=== PATIENT | male | born 1955 | race Caucasian/White ===

== ENCOUNTER 2016-11-10 10:57 | Day surgery (SDC) | payer MEDICARE, SELFPAY ==
[2016-11-07 14:30] VITALS: BMI 42.5
[~2016-11-10 10:57] MED LIST: LACTATED RINGERS 1,000 ML IV SCH; LIDOCAINE 1% 20 ML VIAL (10MG/ML) FOR IV START INTRADERMA PRN
[2016-11-10] MEDS ORDERED: LIDOCAINE 1% 20 ML VIAL (10MG/ML) FOR IV START INTRADERMA ONE (11:41)
[2016-11-10 11:57] VITALS: RESP 16; TEMP 97.8
[2016-11-10 12:01] LABS: Glucose,Whole Blood 137 mg/dL (75-99)
[2016-11-10] MEDS ORDERED: MIDAZOLAM 2 MG/2 ML VIAL ONE (12:26)
[2016-11-10] MEDS ORDERED: fentaNYL (PF) 50 MCG/ML 2 ML AMP ONE (12:26)
[2016-11-10] MEDS ORDERED: PROPOFOL 10 MG/ML 20 ML VIAL IV ONE (12:26)
[2016-11-10] MEDS ORDERED: LIDOCAINE 1% INJ 10MG/ML (20 ML MDV) ONE (12:26)
--- NOTE | 2016-11-10 12:30 | P.GSHP ---
History of Present Illness H&P Date: 11/10/16 Chief Complaint: GI bleed This is a 61-year-old male for from Dr. Huong Higgins. Patient presents today for colonoscopy. He's had issues rectal bleeding. - Constitutional Constitutional: Reports as per HPI Past Medical History Past Medical History: Coronary Artery Disease (CAD), Diabetes Mellitus, Hyperlipidemia, Hypertension, Myocardial Infarction (HI), Pulmonary Embolus (PE) , Seizure Disorder Additional Past Medical History / Comment(s): newly diagnosed PE 09/29/16 Last Myocardial Infarction Date:: 2012 History of Any Multi-Drug Resistant Organisms: None Reported Past Surgical History: Ear Surgery, Heart Catheterization With Stent, Hernia Repair Additional Past Surgical History / Comment(s): stent x3 Past Anesthesia/Blood Transfusion Reactions: Previous Problems w/ Anesthesia Additional Past Anesthesia/Blood Transfusion Reaction / Comment(s): "fights anesthesia" Date of Last Stent Placement:: January 2013 Past Psychological History: No Psychological Hx Reported Smoking Status: Former smoker Past Alcohol Use History: None Reported Additional Past Alcohol Use History / Comment(s): quit smoking 1984, smoked 3ppd , started age 17 Past Drug Use History: None Reported - Past Family History Mother Family Medical History: Cancer Additional Family Medical History / Comment(s): Lung cancer Father Family Medical History: Cancer Additional Family Medical History / Comment(s): Spinal Cancer Medications and Allergies Home Medications Medication Instructions Recorded Confirmed Type Ibuprofen [Motrin] 800 mg PO Q6HR PRN 04/23/15 11/07/16 History Simvastatin [Zocor] 80 mg PO HS 04/23/15 11/10/16 History metFORMIN HCL 1,000 mg PO BID 04/23/15 11/10/16 History Fluticasone Nasal [place] [Flonase 1 spray EA NOSTRIL DAILY PRN 03/03/16 11/10/16 History Nasal [place]] Vitamin B Complex 1 cap PO DAILY 03/03/16 11/07/16 History Vitamin E (Dl,Tocopheryl Acet) 400 unit PO DAILY 03/03/16 11/07/16 History [Vitamin E] Coconut Oil Capsule 1 cap PO DAILY 09/29/16 11/07/16 History Ferrous Sulfate [Feosol] 325 mg PO DAILY 09/29/16 11/07/16 History Allergies Allergy/AdvReac Type Severity Reaction Status Date / Time Sulfa (Sulfonamide Allergy Rash/Hives Verified 11/10/16 11:43 Antibiotics) Surgical - Exam Vital Signs Temp Pulse Resp BP Pulse Ox 97.8 F 85 16 131/67 95 11/10/16 11:55 11/10/16 11:55 11/10/16 11:55 11/10/16 11:55 11/10/16 11:55 - General well developed, no distress - Eyes PERRL - ENT normal pinna - Neck no masses - Respiratory normal expansion - Cardiovascular Rhythm: regular - Abdomen Abdomen: soft, non tender Results - Labs Abnormal Lab Results - Last 24 Hours (Table) 11/10/16 Range/Units 11:52 POC Glucose (mg/dL) 137 H (75-99) mg/dL Assessment and Plan Plan: GI bleed. We'll perform colonoscopy.
--- NOTE | 2016-11-10 12:48 | P.OP ---
Date of Procedure: 11/10/16 Preoperative Diagnosis: GI bleed Postoperative Diagnosis: External hemorrhoids Sigmoid colon polyp Procedure(s) Performed: Colonoscopy Anesthesia: MAC Surgeon: Carmelo Palmer Pathology: other (Left Colon polyp) Condition: stable Disposition: PACU Description of Procedure: The patient's placed on the endoscopy table in the lateral position. He received IV sedation. Digital rectal exam was performed which revealed external hemorrhoids. The prostate was symmetric without nodules. The flexible colonoscope was then placed patient anus passed throughout the entire colon. The ileocecal valve visualized. The cecum, ascending and transverse colon appeared normal. In the descending colon there was a small polyp seen was removed the forcep. The sigmoid colon appeared normal. Scope was then brought back the rectum and this appeared normal. Scope was withdrawn.
[2016-11-10 13:19] VITALS: BP 109/68; PULSE 75
== END 2016-11-10 14:01 | disposition home or self-care (01) ==
LOC: ORWHC2ENDO 10:57
PROVIDERS: ATTEND Surgery
DX: K63.5 Polyp of colon (principal); K63.89 Other specified diseases of intestine; K64.4 Residual hemorrhoidal skin tags; E11.9 Type 2 diabetes mellitus without complications; Z79.84 Long term (current) use of oral hypoglycemic drugs; I10 Essential (primary) hypertension; E78.5 Hyperlipidemia, unspecified; I25.10 Atherosclerotic heart disease of native coronary artery without angina pectoris; Z87.891 Personal history of nicotine dependence; Z86.711 Personal history of pulmonary embolism; Z79.01 Long term (current) use of anticoagulants; I25.2 Old myocardial infarction; Z79.899 Other long term (current) drug therapy; Z88.2 Allergy status to sulfonamides
CPT/HCPCS: 88305; 88313; 45380; J2250; J2001; J3010; J2704; 99153

== ENCOUNTER → 2017-12-21 | Outpatient (CLI) | payer MEDICARE ==
--- NOTE | 2017-12-21 15:12 | CT ---
EXAMINATION TYPE: CT sinus wo con DATE OF EXAM: 12/21/2017 COMPARISON: NONE HISTORY: sinusitis CT DLP: 618.1 mGycm CONTRAST: None The paranasal sinuses are examined in the axial plane at 2 mm thick sections. Reconstructed images i n the coronal plane were obtained. There is a retention cyst within right maxillary sinus. A retention cyst or polyp extends from the me dial wall of the left maxillary sinus. Bilateral joel bullosa are present. The ethmoid air cells a re clear. The sphenoid sinuses are clear. The frontal sinuses are clear. There appears to be a lar ge James air cell on the right. No obstruction of the hiatus semilunaris is evident. The septum is evaluated. There is septal deviation to the left. The ostiomeatal units are patent. Hyperostosis frontalis internus, normal variant, is present. IMPRESSIONS: 1. Small bilateral retention cysts within the maxillary sinuses.
== END | disposition home or self-care (01) ==
LOC: RADCTMAIN 14:38
PROVIDERS: ATTEND Otolaryngology
DX: J34.1 Cyst and mucocele of nose and nasal sinus (principal)
CPT/HCPCS: 70486

== ENCOUNTER 2019-07-17 06:12 | Observation (INO) | payer MEDICARE, OTHER ==
[2019-07-17] MEDS ORDERED: SODIUM CHLORIDE 0.9% 1,000 ML IV ONE (06:32)
--- NOTE | 2019-07-17 06:36 | ED ---
Altered Mental Status HPI - General Chief Complaint: Altered Mental Status Stated Complaint: Altered Mental Status Time Seen by Provider: 07/17/19 06:21 Source: patient, family, RN notes reviewed Mode of arrival: wheelchair Limitations: altered mental status - History of Present Illness Initial Comments: This a 63-year-old male presents emergency Department with chief complaint of confusion, fatigue. states that he got home from work on Thursday and he's been extremely fatigued states that his been sleeping more than usual along with he's had increased cough congestion. Patient himself to states he is tired he does have slight cough and a mild headache. Patient reportedly was very disoriented this morning he attempted to get up out of bed cannot find himself out of the his own bedroom and urinated on the floor. Patient has no complaints of abdominal pain does complain of some chest discomfort he has had some cardiac issues in the past doesn't have a history of hypertension hyperlipidemia and diabetes. Patient denies any back pain, leg discomfort, focal weakness. - Related Data Home Medications Medication Instructions Recorded Confirmed Ibuprofen [Motrin] 800 mg PO Q6HR PRN 04/23/15 07/17/19 metFORMIN HCL 1,000 mg PO BID 04/23/15 07/17/19 Fluticasone Nasal [place] [Flonase 1 spray EA NOSTRIL DAILY PRN 03/03/16 07/17/19 Nasal [place]] Vitamin B Complex 1 cap PO DAILY 03/03/16 07/17/19 Vitamin E (Dl,Tocopheryl Acet) 400 unit PO DAILY 03/03/16 07/17/19 [Vitamin E] Ferrous Sulfate [Feosol] 325 mg PO MOWEFR 09/29/16 07/17/19 Ascorbic Acid [Vitamin C] 1,000 mg PO BID 07/17/19 07/17/19 Atorvastatin [Lipitor] 40 mg PO HS 07/17/19 07/17/19 Cholecalciferol [Vitamin D3 (25 1,000 unit PO BID 07/17/19 07/17/19 Mcg = 1000 Iu)] Lisinopril [Zestril] 5 mg PO DAILY 07/17/19 07/17/19 Metoprolol Tartrate [Lopressor] 25 mg PO DAILY 07/17/19 07/17/19 Prasugrel HCl 10 mg PO DAILY 07/17/19 07/17/19 Previous Rx's Medication Instructions Recorded Aspirin 81 mg PO DAILY #30 chewable 09/30/16 Allergies Allergy/AdvReac Type Severity Reaction Status Date / Time Sulfa (Sulfonamide Allergy Rash/Hives Verified 07/17/19 08:00 Antibiotics) Review of Systems ROS Statement: Those systems with pertinent positive or pertinent negative responses have been documented in the HPI. ROS Other: All systems not noted in ROS Statement are negative. Past Medical History Past Medical History: Coronary Artery Disease (CAD), Diabetes Mellitus, Hyperlipidemia, Hypertension, Myocardial Infarction ([place]), Pulmonary Embolus (PE), Seizure Disorder Additional Past Medical History / Comment(s): newly diagnosed PE 09/29/16 Last Myocardial Infarction Date:: 2012 History of Any Multi-Drug Resistant Organisms: None Reported Past Surgical History: Ear Surgery, Heart Catheterization With Stent, Hernia Repair Additional Past Surgical History / Comment(s): stent x3 Past Anesthesia/Blood Transfusion Reactions: Previous Problems w/ Anesthesia Additional Past Anesthesia/Blood Transfusion Reaction / Comment(s): "fights anesthesia" Date of Last Stent Placement:: January 2013 Past Psychological History: No Psychological Hx Reported Smoking Status: Former smoker Past Alcohol Use History: None Reported Past Drug Use History: None Reported - Past Family History Mother Family Medical History: Cancer Additional Family Medical History / Comment(s): Lung cancer Father Family Medical History: Cancer Additional Family Medical History / Comment(s): Spinal Cancer General Exam Limitations: altered mental status General appearance: alert, in no apparent distress Head exam: Present: atraumatic, normocephalic, normal inspection Eye exam: Present: normal appearance, PERRL, EOMI. Absent: scleral icterus, conjunctival injection, periorbital swelling ENT exam: Present: normal exam, normal oropharynx, mucous membranes moist Neck exam: Present: normal inspection, full ROM. Absent: tenderness, meningismus, lymphadenopathy Respiratory exam: Present: normal lung sounds bilaterally. Absent: respiratory distress, wheezes, rales, rhonchi, stridor Cardiovascular Exam: Present: regular rate, normal rhythm, normal heart sounds. Absent: systolic murmur, diastolic murmur, rubs, gallop, clicks GI/Abdominal exam: Present: soft, normal bowel sounds. Absent: distended, tenderness, guarding, rebound, rigid Neurological exam: Present: alert, oriented X3, CN II-XII intact, reflexes normal, other (Finger to nose intact bilaterally without overshooting). Absent: motor sensory deficit Skin exam: Present: warm, dry, intact, normal color. Absent: rash Course Vital Signs 07/17/19 06:13 Temperature 98.0 F Pulse Rate 82 Respiratory 20 Rate Blood Pressure 131/80 O2 Sat by Pulse 96 Oximetry - Reevaluation(s) Reevaluation #1: 07/17/19 09:08 Did reevaluate the patient and their results. Patient still is very fatigued, not his usual self he still complains of cough congestion. Chest x-ray was reviewed showed possibility of infection. I did question patient further regarding his history of seizures in which his did state that he had a seizure this morning. Patient was instructed that he cannot drive for 6 months and and to cleared by neurology. Medical Decision Making - Medical Decision Making 63-year-old male presented for altered mental status, cough congestion fatigue. Patient workup including chest x-ray, CT and labs essentially unremarkable though patient has very started, altered at times. Patient will be admitted concerning her back for possible Pneumonia. Patient will have further evaluation and return parameters discussed. - Lab Data Result diagrams: 07/17/19 07:20 07/17/19 07:20 Lab Results 07/17/19 07/17/19 07/17/19 Range/Units 06:56 07:20 07:20 WBC 10.2 (3.8-10.6) k/uL RBC 4.35 (4.30-5.90) m/uL Hgb 13.6 (13.0-17.5) gm/dL Hct 40.6 (39.0-53.0) % MCV 93.5 (80.0-100.0) fL MCH 31.2 (25.0-35.0) pg MCHC 33.4 (31.0-37.0) g/dL RDW 13.3 (11.5-15.5) % Plt Count 148 L (150-450) k/uL Neutrophils % 83 % Lymphocytes % 9 % Monocytes % 4 % Eosinophils % 3 % Basophils % 0 % Neutrophils # 8.4 H (1.3-7.7) k/uL Lymphocytes # 0.9 L (1.0-4.8) k/uL Monocytes # 0.4 (0-1.0) k/uL Eosinophils # 0.3 (0-0.7) k/uL Basophils # 0.0 (0-0.2) k/uL PT (9.0-12.0) sec INR (<1.2) APTT (22.0-30.0) sec Sodium (137-145) mmol/L Potassium (3.5-5.1) mmol/L Chloride (98-107) mmol/L Carbon Dioxide (22-30) mmol/L Anion Gap mmol/L BUN (9-20) mg/dL Creatinine (0.66-1.25) mg/dL Est GFR (CKD-EPI)AfAm (>60 ml/min/1.73 sqM) Est GFR (CKD-EPI)NonAf (>60 ml/min/1.73 sqM) Glucose (74-99) mg/dL POC Glucose (mg/dL) 131 H (75-99) mg/dL POC Glu Scroll Assembler ID Mirela Trevino Plasma Lactic Acid Levi 1.4 (0.7-2.0) mmol/L Calcium (8.4-10.2) mg/dL Total Bilirubin (0.2-1.3) mg/dL AST (17-59) U/L ALT (21-72) U/L Alkaline Phosphatase (38-126) U/L Ammonia <9 (<30) umol/L Troponin I (0.000-0.034) ng/mL Total Protein (6.3-8.2) g/dL Albumin (3.5-5.0) g/dL Urine Color Urine Appearance (Clear) Urine pH (5.0-8.0) Ur Specific [place] (1.001-1.035) Urine Protein (Negative) Urine Glucose (UA) (Negative) Urine Ketones (Negative) Urine Blood (Negative) Urine Nitrite (Negative) Urine Bilirubin (Negative) Urine Urobilinogen (<2.0) mg/dL Ur Leukocyte Esterase (Negative) Urine RBC (0-5) /hpf Urine WBC (0-5) /hpf Ur Squamous Epith Cells (0-4) /hpf Amorphous Sediment (None) /hpf Urine Mucus (None) /hpf 07/17/19 07/17/19 07/17/19 Range/Units 07:20 07:20 07:20 WBC (3.8-10.6) k/uL RBC (4.30-5.90) m/uL Hgb (13.0-17.5) gm/dL Hct (39.0-53.0) % MCV (80.0-100.0) fL MCH (25.0-35.0) pg MCHC (31.0-37.0) g/dL RDW (11.5-15.5) % Plt Count (150-450) k/uL Neutrophils % % Lymphocytes % % Monocytes % % Eosinophils % % Basophils % % Neutrophils # (1.3-7.7) k/uL Lymphocytes # (1.0-4.8) k/uL Monocytes # (0-1.0) k/uL Eosinophils # (0-0.7) k/uL Basophils # (0-0.2) k/uL PT 10.3 (9.0-12.0) sec INR 1.0 (<1.2) APTT 22.7 (22.0-30.0) sec Sodium 144 (137-145) mmol/L Potassium 4.1 (3.5-5.1) mmol/L Chloride 111 H (98-107) mmol/L Carbon Dioxide 26 (22-30) mmol/L Anion Gap 7 mmol/L BUN 18 (9-20) mg/dL Creatinine 0.71 (0.66-1.25) mg/dL Est GFR (CKD-EPI)AfAm >90 (>60 ml/min/1.73 sqM) Est GFR (CKD-EPI)NonAf >90 (>60 ml/min/1.73 sqM) Glucose 120 H (74-99) mg/dL POC Glucose (mg/dL) (75-99) mg/dL POC Glu Scroll Assembler ID Plasma Lactic Acid Levi (0.7-2.0) mmol/L Calcium 9.5 (8.4-10.2) mg/dL Total Bilirubin 0.7 (0.2-1.3) mg/dL AST 35 (17-59) U/L ALT 39 (21-72) U/L Alkaline Phosphatase 82 (38-126) U/L Ammonia (<30) umol/L Troponin I <0.012 (0.000-0.034) ng/mL Total Protein 6.6 (6.3-8.2) g/dL Albumin 4.1 (3.5-5.0) g/dL Urine Color Urine Appearance (Clear) Urine pH (5.0-8.0) Ur Specific [place] (1.001-1.035) Urine Protein (Negative) Urine Glucose (UA) (Negative) Urine Ketones (Negative) Urine Blood (Negative) Urine Nitrite (Negative) Urine Bilirubin (Negative) Urine Urobilinogen (<2.0) mg/dL Ur Leukocyte Esterase (Negative) Urine RBC (0-5) /hpf Urine WBC (0-5) /hpf Ur Squamous Epith Cells (0-4) /hpf Amorphous Sediment (None) /hpf Urine Mucus (None) /hpf 07/17/19 Range/Units 08:30 WBC (3.8-10.6) k/uL RBC (4.30-5.90) m/uL Hgb (13.0-17.5) gm/dL Hct (39.0-53.0) % MCV (80.0-100.0) fL MCH (25.0-35.0) pg MCHC (31.0-37.0) g/dL RDW (11.5-15.5) % Plt Count (150-450) k/uL Neutrophils % % Lymphocytes % % Monocytes % % Eosinophils % % Basophils % % Neutrophils # (1.3-7.7) k/uL Lymphocytes # (1.0-4.8) k/uL Monocytes # (0-1.0) k/uL Eosinophils # (0-0.7) k/uL Basophils # (0-0.2) k/uL PT (9.0-12.0) sec INR (<1.2) APTT (22.0-30.0) sec Sodium (137-145) mmol/L Potassium (3.5-5.1) mmol/L Chloride (98-107) mmol/L Carbon Dioxide (22-30) mmol/L Anion Gap mmol/L BUN (9-20) mg/dL Creatinine (0.66-1.25) mg/dL Est GFR (CKD-EPI)AfAm (>60 ml/min/1.73 sqM) Est GFR (CKD-EPI)NonAf (>60 ml/min/1.73 sqM) Glucose (74-99) mg/dL POC Glucose (mg/dL) (75-99) mg/dL POC Glu Scroll Assembler ID Plasma Lactic Acid [place] (0.7-2.0) mmol/L Calcium (8.4-10.2) mg/dL Total Bilirubin (0.2-1.3) mg/dL AST (17-59) U/L ALT (21-72) U/L Alkaline Phosphatase (38-126) U/L Ammonia (<30) umol/L Troponin I (0.000-0.034) ng/mL Total Protein (6.3-8.2) g/dL Albumin (3.5-5.0) g/dL Urine Color Yellow Urine Appearance Clear (Clear) Urine pH 5.5 (5.0-8.0) Ur Specific [place] 1.026 (1.001-1.035) Urine Protein 1+ H (Negative) Urine Glucose (UA) Negative (Negative) Urine Ketones 1+ H (Negative) Urine Blood Negative (Negative) Urine Nitrite Negative (Negative) Urine Bilirubin Negative (Negative) Urine Urobilinogen <2.0 (<2.0) mg/dL Ur Leukocyte Esterase Negative (Negative) Urine RBC <1 (0-5) /hpf Urine WBC 1 (0-5) /hpf Ur Squamous Epith Cells <1 (0-4) /hpf Amorphous Sediment Rare H (None) /hpf Urine Mucus Rare H (None) /hpf 07/17/19 09:12 EKG performed at 6:25 normal sinus rhythm rate of 83. 130/78 QTC is QTC 34/451 Disposition Clinical Impression: Lethargic, Altered mental status, Tracheobronchitis, History of seizure Disposition: ADMITTED IP TO THIS HOSP Condition: Fair Additional Instructions: Please return to the Emergency Department if symptoms worsen or any other concerns. Is patient prescribed a controlled substance at d/c from ED?: No Referrals: Huong Higgins DO [Primary Care Provider] - 1-2 days Time of Disposition: 09:13
[2019-07-17 06:59] LABS: Glucose,Whole Blood 131 mg/dL (75-99)
[2019-07-17 07:39] LABS: Basophils % (A) 0 %; Eosinophils # (A) 0.3 k/uL (0-0.7); Eosinophils % (A) 3 %; HCT 40.6 % (39.0-53.0); HGB 13.6 gm/dL (13.0-17.5); Lymphocytes # (A) 0.9 k/uL (1.0-4.8); Lymphocytes % (A) 9 %; MCH 31.2 pg (25.0-35.0); MCHC 33.4 g/dL (31.0-37.0); MCV 93.5 fL (80.0-100.0); Mean Platelet Volume 9.1; Monocytes # (A) 0.4 k/uL (0-1.0); Monocytes % (A) 4 %; Neutrophils # (A) 8.4 k/uL (1.3-7.7); Neutrophils % (A) 83 %; Platelet Count 148 k/uL (150-450); RBC 4.35 m/uL (4.30-5.90); RDW 13.3 % (11.5-15.5); WBC 10.2 k/uL (3.8-10.6)
[2019-07-17 07:51] LABS: Ammonia <9 umol/L (<30); Lactic Acid, Venous 1.4 mmol/L (0.7-2.0)
[2019-07-17 07:54] LABS: ALT 39 U/L (21-72); AST 35 U/L (17-59); African American GFR (CKD) >90 (>60 ml/min/1.73 sqM); Albumin 4.1 g/dL (3.5-5.0); Alkaline Phosphatase 82 U/L (38-126); Anion Gap 7 mmol/L; Blood Urea Nitrogen 18 mg/dL (9-20); Calcium 9.5 mg/dL (8.4-10.2); Carbon Dioxide 26 mmol/L (22-30); Chloride 111 mmol/L (98-107); Glucose 120 mg/dL (74-99); Potassium 4.1 mmol/L (3.5-5.1); Sodium 144 mmol/L (137-145); Total Bilirubin 0.7 mg/dL (0.2-1.3); Total Protein 6.6 g/dL (6.3-8.2)
[2019-07-17 07:59] LABS: Partial Thromboplastin Time 22.7 sec (22.0-30.0); Prothrombin Time 10.3 sec (9.0-12.0)
--- NOTE | 2019-07-17 08:21 | CT ---
EXAMINATION TYPE: CT brain wo con DATE OF EXAM: 07/17/2019 COMPARISON: Previous study dated 04/23/2015 HISTORY: altered mental status CT DLP: 1092.4 mGycm Automated exposure control for dose reduction was used. FINDINGS: There are mild, generalized changes of sulcal prominence and ventriculomegaly, compatible with mild a trophic change. There is diffuse periventricular white matter lucency, compatible with chronic white matter ischemic change. There is poor differentiation of the interface between the white and khan mat ter throughout the brain. This appears to change slightly from previous. This may, in part, be due to technique. There is no acute focal lesion, mass effect or midline shift identified. I do not see solomon dence of intracranial blood. There is mucoperiosteal thickening involving the posterior ethmoid sinuses on the right. The remainde r the paranasal sinuses and mastoids are clear. The bony calvarium is intact. IMPRESSION: 1. NO DEFINITE ACUTE INTRACRANIAL ABNORMALITY. 2. MILD DEGENERATIVE CHANGE. 3. LOSS OF KHAN-WHITE DIFFERENTIATION MAY BE IN PART TECHNICAL IN NATURE. THERE HAS BEEN NO CHANGE IN VENTRICULAR SIZE TO SUGGEST EDEMA.
--- NOTE | 2019-07-17 08:26 | XR ---
EXAMINATION TYPE: XR chest 2V DATE OF EXAM: 07/17/2019 HISTORY: altered mental status. REFERENCE: Previous study dated 09/29/2016. FINDINGS: The heart is mildly prominent. Is atelectatic change present at the lung bases. Pleural spa isael appear clear. IMPRESSION: 1. MILD CARDIOMEGALY. 2. BIBASILAR ATELECTASIS.
[2019-07-17 08:44] LABS: Amorphous Sediment,Urine Rare /hpf; Appearance,Urine Clear (Clear); Bilirubin,Urine Negative (Negative); Blood,Urine Negative (Negative); Color,Urine Yellow; Glucose,Urine (UA) Negative (Negative); Ketones,Urine 1+ (Negative); Leukocyte Esterase,Urine Negative (Negative); Mucus,Urine Rare /hpf; Nitrite,Urine Negative (Negative); PH, Urine 5.5 (5.0-8.0); Protein,Urine 1+ (Negative); RBC,Urine <1 /hpf (0-5); Specific Gravity,Urine 1.026 (1.001-1.035); Squamous Epithelial Cell,Urine <1 /hpf (0-4); Urobilinogen,Urine <2.0 mg/dL (<2.0); WBC,Urine 1 /hpf (0-5)
[2019-07-17] MEDS ORDERED: AZITHROMYCIN 500 MG in SODIUM CHLORIDE 0.9% 250 ML IVPB STA (09:12)
[2019-07-17] MEDS: SODIUM CHLORIDE 0.9% 1,000 ML IV SCH ×2 (11:40→23:07)
--- NOTE | 2019-07-17 13:52 | P.HPIM ---
History of Present Illness H&P Date: 07/17/19 63-year-old male presents emergency Department with chief complaint of confusion, fatigue. states that he got home from work on Thursday and he's been extremely fatigued states that his been sleeping more than usual along with he's had increased cough congestion. Patient himself to states he is tired he does have slight cough and a mild headache. Patient reportedly was very disoriented this morning he attempted to get up out of bed cannot find himself out of the his own bedroom and urinated on the floor. Patient has no complaints of abdominal pain does complain of some chest discomfort he has had some cardiac issues in the past doesn't have a history of hypertension hyperlipidemia and diabetes. Patient denies any back pain, leg discomfort, focal weakness. Workup in ED including, CT of the head and blood work was unremarkable; chest x- ray came back concerning for possible pneumonia versus severe tracheobronchitis; patient is admitted for further treatment and evaluation by neurology Review of Systems Constitutional: Denies chills, Denies fever Eyes: denies blurred vision Ears, nose, mouth and throat: Denies epistaxis Cardiovascular: Reports dyspnea on exertion, Denies chest pain Respiratory: Reports cough with sputum Gastrointestinal: Denies abdominal pain, Denies nausea, Denies vomiting Genitourinary: Denies dysuria, Denies hematuria Musculoskeletal: Denies frequent falls Integumentary: Denies change in hair/nails, Denies color changes Neurological: Reports confusion Psychiatric: Denies anxiety Endocrine: Denies cold intolerance, Denies heat intolerance Past Medical History Past Medical History: Coronary Artery Disease (CAD), Diabetes Mellitus, Hyperlipidemia, Hypertension, Myocardial Infarction (ND), Pulmonary Embolus (PE), Seizure Disorder Additional Past Medical History / Comment(s): newly diagnosed PE 09/29/16 Last Myocardial Infarction Date:: 2012 History of Any Multi-Drug Resistant Organisms: None Reported Past Surgical History: Ear Surgery, Heart Catheterization With Stent, Hernia Repair Additional Past Surgical History / Comment(s): stent x3 Past Anesthesia/Blood Transfusion Reactions: Previous Problems w/ Anesthesia Additional Past Anesthesia/Blood Transfusion Reaction / Comment(s): "fights anesthesia" Date of Last Stent Placement:: January 2013 Past Psychological History: No Psychological Hx Reported Smoking Status: Former smoker Past Alcohol Use History: None Reported Past Drug Use History: None Reported - Past Family History Mother Family Medical History: Cancer Additional Family Medical History / Comment(s): Lung cancer Father Family Medical History: Cancer Additional Family Medical History / Comment(s): Spinal Cancer Medications and Allergies Home Medications Medication Instructions Recorded Confirmed Type Ibuprofen [Motrin] 800 mg PO Q6HR PRN 04/23/15 07/17/19 History metFORMIN HCL 1,000 mg PO BID 04/23/15 07/17/19 History Fluticasone Nasal [place] [Flonase 1 spray EA NOSTRIL DAILY PRN 03/03/16 07/17/19 History Nasal [place]] Vitamin B Complex 1 cap PO DAILY 03/03/16 07/17/19 History Vitamin E (Dl,Tocopheryl Acet) 400 unit PO DAILY 03/03/16 07/17/19 History [Vitamin E] Ferrous Sulfate [Feosol] 325 mg PO MOWEFR 09/29/16 07/17/19 History Aspirin 81 mg PO DAILY #30 chewable 09/30/16 07/17/19 Rx Ascorbic Acid [Vitamin C] 1,000 mg PO BID 07/17/19 07/17/19 History Atorvastatin [Lipitor] 40 mg PO HS 07/17/19 07/17/19 History Cholecalciferol [Vitamin D3 (25 1,000 unit PO BID 07/17/19 07/17/19 History Mcg = 1000 Iu)] Lisinopril [Zestril] 5 mg PO DAILY 07/17/19 07/17/19 History Metoprolol Tartrate [Lopressor] 25 mg PO DAILY 07/17/19 07/17/19 History Prasugrel HCl 10 mg PO DAILY 07/17/19 07/17/19 History Allergies Allergy/AdvReac Type Severity Reaction Status Date / Time Sulfa (Sulfonamide Allergy Rash/Hives Verified 07/17/19 08:00 Antibiotics) Physical Exam Vitals: Vital Signs Temp Pulse Resp BP Pulse Ox 07/17/19 13:16 84 18 157/84 96 07/17/19 11:45 70 18 141/82 98 07/17/19 06:13 98.0 F 82 20 131/80 96 Intake and Output 07/16/19 07/17/19 07/17/19 22:59 06:59 14:59 Other: Weight 143.789 kg Limitations: altered mental status General appearance: alert, in no apparent distress Head exam: Present: atraumatic, normocephalic, normal inspection Eye exam: Present: normal appearance, PERRL, EOMI. Absent: scleral icterus, conjunctival injection, periorbital swelling ENT exam: Present: normal exam, normal oropharynx, mucous membranes moist Neck exam: Present: normal inspection, full ROM. Absent: tenderness, meningismus, lymphadenopathy Respiratory exam: Present: normal lung sounds bilaterally. Absent: respiratory distress, wheezes, rales, rhonchi, stridor Cardiovascular Exam: Present: regular rate, normal rhythm, normal heart sounds. Absent: systolic murmur, diastolic murmur, rubs, gallop, clicks GI/Abdominal exam: Present: soft, normal bowel sounds. Absent: distended, tenderness, guarding, rebound, rigid Neurological exam: Present: alert, oriented X3, CN II-XII intact, reflexes normal, other (Finger to nose intact bilaterally without overshooting). Absent: motor sensory deficit Skin exam: Present: warm, dry, intact, normal color. Absent: rash Results CBC & Chem 7: 07/17/19 07:20 07/17/19 07:20 Labs: Abnormal Lab Results - Last 24 Hours (Table) 07/17/19 07/17/19 07/17/19 Range/Units 06:56 07:20 07:20 Plt Count 148 L (150-450) k/uL Neutrophils # 8.4 H (1.3-7.7) k/uL Lymphocytes # 0.9 L (1.0-4.8) k/uL Chloride 111 H (98-107) mmol/L Glucose 120 H (74-99) mg/dL POC Glucose (mg/dL) 131 H (75-99) mg/dL Urine Protein (Negative) Urine Ketones (Negative) Amorphous Sediment (None) /hpf Urine Mucus (None) /hpf 07/17/19 Range/Units 08:30 Plt Count (150-450) k/uL Neutrophils # (1.3-7.7) k/uL Lymphocytes # (1.0-4.8) k/uL Chloride (98-107) mmol/L Glucose (74-99) mg/dL POC Glucose (mg/dL) (75-99) mg/dL Urine Protein 1+ H (Negative) Urine Ketones 1+ H (Negative) Amorphous Sediment Rare H (None) /hpf Urine Mucus Rare H (None) /hpf Assessment and Plan Assessment: 1. Severe tracheobronchitis versus community-acquired pneumonia - Patient is started on IV Rocephin and Zithromax in ED; we will continue to monitor CBC, pro-calcitonin and lactic acid levels - Order Mycoplasma antibodies and strep pneumonia antigens - Symptomatic treatment of pneumonia with nebulizer treatments and antitussive therapy 2. Altered mental status possibly secondary to 1 versus seizures versus other - CT of the head done in ED was unremarkable; patient does have history of seizures but has not been on any seizure medication - We will admit and monitor neuro checks; order seizure precautions; consult neurology for further recommendations 3. Hypertension; stable on home dose of lisinopril 5 mg daily along with Lopressor 25 mg daily 4. Hyperlipidemia; continue with home dose of Lipitor at 40 mg by mouth daily at bedtime 5. Diabetes mellitus type 2; metformin 1000 mg by mouth twice a day; monitor Accu-Cheks every 6 hours and at bedtime with insulin sliding scale 6. Obesity; counseling done on risks and necessity for weight reduction 7. DVT prophylaxis; subcutaneous Lovenox CODE STATUS; full code Time with Patient: Greater than 30
[2019-07-17] MEDS ORDERED: guaiFENesin-DM 600/30MG 1 EACH TAB.ER.12H PO PRN (13:57)
[2019-07-17] MEDS: DOXYCYCLINE 100 MG CAP PO SCH ×2 (14:20→20:38)
[2019-07-17] MEDS: metFORMIN 500 MG TAB PO SCH (17:09)
[2019-07-17] MEDS: ATORVASTATIN 40 MG TAB PO SCH (20:38)
[2019-07-17] MEDS: ASCORBIC ACID 500 MG TAB PO SCH (20:38)
[2019-07-17] MEDS: CHOLECALCIFEROL 1,000 UNIT TAB PO SCH (20:38)
[2019-07-18 07:12] LABS: Glucose,Whole Blood 97 mg/dL (75-99)
[2019-07-18 08:25] LABS: African American GFR (CKD) >90 (>60 ml/min/1.73 sqM); Anion Gap 8 mmol/L; Blood Urea Nitrogen 17 mg/dL (9-20); Calcium 8.8 mg/dL (8.4-10.2); Carbon Dioxide 22 mmol/L (22-30); Chloride 114 mmol/L (98-107); Glucose 88 mg/dL (74-99); Potassium 3.6 mmol/L (3.5-5.1); Sodium 144 mmol/L (137-145)
[2019-07-18] MEDS: METOPROLOL TARTRATE 25 MG TAB PO SCH (08:39)
[2019-07-18] MEDS: CHOLECALCIFEROL 1,000 UNIT TAB PO SCH ×2 (08:39→20:04)
[2019-07-18] MEDS: ASCORBIC ACID 500 MG TAB PO SCH ×2 (08:39→20:04)
[2019-07-18] MEDS: LISINOPRIL 5 MG TAB PO SCH (08:39)
[2019-07-18] MEDS: metFORMIN 500 MG TAB PO SCH ×2 (08:39→17:02)
[2019-07-18] MEDS: PRASUGREL 10 MG TAB PO SCH (08:39)
[2019-07-18] MEDS: DOXYCYCLINE 100 MG CAP PO SCH ×2 (08:39→20:04)
[2019-07-18] MEDS: ASPIRIN 81 MG PO SCH (08:40)
[2019-07-18] MEDS ORDERED: FERROUS SULFATE 325 MG TAB PO SCH (09:00)
[2019-07-18 10:35] LABS: Basophils # (A) 0.1 k/uL (0-0.2); Basophils % (A) 1 %; Eosinophils # (A) 0.2 k/uL (0-0.7); Eosinophils % (A) 3 %; HCT 37.8 % (39.0-53.0); HGB 12.6 gm/dL (13.0-17.5); Lymphocytes # (A) 1.1 k/uL (1.0-4.8); Lymphocytes % (A) 14 %; MCH 31.3 pg (25.0-35.0); MCHC 33.2 g/dL (31.0-37.0); MCV 94.1 fL (80.0-100.0); Mean Platelet Volume 10.5; Monocytes # (A) 0.5 k/uL (0-1.0); Monocytes % (A) 6 %; Neutrophils % (A) 76 %; Platelet Count 119 k/uL (150-450); RBC 4.02 m/uL (4.30-5.90); RDW 13.5 % (11.5-15.5); WBC 7.9 k/uL (3.8-10.6)
--- NOTE | 2019-07-18 12:05 | P.PN ---
Subjective Progress Note Date: 07/18/19 63-year-old male presents emergency Department with chief complaint of confusion, fatigue. states that he got home from work on Thursday and he's been extremely fatigued states that his been sleeping more than usual along with he's had increased cough congestion. Patient himself to states he is tired he does have slight cough and a mild headache. Patient reportedly was very disoriented this morning he attempted to get up out of bed cannot find himself out of the his own bedroom and urinated on the floor. Patient has no complaints of abdominal pain does complain of some chest discomfort he has had some cardiac issues in the past doesn't have a history of hypertension hyperlipidemia and diabetes. Patient denies any back pain, leg discomfort, focal weakness. Workup in ED including, CT of the head and blood work was unremarkable; chest x- ray came back concerning for possible pneumonia versus severe tracheobronchitis; patient is admitted for further treatment and evaluation by neurology 07/18. Pt feeling well today, continues with cough but feels it is improved. Denies chest pain or shortness of breath. Oriented x3 with no confusion Objective - Vital Signs Vital signs: Vital Signs Temp 98.5 F 07/18/19 07:35 Pulse 78 07/18/19 07:35 Resp 16 07/18/19 07:35 BP 136/76 07/18/19 07:35 Pulse Ox 95 07/18/19 07:35 Intake & Output 07/17/19 07/18/19 07/18/19 18:59 06:59 18:59 Intake Total 600 360 Balance 600 360 Intake: Intake, IV Titration 600 Amount Azithromycin 500 mg In 0 Sodium Chloride 0.9% 250 ml @ 250 mls/hr IVPB ONCE STA Rx#:[id number] Sodium Chloride 0.9% 1, 600 000 ml @ 75 mls/hr IV . [id number] ROSIE Rx#:[id number] Oral 360 Other: # Voids 1 - Exam Gen: well developed, well nourished, NAD. Obese HEENT: mucus membranes moist CV: RRR, no murmur Lungs: good effort, rhonchi throughout, no rales Ext: no edema Neuro: alert and oriented x3 - Labs CBC & Chem 7: 07/18/19 07:21 07/18/19 07:21 Labs: Abnormal Lab Results - Last 24 Hours (Table) 07/18/19 07/18/19 Range/Units 07:21 07:21 RBC 4.02 L (4.30-5.90) m/uL Hgb 12.6 L (13.0-17.5) gm/dL Hct 37.8 L (39.0-53.0) % Plt Count 119 L (150-450) k/uL Chloride 114 H (98-107) mmol/L Creatinine 0.62 L (0.66-1.25) mg/dL Assessment and Plan (1) Community acquired bacterial pneumonia Current Visit: Yes Status: Acute Code(s): J15.9 - UNSPECIFIED BACTERIAL PNEUMONIA SNOMED Code(s): 262796311 (2) Coronary artery disease Current Visit: Yes Status: Acute Code(s): I25.10 - ATHSCL HEART DISEASE OF [place] CORONARY ARTERY W/O ANG PCTRS SNOMED Code(s): 12049202 (3) Altered mental status Current Visit: Yes Status: Acute Code(s): R41.82 - ALTERED MENTAL STATUS, UNSPECIFIED SNOMED Code(s): 040652999 (4) History of seizure Current Visit: Yes Status: Acute Code(s): Z87.898 - PERSONAL HISTORY OF OTHER SPECIFIED CONDITIONS SNOMED Code(s): 369063164 (5) Tracheobronchitis Current Visit: Yes Status: Acute Code(s): J40 - BRONCHITIS, NOT SPECIFIED ACUTE OR CHRONIC SNOMED Code(s): 22711097 Plan: 1. CAP. Improving. WBC normalized. Continue rocephin and doxycycline. Anticipate dc tomorrow 2. AMS. Resolved. Likely secondary to above. Continue neuro checks 3. CAD. Continue ASA, BB, PAUL, effient 4. T2DM. Continue metformin. BG has been well controlled this admission DVT prophylaxis lovenox
[2019-07-18 12:13] LABS: Glucose,Whole Blood 96 mg/dL (75-99)
[2019-07-18] MEDS: SODIUM CHLORIDE 0.9% 1,000 ML IV SCH (16:40)
[2019-07-18] MEDS: ENOXAPARIN 40 MG/0.4 ML SYRINGE SQ SCH (17:02)
[2019-07-18] MEDS: ATORVASTATIN 40 MG TAB PO SCH (20:04)
[2019-07-19] MEDS: SODIUM CHLORIDE 0.9% 1,000 ML IV SCH (02:54)
[2019-07-19 03:45] VITALS: RESP 15
[2019-07-19 07:14] LABS: Glucose,Whole Blood 145 mg/dL (75-99)
[2019-07-19] MEDS: PRASUGREL 10 MG TAB PO SCH (07:47)
[2019-07-19] MEDS: CHOLECALCIFEROL 1,000 UNIT TAB PO SCH (07:47)
[2019-07-19] MEDS: ASCORBIC ACID 500 MG TAB PO SCH (07:47)
[2019-07-19] MEDS: DOXYCYCLINE 100 MG CAP PO SCH (07:47)
[2019-07-19] MEDS: metFORMIN 500 MG TAB PO SCH (07:47)
[2019-07-19] MEDS: ENOXAPARIN 40 MG/0.4 ML SYRINGE SQ SCH (07:48)
[2019-07-19] MEDS: METOPROLOL TARTRATE 25 MG TAB PO SCH (07:48)
[2019-07-19] MEDS: LISINOPRIL 5 MG TAB PO SCH (07:48)
[2019-07-19] MEDS: ASPIRIN 81 MG PO SCH (07:49)
[2019-07-19 08:40] VITALS: BP 156/76; PULSE 78; TEMP 98.2
--- NOTE | 2019-07-19 16:33 | P.DS ---
Providers Date of admission: 07/17/19 09:23 Expected date of discharge: 07/19/19 Attending physician: Forrest Morton MD Primary care physician: Huong Higgins [facility] Hospital Course: Final Diagnoses: (1) Community acquired bacterial pneumonia Current Visit: Yes Status: Acute Code(s): J15.9 - UNSPECIFIED BACTERIAL PNEUMONIA SNOMED Code(s): 418571679 (2) Coronary artery disease Current Visit: Yes Status: Acute Code(s): I25.10 - ATHSCL HEART DISEASE OF [place] CORONARY ARTERY W/O ANG PCTRS SNOMED Code(s): 76495989 (3) Altered mental status Current Visit: Yes Status: Acute Code(s): R41.82 - ALTERED MENTAL STATUS, UNSPECIFIED SNOMED Code(s): 972453431 (4) History of seizure Current Visit: Yes Status: Acute Code(s): Z87.898 - PERSONAL HISTORY OF OTHER SPECIFIED CONDITIONS SNOMED Code(s): 838594991 (5) Tracheobronchitis Current Visit: Yes Status: Acute Code(s): J40 - BRONCHITIS, NOT SPECIFIED ACUTE OR CHRONIC SNOMED Code(s): 04207275 Hospital course:63-year-old male presents emergency Department with chief c omplaint of confusion, fatigue. states that he got home from work on Thursday and he's been extremely fatigued states that his been sleeping more than usual along with he's had increased cough congestion. Patient himself to states he is tired he does have slight cough and a mild headache. Patient reportedly was very disoriented this morning he attempted to get up out of bed cannot find himself out of the his own bedroom and urinated on the floor. Patient has no complaints of abdominal pain does complain of some chest discomfort he has had some cardiac issues in the past doesn't have a history of hypertension hyperlipidemia and diabetes. Patient denies any back pain, leg discomfort, focal weakness. Workup in ED including, CT of the head and blood work was unremarkable; chest x- ray came back concerning for possible pneumonia versus severe tracheobronchitis; patient is admitted for further treatment and evaluation by neurology 07/18. Pt feeling well today, continues with cough but feels it is improved. Denies chest pain or shortness of breath. Oriented x3 with no confusion Maintained on IV antibiotics, WBC normalized. Sensorium significantly improved. Blood sugars controlled. Significant clinical improvement. Patient is being discharged home in a stable condition with guarded prognosis. Recommend follow- up chest x-ray in 2 weeks with PCP. - Exam Gen: well developed, well nourished, NAD. Obese HEENT: mucus membranes moist CV: RRR, no murmur Lungs: good effort, clear Ext: no edema Neuro: alert and oriented x3 The impression and plan of care has been dictated as directed. : I performed a history and examination of this patient, discussed the same with the dictator. I agree with the dictator's note ,documented as a scribe. Any additional findings or plans will be noted. Time taken: 35 minutes Patient Condition at Discharge: Stable Plan - Discharge Summary Discharge Rx Participant: Yes New Discharge Prescriptions: New Amoxic-Pot Clav 875-125Mg [Augmentin 875-125] 1 tab PO Q12HR #10 tablet guaiFENesin-DM 600/30MG [Mucinex Dm] 1 each PO Q12HR PRN tab.er.12h PRN Reason: Cough Continue metFORMIN HCL 1,000 mg PO BID Fluticasone Nasal [place] [Flonase Nasal [place]] 1 spray EA NOSTRIL DAILY PRN PRN Reason: Allergy Symptoms Vitamin E (Dl,Tocopheryl Acet) [Vitamin E] 400 unit PO DAILY Vitamin B Complex 1 cap PO DAILY Ferrous Sulfate [Iron (65 MG Elemental)] 325 mg PO MOWEFR Aspirin 81 mg PO DAILY #30 chewable Cholecalciferol [Vitamin D3 (25 Mcg = 1000 Iu)] 1,000 unit PO BID Atorvastatin [Lipitor] 40 mg PO HS Ascorbic Acid [Vitamin C] 1,000 mg PO BID Prasugrel HCl 10 mg PO DAILY Metoprolol Tartrate [Lopressor] 25 mg PO DAILY Lisinopril [Zestril] 5 mg PO DAILY Discontinued Ibuprofen [Motrin] 800 mg PO Q6HR PRN PRN Reason: Pain Discharge Medication List metFORMIN HCL 1,000 mg PO BID 04/23/15 [History] Fluticasone Nasal [place] [Flonase Nasal [place]] 1 spray EA NOSTRIL DAILY PRN 0507/11 [History] Vitamin B Complex 1 cap PO DAILY 03/03/16 [History] Vitamin E (Dl,Tocopheryl Acet) [Vitamin E] 400 unit PO DAILY 03/03/16 [History] Ferrous Sulfate [Iron (65 MG Elemental)] 325 mg PO MOWEFR 09/29/16 [History] Aspirin 81 mg PO DAILY #30 chewable 09/30/16 [Rx] Ascorbic Acid [Vitamin C] 1,000 mg PO BID 07/17/19 [History] Atorvastatin [Lipitor] 40 mg PO HS 07/17/19 [History] Cholecalciferol [Vitamin D3 (25 Mcg = 1000 Iu)] 1,000 unit PO BID 07/17/19 [History] Lisinopril [Zestril] 5 mg PO DAILY 07/17/19 [History] Metoprolol Tartrate [Lopressor] 25 mg PO DAILY 07/17/19 [History] Prasugrel HCl 10 mg PO DAILY 07/17/19 [History] Amoxic-Pot Clav 875-125Mg [Augmentin 875-125] 1 tab PO Q12HR #10 tablet 07/19/19 [Rx] guaiFENesin-DM 600/30MG [Mucinex Dm] 1 each PO Q12HR PRN tab.er.12h 07/19/19 [Rx] Follow up Appointment(s)/Referral(s): Huong Higgins DO [Primary Care Provider] - 07/22/19 3:00 pm Ambulatory/Diagnostic Orders: Complete Blood Count w/diff [LAB.AMB] Time Frame: 3 Days, Location: None Selected Patient Instructions/Handouts: Altered Mental Status (GEN) Activity/Diet/Wound Care/Special Instructions: Repeat follow-up chest x-ray in 2 weeks with PCP Not to return to work until reviewed further by Primary Care Doctor at visit 07/22/19. Discharge/Stand Alone Forms: Work/School Release / Restrict
[2019-07-20 05:19] LABS: Mycoplasma IgM Antibody 0.23 INDEX (<=0.90)
[2019-07-22 16:25] LABS: S.pneumoniae Serotype 1 (1) 4.5 mcg/mL (>=2.3); S.pneumoniae Serotype 10A (34) 2.1 mcg/mL (>=2.9); S.pneumoniae Serotype 12F (12) <0.4 mcg/mL (>=0.6); S.pneumoniae Serotype 14 (14) 21.5 mcg/mL (>=7.0); S.pneumoniae Serotype 15B (54) 5.1 mcg/mL (>=3.3); S.pneumoniae Serotype 18C (56) 3.2 mcg/mL (>=3.3); S.pneumoniae Serotype 19A (57) 32.5 mcg/mL (>=17.1); S.pneumoniae Serotype 19F (19) 4.8 mcg/mL (>=15.0); S.pneumoniae Serotype 20 (20) 0.4 mcg/mL (>=1.3); S.pneumoniae Serotype 22F (22) 8.3 mcg/mL (>=7.2); S.pneumoniae Serotype 23F (23) 9.4 mcg/mL (>=8.0); S.pneumoniae Serotype 4 (4) 0.5 mcg/mL (>=0.6); S.pneumoniae Serotype 6B (26) 21.1 mcg/mL (>=4.7); S.pneumoniae Serotype 7F (51) 4.8 mcg/mL (>=3.2); S.pneumoniae Serotype 8 (8) 31.6 mcg/mL (>=2.9)
== END 2019-07-19 11:29 ==
LOC: EC 06:12 → 3NMEDONC 09:23 → 4SSUR 12:59
PROVIDERS: ADMIT Family Medicine; ATTEND Family Medicine
DX: J15.9 Unspecified bacterial pneumonia (principal); I25.10 Atherosclerotic heart disease of native coronary artery without angina pectoris; R41.82 Altered mental status, unspecified; Z87.898 Personal history of other specified conditions; J40 Bronchitis, not specified as acute or chronic; R51 Headache; E66.9 Obesity, unspecified; Z68.38 Body mass index [BMI] 38.0-38.9, adult; E11.9 Type 2 diabetes mellitus without complications; E78.5 Hyperlipidemia, unspecified; I10 Essential (primary) hypertension; I25.2 Old myocardial infarction; Z86.711 Personal history of pulmonary embolism; Z95.5 Presence of coronary angioplasty implant and graft; Z87.891 Personal history of nicotine dependence; Z79.84 Long term (current) use of oral hypoglycemic drugs; Z79.899 Other long term (current) drug therapy; Z79.1 Long term (current) use of non-steroidal anti-inflammatories (NSAID); Z79.82 Long term (current) use of aspirin; Z88.2 Allergy status to sulfonamides; Z80.1 Family history of malignant neoplasm of trachea, bronchus and lung; Z80.8 Family history of malignant neoplasm of other organs or systems
CPT/HCPCS: 96361 ×3; 96366; 96372 ×2; 96365; 96367; 99285; 36415; 93005; 86003; 86738; 80053; 80048; 87449; 86317; 82140; 83605; 84484; 85025 ×2; 85610; 85730; 81001; 87040; 84145; 71046; 70450; G0378 ×3; J0456; J1650 ×2; J0696 ×3

== ENCOUNTER 2019-12-04 13:09 | Emergency (ER) | payer MEDICARE, OTHER ==
[2019-12-04 13:31] VITALS: TEMP 98.1
[2019-12-04] MEDS ORDERED: SODIUM CHLORIDE 0.9% 500 ML 500 ML IV ONE (13:44)
--- NOTE | 2019-12-04 13:57 | ED ---
General Adult HPI - General Chief complaint: Recheck/Abnormal Lab/Rx Stated complaint: lethargic, bladder leaking Time Seen by Provider: 12/04/19 13:34 Source: patient, family, RN notes reviewed, old records reviewed Mode of arrival: ambulatory Limitations: no limitations - History of Present Illness Initial comments: 64-year-old male presenting for evaluation of confusion, lethargy, nighttime urinary incontinence. Patient has history of pseudoseizures with any infection. He's had episodes of confusion and lethargy over the past several days. He's alert and oriented to time my evaluation. He complains of a headache, cough, and myalgias. No fever or chills. No chest pain. No dyspnea. No abdominal pain nausea or vomiting. He's been eating and drinking well. He does have urinary frequency and has had history of UTI. According to his he's had similar symptoms in the past associated with pneumonia and UTI. - Related Data Home Medications Medication Instructions Recorded Confirmed metFORMIN HCL 1,000 mg PO BID 04/23/15 07/17/19 Fluticasone Nasal [place] [Flonase 1 spray EA NOSTRIL DAILY PRN 03/03/16 07/17/19 Nasal [place]] Vitamin B Complex 1 cap PO DAILY 03/03/16 07/17/19 Vitamin E (Dl,Tocopheryl Acet) 400 unit PO DAILY 03/03/16 07/17/19 [Vitamin E] Ferrous Sulfate [Iron (65 MG 325 mg PO MOWEFR 09/29/16 07/17/19 Elemental)] Ascorbic Acid [Vitamin C] 1,000 mg PO BID 07/17/19 07/17/19 Atorvastatin [Lipitor] 40 mg PO HS 07/17/19 07/17/19 Cholecalciferol [Vitamin D3 (25 1,000 unit PO BID 07/17/19 07/17/19 Mcg = 1000 Iu)] Lisinopril [Zestril] 5 mg PO DAILY 07/17/19 07/17/19 Metoprolol Tartrate [Lopressor] 25 mg PO DAILY 07/17/19 07/17/19 Prasugrel HCl 10 mg PO DAILY 07/17/19 07/17/19 Previous Rx's Medication Instructions Recorded Aspirin 81 mg PO DAILY #30 chewable 09/30/16 Amoxic-Pot Clav 875-125Mg 1 tab PO Q12HR #10 tablet 07/19/19 [Augmentin 875-125] guaiFENesin-DM 600/30MG [Mucinex 1 each PO Q12HR PRN tab.er.12h 07/19/19 Dm] Azithromycin [Zithromax Z-pack] 0 mg PO DIRECTED #6 tab 12/04/19 predniSONE 50 mg PO DAILY #5 tab 12/04/19 Allergies Allergy/AdvReac Type Severity Reaction Status Date / Time Sulfa (Sulfonamide Allergy Rash/Hives Verified 12/04/19 13:31 Antibiotics) Review of Systems ROS Statement: Those systems with pertinent positive or pertinent negative responses have been documented in the HPI. ROS Other: All systems not noted in ROS Statement are negative. Past Medical History Past Medical History: Coronary Artery Disease (CAD), Diabetes Mellitus, Hyperlipidemia, Hypertension, Myocardial Infarction (IA), Pulmonary Embolus (PE), Seizure Disorder Additional Past Medical History / Comment(s): PE 09/29/16 Last Myocardial Infarction Date:: 2012 History of Any Multi-Drug Resistant Organisms: None Reported Past Surgical History: Ear Surgery, Heart Catheterization With Stent, Hernia Repair Additional Past Surgical History / Comment(s): stent x3 Past Anesthesia/Blood Transfusion Reactions: Previous Problems w/ Anesthesia Additional Past Anesthesia/Blood Transfusion Reaction / Comment(s): "fights anesthesia" Date of Last Stent Placement:: January 2013 Past Psychological History: No Psychological Hx Reported Smoking Status: Former smoker Past Alcohol Use History: None Reported Past Drug Use History: None Reported - Past Family History Mother Family Medical History: Cancer Additional Family Medical History / Comment(s): Lung cancer Father Family Medical History: Cancer Additional Family Medical History / Comment(s): Spinal Cancer General Exam Limitations: no limitations General appearance: alert, in no apparent distress Head exam: Present: atraumatic, normocephalic Eye exam: Present: normal appearance, PERRL ENT exam: Present: normal exam Neck exam: Present: normal inspection. Absent: tenderness, meningismus Respiratory exam: Present: normal lung sounds bilaterally. Absent: respiratory distress, wheezes Cardiovascular Exam: Present: regular rate, normal rhythm GI/Abdominal exam: Present: soft, distended. Absent: tenderness, guarding Extremities exam: Present: normal inspection, normal capillary refill. Absent: pedal edema, calf tenderness Neurological exam: Present: alert, oriented X3, CN II-XII intact. Absent: motor sensory deficit Psychiatric exam: Present: normal affect, normal mood Skin exam: Present: warm, dry, intact. Absent: cyanosis, diaphoretic Course Vital Signs 12/04/19 12/04/19 13:28 15:28 Temperature 98.1 F Pulse Rate 85 82 Respiratory 18 16 Rate Blood Pressure 136/79 149/85 O2 Sat by Pulse 96 98 Oximetry EKG Findings - EKG Comments: EKG Findings:: EKG: Normal sinus rhythm, rate of 78, LA interval 148, QRS duration 94, QTC 437, no ST segment elevation, T-wave inversion in lead [address] segment depression in aVF Medical Decision Making - Medical Decision Making 64-year-old male presenting with cough, mild confusion. No focal findings on exam, stable vitals. He's had multiple episodes similar to this in the past which has been transient and treated with treatment of infection including UTI and pneumonia. Head CT is performed shows chronic microvascular changes, no focal mass effect, no intracranial hemorrhage. Chest x-ray negative for focal pneumonia, no pneumothorax, no acute cardiopulmonary findings. Urinalysis negative for infection. He has a normal CBC, normal white blood cell count, s table hemoglobin, normal electrolytes with mild hyperkalemia 5.2. I did offer observation for close monitoring, neurology consultation, treatment of upper respiratory infection. Patient declines along with his who is at bedside. They prefer outpatient treatment and will follow-up with his neurologist or primary care physician. They will return with worsening or changing symptoms. - Lab Data Result diagrams: 12/04/19 15:14 12/04/19 14:03 Lab Results 12/04/19 12/04/19 12/04/19 Range/Units 14:03 14:03 14:03 WBC (3.8-10.6) k/uL RBC (4.30-5.90) m/uL Hgb (13.0-17.5) gm/dL Hct (39.0-53.0) % MCV (80.0-100.0) fL MCH (25.0-35.0) pg MCHC (31.0-37.0) g/dL RDW (11.5-15.5) % Plt Count (150-450) k/uL Neutrophils % % Lymphocytes % % Monocytes % % Eosinophils % % Basophils % % Neutrophils # (1.3-7.7) k/uL Lymphocytes # (1.0-4.8) k/uL Monocytes # (0-1.0) k/uL Eosinophils # (0-0.7) k/uL Basophils # (0-0.2) k/uL PT 10.0 (9.0-12.0) sec INR 1.0 (<1.2) APTT 19.1 L (22.0-30.0) sec Sodium 140 (137-145) mmol/L Potassium 5.2 H (3.5-5.1) mmol/L Chloride 108 H (98-107) mmol/L Carbon Dioxide 23 (22-30) mmol/L Anion Gap 9 mmol/L BUN 19 (9-20) mg/dL Creatinine 0.60 L (0.66-1.25) mg/dL Est GFR (CKD-EPI)AfAm >90 (>60 ml/min/1.73 sqM) Est GFR (CKD-EPI)NonAf >90 (>60 ml/min/1.73 sqM) Glucose 140 H (74-99) mg/dL Plasma Lactic Acid Levi (0.7-2.0) mmol/L Calcium 9.7 (8.4-10.2) mg/dL Total Bilirubin 1.1 (0.2-1.3) mg/dL AST 62 H (17-59) U/L ALT 36 (4-49) U/L Alkaline Phosphatase 89 (38-126) U/L Total Protein 7.1 (6.3-8.2) g/dL Albumin 4.4 (3.5-5.0) g/dL Urine Color Yellow Urine Appearance Cloudy (Clear) Urine pH 5.5 (5.0-8.0) Ur Specific [place] 1.030 (1.001-1.035) Urine Protein Trace H (Negative) Urine Glucose (UA) Negative (Negative) Urine Ketones Trace H (Negative) Urine Blood Negative (Negative) Urine Nitrite Negative (Negative) Urine Bilirubin Negative (Negative) Urine Urobilinogen <2.0 (<2.0) mg/dL Ur Leukocyte Esterase Negative (Negative) Urine WBC 1 (0-5) /hpf Urine Mucus Rare H (None) /hpf Urine Opiates Screen Not Detected (NotDetected) Ur Oxycodone Screen Not Detected (NotDetected) Urine Methadone Screen Not Detected (NotDetected) Ur Propoxyphene Screen Not Detected (NotDetected) Ur Barbiturates Screen Not Detected (NotDetected) U Tricyclic Antidepress Not Detected (NotDetected) Ur Phencyclidine Scrn Not Detected (NotDetected) Ur Amphetamines Screen Not Detected (NotDetected) U Methamphetamines Scrn Not Detected (NotDetected) U Benzodiazepines Scrn Not Detected (NotDetected) Urine Cocaine Screen Not Detected (NotDetected) U Marijuana (THC) Screen Not Detected (NotDetected) Influenza Type A RNA (Not Detectd) Influenza Type B (PCR) (Not Detectd) 12/04/19 12/04/19 12/04/19 Range/Units 14:03 14:03 15:14 WBC 9.1 (3.8-10.6) k/uL RBC 4.82 (4.30-5.90) m/uL Hgb 14.6 (13.0-17.5) gm/dL Hct 46.6 (39.0-53.0) % MCV 96.6 (80.0-100.0) fL MCH 30.3 (25.0-35.0) pg MCHC 31.3 (31.0-37.0) g/dL RDW 12.8 (11.5-15.5) % Plt Count 142 L (150-450) k/uL Neutrophils % 72 % Lymphocytes % 17 % Monocytes % 6 % Eosinophils % 2 % Basophils % 1 % Neutrophils # 6.5 (1.3-7.7) k/uL Lymphocytes # 1.5 (1.0-4.8) k/uL Monocytes # 0.5 (0-1.0) k/uL Eosinophils # 0.2 (0-0.7) k/uL Basophils # 0.1 (0-0.2) k/uL PT (9.0-12.0) sec INR (<1.2) APTT (22.0-30.0) sec Sodium (137-145) mmol/L Potassium (3.5-5.1) mmol/L Chloride (98-107) mmol/L Carbon Dioxide (22-30) mmol/L Anion Gap mmol/L BUN (9-20) mg/dL Creatinine (0.66-1.25) mg/dL Est GFR (CKD-EPI)AfAm (>60 ml/min/1.73 sqM) Est GFR (CKD-EPI)NonAf (>60 ml/min/1.73 sqM) Glucose (74-99) mg/dL Plasma Lactic Acid Levi 2.0 (0.7-2.0) mmol/L Calcium (8.4-10.2) mg/dL Total Bilirubin (0.2-1.3) mg/dL AST (17-59) U/L ALT (4-49) U/L Alkaline Phosphatase (38-126) U/L Total Protein (6.3-8.2) g/dL Albumin (3.5-5.0) g/dL Urine Color Urine Appearance (Clear) Urine pH (5.0-8.0) Ur Specific [place] (1.001-1.035) Urine Protein (Negative) Urine Glucose (UA) (Negative) Urine Ketones (Negative) Urine Blood (Negative) Urine Nitrite (Negative) Urine Bilirubin (Negative) Urine Urobilinogen (<2.0) mg/dL Ur Leukocyte Esterase (Negative) Urine WBC (0-5) /hpf Urine Mucus (None) /hpf Urine Opiates Screen (NotDetected) Ur Oxycodone Screen (NotDetected) Urine Methadone Screen (NotDetected) Ur Propoxyphene Screen (NotDetected) Ur Barbiturates Screen (NotDetected) U Tricyclic Antidepress (NotDetected) Ur Phencyclidine Scrn (NotDetected) Ur Amphetamines Screen (NotDetected) U Methamphetamines Scrn (NotDetected) U Benzodiazepines Scrn (NotDetected) Urine Cocaine Screen (NotDetected) U Marijuana (THC) Screen (NotDetected) Influenza Type A RNA Not Detected (Not Detectd) Influenza Type B (PCR) Not Detected (Not Detectd) Disposition Clinical Impression: Upper respiratory infection, Altered mental status Disposition: HOME SELF-CARE Condition: Fair Instructions (If sedation given, give patient instructions): Upper Respiratory Infection (ED), Altered Mental Status (ED) Prescriptions: predniSONE 50 mg PO DAILY #5 tab Azithromycin [Zithromax Z-pack] 0 mg PO DIRECTED #6 tab Is patient prescribed a controlled substance at d/c from ED?: No Referrals: Huong Higgins DO [Primary Care Provider] - 1-2 days Time of Disposition: 15:49
[2019-12-04 14:19] LABS: Appearance,Urine Cloudy (Clear); Bilirubin,Urine Negative (Negative); Blood,Urine Negative (Negative); Color,Urine Yellow; Glucose,Urine (UA) Negative (Negative); Ketones,Urine Trace (Negative); Leukocyte Esterase,Urine Negative (Negative); Mucus,Urine Rare /hpf; Nitrite,Urine Negative (Negative); PH, Urine 5.5 (5.0-8.0); Protein,Urine Trace (Negative); Urobilinogen,Urine <2.0 mg/dL (<2.0); WBC,Urine 1 /hpf (0-5)
[2019-12-04 14:28] LABS: ALT 36 U/L (4-49); AST 62 U/L (17-59); African American GFR (CKD) >90 (>60 ml/min/1.73 sqM); Albumin 4.4 g/dL (3.5-5.0); Alkaline Phosphatase 89 U/L (38-126); Amphetamine Screen,Urine Not Detected (NotDetected); Anion Gap 9 mmol/L; Barbiturate Screen,Urine Not Detected (NotDetected); Benzodiazepines Screen,Urine Not Detected (NotDetected); Blood Urea Nitrogen 19 mg/dL (9-20); Calcium 9.7 mg/dL (8.4-10.2); Carbon Dioxide 23 mmol/L (22-30); Chloride 108 mmol/L (98-107); Cocaine Screen,Urine Not Detected (NotDetected); Glucose 140 mg/dL (74-99); Methadone Screen, Urine Not Detected (NotDetected); Non-African American GFR(CKD) >90 (>60 ml/min/1.73 sqM); Opiate Screen,Urine Not Detected (NotDetected); Oxycodone Screen, Urine Not Detected (NotDetected); Phencyclidine Screen,Urine Not Detected (NotDetected); Sodium 140 mmol/L (137-145); Total Bilirubin 1.1 mg/dL (0.2-1.3); Total Protein 7.1 g/dL (6.3-8.2); Tricyclic Antidepressant,Urine Not Detected (NotDetected); Urn Cannabinoid Scrn Not Detected (NotDetected)
--- NOTE | 2019-12-04 14:28 | XR ---
EXAMINATION TYPE: XR chest 2V DATE OF EXAM: 12/04/2019 COMPARISON: 07/17/2019 HISTORY: Lethargic and altered mental status TECHNIQUE: Frontal and lateral views of the chest are obtained. FINDINGS: Bibasilar subsegmental atelectasis is redemonstrated as well as prominence of the chrissy temitope aterally as seen on the prior. Chronic interstitial prominence throughout. No new focal consolidation , pleural effusion or pneumothorax. Cardiomediastinal silhouette is within normal limits. IMPRESSION: 1. Chronic findings with no acute cardiopulmonary process. 2. Nonemergent follow-up chest CT could evaluate for underlying interstitial lung disease and assess the stable hilar prominence that could relate to pulmonary arterial hypertension or less likely adeno jordyn.
[2019-12-04 14:31] LABS: Potassium 5.2 mmol/L (3.5-5.1)
[2019-12-04 14:50] LABS: Partial Thromboplastin Time 19.1 sec (22.0-30.0)
--- NOTE | 2019-12-04 14:59 | CT ---
EXAMINATION TYPE: CT brain wo con DATE OF EXAM: 12/04/2019 COMPARISON: 07/17/2019 HISTORY: Body aches CT DLP: 1155.4 mGycm Automated exposure control for dose reduction was used. TECHNIQUE: CT scan of the head is performed without contrast. FINDINGS: There is no acute intracranial hemorrhage, mass effect, or midline shift identified. Few patchy area s of hypoattenuation are seen within the periventricular white matter, most commonly on the basis of chronic microangiopathy. The ventricles and sulci are within normal limits in size. The globes are i ntact and mild mucosal thickening is seen of the ethmoid sinuses. Antrostomy defects are noted of the maxillary sinuses and postsurgical change of the mastoid air cells bilaterally. Scleral calcificatio n is incidentally seen on the right. IMPRESSION: No acute intracranial hemorrhage, mass effect, or midline shift is seen. Mild burden nonspecific whit e matter change, most commonly on the basis of chronic microangiopathy.
[2019-12-04 15:28] VITALS: BP 149/85; PULSE 82; RESP 16
[2019-12-04 15:36] LABS: Basophils # (A) 0.1 k/uL (0-0.2); Basophils % (A) 1 %; Eosinophils # (A) 0.2 k/uL (0-0.7); Eosinophils % (A) 2 %; HCT 46.6 % (39.0-53.0); HGB 14.6 gm/dL (13.0-17.5); Lymphocytes # (A) 1.5 k/uL (1.0-4.8); Lymphocytes % (A) 17 %; MCH 30.3 pg (25.0-35.0); MCHC 31.3 g/dL (31.0-37.0); MCV 96.6 fL (80.0-100.0); Mean Platelet Volume 10.1; Monocytes # (A) 0.5 k/uL (0-1.0); Monocytes % (A) 6 %; Neutrophils # (A) 6.5 k/uL (1.3-7.7); Neutrophils % (A) 72 %; Platelet Count 142 k/uL (150-450); RBC 4.82 m/uL (4.30-5.90); RDW 12.8 % (11.5-15.5); WBC 9.1 k/uL (3.8-10.6)
== END 2019-12-04 15:55 | disposition home or self-care (01) ==
LOC: EC 13:09
DX: J06.9 Acute upper respiratory infection, unspecified (principal); R41.82 Altered mental status, unspecified; E87.5 Hyperkalemia; R32 Unspecified urinary incontinence; R35.0 Frequency of micturition; I25.10 Atherosclerotic heart disease of native coronary artery without angina pectoris; E11.9 Type 2 diabetes mellitus without complications; E78.5 Hyperlipidemia, unspecified; I10 Essential (primary) hypertension; I25.2 Old myocardial infarction; Z79.02 Long term (current) use of antithrombotics/antiplatelets; Z86.711 Personal history of pulmonary embolism; Z87.440 Personal history of urinary (tract) infections; Z95.5 Presence of coronary angioplasty implant and graft; Z87.891 Personal history of nicotine dependence; Z79.84 Long term (current) use of oral hypoglycemic drugs; Z79.899 Other long term (current) drug therapy; Z88.2 Allergy status to sulfonamides
CPT/HCPCS: 36415; 70450; 71046; 80053; 80306; 81001; 83605; 85025; 85610; 85730; 87502; 93005; 99284

== ENCOUNTER → 2020-01-16 | Outpatient (CLI) | payer MEDICARE, OTHER ==
--- NOTE | 2020-01-16 13:01 | CT ---
EXAMINATION TYPE: CT chest wo con DATE OF EXAM: 01/16/2020 COMPARISON: 12/04/2019 chest x-ray and CT chest dated 04/14/1914 HISTORY: Shortness of breath for years. CT DLP: 1598.4 mGycm. Automated Exposure Control for Dose Reduction was Utilized. TECHNIQUE: CT scan of the thorax is performed without IV contrast. High-resolution CT technique limi ts evaluation for pulmonary nodule. FINDINGS: LUNGS: Very mild focal pleural thickening is seen along the anterior right upper lobe on series 8 martha ge 13 measuring 20 mm in width and 3 mm in thickness. Linear pleural-parenchymal scarring within the left lung base and lingula do not change on supine or prone imaging. Similar scarring in the right osiel ng base on image 23 and 22. Multifocal linear pleural parenchymal scarring in the right middle lobe. No bronchiectasis is seen. Very minimal peribronchial cuffing at the lung bases. No interlobular sept al thickening. The lungs are grossly clear, there is no concerning parenchymal mass identified. The re is no pleural effusion or pneumothorax seen. The main tracheobronchial tree is patent. MEDIASTINUM: Lack of IV contrast is noted to limit evaluation for mediastinal and especially hilar ad enopathy. There are no definitive greater than 1 cm hilar or mediastinal lymph nodes. Enlargement of the left main pulmonary measuring 2.9 cm. No cardiomegaly or pericardial effusion is seen. Moderate coronary artery calcifications are seen, a marker of coronary artery disease. OTHER: Enlarged bilateral axillary lymph nodes measuring up to 1.9 cm in short axis on the left and 1 .5 cm in short axis on the right. This finding was not seen on the prior examination of 2014. Grossly limited evaluation of the upper abdomen given lack of contrast, technique, and patient body habitus. Mild multilevel degenerative change of the spine. IMPRESSION: 1. Enlarged bilateral axillary lymph nodes. Targeted ultrasound is recommended in evaluation for acce ss to percutaneous biopsy. Workup for lymphoproliferative disease is also recommended. No enlarged me diastinal lymph nodes are seen. 2. Multifocal pleural parenchymal scarring at the lung bases, lingula, and right middle lobe. No evid ence of interstitial lung disease. 3. Enlargement of the left main pulmonary artery, which may clinically correlate with pulmonary arter ial hypertension. 4. Moderate coronary calcifications, marker of coronary artery disease.
== END | disposition home or self-care (01) ==
LOC: RADCTMAIN 11:42
PROVIDERS: ATTEND Internal Medicine Pulmonary Disease
DX: J98.4 Other disorders of lung (principal); R06.00 Dyspnea, unspecified; R59.0 Localized enlarged lymph nodes; I77.89 Other specified disorders of arteries and arterioles; I25.10 Atherosclerotic heart disease of native coronary artery without angina pectoris
CPT/HCPCS: 71250

== ENCOUNTER → 2020-05-08 | Outpatient (CLI) | payer MEDICARE ==
[2020-05-08 10:13] LABS: African American GFR (CKD) >90 (>60 ml/min/1.73 sqM); Blood Urea Nitrogen 15 mg/dL (9-20); Non-African American GFR(CKD) >90 (>60 ml/min/1.73 sqM)
--- NOTE | 2020-05-08 17:05 | CT ---
EXAMINATION TYPE: CT ChestAbdPelvis w con DATE OF EXAM: 05/08/2020 COMPARISON: CT chest 01/16/2020. HISTORY: new diagnosis of lymphoma, metastatic disease. Small cell B-cell lymphoma. CT DLP: 3013.1 mGycm Automated exposure control for dose reduction was used. CONTRAST: CT scan of the chest, abdomen and pelvis is performed with Oral Contrast and with IV Contrast, patien t injected with 100 mL of Isovue 300. FINDINGS: LUNGS: The lungs are grossly clear, there is no concerning parenchymal mass or nodule identified. Red emonstrated right-sided anterior areas of pleural thickening. There is no pleural effusion or pneumot horax seen. The tracheobronchial tree is patent. MEDIASTINUM: 1.1 cm right hilar lymphadenopathy. There are no greater than 1 cm mediastinal lymph nod es. No pericardial effusion is seen. No cardiomegaly. The left pulmonary artery is again asymmetri giancarlo enlarged. OTHER: Postsurgical changes of the left axillary region. Left-sided axillary lymphadenopathy increas ed in size measuring 2.4 x 3.9 cm, previously 1.9 x 3.3 cm on 01/16/2020 CT comparison. Right-sided ax illary lymphadenopathy minimally increased in size with the largest node measuring up to 1.5 x 2.5 cm , previously 1.4 x 2.3 cm. LIVER: No significant abnormality is appreciated. BILIARY: No biliary ductal dilatation. Status post cystectomy. PANCREAS: Fatty atrophy. SPLEEN: Mildly enlarged measuring up to 13.6 cm in cranial caudal dimension. ADRENALS: No significant abnormality is seen. KIDNEYS: No hydronephrosis. Left-sided interpolar cortical scarring. BOWEL: No significant abnormality is seen. PELVIS: Nondistended urinary bladder. Calcifications of the prostate and penis are seen. LYMPH NODES: Asymmetrically enlarged left inguinal lymph nodes, largest measuring up to 1.3 x 2.1 cm. Right retroperitoneal lymph nodes measuring up to 1.0 cm (3:26). Borderline enlarged 8 mm aortocaval lymph node at the level of the kidneys (325). Precaval upper abdominal mesenteric lymph node measure s 8 mm (3:69). Prominent nonenlarged pericystic pelvic lymph nodes bilaterally, left greater than rig ht (3:128). OSSEOUS STRUCTURES: Degenerative changes spine. There is mild heterogenous appearance of the lumbar s pine, although suspicion of evaluation due to beam attenuation. OTHER: No evidence of pneumoperitoneum or ascites. IMPRESSION: 1. Thoracic and abdominopelvic lymphadenopathy as described above, consistent with patient's history of lymphoma. Bilateral axillary lymphadenopathy is mildly increased in size versus 01/16/2020 CT ches t comparison. 2. Mild splenomegaly. 3. Heterogenous appearance of the lumbar spine may represent osseous disease, however is somewhat li mited by artifact. Attention on follow-up imaging.
== END ==
LOC: RADCTMAIN 09:35
PROVIDERS: ATTEND Internal Medicine Hematology & Oncology
DX: R59.0 Localized enlarged lymph nodes (principal); R16.1 Splenomegaly, not elsewhere classified; C83.04 Small cell B-cell lymphoma, lymph nodes of axilla and upper limb
CPT/HCPCS: 82565; 84520; 71260; 74177; 36415; Q9967

== ENCOUNTER → 2020-07-23 | Outpatient (CLI) | payer MEDICARE ==
--- NOTE | 2020-07-23 15:40 | MR ---
EXAMINATION TYPE: MR lumbar spine wo con DATE OF EXAM: 07/23/2020 COMPARISON: HISTORY: Low Back Pain CONTRAST: 0 mL intravenous Gadavist. TECHNIQUE: Multiplanar, multisequence images of the lumbar spine were acquired. FINDINGS: L5-S1: There is loss of disc height is level. Minimal disc bulge has anterior thecal sac contact. No stenosis present. Facet hypertrophy with ligamentum flavum laxity has posterior lateral thecal sac co mpression. Mild right and moderate left foraminal narrowing is present. L4-L5: There is loss of disc height is level. A central subligamentous disc herniation is present wit h anterior thecal sac contact. No stenosis is present. Mild facet hypertrophy with ligamentum flavum laxity is present. Moderate right and minimal left foraminal narrowing is present. L3-L4: No significant disc bulge is evident. No spinal canal stenosis present. Facet hypertrophy and ligamentum flavum laxity is present. L2-L3: No significant disc bulge or disc herniation. No spinal canal stenosis. No foraminal stenosi s. L1-L2: Mild disc bulge is mild anterior thecal sac compression. No AP spinal canal stenosis is presen t. Cord contact is not evident. Neural foramen are patent. T12-L1: No significant disc bulge or disc herniation. No spinal canal stenosis. No foraminal stenos is. Vertebral body signal is somewhat heterogenous. Endplate changes are evident or 5 level. Vertebral jagdeep dy heights are preserved. Shallow Schmorl's node formation may be present. IMPRESSION: 1. Minimal disc bulging L5-S1 with anterior thecal sac contact. No stenosis is present. 2. L5-S1 moderate left foraminal narrowing, moderate right foraminal narrowing L4-5. Correlate with t he radicular symptoms. 3. Central subligamentous disc herniation L4-5 minimal anterior thecal sac compression. No spinal can al stenosis
== END | disposition home or self-care (01) ==
LOC: RADMRIMAIN 10:57
PROVIDERS: ATTEND Orthopaedic Surgery
DX: M48.07 Spinal stenosis, lumbosacral region (principal); M51.26 Other intervertebral disc displacement, lumbar region; M51.17 Intervertebral disc disorders with radiculopathy, lumbosacral region
CPT/HCPCS: 72148

== ENCOUNTER 2020-11-16 07:24 | Day surgery (SDC) | payer MEDICARE ==
[2020-11-15 10:31] VITALS: BMI 38.5
[2020-11-16] MEDS ORDERED: LACTATED RINGERS 1,000 ML IV SCH (07:42)
[2020-11-16 07:51] VITALS: TEMP 97.8
[2020-11-16] MEDS ORDERED: LACTATED RINGERS 1,000 ML IV ONE (07:51)
[2020-11-16 07:59] LABS: Glucose,Whole Blood 165 mg/dL (75-99)
[2020-11-16] MEDS ORDERED: LIDOCAINE 1% (10MG/ML) FOR IV START INTRADERMA ONE (08:00)
[2020-11-16] MEDS ORDERED: methylPREDNISolone ACETATE 40 MG/ML 1 ML VIAL ONE (08:50)
[2020-11-16] MEDS ORDERED: IOPAMIDOL M200 10 ML VIAL ONE (08:50)
[2020-11-16] MEDS ORDERED: MIDAZOLAM 2 MG/2 ML VIAL ONE (08:51)
[2020-11-16] MEDS ORDERED: fentaNYL (PF) 50 MCG/ML 2 ML AMP ONE (08:51)
--- NOTE | 2020-11-16 09:04 | P.PCN ---
Date of Procedure: 11/16/20 Procedure(s) Performed: PREOPERATIVE DIAGNOSIS:1- Lumbar radiculopathy . 2-lumbar spondylosis . POSTOPERATIVE DIAGNOSIS: Same as preoperative diagnoses. PROCEDURE 1. Transforaminal epidural steroid injection under fluoroscopic guidance at left L5-S1 level. (Fluoroscopy images stored on file in the radiology Department ) 2. Lumbar epidurogram . ANESTHESIA: Monitored anesthesia care by anesthesia department EBL: Minimal PROCEDURE INDICATION: The patient with low back pain and radiculopathy symptoms unresponsive to conservative treatment. PROCEDURE DESCRIPTION / TECHNIQUE: The patient was seen and identified in the preoperative area. Risks, benefits, complications, and alternatives were discussed with the patient. The patient agreed to proceed with the procedure and signed the consent. IV was started, and vital signs were stable. Patient was taken to the OR and time out was completed. The patient was placed in the prone position on procedure table and a pillow was placed under the abdomen to reduce lumbar lordosis. The lumbosacral area was prepped and draped in the usual sterile fashion. Critical pause was taken. Vital signs were closely monitored during the procedure. Conscious sedation was used during the procedure to decrease patient s anxiety. Using oblique fluoroscopy, the chin of the ``Kushal dog at left L5-S1 level was identified, and the skin and deeper tissues just below was localized with 1% lidocaine. Subsequently, a 22-gauge 5-inch spinal needle was advanced under a tunneled view fluoroscopic guidance just underneath the chin of the ``Kushal dog at the left L5-S1 Under lateral fluoroscopy, the needle was then advanced to the posterior border of the interforaminal space. After negative aspiration of CSF and blood and with no paresthesias, 1 mL Isovue 200 contrast dye was injected excellent epidurogram and outlining of the nerve root Subsequently, 3 mL of block solution containing 40 mg Depo-Medrol and 2 mL of 0.9% normal saline PF was injected. Needle was removed . At the end of the procedure, skin was cleansed, and bandages were applied. COMPLICATIONS:none DISPOSITION / PLANS: The patient was placed in a supine position and transferred to the recovery area in a stable condition for observation. There was no evidence of lower extremity motor or sensory deficit after the procedure. Patient was discharged from the recovery room after meeting discharge criteria. Home discharge instructions were given to the patient by the staff. The patient was reexamined prior to discharge.
[2020-11-16] MEDS ORDERED: IV FLUID CONTINUATION 1,000 ML IV ONE (09:08)
--- NOTE | 2020-11-16 09:09 | FL ---
EXAMINATION TYPE: FL guided pain mgmt statistic DATE OF EXAM: 11/16/2020 HISTORY: Fluoroscopy time 8 seconds of fluoroscopy provided. IMPRESSION: 1. Fluoroscopy time.
[2020-11-16 09:23] VITALS: BP 127/83; PULSE 68; RESP 20
== END 2020-11-16 09:35 | disposition home or self-care (01) ==
LOC: ORPAIN 07:24
PROVIDERS: ATTEND Specialist
DX: M47.26 Other spondylosis with radiculopathy, lumbar region (principal); I25.2 Old myocardial infarction; I10 Essential (primary) hypertension; I25.10 Atherosclerotic heart disease of native coronary artery without angina pectoris; E78.5 Hyperlipidemia, unspecified; E11.9 Type 2 diabetes mellitus without complications; C85.90 Non-Hodgkin lymphoma, unspecified, unspecified site; H91.90 Unspecified hearing loss, unspecified ear; Z88.2 Allergy status to sulfonamides; Z95.5 Presence of coronary angioplasty implant and graft; Z86.73 Personal history of transient ischemic attack (TIA), and cerebral infarction without residual deficits; Z87.891 Personal history of nicotine dependence; Z79.82 Long term (current) use of aspirin; Z79.51 Long term (current) use of inhaled steroids; Z79.84 Long term (current) use of oral hypoglycemic drugs; Z79.899 Other long term (current) drug therapy
CPT/HCPCS: 64483; J2250; J1030; J3010; Q9966

== ENCOUNTER 2021-01-15 15:11 | Emergency (ER) | payer MEDICARE ==
[2021-01-15 15:39] VITALS: TEMP 98.1
[2021-01-15 16:38] LABS: Basophils % (A) 0 %; Eosinophils # (A) 0.4 k/uL (0-0.7); Eosinophils % (A) 3 %; HCT 42.6 % (39.0-53.0); HGB 14.7 gm/dL (13.0-17.5); Lymphocytes # (A) 1.1 k/uL (1.0-4.8); Lymphocytes % (A) 10 %; MCH 31.4 pg (25.0-35.0); MCHC 34.4 g/dL (31.0-37.0); MCV 91.2 fL (80.0-100.0); Monocytes # (A) 0.5 k/uL (0-1.0); Monocytes % (A) 4 %; Neutrophils # (A) 9.2 k/uL (1.3-7.7); Neutrophils % (A) 81 %; Platelet Count 129 k/uL (150-450); RBC 4.67 m/uL (4.30-5.90); RDW 12.7 % (11.5-15.5); WBC 11.3 k/uL (3.8-10.6)
[2021-01-15 16:53] LABS: ALT 23 U/L (4-49); AST 34 U/L (17-59); African American GFR (CKD) >90 (>60 ml/min/1.73 sqM); Albumin 4.1 g/dL (3.5-5.0); Alkaline Phosphatase 72 U/L (38-126); Anion Gap 8 mmol/L; Blood Urea Nitrogen 18 mg/dL (9-20); Calcium 9.7 mg/dL (8.4-10.2); Carbon Dioxide 25 mmol/L (22-30); Chloride 107 mmol/L (98-107); Glucose 164 mg/dL (74-99); Magnesium 1.7 mg/dL (1.6-2.3); Non-African American GFR(CKD) >90 (>60 ml/min/1.73 sqM); Sodium 140 mmol/L (137-145); Total Bilirubin 0.5 mg/dL (0.2-1.3); Total Protein 6.5 g/dL (6.3-8.2)
[2021-01-15 17:01] LABS: Prothrombin Time 10.5 sec (9.0-12.0)
[2021-01-15 17:04] LABS: Partial Thromboplastin Time 21.4 sec (22.0-30.0)
[2021-01-15 17:06] LABS: Potassium 3.6 mmol/L (3.5-5.1)
--- NOTE | 2021-01-15 17:07 | CT ---
EXAMINATION TYPE: CT brain wo con DATE OF EXAM: 01/15/2021 COMPARISON: 12/04/2019. HISTORY: Seizure activity today CT DLP: 1320.4 mGycm Automated exposure control for dose reduction was used. FINDINGS: There is no intracranial hemorrhage, mass effect, midline shift or hydrocephalus. The white matter is grossly preserved. The paranasal sinuses are adequately aerated. There is dysplastic appearance of the bilateral mastoid air cells, may relate to remote infectious/inflammatory process versus congenital. The calvarium is intact. IMPRESSION: NO ACUTE INTRACRANIAL ABNORMALITY.
--- NOTE | 2021-01-15 17:20 | XR ---
EXAMINATION TYPE: XR chest 2V DATE OF EXAM: 01/15/2021 COMPARISON: 12/04/2019. HISTORY: Seizure and weakness. TECHNIQUE: Frontal and lateral views of the chest are obtained. FINDINGS: There is small left basilar opacity with probable trace pleural effusion. No pneumothorax seen. The cardiac silhouette size is within normal limits. The osseous structures are intact. IMPRESSION: Probable trace left pleural effusion with adjacent atelectasis. Infiltrate is felt to be less likely in the absence of fever.
--- NOTE | 2021-01-15 17:29 | ED ---
General Adult HPI - General Chief complaint: Seizure Stated complaint: seizures Time Seen by Provider: 01/15/21 16:04 Source: patient, family, RN notes reviewed, old records reviewed Mode of arrival: wheelchair Limitations: no limitations - History of Present Illness Initial comments: 65-year-old male history of pseudoseizure presents with multiple seizures over the past 24 hours. Computed by his who is able to give a detailed history of the seizures. She states these are typically while he is sleeping. The patient himself has no complaints. No chest pain, no palpitations. No fever. No cough no dyspnea. No headache. No focal numbness or weakness. Patient's states that he does get these when he has something else medically going on. He is not currently on medication and has been diagnosed as pseudoseizures. - Related Data Home Medications Medication Instructions Recorded Confirmed metFORMIN HCL 1,000 mg PO BID 04/23/15 01/15/21 Vitamin B Complex 1 cap PO DAILY 03/03/16 01/15/21 Vitamin E (Dl,Tocopheryl Acet) 400 unit PO DAILY 03/03/16 01/15/21 [Vitamin E] Ferrous Sulfate [Iron (65 MG 325 mg PO DAILY 09/29/16 01/15/21 Elemental)] Ascorbic Acid [Vitamin C] 1,000 mg PO DAILY 07/17/19 01/15/21 Atorvastatin [Lipitor] 40 mg PO HS 07/17/19 01/15/21 Cholecalciferol [Vitamin D3 (25 1,000 unit PO DAILY 07/17/19 01/15/21 Mcg = 1000 Iu)] Metoprolol Tartrate [Lopressor] 25 mg PO DAILY 07/17/19 01/15/21 lisinopriL [Zestril] 5 mg PO DAILY 07/17/19 01/15/21 Beclomethasone Dipropionate [Qvar 2 puff INHALATION RT-BID 11/15/20 01/15/21 80mcg Redihaler] Flaxseed Oil 1,000 mg PO DAILY 01/15/21 01/15/21 Hydrochlorothiazide 12.5 mg PO DAILY 01/15/21 01/15/21 [hydroCHLOROthiazide] Ibuprofen [Motrin] 800 mg PO Q8H PRN 01/15/21 01/15/21 Montelukast Sodium [Singulair] 10 mg PO HS 01/15/21 01/15/21 Previous Rx's Medication Instructions Recorded Aspirin 81 mg PO DAILY #30 chewable 09/30/16 Azithromycin [Zithromax Z-pack] 0 mg PO DIRECTED #6 tab 01/15/21 predniSONE 50 mg PO DAILY #5 tab 01/15/21 Allergies Allergy/AdvReac Type Severity Reaction Status Date / Time Sulfa (Sulfonamide Allergy Rash/Hives Verified 01/15/21 17:32 Antibiotics) Review of Systems ROS Statement: Those systems with pertinent positive or pertinent negative responses have been documented in the HPI. ROS Other: All systems not noted in ROS Statement are negative. Past Medical History Past Medical History: Coronary Artery Disease (CAD), Cancer, Diabetes Mellitus, Hearing Disorder / Deafness, Hyperlipidemia, Hypertension, Myocardial Infarction ([place]), Osteoarthritis (OA), Pulmonary Embolus ([place]), Seizure Disorder Additional Past Medical History / Comment(s): PE 09/29/16, NON HODGKINS LYMPHOMA, Last Myocardial Infarction Date:: 2017 History of Any Multi-Drug Resistant Organisms: None Reported Past Surgical History: Ear Surgery, Heart Catheterization With Stent, Hernia Repair Additional Past Surgical History / Comment(s): heart stent x4 Past Anesthesia/Blood Transfusion Reactions: Previous Problems w/ Anesthesia Additional Past Anesthesia/Blood Transfusion Reaction / Comment(s): "fights anesthesia" Date of Last Stent Placement:: 2017 Past Psychological History: Depression Smoking Status: Former smoker Past Alcohol Use History: None Reported Past Drug Use History: None Reported - Past Family History Mother Family Medical History: Cancer Additional Family Medical History / Comment(s): Lung cancer Father Family Medical History: Cancer Additional Family Medical History / Comment(s): Spinal Cancer General Exam Limitations: no limitations General appearance: alert, in no apparent distress Head exam: Present: atraumatic, normocephalic Eye exam: Present: normal appearance, PERRL ENT exam: Present: normal exam Neck exam: Present: normal inspection Respiratory exam: Present: normal lung sounds bilaterally. Absent: respiratory distress, wheezes Cardiovascular Exam: Present: regular rate, normal rhythm GI/Abdominal exam: Present: soft. Absent: distended, tenderness, guarding, rebound Extremities exam: Present: normal inspection, normal capillary refill. Absent: pedal edema, calf tenderness Neurological exam: Present: alert, oriented X3, CN II-XII intact. Absent: motor sensory deficit Psychiatric exam: Present: normal affect, normal mood Skin exam: Present: warm, dry, intact. Absent: cyanosis, diaphoretic Course Vital Signs 01/15/21 15:34 Temperature 98.1 F Pulse Rate 144 H Respiratory 20 Rate Blood Pressure 100/67 O2 Sat by Pulse 96 Oximetry EKG Findings - EKG Comments: EKG Findings:: EKG: Sinus tachycardia, rate of 102, MS interval 144, QRS duration 90, QTC [address] segment elevation. Medical Decision Making - Medical Decision Making 65-year-old male with a pseudoseizure. Patient well-appearing, CT performed, negative for intracranial hemorrhage or mass effect. Chest x-ray questionable atelectasis versus infiltrate. He does have a mild leukocytosis of 11.3. Otherwise normal laboratory testing. After discussion with the patient's and the patient, it is indicated that he has been treated previously for pneumonia and his symptoms did improve. Requesting both antibiotics and steroids. Given his history I will prescribe these and patient can follow-up with the primary care physician. - Lab Data Result diagrams: 01/15/21 16:34 01/15/21 16:34 Lab Results 01/15/21 01/15/21 01/15/21 Range/Units 16:34 16:34 16:34 WBC 11.3 H (3.8-10.6) k/uL RBC 4.67 (4.30-5.90) m/uL Hgb 14.7 (13.0-17.5) gm/dL Hct 42.6 (39.0-53.0) % MCV 91.2 (80.0-100.0) fL MCH 31.4 (25.0-35.0) pg MCHC 34.4 (31.0-37.0) g/dL RDW 12.7 (11.5-15.5) % Plt Count 129 L (150-450) k/uL MPV 10.0 Neutrophils % 81 % Lymphocytes % 10 % Monocytes % 4 % Eosinophils % 3 % Basophils % 0 % Neutrophils # 9.2 H (1.3-7.7) k/uL Lymphocytes # 1.1 (1.0-4.8) k/uL Monocytes # 0.5 (0-1.0) k/uL Eosinophils # 0.4 (0-0.7) k/uL Basophils # 0.0 (0-0.2) k/uL PT 10.5 (9.0-12.0) sec INR 1.0 (<1.2) APTT 21.4 L (22.0-30.0) sec Sodium 140 (137-145) mmol/L Potassium 3.6 (3.5-5.1) mmol/L Chloride 107 (98-107) mmol/L Carbon Dioxide 25 (22-30) mmol/L Anion Gap 8 mmol/L BUN 18 (9-20) mg/dL Creatinine 0.64 L (0.66-1.25) mg/dL Est GFR (CKD-EPI)AfAm >90 (>60 ml/min/1.73 sqM) Est GFR (CKD-EPI)NonAf >90 (>60 ml/min/1.73 sqM) Glucose 164 H (74-99) mg/dL Calcium 9.7 (8.4-10.2) mg/dL Magnesium 1.7 (1.6-2.3) mg/dL Total Bilirubin 0.5 (0.2-1.3) mg/dL AST 34 (17-59) U/L ALT 23 (4-49) U/L Alkaline Phosphatase 72 (38-126) U/L Troponin I (0.000-0.034) ng/mL Total Protein 6.5 (6.3-8.2) g/dL Albumin 4.1 (3.5-5.0) g/dL 01/15/21 Range/Units 16:34 WBC (3.8-10.6) k/uL RBC (4.30-5.90) m/uL Hgb (13.0-17.5) gm/dL Hct (39.0-53.0) % MCV (80.0-100.0) fL MCH (25.0-35.0) pg MCHC (31.0-37.0) g/dL RDW (11.5-15.5) % Plt Count (150-450) k/uL MPV Neutrophils % % Lymphocytes % % Monocytes % % Eosinophils % % Basophils % % Neutrophils # (1.3-7.7) k/uL Lymphocytes # (1.0-4.8) k/uL Monocytes # (0-1.0) k/uL Eosinophils # (0-0.7) k/uL Basophils # (0-0.2) k/uL PT (9.0-12.0) sec INR (<1.2) APTT (22.0-30.0) sec Sodium (137-145) mmol/L Potassium (3.5-5.1) mmol/L Chloride (98-107) mmol/L Carbon Dioxide (22-30) mmol/L Anion Gap mmol/L BUN (9-20) mg/dL Creatinine (0.66-1.25) mg/dL Est GFR (CKD-EPI)AfAm (>60 ml/min/1.73 sqM) Est GFR (CKD-EPI)NonAf (>60 ml/min/1.73 sqM) Glucose (74-99) mg/dL Calcium (8.4-10.2) mg/dL Magnesium (1.6-2.3) mg/dL Total Bilirubin (0.2-1.3) mg/dL AST (17-59) U/L ALT (4-49) U/L Alkaline Phosphatase (38-126) U/L Troponin I <0.012 (0.000-0.034) ng/mL Total Protein (6.3-8.2) g/dL Albumin (3.5-5.0) g/dL Disposition Clinical Impression: Community acquired bacterial pneumonia Disposition: HOME SELF-CARE Condition: Fair Instructions (If sedation given, give patient instructions): Recurrent Seizures in Adults (ED), Community Acquired Pneumonia (DC) Prescriptions: predniSONE 50 mg PO DAILY #5 tab Azithromycin [Zithromax Z-pack] 0 mg PO DIRECTED #6 tab Is patient prescribed a controlled substance at d/c from ED?: No Referrals: Forrest Morton MD [Primary Care Provider] - 1-2 days Time of Disposition: 17:42
[2021-01-15 17:42] VITALS: BP 141/87; RESP 16
[2021-01-15 17:55] VITALS: PULSE 93
== END 2021-01-15 17:49 | disposition home or self-care (01) ==
LOC: EC 15:11
DX: J15.9 Unspecified bacterial pneumonia (principal); F44.5 Conversion disorder with seizures or convulsions; E11.9 Type 2 diabetes mellitus without complications; I25.10 Atherosclerotic heart disease of native coronary artery without angina pectoris; E78.5 Hyperlipidemia, unspecified; I25.2 Old myocardial infarction; F32.9 Major depressive disorder, single episode, unspecified; M19.90 Unspecified osteoarthritis, unspecified site; Z86.711 Personal history of pulmonary embolism; Z85.72 Personal history of non-Hodgkin lymphomas; Z87.891 Personal history of nicotine dependence; Z95.5 Presence of coronary angioplasty implant and graft; Z79.82 Long term (current) use of aspirin; Z79.52 Long term (current) use of systemic steroids; Z79.51 Long term (current) use of inhaled steroids; Z79.1 Long term (current) use of non-steroidal anti-inflammatories (NSAID); Z79.84 Long term (current) use of oral hypoglycemic drugs; Z79.899 Other long term (current) drug therapy
CPT/HCPCS: 36415; 70450; 71046; 80053; 83735; 84484; 85025; 85610; 85730; 93005; 99284

== ENCOUNTER 2021-12-27 12:58 | Observation (INO) | payer MEDICARE ==
[2021-12-27] MEDS ORDERED: SODIUM CHLORIDE 0.9% 500 ML 500 ML IV STA (13:35)
--- NOTE | 2021-12-27 13:52 | ED ---
General Adult HPI - General Source: patient, RN notes reviewed, old records reviewed Mode of arrival: ambulatory Limitations: no limitations <Horacio Thornton - Last Filed: 12/27/21 14:39> <Shiela Medrano - Last Filed: 12/27/21 23:41> - General Chief complaint: GI Bleed Stated complaint: Bloody Stools Time Seen by Provider: 12/27/21 13:00 - History of Present Illness Initial comments: This is a 66-year-old male who presents emergency department stating this morning he got up and had a little bright red blood per rectum patient states he then went and had a bowel movement was which she states was all blood and blood clots. Patient denies any previous history of GI bleed. Patient denies any blood thinners. Patient denies any abdominal pain. Patient denies lightheadedness or dizziness. Patient denies any chest pain or difficulty breathing. Patient states she's been eating and drinking normal. Patient denies any nausea or vomiting. (Horacio Thornton) - Related Data Home Medications Medication Instructions Recorded Confirmed metFORMIN HCL [Glucophage] 1,000 mg PO BID 04/23/15 12/27/21 Atorvastatin [Lipitor] 40 mg PO HS 07/17/19 12/27/21 Metoprolol Tartrate [Lopressor] 12.5 mg PO BID 07/17/19 12/27/21 lisinopriL [Zestril] 5 mg PO DAILY 07/17/19 12/27/21 Hydrochlorothiazide 12.5 mg PO DAILY 01/15/21 12/27/21 [hydroCHLOROthiazide] Montelukast Sodium [Singulair] 10 mg PO HS 01/15/21 12/27/21 Allopurinol [Zyloprim] 200 mg PO DAILY 12/27/21 12/27/21 Meloxicam [Mobic] 15 mg PO DAILY 12/27/21 12/27/21 Previous Rx's Medication Instructions Recorded Aspirin 81 mg PO DAILY #30 chewable 09/30/16 Allergies Allergy/AdvReac Type Severity Reaction Status Date / Time Sulfa (Sulfonamide Allergy Rash/Hives Verified 12/27/21 16:46 Antibiotics) Review of Systems ROS Other: All systems not noted in ROS Statement are negative. <Horacio Thornton - Last Filed: 12/27/21 14:39> ROS Other: All systems not noted in ROS Statement are negative. <Shiela Medrano Dwayne - Last Filed: 12/27/21 23:41> ROS Statement: Those systems with pertinent positive or pertinent negative responses have been documented in the HPI. Past Medical History Past Medical History: Coronary Artery Disease (CAD), Cancer, Diabetes Mellitus, Hearing Disorder / Deafness, Hyperlipidemia, Hypertension, Myocardial Infarction ([place]), Osteoarthritis (OA), Pulmonary Embolus (PE), Seizure Disorder Additional Past Medical History / Comment(s): PE 09/29/16, NON HODGKINS LYMPHOMA, Last Myocardial Infarction Date:: 2018 History of Any Multi-Drug Resistant Organisms: None Reported Past Surgical History: Ear Surgery, Heart Catheterization With Stent, Hernia Repair Additional Past Surgical History / Comment(s): heart stent x4 Past Anesthesia/Blood Transfusion Reactions: Previous Problems w/ Anesthesia Additional Past Anesthesia/Blood Transfusion Reaction / Comment(s): "fights anesthesia" Date of Last Stent Placement:: 2017 Past Psychological History: Depression Smoking Status: Former smoker Past Alcohol Use History: None Reported Past Drug Use History: None Reported - Past Family History Mother Family Medical History: Cancer Additional Family Medical History / Comment(s): Lung cancer Father Family Medical History: Cancer Additional Family Medical History / Comment(s): Spinal Cancer <ThorntonHoracio - Last Filed: 12/27/21 14:39> General Exam Limitations: no limitations <ThorntonHoracio - Last Filed: 12/27/21 14:39> - General Exam Comments Initial Comments: GENERAL: Patient is well-developed and well-nourished. Patient is nontoxic and well-hyd rated and is in no acute distress. ENT: Neck is soft and supple. No significant lymphadenopathy is noted. Oropharynx is clear. Moist mucous membranes. Neck has full range of motion without elicit ing any pain. EYES: The sclera were anicteric and conjunctiva were pink and moist. Extraocular mo vements were intact and pupils were equal round and reactive to light. Eyelids were unremarkable. PULMONARY: Unlabored respirations. Good breath sounds bilaterally. No audible rales rhonchi or wheezing was noted. CARDIOVASCULAR: There is a regular rate and rhythm without any murmurs gallops or rubs. ABDOMEN: Soft and nontender with normal bowel sounds. SKIN: Skin is clear with no lesions or rashes and otherwise unremarkable. NEUROLOGIC: Patient is alert and oriented x3. Cranial nerves II through XII are grossly intact. Motor and sensory are also intact. Normal speech, volume and content. Symmetrical smile. MUSCULOSKELETAL: Normal extremities with adequate strength and full range of motion. LYMPHATICS: No significant lymphadenopathy is noted PSYCHIATRIC: Normal psychiatric evaluation. (Horacio Thornton) Course Vital Signs 12/27/21 12/27/21 13:03 17:59 Temperature 97.8 F 98.7 F Pulse Rate 104 H 92 Respiratory 18 18 Rate Blood Pressure 138/79 135/86 O2 Sat by Pulse 97 96 Oximetry Medical Decision Making - Lab Data Result diagrams: 12/27/21 13:40 12/27/21 13:40 <Horacio Thornton - Last Filed: 12/27/21 14:39> - Lab Data Result diagrams: 12/27/21 13:40 12/27/21 13:40 <Shiela Medrano - Last Filed: 12/27/21 23:41> - Medical Decision Making Dr. Medrano will be taking over the care of this patient at 2:30 PM (Horacio Thornton) Patient care signed out to me by Dr Thornton, patient with BRBPR, hemodynamically stable, no history of such, will be placed in observation for rectal bleeding. Dr Vasquez on consult. (Shiela Medrano) - Lab Data Lab Results 12/27/21 12/27/21 12/27/21 Range/Units 13:40 13:40 13:40 WBC 8.8 (3.8-10.6) k/uL RBC 4.43 (4.30-5.90) m/uL Hgb 12.9 L (13.0-17.5) gm/dL Hct 40.4 (39.0-53.0) % MCV 91.2 (80.0-100.0) fL MCH 29.1 (25.0-35.0) pg MCHC 31.9 (31.0-37.0) g/dL RDW 14.4 (11.5-15.5) % Plt Count 124 L (150-450) k/uL MPV 10.2 Neutrophils % 67 % Lymphocytes % 22 % Monocytes % 5 % Eosinophils % 4 % Basophils % 0 % Neutrophils # 5.8 (1.3-7.7) k/uL Lymphocytes # 1.9 (1.0-4.8) k/uL Monocytes # 0.5 (0-1.0) k/uL Eosinophils # 0.4 (0-0.7) k/uL Basophils # 0.0 (0-0.2) k/uL PT 10.4 (9.0-12.0) sec INR 0.9 (<1.2) APTT 22.6 (22.0-30.0) sec Sodium 137 (137-145) mmol/L Potassium 4.5 (3.5-5.1) mmol/L Chloride 108 H (98-107) mmol/L Carbon Dioxide 22 (22-30) mmol/L Anion Gap 7 mmol/L BUN 12 (9-20) mg/dL Creatinine 0.61 L (0.66-1.25) mg/dL Est GFR (CKD-EPI)AfAm >90 (>60 ml/min/1.73 sqM) Est GFR (CKD-EPI)NonAf >90 (>60 ml/min/1.73 sqM) Glucose 113 H (74-99) mg/dL Calcium 9.0 (8.4-10.2) mg/dL Magnesium 1.7 (1.6-2.3) mg/dL Total Bilirubin 0.8 (0.2-1.3) mg/dL AST 39 (17-59) U/L ALT 17 (4-49) U/L Alkaline Phosphatase 63 (38-126) U/L Troponin I (0.000-0.034) ng/mL Total Protein 6.6 (6.3-8.2) g/dL Albumin 3.9 (3.5-5.0) g/dL Blood Type Blood Type Recheck Bld Type Recheck Status Antibody Screen Spec Expiration Date 12/27/21 12/27/21 Range/Units 13:40 13:40 WBC (3.8-10.6) k/uL RBC (4.30-5.90) m/uL Hgb (13.0-17.5) gm/dL Hct (39.0-53.0) % MCV (80.0-100.0) fL MCH (25.0-35.0) pg MCHC (31.0-37.0) g/dL RDW (11.5-15.5) % Plt Count (150-450) k/uL MPV Neutrophils % % Lymphocytes % % Monocytes % % Eosinophils % % Basophils % % Neutrophils # (1.3-7.7) k/uL Lymphocytes # (1.0-4.8) k/uL Monocytes # (0-1.0) k/uL Eosinophils # (0-0.7) k/uL Basophils # (0-0.2) k/uL PT (9.0-12.0) sec INR (<1.2) APTT (22.0-30.0) sec Sodium (137-145) mmol/L Potassium (3.5-5.1) mmol/L Chloride (98-107) mmol/L Carbon Dioxide (22-30) mmol/L Anion Gap mmol/L BUN (9-20) mg/dL Creatinine (0.66-1.25) mg/dL Est GFR (CKD-EPI)AfAm (>60 ml/min/1.73 sqM) Est GFR (CKD-EPI)NonAf (>60 ml/min/1.73 sqM) Glucose (74-99) mg/dL Calcium (8.4-10.2) mg/dL Magnesium (1.6-2.3) mg/dL Total Bilirubin (0.2-1.3) mg/dL AST (17-59) U/L ALT (4-49) U/L Alkaline Phosphatase (38-126) U/L Troponin I <0.012 (0.000-0.034) ng/mL Total Protein (6.3-8.2) g/dL Albumin (3.5-5.0) g/dL Blood Type O Positive Blood Type Recheck O Pos Bld Type Recheck Status No Antibody Screen NEGATIVE Spec Expiration Date 12/30/20212339 Disposition <Horacio Thornton - Last Filed: 12/27/21 14:39> Is patient prescribed a controlled substance at d/c from ED?: No <Shiela Medrano - Last Filed: 12/27/21 23:41> Clinical Impression: Bright red blood per rectum Disposition: ADMITTED IP TO THIS HOSP Condition: Stable
[2021-12-27 14:11] LABS: Basophils % (A) 0 %; Eosinophils # (A) 0.4 k/uL (0-0.7); Eosinophils % (A) 4 %; HCT 40.4 % (39.0-53.0); HGB 12.9 gm/dL (13.0-17.5); Lymphocytes # (A) 1.9 k/uL (1.0-4.8); Lymphocytes % (A) 22 %; MCH 29.1 pg (25.0-35.0); MCHC 31.9 g/dL (31.0-37.0); MCV 91.2 fL (80.0-100.0); Mean Platelet Volume 10.2; Monocytes # (A) 0.5 k/uL (0-1.0); Monocytes % (A) 5 %; Neutrophils # (A) 5.8 k/uL (1.3-7.7); Neutrophils % (A) 67 %; Platelet Count 124 k/uL (150-450); RBC 4.43 m/uL (4.30-5.90); RDW 14.4 % (11.5-15.5); WBC 8.8 k/uL (3.8-10.6)
[2021-12-27 14:21] LABS: INR 0.9 (<1.2); Partial Thromboplastin Time 22.6 sec (22.0-30.0); Prothrombin Time 10.4 sec (9.0-12.0)
[2021-12-27 14:33] LABS: ALT 17 U/L (4-49); AST 39 U/L (17-59); African American GFR (CKD) >90 (>60 ml/min/1.73 sqM); Albumin 3.9 g/dL (3.5-5.0); Alkaline Phosphatase 63 U/L (38-126); Anion Gap 7 mmol/L; Blood Urea Nitrogen 12 mg/dL (9-20); Carbon Dioxide 22 mmol/L (22-30); Chloride 108 mmol/L (98-107); Glucose 113 mg/dL (74-99); Magnesium 1.7 mg/dL (1.6-2.3); Non-African American GFR(CKD) >90 (>60 ml/min/1.73 sqM); Potassium 4.5 mmol/L (3.5-5.1); Sodium 137 mmol/L (137-145); Total Bilirubin 0.8 mg/dL (0.2-1.3); Total Protein 6.6 g/dL (6.3-8.2)
[2021-12-27] MEDS ORDERED: NALOXONE 0.4 MG/ML 1 ML VIAL IV PRN (16:34)
[2021-12-28 07:46] LABS: Glucose,Whole Blood 98 mg/dL (75-99)
--- NOTE | 2021-12-28 11:23 | P.GSCN ---
History of Present Illness Consult date: 12/28/21 Reason for Consult: GI bleed History of present illness: Is a 66-year-old male who had some complaints of rectal bleeding. Patient presented rancher. He found have some bright red blood per rectum. Patient denies any further rectal bleeding. As no abdominal pain. His last colonoscopy was in 2017. He is found have external hemorrhoids and a sigmoid colon polyp at that time. Past Medical History Past Medical History: Coronary Artery Disease (CAD), Cancer, Diabetes Mellitus, Hearing Disorder / Deafness, Hyperlipidemia, Hypertension, Myocardial Infarction ([place]), Osteoarthritis (OA), Pulmonary Embolus (PE), Seizure Disorder Additional Past Medical History / Comment(s): PE 09/29/16, NON HODGKINS LYMPHOMA, Last Myocardial Infarction Date:: 2017 History of Any Multi-Drug Resistant Organisms: None Reported Past Surgical History: Ear Surgery, Heart Catheterization With Stent, Hernia Repair Additional Past Surgical History / Comment(s): heart stent x4 Past Anesthesia/Blood Transfusion Reactions: Previous Problems w/ Anesthesia Additional Past Anesthesia/Blood Transfusion Reaction / Comm: "fights anesthesia" Date of Last Stent Placement:: 2017 Past Psychological History: Depression Smoking Status: Former smoker Past Alcohol Use History: None Reported Past Drug Use History: None Reported - Past Family History Mother Family Medical History: Cancer Additional Family Medical History / Comment(s): Lung cancer Father Family Medical History: Cancer Additional Family Medical History / Comment(s): Spinal Cancer Medications and Allergies Home Medications Medication Instructions Recorded Confirmed Type metFORMIN HCL [Glucophage] 1,000 mg PO BID 04/23/15 12/27/21 History Aspirin 81 mg PO DAILY #30 chewable 09/30/16 12/27/21 Rx Atorvastatin [Lipitor] 40 mg PO HS 07/17/19 12/27/21 History Metoprolol Tartrate [Lopressor] 12.5 mg PO BID 07/17/19 12/27/21 History lisinopriL [Zestril] 5 mg PO DAILY 07/17/19 12/27/21 History Hydrochlorothiazide 12.5 mg PO DAILY 01/15/21 12/27/21 History [hydroCHLOROthiazide] Montelukast Sodium [Singulair] 10 mg PO HS 01/15/21 12/27/21 History Allopurinol [Zyloprim] 200 mg PO DAILY 12/27/21 12/27/21 History Meloxicam [Mobic] 15 mg PO DAILY 12/27/21 12/27/21 History Allergies Allergy/AdvReac Type Severity Reaction Status Date / Time Sulfa (Sulfonamide Allergy Rash/Hives Verified 12/27/21 16:46 Antibiotics) Surgical - Exam Vital Signs Temp Pulse Resp BP Pulse Ox 97.8 F 104 H 18 138/79 97 12/27/21 13:03 12/27/21 13:03 12/27/21 13:03 12/27/21 13:03 12/27/21 13:03 - General well developed, well nourished, no distress - Eyes PERRL - ENT normal pinna - Neck no masses - Respiratory normal expansion - Cardiovascular Rhythm: regular - Abdomen Abdomen: soft, non tender Results - Labs 12/27/21 13:40 12/27/21 13:40 Abnormal Lab Results - Last 24 Hours (Table) 12/27/21 12/27/21 Range/Units 13:40 13:40 Hgb 12.9 L (13.0-17.5) gm/dL Plt Count 124 L (150-450) k/uL Chloride 108 H (98-107) mmol/L Creatinine 0.61 L (0.66-1.25) mg/dL Glucose 113 H (74-99) mg/dL Diabetes panel 12/27/21 Range/Units 13:40 Sodium 137 (137-145) mmol/L Potassium 4.5 (3.5-5.1) mmol/L Chloride 108 H (98-107) mmol/L Carbon Dioxide 22 (22-30) mmol/L BUN 12 (9-20) mg/dL Creatinine 0.61 L (0.66-1.25) mg/dL Glucose 113 H (74-99) mg/dL Calcium 9.0 (8.4-10.2) mg/dL AST 39 (17-59) U/L ALT 17 (4-49) U/L Alkaline Phosphatase 63 (38-126) U/L Total Protein 6.6 (6.3-8.2) g/dL Albumin 3.9 (3.5-5.0) g/dL Calcium panel 12/27/21 Range/Units 13:40 Calcium 9.0 (8.4-10.2) mg/dL Albumin 3.9 (3.5-5.0) g/dL Pituitary panel 12/27/21 Range/Units 13:40 Sodium 137 (137-145) mmol/L Potassium 4.5 (3.5-5.1) mmol/L Chloride 108 H (98-107) mmol/L Carbon Dioxide 22 (22-30) mmol/L BUN 12 (9-20) mg/dL Creatinine 0.61 L (0.66-1.25) mg/dL Glucose 113 H (74-99) mg/dL Calcium 9.0 (8.4-10.2) mg/dL Adrenal panel 12/27/21 Range/Units 13:40 Sodium 137 (137-145) mmol/L Potassium 4.5 (3.5-5.1) mmol/L Chloride 108 H (98-107) mmol/L Carbon Dioxide 22 (22-30) mmol/L BUN 12 (9-20) mg/dL Creatinine 0.61 L (0.66-1.25) mg/dL Glucose 113 H (74-99) mg/dL Calcium 9.0 (8.4-10.2) mg/dL Total Bilirubin 0.8 (0.2-1.3) mg/dL AST 39 (17-59) U/L ALT 17 (4-49) U/L Alkaline Phosphatase 63 (38-126) U/L Total Protein 6.6 (6.3-8.2) g/dL Albumin 3.9 (3.5-5.0) g/dL Assessment and Plan Assessment: GI bleed. We'll perform colonoscopy on Thursday.
[2021-12-28 12:48] LABS: Glucose,Whole Blood 101 mg/dL (75-99)
[2021-12-28] MEDS: MORPHINE SULFATE 2 MG/ML SYRINGE IVP PRN ×2 (13:48→20:26)
[2021-12-28 17:36] LABS: Glucose,Whole Blood 101 mg/dL (75-99)
[2021-12-28 20:35] LABS: Glucose,Whole Blood 136 mg/dL (75-99)
[2021-12-29 07:52] LABS: Glucose,Whole Blood 136 mg/dL (75-99)
[2021-12-29] MEDS ORDERED: PEG 3350-NA SULF,BICARB,CL/KCL 4,000 ML BOTTLE PO ONE (08:00)
--- NOTE | 2021-12-29 10:14 | P.HPIM ---
History of Present Illness H&P Date: 12/27/21 Chief Complaint: Bloody stools 66-year-old male, history of hypertension, hyperlipidemia and diabetes mellitus, who presents emergency department stating this morning he got up and had a little bright red blood per rectum patient states he then went and had a bowel movement was which she states was all blood and blood clots. Patient denies any previous history of GI bleed. Patient denies any blood thinners. Patient denies any abdominal pain. Patient denies lightheadedness or dizziness. Patient denies any chest pain or difficulty breathing. Patient states she's be en eating and drinking normal. Patient denies any nausea or vomiting. Blood work completed in ED reveals WBC of 8.8, hemoglobin 12.1, platelet count of 124, sodium 137, potassium 4.5, BUN/creatinine of 12/0.61 and blood glucose of 113 Patient is being admitted to the hospital for further evaluation of rectal bleed Review of Systems REVIEW OF SYSTEMS: CONSTITUTIONAL: No fever, no malaise, no fatigue. HEENT: No recent visual problems or hearing problems. Denied any sore throat. CARDIOVASCULAR: No chest pain, orthopnea, PND, no palpitations, no syncope. PULMONARY: No shortness of breath, no cough, no hemoptysis. GASTROINTESTINAL: No diarrhea, no nausea, no vomiting, no abdominal pain. NEUROLOGICAL: No headaches, no weakness, no numbness. HEMATOLOGICAL: Denies any bleeding or petechiae. GENITOURINARY: Denies any burning micturition, frequency, or urgency. MUSCULOSKELETAL/RHEUMATOLOGICAL: Denies any joint pain, swelling, or any muscle pain. ENDOCRINE: Denies any polyuria or polydipsia. The rest of the 14-point review of systems is negative. Past Medical History Past Medical History: Coronary Artery Disease (CAD), Cancer, Diabetes Mellitus, Hearing Disorder / Deafness, Hyperlipidemia, Hypertension, Myocardial Infarction ([place]), Osteoarthritis (OA), Pulmonary Embolus ([place]), Seizure Disorder Additional Past Medical History / Comment(s): PE 09/29/16, NON HODGKINS LYMPHOMA, Last Myocardial Infarction Date:: 2017 History of Any Multi-Drug Resistant Organisms: None Reported Past Surgical History: Ear Surgery, Heart Catheterization With Stent, Hernia Repair Additional Past Surgical History / Comment(s): heart stent x4 Past Anesthesia/Blood Transfusion Reactions: Previous Problems w/ Anesthesia Additional Past Anesthesia/Blood Transfusion Reaction / Comment(s): "fights anesthesia" Date of Last Stent Placement:: 2017 Past Psychological History: Depression Smoking Status: Former smoker Past Alcohol Use History: None Reported Past Drug Use History: None Reported - Past Family History Mother Family Medical History: Cancer Additional Family Medical History / Comment(s): Lung cancer Father Family Medical History: Cancer Additional Family Medical History / Comment(s): Spinal Cancer Medications and Allergies Home Medications Medication Instructions Recorded Confirmed Type metFORMIN HCL [Glucophage] 1,000 mg PO BID 04/23/15 12/27/21 History Aspirin 81 mg PO DAILY #30 chewable 09/30/16 12/27/21 Rx Atorvastatin [Lipitor] 40 mg PO HS 07/17/19 12/27/21 History Metoprolol Tartrate [Lopressor] 12.5 mg PO BID 07/17/19 12/27/21 History lisinopriL [Zestril] 5 mg PO DAILY 07/17/19 12/27/21 History Hydrochlorothiazide 12.5 mg PO DAILY 01/15/21 12/27/21 History [hydroCHLOROthiazide] Montelukast Sodium [Singulair] 10 mg PO HS 01/15/21 12/27/21 History Allopurinol [Zyloprim] 200 mg PO DAILY 12/27/21 12/27/21 History Meloxicam [Mobic] 15 mg PO DAILY 12/27/21 12/27/21 History Allergies Allergy/AdvReac Type Severity Reaction Status Date / Time Sulfa (Sulfonamide Allergy Rash/Hives Verified 12/27/21 16:46 Antibiotics) Physical Exam Vitals: Vital Signs Temp Pulse Resp BP Pulse Ox 12/27/21 17:59 98.7 F 92 18 135/86 96 12/27/21 13:03 97.8 F 104 H 18 138/79 97 Intake and Output 12/27/21 12/27/21 12/27/21 06:59 14:59 22:59 Other: Weight 133.81 kg PHYSICAL EXAMINATION: GENERAL: The patient is alert and oriented x3, not in any acute distress. Well developed, well nourished. HEENT: Pupils are round and equally reacting to light. EOMI. No scleral icterus. No conjunctival pallor. Normocephalic, atraumatic. No pharyngeal erythema. No thyromegaly. CARDIOVASCULAR: S1 and S2 present. No murmurs, rubs, or gallops. PULMONARY: Chest is clear to auscultation, no wheezing or crackles. ABDOMEN: Soft, nontender, nondistended, normoactive bowel sounds. No palpable organomegaly. MUSCULOSKELETAL: No joint swelling or deformity. EXTREMITIES: No cyanosis, clubbing, or pedal edema. NEUROLOGICAL: Gross neurological examination did not reveal any focal deficits. SKIN: No rashes. Results CBC & Chem 7: 12/27/21 13:40 12/27/21 13:40 Labs: Abnormal Lab Results - Last 24 Hours (Table) 12/27/21 12/27/21 Range/Units 13:40 13:40 Hgb 12.9 L (13.0-17.5) gm/dL Plt Count 124 L (150-450) k/uL Chloride 108 H (98-107) mmol/L Creatinine 0.61 L (0.66-1.25) mg/dL Glucose 113 H (74-99) mg/dL Assessment and Plan Assessment: 1. GI bleed; BRBPR - We will admit patient to general medical floor; monitor H&H closely; Protonix 40 mg IV every 12 hours; type crossmatch and transfuse if hemoglobin is less than 8.0; we will hold aspirin and meloxicam - Gen. surgery is consulted for further recommendations 2. Hypertension; patient takes hydrocodone as a corporate 5 mg daily along with lisinopril 5 mg daily, metoprolol 12.5 mg twice a day; blood pressures currently soft; we will plan to hold antihypertensive therapy until blood pre ssure improves. 3. Hyperlipidemia; Lipitor 40 mg by mouth daily at bedtime 4. Diabetes mellitus; patient takes metformin thousand milligrams by mouth twice a day; we will continue to hold start patient on Accu-Cheks before meals and at bedtime with sliding scale 5. Asthma; not in exacerbation; singular 10 mg daily at bedtime 6. Coronary artery disease/history of [place]; currently stable; patient takes aspirin, statins and beta blockers; we will hold off till blood pressure improves; no aspirin due to GI bleed DVT prophylaxis; SCDs CODE STATUS; full code
--- NOTE | 2021-12-29 10:21 | P.PN ---
Subjective Progress Note Date: 12/28/21 Principal diagnosis: Rectal bleed 66-year-old male, history of hypertension, hyperlipidemia and diabetes mellitus, who presents emergency department stating this morning he got up and had a little bright red blood per rectum patient states he then went and had a bowel movement was which she states was all blood and blood clots. Patient denies any previous history of GI bleed. Patient denies any blood thinners. Patient denies any abdominal pain. Patient denies lightheadedness or dizziness. Patient denies any chest pain or difficulty breathing. Patient states she's been eating and drinking normal. Patient denies any nausea or vomiting. Blood work completed in ED reveals WBC of 8.8, hemoglobin 12.1, platelet count of 124, sodium 137, potassium 4.5, BUN/creatinine of 12/0.61 and blood glucose of 113 Patient is being admitted to the hospital for further evaluation of rectal bleed Objective - Vital Signs Vital signs: Vital Signs Temp 98.2 F 12/28/21 07:00 Pulse 87 12/28/21 07:00 Resp 16 12/28/21 07:00 BP 127/76 12/28/21 07:00 Pulse Ox 97 12/28/21 07:00 Intake & Output 12/27/21 12/28/21 12/28/21 18:59 06:59 18:59 Weight 133.81 kg Other: # Voids 1 - Exam GENERAL: The patient is alert and oriented x3, not in any acute distress. Well developed, well nourished. HEENT: Pupils are round and equally reacting to light. EOMI. No scleral icterus. No conjunctival pallor. Normocephalic, atraumatic. No pharyngeal erythema. No thyromegaly. CARDIOVASCULAR: S1 and S2 present. No murmurs, rubs, or gallops. PULMONARY: Chest is clear to auscultation, no wheezing or crackles. ABDOMEN: Soft, nontender, nondistended, normoactive bowel sounds. No palpable organomegaly. MUSCULOSKELETAL: No joint swelling or deformity. EXTREMITIES: No cyanosis, clubbing, or pedal edema. NEUROLOGICAL: Gross neurological examination did not reveal any focal deficits. SKIN: No rashes. - Labs CBC & Chem 7: 12/27/21 13:40 12/27/21 13:40 Labs: Abnormal Lab Results - Last 24 Hours (Table) 12/27/21 12/27/21 12/28/21 Range/Units 13:40 13:40 12:47 Hgb 12.9 L (13.0-17.5) gm/dL Plt Count 124 L (150-450) k/uL Chloride 108 H (98-107) mmol/L Creatinine 0.61 L (0.66-1.25) mg/dL Glucose 113 H (74-99) mg/dL POC Glucose (mg/dL) 101 H (75-99) mg/dL Assessment and Plan Assessment: 1. GI bleed; BRBPR - We will admit patient to general medical floor; monitor H&H closely; Protonix 40 mg IV every 12 hours; type crossmatch and transfuse if hemoglobin is less than 8.0; we will hold aspirin and meloxicam - Gen. surgery is consulted for further recommendations 2. Hypertension; patient takes hydrocodone as a corporate 5 mg daily along with lisinopril 5 mg daily, metoprolol 12.5 mg twice a day; blood pressures currently soft; we will plan to hold antihypertensive therapy until blood pressure improves. 3. Hyperlipidemia; Lipitor 40 mg by mouth daily at bedtime 4. Diabetes mellitus; patient takes metformin thousand milligrams by mouth twice a day; we will continue to hold start patient on Accu-Cheks before meals and at bedtime with sliding scale 5. Asthma; not in exacerbation; singular 10 mg daily at bedtime 6. Coronary artery disease/history of [place]; currently stable; patient takes aspirin, statins and beta blockers; we will hold off till blood pressure improves; no aspirin due to GI bleed DVT prophylaxis; SCDs CODE STATUS; full code
[2021-12-29] MEDS: PANTOPRAZOLE 40 MG/10 ML VIAL IVP SCH ×2 (11:12→20:17)
[2021-12-29 11:22] LABS: Basophils % (A) 0 %; Eosinophils # (A) 0.2 k/uL (0-0.7); Eosinophils % (A) 4 %; HCT 39.7 % (39.0-53.0); HGB 12.9 gm/dL (13.0-17.5); Hypochromasia Slight; Lymphocytes # (A) 1.2 k/uL (1.0-4.8); Lymphocytes % (A) 23 %; MCH 29.5 pg (25.0-35.0); MCHC 32.4 g/dL (31.0-37.0); MCV 91.1 fL (80.0-100.0); Mean Platelet Volume 10.2; Monocytes # (A) 0.2 k/uL (0-1.0); Monocytes % (A) 5 %; Neutrophils # (A) 3.2 k/uL (1.3-7.7); Neutrophils % (A) 65 %; Platelet Count 109 k/uL (150-450); RBC 4.36 m/uL (4.30-5.90); RDW 14.7 % (11.5-15.5); WBC 4.9 k/uL (3.8-10.6)
[2021-12-29 11:31] LABS: African American GFR (CKD) >90 (>60 ml/min/1.73 sqM); Anion Gap 7 mmol/L; Blood Urea Nitrogen 13 mg/dL (9-20); Calcium 8.9 mg/dL (8.4-10.2); Carbon Dioxide 26 mmol/L (22-30); Chloride 104 mmol/L (98-107); Glucose 271 mg/dL (74-99); Non-African American GFR(CKD) >90 (>60 ml/min/1.73 sqM); Potassium 4.1 mmol/L (3.5-5.1); Sodium 137 mmol/L (137-145)
--- NOTE | 2021-12-29 11:37 | P.PN ---
Progress Note - Text Progress Note Date: 12/29/21 Patient is stable. His hemoglobin was 12.9. He is scheduled for endoscopy tomorrow.
[2021-12-29 12:40] LABS: Glucose,Whole Blood 211 mg/dL (75-99)
--- NOTE | 2021-12-29 12:45 | P.CONS ---
History of Present Illness - Reason for Consult Consult date: 12/29/21 CLL/SLL Requesting physician: Vijay Rubio - Chief Complaint BRBPR - History of Present Illness Mr. Trevino is a very pleasant 66 yo male with history of CLL/SLL, follows with Dr. Allen, here for BRBPR. He was last seen by Dr. Allen on 12/13/21. He was having progression of B symptoms and the plan was to start therapy with BTK inhibitor. He was started on allopurinol to prevent tumor lysis it sounds like. He started taking allopurinol the day prior to presentation. On the day of presentation he began having bright red blood per rectum. Hemoglobin on admission was 12's, plt 120's. Normal WBC. Seen by julian and plan on colonoscopy on Thursday. He has not been on allopurinol since his admission. He is reluctant to continue to take this in case this caused his bleeding. He has not started his BTK inhibitor yet and has not received that in the mail yet. Oncology History: Has a history of multiple medical issues. The patient has a known history of coronary artery disease and shortness of breath on exertion. Apparently he was having slowly progressive issues with shortness of breath, as well as cough. CTA of the chest on 01/16/20. This showed mild focal pleural thickening along the anterior right upper lobe. There was linear pleural parenchymal scarring in bilateral lung bases, as well as the right middle lobe. There were enlarged bilateral axillary nodes noted incidentally measuring up to 1.9 cm on the left and 1.5 cm on the right. There were no greater than 1 cm hilar or mediastinal nodes. Patient was referred for surgical evaluation and had a an excisional biopsy in 03/14/20. He was positive for CLL/SLL, CD38 negative. He was therefore referred here for further evaluation and recommendations He denied any prior history of malignancy. Labs from 03/14 showed a normal CBC, with white blood cell count 5.7, with normal differential. The patient had additional workup done, with flow cytometric showing a small, 5% population of CD5 positive cells consistent with CLL/SLL. CT of the chest abdomen and pelvis showed minor hilar adenopathy, in the 1 cm range, fairly minor retroperitoneal adenopathy, 1 cm or less, left inguinal adenopathy maximum 2.1 cm, and bilateral axillary adenopathy, more on the left versus the right. (3.9 cm versus 2.5 cm, largest nodes) Workup for other causes of thrombocytopenia including autoimmune markers, protein electrophoresis studies and deficiency states was negative. Given the comparatively low volume of disease, and normal blood count. Otherwise, the mildly low plt count is felt to be a mild autoimmune phenomenon CLL, fish was negative. He was ZAP 70 negative and CD38 positive. The patient was seen in 12/17, as he had noted enlarged lymph nodes in both axilla, with some discomfort on the left side. He also reported progressive decrease in energy, increasing fatigue and increased sleeping time. He continued to report sensation of congestion and chest heaviness in the upper chest. He denied any fevers/chills/nausea/vomiting He has had ER visits, on an average, Q 2 mths, for respiratory symptoms, which have been able to be treated outpt. Interestingly, episodes usually start with pseudoseizures. He continues to complain of fatigue, which is persistent. He also continues to have low back pain. Bowel movements are normal. No unusual bleeding or bruising noted. Review of systems otherwise as per HPI and negative out of 10 Last seen on 12/13/21, plan: Patient has had progression of adenopathy. He was started on steroids by his PCP with improvement. He also reports increasing systemic symptoms as described. CBC is actually fairly normal, with hemoglobin 13.2, WBC 9.9, ANC 6.6, and platelets 119. Check labs. Given progression of B symptoms, the patient will be started on systemic therapy with BTK inhibitor. Check CT scans for baseline It was discussed with him and his family that the indication for treatment is progression of B symptoms, other than the adenopathy which is still fairly minor. He was strongly advised to get his COVID booster Past Medical History Past Medical History: Coronary Artery Disease (CAD), Cancer, Diabetes Mellitus, Hearing Disorder / Deafness, Hyperlipidemia, Hypertension, Myocardial Infarction ([place]), Osteoarthritis (OA), Pulmonary Embolus (PE), Seizure Disorder Additional Past Medical History / Comment(s): PE 09/29/16, NON HODGKINS LYMPHOMA, Last Myocardial Infarction Date:: 2017 History of Any Multi-Drug Resistant Organisms: None Reported Past Surgical History: Ear Surgery, Heart Catheterization With Stent, Hernia Repair Additional Past Surgical History / Comment(s): heart stent x4 Past Anesthesia/Blood Transfusion Reactions: Previous Problems w/ Anesthesia Additional Past Anesthesia/Blood Transfusion Reaction / Comm: "fights anesthesia" Date of Last Stent Placement:: 2017 Past Psychological History: Depression Smoking Status: Former smoker Past Alcohol Use History: None Reported Past Drug Use History: None Reported - Past Family History Mother Family Medical History: Cancer Additional Family Medical History / Comment(s): Lung cancer Father Family Medical History: Cancer Additional Family Medical History / Comment(s): Spinal Cancer Medications and Allergies Home Medications Medication Instructions Recorded Confirmed Type metFORMIN HCL [Glucophage] 1,000 mg PO BID 04/23/15 12/27/21 History Aspirin 81 mg PO DAILY #30 chewable 09/30/16 12/27/21 Rx Atorvastatin [Lipitor] 40 mg PO HS 07/17/19 12/27/21 History Metoprolol Tartrate [Lopressor] 12.5 mg PO BID 07/17/19 12/27/21 History lisinopriL [Zestril] 5 mg PO DAILY 07/17/19 12/27/21 History Hydrochlorothiazide 12.5 mg PO DAILY 01/15/21 12/27/21 History [hydroCHLOROthiazide] Montelukast Sodium [Singulair] 10 mg PO HS 01/15/21 12/27/21 History Allopurinol [Zyloprim] 200 mg PO DAILY 12/27/21 12/27/21 History Meloxicam [Mobic] 15 mg PO DAILY 12/27/21 12/27/21 History Allergies Allergy/AdvReac Type Severity Reaction Status Date / Time Sulfa (Sulfonamide Allergy Rash/Hives Verified 12/27/21 16:46 Antibiotics) Physical Exam Vitals: Vital Signs Temp Pulse Pulse Resp BP BP BP 12/28/21 15:00 98.0 F 78 16 144/77 12/28/21 07:00 98.2 F 87 16 127/76 12/28/21 03:11 98.2 F 94 16 127/78 12/27/21 21:21 98.1 F 84 17 144/74 12/27/21 17:59 98.7 F 92 18 135/86 Pulse Ox 12/28/21 15:00 96 12/28/21 07:00 97 12/28/21 03:11 97 12/27/21 21:21 98 12/27/21 17:59 96 Intake and Output 12/28/21 12/28/21 12/28/21 06:59 14:59 22:59 Other: # Voids 1 1 3 # Bowel Movements 1 3 Gen.: no acute distress. HEENT: Mucosa moist. No conjunctival pallor or scleral icterus. Neck: Neck supple. Lungs: No respiratory distress. Heart: Normal rate. Abdomen: Soft. Neuro: Alert and oriented 3. Skin: No jaundice. Psych: Appropriate affect. Results CBC & Chem 7: 12/29/21 10:57 12/29/21 10:57 Labs: Abnormal Lab Results - Last 24 Hours (Table) 12/28/21 Range/Units 12:47 POC Glucose (mg/dL) 101 H (75-99) mg/dL Assessment and Plan Assessment: 1. Rectal bleeding 2. CLL/SLL 3. Bicytopenia, anemia and thrombocytopenia Plan: Mr. Trevino is a very pleasant 66-year-old gentleman with a history of CLL/SLL, follows with Dr. Allen, here for melena. He has not been treated for his CLL/SLL however during his last follow-up visit it sounds like he was having progressive B symptoms and treatment was planned with BTK inhibitor. He has not received the medication yet and has not started this. He was started on allopurinol which she took for one dose prior to his admission, as tumor lysis prophylaxis. Hemoglobin and platelets relatively stable at 12 and 120. Continues to have melena. Agree with colonoscopy as planned tomorrow. Continue to monitor his CBC and plan on supportive transfusion for significant drops of hemoglobin. Okay to hold allopurinol for now although I did reassure him that I doubt this was causing his bleeding. He will need to follow-up with Dr. Allen once stable and discharged for further recommendations on starting therapy for his CLL/SLL. Discussed with patient in detail and he is agreeable to the plan. All of his questions were answered.
[2021-12-29] MEDS: INSULIN ASPART (NovoLOG) 100 UNIT/ML VIAL SQ SCH ×3 (13:02→20:52)
[2021-12-29 17:22] LABS: Glucose,Whole Blood 100 mg/dL (75-99)
[2021-12-29] MEDS: ATORVASTATIN 40 MG TAB PO SCH (20:17)
[2021-12-29] MEDS: MONTELUKAST 10 MG TAB PO SCH (20:17)
[2021-12-29] MEDS: METOPROLOL TARTRATE 12.5 MG TAB PO SCH (20:17)
[2021-12-29 20:43] LABS: Glucose,Whole Blood 154 mg/dL (75-99)
--- NOTE | 2021-12-30 00:59 | P.PN ---
Subjective Progress Note Date: 12/29/21 Principal diagnosis: Rectal bleed 66-year-old male, history of hypertension, hyperlipidemia and diabetes mellitus, who presents emergency department stating this morning he got up and had a little bright red blood per rectum patient states he then went and had a bowel movement was which she states was all blood and blood clots. Patient denies any previous history of GI bleed. Patient denies any blood thinners. Patient denies any abdominal pain. Patient denies lightheadedness or dizziness. Patient denies any chest pain or difficulty breathing. Patient states she's been eating and drinking normal. Patient denies any nausea or vomiting. Blood work completed in ED reveals WBC of 8.8, hemoglobin 12.1, platelet count of 124, sodium 137, potassium 4.5, BUN/creatinine of 12/0.61 and blood glucose of 113 Patient is being admitted to the hospital for further evaluation of rectal bleed 12/29/21 Patient is seen and evaluated. Reports 5-6 bloody bowel movements since admission. Vital signs are reviewed, stable with temp 97.7, pulse 86, BP 122/74, Labs reveal Hgb stable at 12.9 Pt has been evaluated and being followed by general surgery with endoscopy scheduled for tomorrow morning Pt remains on IV protonix. Will continue to monitor H/H closely with plans to transfuse if hemoglobin drops below 8.0 Objective - Vital Signs Vital signs: Vital Signs Temp 98.1 F 12/29/21 07:00 Pulse 91 12/29/21 07:00 Resp 16 12/29/21 07:00 BP 126/80 12/29/21 07:00 Pulse Ox 95 12/29/21 07:00 Intake & Output 12/28/21 12/29/21 12/29/21 18:59 06:59 18:59 Intake Total 240 Balance 240 Intake: Oral 240 Other: # Voids 3 # Bowel Movements 3 - Exam GENERAL: The patient is alert and oriented x3, not in any acute distress. Well developed, well nourished. HEENT: Pupils are round and equally reacting to light. EOMI. No scleral icterus. No conjunctival pallor. Normocephalic, atraumatic. No pharyngeal erythema. No thyromegaly. CARDIOVASCULAR: S1 and S2 present. No murmurs, rubs, or gallops. PULMONARY: Chest is clear to auscultation, no wheezing or crackles. ABDOMEN: Soft, nontender, nondistended, normoactive bowel sounds. No palpable organomegaly. MUSCULOSKELETAL: No joint swelling or deformity. EXTREMITIES: No cyanosis, clubbing, or pedal edema. NEUROLOGICAL: Gross neurological examination did not reveal any focal deficits. SKIN: No rashes. - Labs CBC & Chem 7: 12/29/21 10:57 12/29/21 10:57 Labs: Abnormal Lab Results - Last 24 Hours (Table) 12/28/21 12/28/21 12/28/21 Range/Units 12:47 17:34 20:34 POC Glucose (mg/dL) 101 H 101 H 136 H (75-99) mg/dL 12/29/21 Range/Units 07:50 POC Glucose (mg/dL) 136 H (75-99) mg/dL Assessment and Plan Assessment: 1. GI bleed; BRBPR - We will admit patient to general medical floor; monitor H&H closely; Protonix 40 mg IV every 12 hours; type crossmatch and transfuse if hemoglobin is less than 8.0; we will hold aspirin and meloxicam - Gen. surgery is consulted for further recommendations 2. Hypertension; patient takes hydrocodone as a corporate 5 mg daily along with lisinopril 5 mg daily, metoprolol 12.5 mg twice a day; blood pressures currently soft; we will plan to hold antihypertensive therapy until blood pressure improves. 3. Hyperlipidemia; Lipitor 40 mg by mouth daily at bedtime 4. Diabetes mellitus; patient takes metformin thousand milligrams by mouth twice a day; we will continue to hold start patient on Accu-Cheks before meals and at bedtime with sliding scale 5. Asthma; not in exacerbation; singular 10 mg daily at bedtime 6. Coronary artery disease/history of [place]; currently stable; patient takes aspirin, statins and beta blockers; we will hold off till blood pressure improves; no aspirin due to GI bleed DVT prophylaxis; SCDs CODE STATUS; full code
[2021-12-30 07:03] LABS: Glucose,Whole Blood 126 mg/dL (75-99)
[2021-12-30] MEDS: INSULIN ASPART (NovoLOG) 100 UNIT/ML VIAL SQ SCH ×4 (07:18→20:56)
[2021-12-30] MEDS: PANTOPRAZOLE 40 MG/10 ML VIAL IVP SCH ×2 (08:08→20:56)
[2021-12-30] MEDS: METOPROLOL TARTRATE 12.5 MG TAB PO SCH ×2 (08:14→20:56)
[2021-12-30 08:55] LABS: Basophils # (A) 0.03 X 10*3/uL (0.00-0.10); Basophils % (A) 0.5 %; Eosinophils # (A) 0.22 X 10*3/uL (0.04-0.35); Eosinophils % (A) 3.9 %; HCT 36.4 % (39.6-50.0); HGB 11.5 g/dL (13.0-17.0); Immature Grans, Automated 0.2 %; Lymphocytes # (A) 1.22 X 10*3/uL (0.90-5.00); Lymphocytes % (A) 21.9 %; MCHC 31.6 g/dL (32.0-37.0); MCV 88.8 fL (80.0-97.0); Mean Platelet Volume 12.4 fL (9.5-12.2); Monocytes % (A) 7.2 %; NRBC Per 100 WBC 0 /100 WBCS (0.0-0.0); Neutrophils % (A) 66.3 %; Platelet Count 120 X 10*3/uL (140-440); RDW 14.5 % (11.5-14.5); WBC 5.58 X 10*3/uL (4.50-10.00)
[2021-12-30 09:07] LABS: African American GFR (CKD) 114.8 (60.0-200.0); Anion Gap 11.3 mmol/L (10.00-18.00); BUN/Creat Ratio 11.14 Ratio (12.00-20.00); Blood Urea Nitrogen 7.8 mg/dL (9.0-27.0); Carbon Dioxide 25.7 mmol/L (20.0-27.5); Potassium 3.7 mmol/L (3.5-5.5)
[2021-12-30] MEDS: MORPHINE SULFATE 2 MG/ML SYRINGE IVP PRN (09:49)
[2021-12-30] MEDS ORDERED: Potassium Replacement Protocol 1 EACH MISC MISCELLANE PRN (10:10)
[2021-12-30] MEDS ORDERED: Magnesium Replacement Protocol 1 EACH MISC MISCELLANE PRN (10:36)
--- NOTE | 2021-12-30 10:43 | P.PN ---
Subjective Progress Note Date: 12/30/21 This is 66-year-old gentleman admitted with rectal bleeding, bright red blood reported, accompanied by blood clots, hemoglobin 12.9 and multiple other medical issues. Currently complains of mild headache, diffuse abdominal pain most prominent on the left upper and lower quadrants. Hemoglobin decreased to 11.5, platelets 120. Maintained on PPI, completed prep for colonoscopy today. Reports recurrent bright red rectal bleeding this morning with blood clots. Denies chest pain, palpitations or shortness of breath. Denies lightheadedness, dizziness or focal deficits.VSS. Objective - Vital Signs Vital signs: Vital Signs Temp 98.2 F 12/30/21 07:00 Pulse 88 12/30/21 07:00 Resp 16 12/30/21 07:00 BP 118/74 12/30/21 07:00 Pulse Ox 96 12/30/21 07:00 Intake & Output 12/29/21 12/30/21 12/30/21 18:59 06:59 18:59 Intake Total 720 Balance 720 Intake: Oral 720 Other: Voiding Method Toilet # Voids 1 1 # Bowel Movements 1 3 - Exam - Exam GENERAL: Sitting up at bedside, alert and oriented x3, no acute distress. HEENT: Pupils are round and equal, No scleral icterus. No conjunctival pallor. Normocephalic, atraumatic. No pharyngeal erythema. No thyromegaly. CARDIOVASCULAR: S1 and S2 present. No murmurs, rubs, or gallops. PULMONARY: Chest is clear to auscultation, no wheezing or crackles. ABDOMEN: Soft, obese ,distended, left upper and left lower quadrant tenderness ,normoactive bowel sounds. No palpable organomegaly. EXTREMITIES: No cyanosis, clubbing, or pedal edema. NEUROLOGICAL: Cranial nerves II through XII grossly intact, no focal deficits. SKIN: No rashes. - Labs CBC & Chem 7: 12/30/21 06:42 12/30/21 06:42 Labs: Abnormal Lab Results - Last 24 Hours (Table) 12/29/21 12/29/21 12/29/21 Range/Units 10:57 10:57 12:38 RBC (4.40-5.60) X 10*6/uL Hgb 12.9 L (13.0-17.5) gm/dL Hct (39.6-50.0) % MCHC (32.0-37.0) g/dL Plt Count 109 L (150-450) k/uL MPV (9.5-12.2) fL BUN (9.0-27.0) mg/dL BUN/Creatinine Ratio (12.00-20.00) Ratio Glucose 271 H (74-99) mg/dL POC Glucose (mg/dL) 211 H (75-99) mg/dL 12/29/21 12/29/21 12/30/21 Range/Units 17:21 20:41 06:42 RBC 4.10 L (4.40-5.60) X 10*6/uL Hgb 11.5 L (13.0-17.5) gm/dL Hct 36.4 L (39.6-50.0) % MCHC 31.6 L (32.0-37.0) g/dL Plt Count 120 L (150-450) k/uL MPV 12.4 H (9.5-12.2) fL BUN (9.0-27.0) mg/dL BUN/Creatinine Ratio (12.00-20.00) Ratio Glucose (74-99) mg/dL POC Glucose (mg/dL) 100 H 154 H (75-99) mg/dL 12/30/21 12/30/21 Range/Units 06:42 07:02 RBC (4.40-5.60) X 10*6/uL Hgb (13.0-17.5) gm/dL Hct (39.6-50.0) % MCHC (32.0-37.0) g/dL Plt Count (150-450) k/uL MPV (9.5-12.2) fL BUN 7.8 L (9.0-27.0) mg/dL BUN/Creatinine Ratio 11.14 L (12.00-20.00) Ratio Glucose 131 H (74-99) mg/dL POC Glucose (mg/dL) 126 H (75-99) mg/dL Assessment and Plan Assessment: Acute GI Bleed,possibly acute blood loss anemia, suspect diverticular bleed, colonoscopy pending. History of bowel perforation, surgical repair with mesh approximately 30 years ago, patient reports. History of non-Hodgkin's lymphoma History of PE Seizure disorder, history of CAD, history of [place] Diabetes mellitus Hypertension Depression Former nicotine dependence, 3 pack a day, 13 years, quit smoking in 1984. Obesity, BMI 35.9 Plan: Continue on current medication regime ,monitoring and symptomatic treatment. Maintained on PPI, close monitoring of electrolytes, magnesium level pending, potassium currently down to 3.7 postprep. Electrolyte replacement protocol as ordered. Discharge planning in progress pending colonoscopy res ults, final DC recommendations and clearance per surgery. The impression and plan of care has been dictated as directed. : I performed a history and examination of this patient, discussed the same with the dictator. I agree with the dictator's note ,documented as a scribe. Any additional findings or plans will be noted.
[2021-12-30] MEDS ORDERED: PROPOFOL 10 MG/ML 20 ML VIAL IV ONE (11:39)
[2021-12-30] MEDS ORDERED: LACTATED RINGERS 1,000 ML IV ONE (12:15)
--- NOTE | 2021-12-30 12:21 | P.OP ---
Date of Procedure: 12/30/21 Preoperative Diagnosis: GI bleed Postoperative Diagnosis: Large sigmoid colon polyp/mass pathology pending with evidence of bleeding Procedure(s) Performed: Colonoscopy Anesthesia: MAC Surgeon: Carmelo Palmer Pathology: other (Sigmoid colon mass) Condition: stable Disposition: PACU Description of Procedure: Patient's placed on the endoscopy table in the lateral position. He received IV sedation. Digital rectal exam was performed which revealed some blood on the examining finger. Flexible colonoscope was then placed patient anus and passed throughout the colon. The scope could not be entered cecum due to poor prep. The large amount of liquid stool this point scope was withdrawn. The visualized right colon, transverse colon and descending colon appeared normal. In the sigmoid colon there was a large polyp/mass occupying approximately two thirds colon. This was friable and bleeding. Several biopsies performed. Scope back further and another polyp was seen. This removed with cold forcep. Scope was brought back the rectum this appeared normal. Scope withdrawn for patient. Presumed patient's rectal bleeding was due to his polyp/mass sigmoid colon. We will await pathology.
[2021-12-30 12:45] LABS: Glucose,Whole Blood 91 mg/dL (75-99)
--- NOTE | 2021-12-30 15:29 | P.PN ---
Subjective Progress Note Date: 12/30/21 Principal diagnosis: BRBPR In f/u today pt is no longer c/o of gross blood but, he is in process of prepping for colonoscopy, no other bleeding to report, denies abd pain. He took 1 dose of allopurinol before rectal bleeding he did not start calquence for CLL/SLL Objective - Vital Signs Vital signs: Vital Signs Temp 98.2 F 12/30/21 07:00 Pulse 88 12/30/21 08:00 Resp 16 12/30/21 08:00 BP 118/74 12/30/21 07:00 Pulse Ox 96 12/30/21 07:00 Intake & Output 12/29/21 12/30/21 12/30/21 18:59 06:59 18:59 Intake Total 720 400 Balance 720 400 Intake: IV 400 Oral 720 Other: Voiding Method Toilet Toilet # Voids 1 1 # Bowel Movements 1 3 - Constitutional General appearance: Present: cooperative, no acute distress, obese - EENT Eyes: Present: anicteric sclerae, EOMI ENT: Present: hearing grossly normal, normal oropharynx - Respiratory Respiratory: bilateral: CTA - Cardiovascular Rhythm: regular Heart sounds: normal: S1, S2 Abnormal Heart Sounds: Absent: systolic murmur, diastolic murmur, rub, S3 Gal lop, S4 Gallop, click, other - Peripheral edema leg Peripheral Edema: bilateral: None - Gastrointestinal General gastrointestinal: Present: normal bowel sounds, soft - Neurologic Neurologic: Present: CNII-XII intact - Musculoskeletal Musculoskeletal: Present: strength equal bilaterally - Psychiatric Psychiatric: Present: A&O x's 3, appropriate affect, intact judgment & insight - Labs CBC & Chem 7: 12/30/21 06:42 12/30/21 06:42 Labs: Abnormal Lab Results - Last 24 Hours (Table) 12/29/21 12/29/21 12/29/21 Range/Units 12:38 17:21 20:41 RBC (4.40-5.60) X 10*6/uL Hgb (13.0-17.0) g/dL Hct (39.6-50.0) % MCHC (32.0-37.0) g/dL Plt Count (140-440) X 10*3/uL MPV (9.5-12.2) fL BUN (9.0-27.0) mg/dL BUN/Creatinine Ratio (12.00-20.00) Ratio Glucose (70-110) mg/dL POC Glucose (mg/dL) 211 H 100 H 154 H (75-99) mg/dL 12/30/21 12/30/21 12/30/21 Range/Units 06:42 06:42 07:02 RBC 4.10 L (4.40-5.60) X 10*6/uL Hgb 11.5 L (13.0-17.0) g/dL Hct 36.4 L (39.6-50.0) % MCHC 31.6 L (32.0-37.0) g/dL Plt Count 120 L (140-440) X 10*3/uL MPV 12.4 H (9.5-12.2) fL BUN 7.8 L (9.0-27.0) mg/dL BUN/Creatinine Ratio 11.14 L (12.00-20.00) Ratio Glucose 131 H (70-110) mg/dL POC Glucose (mg/dL) 126 H (75-99) mg/dL Assessment and Plan (1) CLL (chronic lymphocytic leukemia) Narrative/Plan: Pt was started on allopurinol for prevention of TLS and due to start calquence for symptomatic CLL/SLL. Pending path on rectal polyp biopsy before proceeding. Current Visit: Yes Status: Acute Priority: High Code(s): C91.10 - CHRONIC LYMPHOCYTIC LEUK OF B-CELL TYPE NOT ACHIEVE REMIS SNOMED Code(s): 07336542 (2) Rectal polyp Narrative/Plan: reviewed Surgery procedure notes, path pending. Possible rectal primary vs CLL/SLL rectal involvement Current Visit: Yes Status: Acute Priority: High Code(s): K62.1 - RECTAL POLYP SNOMED Code(s): 28412999 (3) Bright red blood per rectum Current Visit: Yes Status: Acute Priority: High Code(s): K62.5 - HEMORRHAGE OF ANUS AND RECTUM SNOMED Code(s): 10566327 (4) Anemia Narrative/Plan: Iron studies ordered. Hemolysis work up Current Visit: Yes Status: Acute Priority: Medium Code(s): D64.9 - ANEMIA, UNSPECIFIED SNOMED Code(s): 178405591 Plan: attests: I have performed H&P, developed impression and plan of care. Dis cussed with dictator. Agree with dictation, documented as a scribe.
[2021-12-30 17:21] LABS: Glucose,Whole Blood 117 mg/dL (75-99)
[2021-12-30 20:29] LABS: Glucose,Whole Blood 207 mg/dL (75-99)
[2021-12-30] MEDS: ATORVASTATIN 40 MG TAB PO SCH (20:56)
[2021-12-30] MEDS: MONTELUKAST 10 MG TAB PO SCH (20:56)
[2021-12-31 00:52] LABS: % Iron Saturation 11.5 (15.00-50.00); Ferritin 34.5 ng/mL (22.0-322.0)
[2021-12-31 07:58] LABS: Glucose,Whole Blood 108 mg/dL (75-99)
[2021-12-31] MEDS: INSULIN ASPART (NovoLOG) 100 UNIT/ML VIAL SQ SCH ×4 (08:00→20:43)
[2021-12-31 08:02] LABS: HCT 36.3 % (39.0-53.0); MCHC 33.1 g/dL (31.0-37.0); MCV 90.5 fL (80.0-100.0); Mean Platelet Volume 9.8; Platelet Count 119 k/uL (150-450); RBC 4.01 m/uL (4.30-5.90); RDW 14.7 % (11.5-15.5); WBC 5.3 k/uL (3.8-10.6)
[2021-12-31] MEDS: PANTOPRAZOLE 40 MG/10 ML VIAL IVP SCH ×2 (09:43→20:43)
[2021-12-31] MEDS: METOPROLOL TARTRATE 12.5 MG TAB PO SCH ×2 (09:43→20:43)
--- NOTE | 2021-12-31 11:52 | P.PN ---
Subjective Progress Note Date: 12/31/21 Principal diagnosis: BRBPR In f/u today pt has no c/o, he tolerated colonoscopy, pending path on a polyp. Wants to go home Objective - Vital Signs Vital signs: Vital Signs Temp 97.9 F 12/31/21 07:48 Pulse 73 12/31/21 08:00 Resp 15 12/31/21 08:00 BP 128/79 12/31/21 07:48 Pulse Ox 97 12/31/21 07:48 Intake & Output 12/30/21 12/31/21 12/31/21 18:59 06:59 18:59 Intake Total 880 Balance 880 Intake: IV 400 Oral 480 Other: Voiding Method Toilet Toilet Toilet # Voids 2 2 # Bowel Movements 1 1 - Constitutional General appearance: Present: morbidly obese - EENT Eyes: Present: anicteric sclerae, EOMI ENT: Present: hearing grossly normal - Respiratory Details: resp even and unlabored - Cardiovascular Details: skin warm and dry to touch, pt has good color - Integumentary Integumentary: Present: normal - Neurologic Neurologic: Present: CNII-XII intact - Musculoskeletal Musculoskeletal: Present: strength equal bilaterally - Psychiatric Psychiatric: Present: A&O x's 3, appropriate affect, intact judgment & insight - Labs CBC & Chem 7: 12/31/21 07:36 12/30/21 06:42 Labs: Abnormal Lab Results - Last 24 Hours (Table) 12/30/21 12/30/21 12/30/21 Range/Units 15:37 17:20 20:26 RBC (4.30-5.90) m/uL Hgb (13.0-17.5) gm/dL Hct (39.0-53.0) % Plt Count (150-450) k/uL POC Glucose (mg/dL) 117 H 207 H (75-99) mg/dL Iron 37 L (65-175) ug/dL % Saturation 11.50 L (15.00-50.00) 12/31/21 12/31/21 Range/Units 07:36 07:56 RBC 4.01 L (4.30-5.90) m/uL Hgb 12.0 L (13.0-17.5) gm/dL Hct 36.3 L (39.0-53.0) % Plt Count 119 L (150-450) k/uL POC Glucose (mg/dL) 108 H (75-99) mg/dL Iron (65-175) ug/dL % Saturation (15.00-50.00) - Imaging and Cardiology CT scan - abdomen: report reviewed CT scan - chest: report reviewed CT scan - pelvis: report reviewed Assessment and Plan (1) CLL (chronic lymphocytic leukemia) Narrative/Plan: Pt was started on allopurinol for prevention of TLS and due to start calquence for symptomatic CLL/SLL. Pending path on rectal polyp biopsy before proceeding. Pt instructed to continue allopurinol but hold taking calquence for now Current Visit: Yes Status: Acute Priority: High Code(s): C91.10 - CHRONIC LYMPHOCYTIC LEUK OF B-CELL TYPE NOT ACHIEVE REMIS SNOMED Code(s): 21978972 (2) Rectal polyp Narrative/Plan: Reviewed Surgery procedure notes with pt, path pending. Possible rectal primary vs CLL/SLL rectal involvement. Current Visit: Yes Status: Acute Priority: High Code(s): K62.1 - RECTAL POLYP SNOMED Code(s): 02086714 (3) Bright red blood per rectum Current Visit: Yes Status: Acute Priority: High Code(s): K62.5 - HEMORRHAGE OF ANUS AND RECTUM SNOMED Code(s): 49735983 (4) Anemia Narrative/Plan: Mild iron deficiency, Hgb stable. Will plan for IV iron outpt. Hemolysis work up neg Current Visit: Yes Status: Acute Priority: Medium Code(s): D64.9 - ANEMIA, UNSPECIFIED SNOMED Code(s): 986884888 Plan: Dr. Allen reviewed CT CAP results from [facility] done 4 days ago. Extensive adenopathy above and below diaphragm. No mention of abnormalities in the pelvis/colon. Plan is to await polyp path 1st, then will plan treatment based on those results. Pt given instructions, put note in DC plan. F/U already scheduled attests: I have performed H&P, developed impression and plan of care. Discussed with dictator. Agree with dictation, documented as a scribe.
[2021-12-31 11:59] LABS: Glucose,Whole Blood 140 mg/dL (75-99)
--- NOTE | 2021-12-31 13:11 | P.PN ---
Subjective Progress Note Date: 12/31/21 CHIEF COMPLAINT: GI bleed HISTORY OF PRESENT ILLNESS: Patient is status post colonoscopy with results dem onstrating large sigmoid colon polyp/mass with evidence of bleeding. Patient's did have a clear liquid diet. He reports that he had a small amount of blood with his stool. Reports minimal pain. Hemoglobin did go up from 11.5-12. Pathology results pending. Patient seen and examined with Dr. pierce PHYSICAL EXAM: VITAL SIGNS: Reviewed. GENERAL: Well-developed in no acute distress. HEENT: No sclera icterus. Extraocular movements grossly intact. Moist buccal mucosa. Head is atraumatic, normocephalic. ABDOMEN: Soft. Nondistended. Nontender. NEUROLOGIC: Alert and oriented. Cranial nerves II through XII grossly intact. ASSESSMENT: 1. Acute GI bleed with rectal bleeding likely due to patient's polyp/mass of the sigmoid colon PLAN: -Patient can be discharged surgical standpoint -Agree with advancing diet -Continue to monitor for signs or symptoms of bleeding -Patient can follow up in office for pathology results Physician Poultry Grader note has been reviewed by physician. Signing provider agrees with the documented findings, assessment, and plan of care. Objective - Vital Signs Vital signs: Vital Signs Temp 97.9 F 12/31/21 07:48 Pulse 73 12/31/21 08:00 Resp 15 12/31/21 08:00 BP 128/79 12/31/21 07:48 Pulse Ox 97 12/31/21 07:48 Intake & Output 12/30/21 12/31/21 12/31/21 18:59 06:59 18:59 Intake Total 880 Balance 880 Intake: IV 400 Oral 480 Other: Voiding Method Toilet Toilet Toilet # Voids 2 2 # Bowel Movements 1 1 - Labs CBC & Chem 7: 12/31/21 07:36 12/30/21 06:42 Labs: Abnormal Lab Results - Last 24 Hours (Table) 12/30/21 12/30/21 12/30/21 Range/Units 15:37 17:20 20:26 RBC (4.30-5.90) m/uL Hgb (13.0-17.5) gm/dL Hct (39.0-53.0) % Plt Count (150-450) k/uL POC Glucose (mg/dL) 117 H 207 H (75-99) mg/dL Iron 37 L (65-175) ug/dL % Saturation 11.50 L (15.00-50.00) 12/31/21 12/31/21 12/31/21 Range/Units 07:36 07:56 11:57 RBC 4.01 L (4.30-5.90) m/uL Hgb 12.0 L (13.0-17.5) gm/dL Hct 36.3 L (39.0-53.0) % Plt Count 119 L (150-450) k/uL POC Glucose (mg/dL) 108 H 140 H (75-99) mg/dL Iron (65-175) ug/dL % Saturation (15.00-50.00)
--- NOTE | 2021-12-31 13:17 | P.PN ---
Subjective Progress Note Date: 12/31/21 This is 66-year-old gentleman admitted with rectal bleeding, bright red blood reported, accompanied by blood clots, hemoglobin 12.9 and multiple other medical issues. Currently complains of mild headache, diffuse abdominal pain most prominent on the left upper and lower quadrants. Hemoglobin decreased to 11.5, platelets 120. Maintained on PPI, completed prep for colonoscopy today. Reports recurrent bright red rectal bleeding this morning with blood clots. Denies chest pain, palpitations or shortness of breath. Denies lightheadedness, dizziness or focal deficits.VSS. 12/31/2009 underwent colonoscopy yesterday reporting large sigmoid colon polyp/mass, pathology pending, with evidence of bleeding. Patient reports small bright red rectal bleeding last night and this morning. Hemoglobin remained stable, 12, platelets 119. Denies abdominal pain. Tolerating clear liquids. Denies nausea or vomiting. Denies bloating. Objective - Vital Signs Vital signs: Vital Signs Temp 97.9 F 12/31/21 07:48 Pulse 73 12/31/21 08:00 Resp 15 12/31/21 08:00 BP 128/79 12/31/21 07:48 Pulse Ox 97 12/31/21 07:48 Intake & Output 12/30/21 12/31/21 12/31/21 18:59 06:59 18:59 Intake Total 880 Balance 880 Intake: IV 400 Oral 480 Other: Voiding Method Toilet Toilet Toilet # Voids 2 2 # Bowel Movements 1 1 - Exam - Exam GENERAL: Sitting up at bedside, alert and oriented x3, no acute distress. HEENT: Pupils are round and equal, No scleral icterus. No conjunctival pallor. Normocephalic, atraumatic. No pharyngeal erythema. No thyromegaly. CARDIOVASCULAR: S1 and S2 present. No murmurs, rubs, or gallops. PULMONARY: Chest is clear to auscultation, no wheezing or crackles. ABDOMEN: Soft, obese ,distended, left lower quadrant tenderness ,normoactive bowel sounds. No palpable organomegaly. EXTREMITIES: No cyanosis, clubbing, or pedal edema. NEUROLOGICAL: Cranial nerves II through XII grossly intact, no focal deficits. SKIN: No rashes. - Labs CBC & Chem 7: 12/31/21 07:36 03/07/22 06:42 Labs: Abnormal Lab Results - Last 24 Hours (Table) 12/30/21 12/30/21 12/30/21 Range/Units 15:37 17:20 20:26 RBC (4.30-5.90) m/uL Hgb (13.0-17.5) gm/dL Hct (39.0-53.0) % Plt Count (150-450) k/uL POC Glucose (mg/dL) 117 H 207 H (75-99) mg/dL Iron 37 L (65-175) ug/dL % Saturation 11.50 L (15.00-50.00) 12/31/21 12/31/21 12/31/21 Range/Units 07:36 07:56 11:57 RBC 4.01 L (4.30-5.90) m/uL Hgb 12.0 L (13.0-17.5) gm/dL Hct 36.3 L (39.0-53.0) % Plt Count 119 L (150-450) k/uL POC Glucose (mg/dL) 108 H 140 H (75-99) mg/dL Iron (65-175) ug/dL % Saturation (15.00-50.00) Assessment and Plan Assessment: Acute GI Bleed,possibly acute blood loss anemia, possibly related to large sigmoid colon polyp/mass with evidence of bleeding as reported per colonoscopy, pathology pending, History of bowel perforation, surgical repair with mesh approximately 30 years ago, patient reports. History of non-Hodgkin's lymphoma, CLL History of PE Seizure disorder, history of CAD, history of [place] Diabetes mellitus Hypertension Depression Former nicotine dependence, 3 pack a day, 13 years, quit smoking in 1984. Obesity, BMI 35.9 Plan: Continue on current medication regime ,monitoring and symptomatic treatment. Maintained on PPI. close monitoring of hemoglobin, platelets. Advance diet to full liquids for lunch, if tolerating continue advancing diet to soft for dinner. Discharge planning in progress for tomorrow. The impression and plan of care has been dictated as directed. : I performed a history and examination of this patient, discussed the same with the dictator. I agree with the dictator's note ,documented as a scribe. Any additional findings or plans will be noted.
[2021-12-31 17:17] LABS: Glucose,Whole Blood 141 mg/dL (75-99)
--- NOTE | 2021-12-31 19:31 | CT ---
EXAMINATION TYPE: CT brain wo/w con DATE OF EXAM: 12/31/2021 COMPARISON: 01/15/2021 HISTORY: decreased LOC. CT DLP: 2266.6 mGycm Automated exposure control for dose reduction was used. CONTRAST: CT scan of the head is performed with IV Contrast, patient injected with 100 mL of Isovue 300. FINDINGS: There is no abnormal enhancing mass or midline shift identified. There is mild white matter disease and parenchymal volume loss. The ventricles and sulci are within normal limits in size. The globes a re intact and the visualized sinuses are clear. IMPRESSION: Negative contrast enhanced head CT exam. Chronic microvascular ischemic changes.
[2021-12-31 20:17] LABS: Glucose,Whole Blood 187 mg/dL (75-99)
[2021-12-31] MEDS: ATORVASTATIN 40 MG TAB PO SCH (20:43)
[2021-12-31] MEDS: MONTELUKAST 10 MG TAB PO SCH (20:43)
--- NOTE | 2021-12-31 23:44 | P.CNNES ---
History of Present Illness Consult date: 12/31/21 Requesting physician: Forrest Morton Reason for Consult: Possible seizure History of Present Illness: Patient is a 66-year-old male who was admitted for GI bleed on 12/27/2021. He underwent colonoscopy yesterday which revealed a large sigmoid colon polyp/mass, pathology is pending. Today he had a seizure in the hospital therefore neurology was consulted. Patient and his significant other were present who provided with a history. Patient was diagnosed with pseudoseizures about 10 years ago. Patient underwent testing by Dr. Decker, and after Dr. Decker's practice closure, by a neurologist at [facility], and no obvious "signs of seizures" was found. Therefore he was diagnosed with pseudoseizures. Patient currently not taking any seizure medication. Patient's significant other states that patient's seizures are only provoked either due to respiratory infection, pneumonia or acute VA. He had 2 admissions to the hospital for seizures when he also had an VA. She further mentions that he gets seizures about every 3 months, sometimes 1 or 2 seizures. The seizures only occurs when he is asleep. He never had any seizure while awake. The last seizure was 2 months ago, when he had upper respiratory infection. The more sickness he has, though worse seizure he gets. She states that the seizures usually last for 30 seconds and patient has no recollection of the event. She can tell he is having a seizure when he makes some vocalization, like he cannot breathe and that he tightens up his fist, starts shaking. He has bitten his tongue and loses control of urine with his seizures a few times. She states that patient can only tell he has a seizure, when he finds himself with wet pants due to complete loss of control of urine with the seizure. Today at around 5:15 PM the nurse aide went to check on his blood sugar, and he was unresponsive. He was laying in the bed, eyes open, staring off in space, completely unresponsive. He did not make any eye contact, and could not answer any questions. His blood sugar was 141, blood pressure 144/70, pulse rate 113 and saturation 96%. It took almost 10 minutes for him to register and then took another 20 minutes for him to return back to normal state. Patient did lose control of urine with this event, and also has evidence of tongue bite [place]. It is not very clear if patient was asleep before he had the seizure like event. The nurse feels that patient was probably napping before he had this event. Patient says that he has been diagnosed with non-Hodgkin's lymphoma and leukemia about 1-1-1/2 years ago. He follows up with Dr. Allen. Patient underwent computed tomography scan of the head which revealed no acute process. Chronic microvascular ischemic changes. Blood tests shows normal WBC hemoglobin 12.0, platelets 119. Magnesium 1.9, B12 854, RBC folate 732 normal renal functions. Hemoglobin A1c 6.5 on 09/30/2016. Review of Systems Fatigue. Patient's has noticed that the symptoms worsen degree change in the last few months he is more irritable, short tempered. His lymph nodes are enlarging. Patient denies any headache any problem with the vision, hoarseness, sore throat, dysphagia. No abdominal pain, nausea vomiting diarrhea. All other 14 point review of systems reviewed and unremarkable. Patient does have GI bleed. Past Medical History Past Medical History: Coronary Artery Disease (CAD), Cancer, Diabetes Mellitus, Hearing Disorder / Deafness, Hyperlipidemia, Hypertension, Myocardial Infarction ([place]), Osteoarthritis (OA), Pulmonary Embolus (PE), Seizure Disorder Additional Past Medical History / Comment(s): PE 09/29/16, NON HODGKINS LYMPHOMA, Last Myocardial Infarction Date:: 2017 History of Any Multi-Drug Resistant Organisms: None Reported Past Surgical History: Ear Surgery, Heart Catheterization With Stent, Hernia Re pair Additional Past Surgical History / Comment(s): heart stent x4 Past Anesthesia/Blood Transfusion Reactions: Previous Problems w/ Anesthesia Additional Past Anesthesia/Blood Transfusion Reaction / Comment(s): "fights anesthesia" Date of Last Stent Placement:: 2017 Past Psychological History: Depression Smoking Status: Former smoker Past Alcohol Use History: None Reported Past Drug Use History: None Reported - Past Family History Mother Family Medical History: Cancer Additional Family Medical History / Comment(s): Lung cancer Father Family Medical History: Cancer Additional Family Medical History / Comment(s): Spinal Cancer Medications and Allergies Home Medications Medication Instructions Recorded Confirmed Type metFORMIN HCL [Glucophage] 1,000 mg PO BID 04/23/15 12/27/21 History Aspirin 81 mg PO DAILY #30 chewable 09/30/16 12/27/21 Rx Atorvastatin [Lipitor] 40 mg PO HS 07/17/19 12/27/21 History Metoprolol Tartrate [Lopressor] 12.5 mg PO BID 07/17/19 12/27/21 History lisinopriL [Zestril] 5 mg PO DAILY 07/17/19 12/27/21 History Hydrochlorothiazide 12.5 mg PO DAILY 01/15/21 12/27/21 History [hydroCHLOROthiazide] Montelukast Sodium [Singulair] 10 mg PO HS 01/15/21 12/27/21 History Allopurinol [Zyloprim] 200 mg PO DAILY 12/27/21 12/27/21 History Meloxicam [Mobic] 15 mg PO DAILY 12/27/21 12/27/21 History Pantoprazole [Protonix] 40 mg PO DAILY #30 tab 12/31/21 Rx Allergies Allergy/AdvReac Type Severity Reaction Status Date / Time Sulfa (Sulfonamide Allergy Rash/Hives Verified 12/27/21 16:46 Antibiotics) Physical Examination - Vital Signs Vital Signs: Vital Signs Temp Pulse Resp BP BP Pulse Ox 12/31/21 20:16 110/72 12/31/21 19:44 98.8 F 99 20 99/58 97 12/31/21 17:25 108 H 140/70 96 12/31/21 17:15 113 H 144/70 12/31/21 14:00 97.8 F 82 18 117/66 99 12/31/21 08:00 73 15 12/31/21 07:48 97.9 F 73 15 128/79 97 12/31/21 02:20 98.3 F 82 17 102/57 100 Intake and Output 12/31/21 12/31/21 01/01/22 14:59 22:59 06:59 Intake Total 221 Balance 221 Intake: Oral 221 Other: Voiding Method Toilet # Voids 2 # Bowel Movements 2 Patient is an elderly male, in no acute distress. Patient is alert awake oriented to time place and person. Patient has slightly slow mentation, probably due to late postictal effect. Patient knows it is 12/31/2021 and that he is in [facility] and name of the current president. Speech and language functions are normal. Attention, concentration and fund of knowledge is adequate. Detailed testing deferred. On cranial nerve examination, pupils are equal, round and reacting to light, visual hightower are full on confrontation, extraocular muscles are intact with no nystagmus. Face is symmetric, tongue protrudes to the midline. Palatal elevation and sensation normal, hearing is decreased for finger rubbing and shoulder shrug normal, facial sensation normal. Shoulder shrug normal. On muscle strength testing, there is no pronator drift and the strength is normal in arms and legs distally and proximally. Deep tendon reflexes are hypoactive and plantars are downgoing bilaterally. Sensory to touch is equal with no neglect. Cerebellar function showed no ataxia for qcleoc-em-spau testing. No dysdiadochokinesia. Tone and bulk of muscles normal. Gait deferred. On general examination, there is no carotid bruit or murmur, S1-S2 audible. Abdomen is soft nontender. No organomegaly, bowel sounds present. Chest is clear to auscultation. Peripheral pulses are present. No cyanosis. Results - Laboratory Findings CBC and BMP: 12/31/21 07:36 12/30/21 06:42 Abnormal Lab Findings: Abnormal Labs 12/27/21 12/27/21 12/28/21 13:40 13:40 12:47 RBC Hgb 12.9 L Hct MCHC Plt Count 124 L MPV Chloride 108 H BUN Creatinine 0.61 L BUN/Creatinine Ratio Glucose 113 H POC Glucose (mg/dL) 101 H Iron % Saturation 12/28/21 12/28/21 12/29/21 17:34 20:34 07:50 RBC Hgb Hct MCHC Plt Count MPV Chloride BUN Creatinine BUN/Creatinine Ratio Glucose POC Glucose (mg/dL) 101 H 136 H 136 H Iron % Saturation 12/29/21 12/29/21 12/29/21 10:57 10:57 12:38 RBC Hgb 12.9 L Hct MCHC Plt Count 109 L MPV Chloride BUN Creatinine BUN/Creatinine Ratio Glucose 271 H POC Glucose (mg/dL) 211 H Iron % Saturation 12/29/21 12/29/21 12/30/21 17:21 20:41 06:42 RBC 4.10 L Hgb 11.5 L Hct 36.4 L MCHC 31.6 L Plt Count 120 L MPV 12.4 H Chloride BUN Creatinine BUN/Creatinine Ratio Glucose POC Glucose (mg/dL) 100 H 154 H Iron % Saturation 12/30/21 12/30/21 12/30/21 06:42 07:02 15:37 RBC Hgb Hct MCHC Plt Count MPV Chloride BUN 7.8 L Creatinine BUN/Creatinine Ratio 11.14 L Glucose 131 H POC Glucose (mg/dL) 126 H Iron 37 L % Saturation 11.50 L 12/30/21 12/30/21 12/31/21 17:20 20:26 07:36 RBC 4.01 L Hgb 12.0 L Hct 36.3 L MCHC Plt Count 119 L MPV Chloride BUN Creatinine BUN/Creatinine Ratio Glucose POC Glucose (mg/dL) 117 H 207 H Iron % Saturation 12/31/21 12/31/21 12/31/21 07:56 11:57 17:15 RBC Hgb Hct MCHC Plt Count MPV Chloride BUN Creatinine BUN/Creatinine Ratio Glucose POC Glucose (mg/dL) 108 H 140 H 141 H Iron % Saturation 12/31/21 20:16 RBC Hgb Hct MCHC Plt Count MPV Chloride BUN Creatinine BUN/Creatinine Ratio Glucose POC Glucose (mg/dL) 187 H Iron % Saturation Assessment and Plan Assessment: * Breakthrough seizure. Patient has history of seizure disorder for 10 years, and has been diagnosed with pseudoseizure. However patient's seizure that happened today, (which is his typical seizure), is highly suggestive of epile ptic seizure. Patient did bite his tongue with the seizure and lost control of urine. All his seizures occurs while he is asleep, which typically occurs with epileptic seizures. The only atypical feature is that the seizure only occurs in certain situations- like upper respiratory infection, pneumonia or "heart attack" (a couple times in the past). * GI bleed. Colonic mass, status post biopsy * Coronary artery disease * History of non-Hodgkin's lymphoma * Diabetes Plan: * Patient will undergo prolonged EEG for 2.5 hours in the morning. * Hold off antiepileptic medication, until EEG has been completed. * Patient would need follow up with neurologist for further management of his seizure disorder. * Thank you for the consult.
[2022-01-01 03:25] VITALS: RESP 18
[2022-01-01 07:48] LABS: Glucose,Whole Blood 103 mg/dL (75-99)
[2022-01-01] MEDS: INSULIN ASPART (NovoLOG) 100 UNIT/ML VIAL SQ SCH ×3 (08:13→17:34)
[2022-01-01] MEDS: PANTOPRAZOLE 40 MG/10 ML VIAL IVP SCH (08:21)
[2022-01-01] MEDS: METOPROLOL TARTRATE 12.5 MG TAB PO SCH (08:21)
[2022-01-01 09:29] LABS: Methylmalonic Acid 0.19 umol/L (<0.40)
[2022-01-01 12:55] LABS: Glucose,Whole Blood 275 mg/dL (75-99)
[2022-01-01 15:27] VITALS: BP 113/68; PULSE 79; TEMP 97.5
--- NOTE | 2022-01-01 15:27 | P.DS ---
Providers Date of admission: 12/30/21 16:29 Expected date of discharge: 01/01/22 Attending physician: Forrest Morton MD Consults: 12/27/21 16:34 Consult Physician Stat Consulting Provider: Carmelo Palmer Consult Reason/Comments: GI bleed Do you want consulting provider notified?: Already Contacted 12/27/21 16:35 Consult Physician Urgent Consulting Provider: Shawn Allen Consult Reason/Comments: lymphoma established Do you want consulting provider notified?: Yes 12/31/21 17:41 Consult Physician Urgent Consulting Provider: Emanuel Peters Consult Reason/Comments: possible seizure Do you want consulting provider notified?: Yes Primary care physician: Huong Higgins Hospital Course: Final diagnoses Acute GI Bleed,possibly acute blood loss anemia, possibly related to large sigmoid colon polyp/mass with evidence of bleeding as reported per colonoscopy, pathology pending, History of bowel perforation, surgical repair with mesh approximately 30 years ago, patient reports. History of non-Hodgkin's lymphoma, CLL History of PE Seizure breakthrough in a patient with history of pseudoseizures. Suspect epileptic seizure, 2.5hr EEG pending. CAD, history of ND Diabetes mellitus Hypertension Depression Former nicotine dependence, 3 pack a day, 13 years, quit smoking in 1984. Obesity, BMI 35.9 Hospital course:This is 66-year-old gentleman admitted with rectal bleeding, bright red blood reported, accompanied by blood clots, hemoglobin 12.9 and multiple other medical issues. Currently complains of mild headache, diffuse abdominal pain most prominent on the left upper and lower quadrants. Hemoglobin decreased to 11.5, platelets 120. Maintained on PPI, completed prep for colonoscopy today. Reports recurrent bright red rectal bleeding this morning with blood clots. Denies chest pain, palpitations or shortness of breath. Denies lightheadedness, dizziness or focal deficits.VSS. 12/31/2009 underwent colonoscopy yesterday reporting large sigmoid colon polyp/mass, pathology pending, with evidence of bleeding. Patient reports small bright red rectal bleeding last night and this morning. Hemoglobin remained stable, 12, platelets 119. Denies abdominal pain. Tolerating clear liquids. Denies nausea or vomiting. Denies bloating. Tolerated diet advancement. Denies abdominal pain . Denies nausea vomiting or diarrhea .CBC pending. Yesterday afternoon patient found unresponsive, eyes open and staring off , difficult to arouse with loss of control of urine and tongue bite. Staff reports prior to the event ,he had been napping. Completed head CT, reporting no acute process, evaluated by neurology. Patient is scheduled for 2 hour EEG today. Patient will be discharged home today pending EEG, final DC recommendations and clearance for neurology and CBC. Anti-epileptic medication as per neurology, pending EEG results. The impression and plan of care has been dictated as directed. : I performed a history and examination of this patient, discussed the same with the dictator. I agree with the dictator's note ,documented as a scribe. Any additional findings or plans will be noted. Patient Condition at Discharge: Stable Plan - Discharge Summary New Discharge Prescriptions: New Pantoprazole [Protonix] 40 mg PO DAILY #30 tab Continue metFORMIN HCL [Glucophage] 1,000 mg PO BID Atorvastatin [Lipitor] 40 mg PO HS Metoprolol Tartrate [Lopressor] 12.5 mg PO BID lisinopriL [Zestril] 5 mg PO DAILY Montelukast Sodium [Singulair] 10 mg PO HS Allopurinol [Zyloprim] 200 mg PO DAILY Hydrochlorothiazide [hydroCHLOROthiazide] 12.5 mg PO DAILY Discontinued Aspirin 81 mg PO DAILY #30 chewable Meloxicam [Mobic] 15 mg PO DAILY Discharge Medication List metFORMIN HCL [Glucophage] 1,000 mg PO BID 04/23/15 [History] Atorvastatin [Lipitor] 40 mg PO HS 07/17/19 [History] Metoprolol Tartrate [Lopressor] 12.5 mg PO BID 07/17/19 [History] lisinopriL [Zestril] 5 mg PO DAILY 07/17/19 [History] Hydrochlorothiazide [hydroCHLOROthiazide] 12.5 mg PO DAILY 01/15/21 [History] Montelukast Sodium [Singulair] 10 mg PO HS 01/15/21 [History] Allopurinol [Zyloprim] 200 mg PO DAILY 12/27/21 [History] Pantoprazole [Protonix] 40 mg PO DAILY #30 tab 12/31/21 [Rx] Follow up Appointment(s)/Referral(s): Forrest Morton MD [STAFF PHYSICIAN] - 1 Week Tomasa Pearce ANPBC [Nurse Practitioner] - 01/02/22 2:45 pm Carmelo Palmer MD [STAFF PHYSICIAN] - 1 Week Activity/Diet/Wound Care/Special Instructions: Resume allopurinol HOLD starting calquence. You will be instructed by Oncologist when to start Hold aspirin and Mobitz,to be resumed in clinic as per PCP
--- NOTE | 2022-01-01 15:50 | P.PN ---
Subjective Progress Note Date: 01/01/22 CHIEF COMPLAINT: GI bleed HISTORY OF PRESENT ILLNESS: Patient is status post colonoscopy with results dem onstrating large sigmoid colon polyp/mass with evidence of bleeding. Patient tolerated diet. Denies any abdominal pain. There concerns of seizure-like activity and patient evaluated by neurology. Pathology results pending. Patient seen and examined with Dr. pierce PHYSICAL EXAM: VITAL SIGNS: Reviewed. GENERAL: Well-developed in no acute distress. HEENT: No sclera icterus. Extraocular movements grossly intact. Moist buccal mucosa. Head is atraumatic, normocephalic. ABDOMEN: Soft. Nondistended. Nontender. NEUROLOGIC: Alert and oriented. Cranial nerves II through XII grossly intact. ASSESSMENT: 1. Acute GI bleed with rectal bleeding likely due to patient's polyp/mass of the sigmoid colon PLAN: -Patient can be discharged surgical standpoint when medically cleared -Continue to monitor for signs or symptoms of bleeding -Patient can follow up in office for pathology results Physician [facility] note has been reviewed by physician. Signing provider agrees with the documented findings, assessment, and plan of care. Objective - Vital Signs Vital signs: Vital Signs Temp 97.5 F L 01/01/22 15:26 Pulse 79 01/01/22 15:26 Resp 18 01/01/22 15:26 BP 113/68 01/01/22 15:26 Pulse Ox 99 01/01/22 15:26 Intake & Output 12/31/21 01/01/22 01/01/22 18:59 06:59 18:59 Intake Total 221 118 Balance 221 118 Intake: Oral 221 118 Other: Voiding Method Toilet # Voids 2 1 # Bowel Movements 2 - Labs CBC & Chem 7: 12/31/21 07:36 12/30/21 06:42 Labs: Abnormal Lab Results - Last 24 Hours (Table) 12/31/21 12/31/21 01/01/22 Range/Units 17:15 20:16 07:32 POC Glucose (mg/dL) 141 H 187 H 103 H (75-99) mg/dL 01/01/22 Range/Units 12:53 POC Glucose (mg/dL) 275 H (75-99) mg/dL
[2022-01-01 15:58] LABS: HCT 37.5 % (39.0-53.0); HGB 12.3 gm/dL (13.0-17.5); Hypochromasia Slight; MCH 29.9 pg (25.0-35.0); MCHC 32.7 g/dL (31.0-37.0); MCV 91.6 fL (80.0-100.0); Mean Platelet Volume 11.2; Platelet Count 114 k/uL (150-450); RDW 14.8 % (11.5-15.5); WBC 5.1 k/uL (3.8-10.6)
[2022-01-01 17:14] LABS: Glucose,Whole Blood 102 mg/dL (75-99)
[2022-01-01] MEDS ORDERED: levETIRAcetam 500 MG TAB PO STA (17:45)
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
--- NOTE | 2022-02-02 17:32 | EEG ---
ELECTROENCEPHALOGRAM REPORT DATE OF PROCEDURE: 01/01/2022 ELECTROENCEPHALOGRAM (EEG) REPORT: TECHNIQUE: This is a report from a prolonged 2-1/2-hour 18 channel inpatient digital video EEG performed using the 10/20 electrode placement system. HISTORY: Patient admitted to the hospital after a witnessed seizure. CURRENT MEDICATIONS: Lipitor, insulin, Lopressor and others. FINDINGS: Recording start time: 01/01/2022 at 9:40 a.m. Recording end time: 01/01/2022 at 12:15 p.m. EVENTS: During this 2-1/2-hour inpatient digital video EEG, no clinical or electrographic seizures were recorded. BACKGROUND: The background activity consisted of 8 to 9 hertz rhythmic waveforms symmetrically distributed over both posterior quadrants. ACTIVATION Hyperventilation: Not performed. Photic stimulation: Symmetric driving seen. Sleep: Stages I and II sleep noted. ABNORMALITIES: Occasional single moderate-voltage spike and slow waves were seen over the left frontotemporal region with phase reversals at F7 and T3. IMPRESSION: Abnormal 2-1/2-hour video EEG. The occasional spike and slow waves seen over the left frontotemporal region are epileptiform in nature. These findings suggest the presence of an epileptiform focus involving the corresponding region. No seizures were recorded. Clinical correlation is recommended. MMODL / IJN: [id number] / [facility]
== END 2022-01-01 18:18 | disposition home or self-care (01) ==
LOC: EC 12:58 → 6NMEDSUR 16:35 → INTOOBSV 12-30 16:29 → OBSVTOIN 12-30 16:29 → 6NMEDSUR 12-31 22:27 → UNDODISIN 01-01 18:18
PROVIDERS: ADMIT Family Medicine; ATTEND Family Medicine
DX: C18.7 Malignant neoplasm of sigmoid colon (principal); C91.10 Chronic lymphocytic leukemia of B-cell type not having achieved remission; D69.6 Thrombocytopenia, unspecified; D50.9 Iron deficiency anemia, unspecified; G40.909 Epilepsy, unspecified, not intractable, without status epilepticus; K62.5 Hemorrhage of anus and rectum; I10 Essential (primary) hypertension; E11.9 Type 2 diabetes mellitus without complications; I25.10 Atherosclerotic heart disease of native coronary artery without angina pectoris; I25.2 Old myocardial infarction; E78.5 Hyperlipidemia, unspecified; H91.90 Unspecified hearing loss, unspecified ear; M19.90 Unspecified osteoarthritis, unspecified site; J45.909 Unspecified asthma, uncomplicated; F32.A Depression, unspecified; K64.4 Residual hemorrhoidal skin tags; M54.50 Low back pain, unspecified; E66.01 Morbid (severe) obesity due to excess calories; Z68.35 Body mass index [BMI] 35.0-35.9, adult; Z79.82 Long term (current) use of aspirin; Z79.1 Long term (current) use of non-steroidal anti-inflammatories (NSAID); Z79.84 Long term (current) use of oral hypoglycemic drugs; Z79.899 Other long term (current) drug therapy; Z88.2 Allergy status to sulfonamides; Z87.891 Personal history of nicotine dependence; Z85.72 Personal history of non-Hodgkin lymphomas; Z95.5 Presence of coronary angioplasty implant and graft; Z86.711 Personal history of pulmonary embolism; Z86.010 Personal history of colon polyps; Z87.19 Personal history of other diseases of the digestive system; Z98.890 Other specified postprocedural states; Z80.1 Family history of malignant neoplasm of trachea, bronchus and lung; Z80.8 Family history of malignant neoplasm of other organs or systems
CPT/HCPCS: 96376 ×3; 96374; 96375; 99285; 36415; 95713; 86900; 86901; 83921; 88305; 82747; 80053; 80048 ×2; 82607; 82728; 83540; 83550; 83615; 83735 ×3; 84484; 85025 ×3; 85027 ×2; 85610; 85730; 86850; 83010; 70470; 45380; 45381; G0378 ×6; J2270 ×2; J2704; C9113 ×4; Q9967; 96360; 96361

== ENCOUNTER 2022-01-03 09:17 | Emergency (ER) | payer MEDICARE ==
[2022-01-03] MEDS ORDERED: SODIUM CHLORIDE 0.9% 1,000 ML IV STA (09:38)
[2022-01-03] MEDS ORDERED: PANTOPRAZOLE 40 MG/10 ML VIAL IVP STA (09:38)
--- NOTE | 2022-01-03 10:11 | ED ---
General Adult HPI - General Chief complaint: GI Bleed Stated complaint: GI Bleed Time Seen by Provider: 01/03/22 09:27 Source: patient, RN notes reviewed Mode of arrival: ambulatory Limitations: no limitations - History of Present Illness Initial comments: Patient's a 66-year-old male presented to the emergency room today with chief complaint of blood in the stool. Patient does admit that he was seen here in the emergency room approximately one week ago admitted to the hospital. He states he was diagnosed with a polyp and told that was cancerous. Patient states that he was discharged home. Patient states that he was supposed to be prescribed proton did not receive prescription. He states that taking his 's medication. Patient does admit that today after bowel movement and noticed there was bright red blood again. Patient states he touch base with the surgeon's office was directed here to the emergency room for further evaluation. Patient does admit to feeling fatigued. He denies feeling dizzy or lightheaded. Patient denies any recent fever, chills, shortness of breath, chest pain, back pain, abdominal pain, nausea or vomiting, headaches or visual changes, or any other complaints. - Related Data Home Medications Medication Instructions Recorded Confirmed metFORMIN HCL [Glucophage] 1,000 mg PO BID 04/23/15 01/03/22 Atorvastatin [Lipitor] 40 mg PO HS 07/17/19 01/03/22 Metoprolol Tartrate [Lopressor] 12.5 mg PO BID 07/17/19 01/03/22 lisinopriL [Zestril] 5 mg PO DAILY 07/17/19 01/03/22 Hydrochlorothiazide 12.5 mg PO DAILY 01/15/21 01/03/22 [hydroCHLOROthiazide] Montelukast Sodium [Singulair] 10 mg PO HS 01/15/21 01/03/22 Allopurinol [Zyloprim] 200 mg PO DAILY 12/27/21 01/03/22 Previous Rx's Medication Instructions Recorded Pantoprazole [Protonix] 40 mg PO DAILY #30 tab 12/31/21 Pantoprazole [Protonix] 40 mg PO DAILY #30 tab 01/03/22 Allergies Allergy/AdvReac Type Severity Reaction Status Date / Time Sulfa (Sulfonamide Allergy Rash/Hives Verified 01/03/22 10:23 Antibiotics) Review of Systems ROS Statement: Those systems with pertinent positive or pertinent negative responses have been documented in the HPI. ROS Other: All systems not noted in ROS Statement are negative. Past Medical History Past Medical History: Coronary Artery Disease (CAD), Cancer, Diabetes Mellitus, Hearing Disorder / Deafness, Hyperlipidemia, Hypertension, Myocardial Infarction ([place]), Osteoarthritis (OA), Pulmonary Embolus (PE), Seizure Disorder Additional Past Medical History / Comment(s): PE 09/29/16, NON HODGKINS LYMPHOMA, Last Myocardial Infarction Date:: 2017 History of Any Multi-Drug Resistant Organisms: None Reported Past Surgical History: Ear Surgery, Heart Catheterization With Stent, Hernia Repair Additional Past Surgical History / Comment(s): heart stent x4 Past Anesthesia/Blood Transfusion Reactions: Previous Problems w/ Anesthesia Additional Past Anesthesia/Blood Transfusion Reaction / Comment(s): "fights anesthesia" Date of Last Stent Placement:: 2017 Past Psychological History: Depression Smoking Status: Former smoker Past Alcohol Use History: None Reported Past Drug Use History: None Reported - Past Family History Mother Family Medical History: Cancer Additional Family Medical History / Comment(s): Lung cancer Father Family Medical History: Cancer Additional Family Medical History / Comment(s): Spinal Cancer General Exam - General Exam Comments Initial Comments: General: The patient is awake and alert, in no distress, and does not appear acutely ill. Eye: extra-ocular movements are intact. There is normal conjunctiva bilaterally. No signs of icterus. Ears, nose, mouth and throat: There are moist mucous membranes and no oral lesions. Neck: The neck is supple Cardiovascular: There is a regular rate and rhythm. No murmur, rub or gallop is appreciated. Respiratory: Lungs are clear to auscultation, respirations are non-labored, breath sounds are equal. No wheezes, stridor, rales, or rhonchi. Gastrointestinal: Having soft on palpation nontender. No rebound, guarding or CVA tenderness. Musculoskeletal: Normal ROM, no tenderness. Strength 5/5. Sensation intact. Neurological: A&O x 3. CN II-XII intact, There are no obvious motor or sensory deficits. Coordination appears grossly intact. Speech is normal. Skin: Skin is warm and dry and no rashes or lesions are noted. Psychiatric: Cooperative, appropriate mood & affect, normal judgment. Limitations: no limitations Course Vital Signs 01/03/22 01/03/22 09:21 10:59 Temperature 97.9 F 98.1 F Pulse Rate 78 72 Respiratory 20 18 Rate Blood Pressure 121/78 109/64 O2 Sat by Pulse 98 98 Oximetry EKG Findings - EKG Comments: EKG Findings:: EKG performed: 1002. Normal sinus rhythm at [address] interval 154. QRS 98. QT/QTc 399/411. No acute ST changes. Medical Decision Making - Medical Decision Making Patient reexamined here in emergency room he is resting covered. Patient's vitals stable. His hemoglobin is 12.3. Patient's surgeon Dr. Marquezania here in the emergency room because it is comfortable to be discharged home. - Lab Data Result diagrams: 01/03/22 10:06 01/03/22 10:06 Lab Results 01/03/22 01/03/22 Range/Units 10:06 10:06 WBC 5.1 (3.8-10.6) k/uL RBC 4.17 L (4.30-5.90) m/uL Hgb 12.3 L (13.0-17.5) gm/dL Hct 38.0 L (39.0-53.0) % MCV 91.2 (80.0-100.0) fL MCH 29.5 (25.0-35.0) pg MCHC 32.3 (31.0-37.0) g/dL RDW 14.7 (11.5-15.5) % Plt Count 124 L (150-450) k/uL MPV 10.0 Neutrophils % 60 % Lymphocytes % 26 % Monocytes % 6 % Eosinophils % 5 % Basophils % 1 % Neutrophils # 3.0 (1.3-7.7) k/uL Lymphocytes # 1.3 (1.0-4.8) k/uL Monocytes # 0.3 (0-1.0) k/uL Eosinophils # 0.2 (0-0.7) k/uL Basophils # 0.0 (0-0.2) k/uL Hypochromasia Slight Sodium 144 (137-145) mmol/L Potassium 3.8 (3.5-5.1) mmol/L Chloride 112 H (98-107) mmol/L Carbon Dioxide 28 (22-30) mmol/L Anion Gap 4 mmol/L BUN 10 (9-20) mg/dL Creatinine 0.73 (0.66-1.25) mg/dL Est GFR (CKD-EPI)AfAm >90 (>60 ml/min/1.73 sqM) Est GFR (CKD-EPI)NonAf >90 (>60 ml/min/1.73 sqM) Glucose 115 H (74-99) mg/dL Calcium 9.0 (8.4-10.2) mg/dL Total Bilirubin 0.4 (0.2-1.3) mg/dL AST 23 (17-59) U/L ALT 14 (4-49) U/L Alkaline Phosphatase 74 (38-126) U/L Total Protein 5.8 L (6.3-8.2) g/dL Albumin 3.5 (3.5-5.0) g/dL Disposition Clinical Impression: GI bleed Disposition: HOME SELF-CARE Condition: Good Instructions (If sedation given, give patient instructions): Gastrointestinal Bleeding (ED) Prescriptions: Pantoprazole [Protonix] 40 mg PO DAILY #30 tab Is patient prescribed a controlled substance at d/c from ED?: No Referrals: Huong Higgins DO [Primary Care Provider] - 1-2 days Time of Disposition: 11:04
[2022-01-03 10:14] LABS: Basophils % (A) 1 %; Eosinophils # (A) 0.2 k/uL (0-0.7); Eosinophils % (A) 5 %; HGB 12.3 gm/dL (13.0-17.5); Hypochromasia Slight; Lymphocytes # (A) 1.3 k/uL (1.0-4.8); Lymphocytes % (A) 26 %; MCH 29.5 pg (25.0-35.0); MCHC 32.3 g/dL (31.0-37.0); MCV 91.2 fL (80.0-100.0); Monocytes # (A) 0.3 k/uL (0-1.0); Monocytes % (A) 6 %; Neutrophils % (A) 60 %; Platelet Count 124 k/uL (150-450); RBC 4.17 m/uL (4.30-5.90); RDW 14.7 % (11.5-15.5); WBC 5.1 k/uL (3.8-10.6)
[2022-01-03 10:36] LABS: ALT 14 U/L (4-49); AST 23 U/L (17-59); African American GFR (CKD) >90 (>60 ml/min/1.73 sqM); Albumin 3.5 g/dL (3.5-5.0); Alkaline Phosphatase 74 U/L (38-126); Anion Gap 4 mmol/L; Blood Urea Nitrogen 10 mg/dL (9-20); Carbon Dioxide 28 mmol/L (22-30); Chloride 112 mmol/L (98-107); Glucose 115 mg/dL (74-99); Non-African American GFR(CKD) >90 (>60 ml/min/1.73 sqM); Potassium 3.8 mmol/L (3.5-5.1); Sodium 144 mmol/L (137-145); Total Bilirubin 0.4 mg/dL (0.2-1.3); Total Protein 5.8 g/dL (6.3-8.2)
[2022-01-03 11:02] VITALS: BP 109/64; PULSE 72; RESP 18; TEMP 98.1
--- NOTE | 2022-01-03 11:39 | P.GSCN ---
History of Present Illness Consult date: 01/03/22 History of present illness: CHIEF COMPLAINT: GI bleed HISTORY OF PRESENT ILLNESS: This is a 66-year-old male who presented to the emergency room with complaints of bright red blood in his stool. Patient had colonoscopy done on 12/30/2021 with evidence of a large sigmoid colon polyp/mass with evidence of bleeding. The pathology did show evidence of invasive moderate ly differentiated adenocarcinoma. Patient's hemoglobin is stable at 12.3. He was discharged on with a hemoglobin of also 12.3. Patient denies any abdominal pain. Denies any nausea or vomiting. He is able to tolerate. Vitals are stable. Patient seen and examined in ER with Dr. pierce PAST MEDICAL HISTORY: See list. PAST SURGICAL HISTORY: See list. MEDICATIONS: See list. ALLERGIES: See list. SOCIAL HISTORY: No illicit drug use. REVIEW OF SYSTEMS: CONSTITUTIONAL: Denies fever or chills. HEENT: Denies blurred vision, vision changes, or eye pain. Denies hemoptysis CARDIOVASCULAR: Denies chest pain or pressure. RESPIRATORY: No shortness of breath. GASTROINTESTINAL: See HPI for pertinent findings HEMATOLOGIC: Denies bleeding disorders. GENITOURINARY: Denies any blood in urine or increased urinary frequency. SKIN: Denies pruitis. Denies rash. PHYSICAL EXAM: VITAL SIGNS: Reviewed GENERAL: Well-developed in no acute distress. HEENT: No sclera icterus. Extraocular movements grossly intact. Moist buccal mucosa. Head is atraumatic, normocephalic. No nasal drainage. ABDOMEN: Soft. Nondistended. Nontender NEUROLOGIC: Alert and oriented. Cranial nerves II through XII grossly intact. LABORATORY DATA: WBC is 5.1 hemoglobin 12.3 platelets 124 sodium 144 potassium 3.8 creatinine 0.73 IMAGING: ASSESSMENT: 1. Acute GI bleed secondary to mass in the sigmoid colon. Recent diagnosis of adenocarcinoma of the sigmoid colon found on colonoscopy pathology PLAN: -Patient is stable from surgical standpoint for discharge -Recommend Metamucil or Benefiber to keep stools soft -continue a full liquid diet -Keep scheduled follow-up visit with Dr. pierce for 01/09/2022 -Patient will be tentatively scheduled for bowel resection on 01/10/[address] pierce -Continue to monitor blood pressures at home. Hold BP meds for low blood pressure Physician Pharm Tech note has been reviewed by physician. Signing provider agrees with the documented findings, assessment, and plan of care. Past Medical History Past Medical History: Coronary Artery Disease (CAD), Cancer, Diabetes Mellitus, Hearing Disorder / Deafness, Hyperlipidemia, Hypertension, Myocardial Infarction (AL), Osteoarthritis (OA), Pulmonary Embolus (PE), Seizure Disorder Additional Past Medical History / Comment(s): PE 09/29/16, NON HODGKINS LYMPHOMA, Last Myocardial Infarction Date:: 2017 History of Any Multi-Drug Resistant Organisms: None Reported Past Surgical History: Ear Surgery, Heart Catheterization With Stent, Hernia Repair Additional Past Surgical History / Comment(s): heart stent x4 Past Anesthesia/Blood Transfusion Reactions: Previous Problems w/ Anesthesia Additional Past Anesthesia/Blood Transfusion Reaction / Comm: "fights anesthesia" Date of Last Stent Placement:: 2017 Past Psychological History: Depression Smoking Status: Former smoker Past Alcohol Use History: None Reported Past Drug Use History: None Reported - Past Family History Mother Family Medical History: Cancer Additional Family Medical History / Comment(s): Lung cancer Father Family Medical History: Cancer Additional Family Medical History / Comment(s): Spinal Cancer Medications and Allergies Home Medications Medication Instructions Recorded Confirmed Type metFORMIN HCL [Glucophage] 1,000 mg PO BID 04/23/15 01/03/22 History Atorvastatin [Lipitor] 40 mg PO HS 07/17/19 01/03/22 History Metoprolol Tartrate [Lopressor] 12.5 mg PO BID 07/17/19 01/03/22 History lisinopriL [Zestril] 5 mg PO DAILY 07/17/19 01/03/22 History Hydrochlorothiazide 12.5 mg PO DAILY 01/15/21 01/03/22 History [hydroCHLOROthiazide] Montelukast Sodium [Singulair] 10 mg PO HS 01/15/21 01/03/22 History Allopurinol [Zyloprim] 200 mg PO DAILY 12/27/21 01/03/22 History Pantoprazole [Protonix] 40 mg PO DAILY #30 tab 12/31/21 01/03/22 Rx Pantoprazole [Protonix] 40 mg PO DAILY #30 tab 01/03/22 Rx Allergies Allergy/AdvReac Type Severity Reaction Status Date / Time Sulfa (Sulfonamide Allergy Rash/Hives Verified 03/11/22 10:23 Antibiotics) Surgical - Exam Vital Signs Temp Pulse Resp BP Pulse Ox 97.9 F 78 20 121/78 98 01/03/22 09:21 01/03/22 09:21 01/03/22 09:21 01/03/22 09:21 01/03/22 09:21 Results - Labs 01/03/22 10:06 01/03/22 10:06 Abnormal Lab Results - Last 24 Hours (Table) 01/03/22 01/03/22 Range/Units 10:06 10:06 RBC 4.17 L (4.30-5.90) m/uL Hgb 12.3 L (13.0-17.5) gm/dL Hct 38.0 L (39.0-53.0) % Plt Count 124 L (150-450) k/uL Chloride 112 H (98-107) mmol/L Glucose 115 H (74-99) mg/dL Total Protein 5.8 L (6.3-8.2) g/dL Diabetes panel 01/03/22 Range/Units 10:06 Sodium 144 (137-145) mmol/L Potassium 3.8 (3.5-5.1) mmol/L Chloride 112 H (98-107) mmol/L Carbon Dioxide 28 (22-30) mmol/L BUN 10 (9-20) mg/dL Creatinine 0.73 (0.66-1.25) mg/dL Glucose 115 H (74-99) mg/dL Calcium 9.0 (8.4-10.2) mg/dL AST 23 (17-59) U/L ALT 14 (4-49) U/L Alkaline Phosphatase 74 (38-126) U/L Total Protein 5.8 L (6.3-8.2) g/dL Albumin 3.5 (3.5-5.0) g/dL Calcium panel 01/03/22 Range/Units 10:06 Calcium 9.0 (8.4-10.2) mg/dL Albumin 3.5 (3.5-5.0) g/dL Pituitary panel 01/03/22 Range/Units 10:06 Sodium 144 (137-145) mmol/L Potassium 3.8 (3.5-5.1) mmol/L Chloride 112 H (98-107) mmol/L Carbon Dioxide 28 (22-30) mmol/L BUN 10 (9-20) mg/dL Creatinine 0.73 (0.66-1.25) mg/dL Glucose 115 H (74-99) mg/dL Calcium 9.0 (8.4-10.2) mg/dL Adrenal panel 01/03/22 Range/Units 10:06 Sodium 144 (137-145) mmol/L Potassium 3.8 (3.5-5.1) mmol/L Chloride 112 H (98-107) mmol/L Carbon Dioxide 28 (22-30) mmol/L BUN 10 (9-20) mg/dL Creatinine 0.73 (0.66-1.25) mg/dL Glucose 115 H (74-99) mg/dL Calcium 9.0 (8.4-10.2) mg/dL Total Bilirubin 0.4 (0.2-1.3) mg/dL AST 23 (17-59) U/L ALT 14 (4-49) U/L Alkaline Phosphatase 74 (38-126) U/L Total Protein 5.8 L (6.3-8.2) g/dL Albumin 3.5 (3.5-5.0) g/dL
== END 2022-01-03 11:19 | disposition home or self-care (01) ==
LOC: EC 09:17
DX: K92.2 Gastrointestinal hemorrhage, unspecified (principal); K63.89 Other specified diseases of intestine; I10 Essential (primary) hypertension; E11.9 Type 2 diabetes mellitus without complications; I25.2 Old myocardial infarction; E78.5 Hyperlipidemia, unspecified; M19.90 Unspecified osteoarthritis, unspecified site; I25.10 Atherosclerotic heart disease of native coronary artery without angina pectoris; H91.90 Unspecified hearing loss, unspecified ear; Z88.2 Allergy status to sulfonamides; Z87.891 Personal history of nicotine dependence; Z79.899 Other long term (current) drug therapy; Z79.84 Long term (current) use of oral hypoglycemic drugs
CPT/HCPCS: 36415; 93005; 80053; 85025; 99285; 96374; 96361; C9113

== ENCOUNTER 2022-01-30 09:13 | Inpatient (IN) | payer MEDICARE ==
[2022-01-30] MEDS ORDERED: SODIUM CHLORIDE 0.9% 1,000 ML IV STA ×2 (09:36→12:39)
[2022-01-30] MEDS ORDERED: ONDANSETRON 4 MG/2 ML VIAL IVP STA (09:52)
[2022-01-30] MEDS ORDERED: PIPERACILLIN-TAZOBACTAM 3.375 GM in SODIUM CHLORIDE 0.9% 100 ML IVPB STA (09:52)
[2022-01-30] MEDS ORDERED: levETIRAcetam IV 500 MG in SODIUM CHLORIDE 0.9% 100 ML IVPB STA (10:22)
[2022-01-30] MEDS ORDERED: MORPHINE SULFATE 4 MG/ML SYRINGE IVP STA (10:35)
[2022-01-30 10:39] LABS: HCT 33.1 % (39.0-53.0); HGB 10.8 gm/dL (13.0-17.5); Hypochromasia Slight; MCHC 32.5 g/dL (31.0-37.0); MCV 92.1 fL (80.0-100.0); Mean Platelet Volume 10.1; RBC 3.59 m/uL (4.30-5.90); RDW 15.5 % (11.5-15.5); WBC 7.9 k/uL (3.8-10.6)
[2022-01-30 10:42] LABS: Platelet Count 247 k/uL (150-450)
[2022-01-30 10:43] LABS: Lactic Acid, Venous 1.2 mmol/L (0.7-2.0)
[2022-01-30 10:45] LABS: ALT 21 U/L (4-49); AST 52 U/L (17-59); African American GFR (CKD) >90 (>60 ml/min/1.73 sqM); Alkaline Phosphatase 65 U/L (38-126); Anion Gap 8 mmol/L; Blood Urea Nitrogen 27 mg/dL (9-20); Calcium 9.3 mg/dL (8.4-10.2); Carbon Dioxide 30 mmol/L (22-30); Chloride 95 mmol/L (98-107); Glucose 150 mg/dL (74-99); Lipase 132 U/L (23-300); Magnesium 1.8 mg/dL (1.6-2.3); Non-African American GFR(CKD) >90 (>60 ml/min/1.73 sqM); Potassium 3.6 mmol/L (3.5-5.1); Sodium 133 mmol/L (137-145); Total Bilirubin 0.7 mg/dL (0.2-1.3); Total Protein 5.6 g/dL (6.3-8.2)
[2022-01-30 10:47] LABS: Partial Thromboplastin Time 24.6 sec (22.0-30.0); Prothrombin Time 10.7 sec (9.0-12.0)
[2022-01-30 11:44] LABS: Band Neutrophils % 1 %; Eosinophils # (M) 0.32 k/uL (0-0.7); Lymphocytes # (M) 1.58 k/uL (1.0-4.8); Monocytes # (M) 0.87 k/uL (0-1.0); Neutrophils % (M) 64 %; Nucleated Red Blood Cells 0 /100 WBC (0-0); Total Cells Counted 100
[2022-01-30 11:45] LABS: Polychromasia Present
--- NOTE | 2022-01-30 12:04 | CT ---
EXAMINATION TYPE: CT abdomen pelvis w con DATE OF EXAM: 01/30/2022 COMPARISON: 05/08/2020 HISTORY: 66-year-old male pain, bleeding recent colon CA surgery TECHNIQUE: Contiguous axial scanning of the abdomen and pelvis following administration of 100 ml Omn ipaque 70 IV contrast. Delayed images through the kidneys and coronal/sagittal reconstructions perfo rmed. CT DLP: 3490.6 mGycm Automated exposure control for dose reduction was used. FINDINGS: Heart upper limits of normal in size with trace pericardial fluid. Increasing pericardial lymph nodes, largest measuring 1.2 cm. Suspect increasing bilateral infrahilar lymphadenopathy. Patchy bibasilar opacities, likely areas of atelectasis. Liver enlarged and 22.0 cm. No focal lesions seen. Portal venous system is patent. No biliary ductal dilatation. There is trace perihepatic ascites. Small amount of free air at the dome of the diaphragm. Additional scattered mild free air anteriorly throughout the abdomen. Cholecystectomy clips. Adrenal glands and atrophic pancreas show no gross abnormality. There may be somewhat delayed excreti on of contrast from the kidneys. Correlate for any acute kidney injury. Kenn hepatic/peripancreatic node measuring 4.4 cm versus 2.6 cm, previously. New gastric hepatic ligament adenopathy measuring up to 2.2 cm. New retroperitoneal lymphadenopathy measuring up to 1.5 cm. Right lower quadrant lymph node overlying the right iliacus muscle is thicker at 1.3 cm versus 1.0 cm , previously. Interval laparotomy change. Oral contrast is seen throughout the colon. There is a distal sigmoid res ection and reanastomosis but an extension of free air from here towards the right and superiorly. The re is a developing peritoneal fluid collection near the lower abdomen measuring 9.5 cm craniocaudal b y 3.2 cm wide by 3.7 cm AP. Refer to axial image 77 and coronal image 59. Additional mild free fluid along the left paracolic gutter and moderate inflammatory fat stranding in the mesentery of the lower abdomen. Prominent fluid filled small bowel loops in left side of the abdomen with some loops measuring up to 3.9 cm, likely ileus. Mild circumferential bladder wall thickening. Prostate gland measures 5.6 cm wide. Central prostatic calcifications. Mildly enlarged bilateral inguinal lymph nodes, left greater than right measuring up to 1.9 cm short axis. These nodes are only slightly larger from prior. External iliac chain nodes pablo sure up to 1.5 cm on the left, unchanged. Bones: Mild degenerative change at the hips. Scattered sclerotic foci in the pelvis and hips are unch anged, likely bone islands. Mild degenerative change SI joints. Advanced degenerative disc disease L4 -L5 and L5-S1 with hypertrophic facet arthropathy mid to lower lumbar spine. IMPRESSION: 1. DISTAL SIGMOID RESECTION AND RE-ANASTOMOSIS. FINDINGS ARE POSITIVE FOR A LEAK AT THE ANASTOMOSIS W ITH MILD SCATTERED FREE AIR AND MILD ASCITES FLUID. A MORE CONTAINED FLUID COLLECTION/DEVELOPING ABSC ESS EXTENDS RIGHT LATERALLY AND SUPERIORLY FROM THE ANASTOMOSIS MEASURING UP TO 9.5 X 3.7 CM (AXIAL I MAGE 77 AND CORONAL IMAGE 59). 2. MILDLY DISTENDED SMALL BOWEL LOOPS IN THE LEFT SIDE OF THE ABDOMEN, LIKELY SECONDARY TO ILEUS. 3. INCREASING LYMPHADENOPATHY THROUGHOUT THE VISUALIZED LOWER CHEST AND ABDOMEN CURRENTLY MEASURING U P TO 4.4 CM. CONSIDER LYMPHOMA RECURRENCE. Critical findings called to Dr. Higgins in the ER at 12pm.
--- NOTE | 2022-01-30 12:19 | CT ---
EXAMINATION TYPE: CT chest angio for PE DATE OF EXAM: 01/30/2022 COMPARISON: 05/08/2020 HISTORY: 66 year-old male shortness of breath, evaluate for PE, recent colon CA surgery TECHNIQUE: Contiguous axial scanning of the chest performed with IV Contrast, patient injected with 1 00 mL of Isovue 370. Coronal/sagittal MIP reconstructions performed. CT DLP: 608.6 mGycm Automated exposure control for dose reduction was used. FINDINGS: No enlarging axillary lymphadenopathy measuring up to 3.1 cm on the right and 3.4 cm on the left. Increasing sternal and bilateral infrahilar lymph nodes currently measuring up to 1.6 cm subcarinal r egion versus 1.1 cm, previously. The heart is upper limits of normal in size. No reflux of contrast into the hepatic veins. Dense LAD coronary artery calcifications are present. RCA coronary artery calcifications are also present Large caliber to the main right and left pulmonary arteries measuring up to 2.7 cm suggesting underly ing pulmonary arterial hypertension. Borderline suboptimal contrast bolus. Further limitation due to patient breathing during the scan. No large central pulmonary embolus is seen. No definite lobar branch embolus. Many of the segmental and more distal arterial branches are nondiagnostic and emboli in these locations cannot be adequately e xcluded on the basis of this exam, for example,. Possible segmental subsegmental branch embolus right upper lobe, axial image 39 and left upper lobe on axial image 34. Possibly segmental branch right lo wer lobe, axial image 84. Extensive strandy areas of atelectasis are present. Some mild subpleural density anterior right lung seems 7 present previously, probably some pleural pa renchymal scarring. Trace left effusion. There is small hernia. Abdomen along with mild free air and free fluid reported separately. Bones: No osseous destructive process. IMPRESSION: 1. PULMONARY ARTERIAL HYPERTENSION. NO LARGE CENTRAL PULMONARY EMBOLUS. SEVERELY DEGRADED EXAM OF THE OTHER ARTERIAL BRANCHES. HOWEVER, UNABLE TO EXCLUDE SEGMENTAL/SUBSEGMENTAL BRANCH EMBOLUS RIGHT AND LEFT UPPER LOBES AND POSSIBLY IN THE RIGHT LOWER LOBE WELL. PROMINENT CARDIAC MOTION. HOWEVER, NO REFLUX OF CONTRAST INTO THE HEPATIC VEINS TO SUPPORT RIGHT HEART STRAIN. 2. RECURRENT LYMPHOMA COMPARED TO 05/08/2020. 3. EXTENSIVE LAD CORONARY ARTERY CALCIFICATIONS. 4. PROMINENT SCATTERED AREAS OF ATELECTASIS. TRACE LEFT EFFUSION. 5. ABDOMEN REPORTED SEPARATELY. REFER TO THAT REPORT FOR ADDITIONAL CRITICAL FINDINGS. Critical findings called to Dr. Higgins in the ER at 12:
[2022-01-30] MEDS ORDERED: ONDANSETRON 4 MG/2 ML VIAL IVP PRN (12:40)
[2022-01-30] MEDS ORDERED: NALOXONE 0.4 MG/ML 1 ML VIAL IV PRN (12:40)
--- NOTE | 2022-01-30 12:57 | ED ---
General Adult HPI - General Chief complaint: GI Bleed Stated complaint: Blood in stool/post op Time Seen by Provider: 01/30/22 09:32 Source: patient, RN notes reviewed, old records reviewed Mode of arrival: ambulatory Limitations: no limitations - History of Present Illness Initial comments: Patient is a 66-year-old male with past medical history remarkable for cancer, recent sigmoidectomy, diabetes, hypertension, NV, seizure disorder presents emergency Department complaining of GI bleeding, abdominal discomfort ongoing for the last 1-2 weeks. Patient recently had surgery [address] Palmer. Presents complaining of bright red blood per rectum with blood clots, as well as inability to tolerate by mouth intake. His having increased dis comfort in his abdomen as well. Was recently restarted on antibiotics. Has noticed some discharge from the surgical incision. Also complaining of mild pain in his buttocks. His no other acute complaint this time. Denies shortness breath, chest pain, lower extremity edema. Is not on blood thinners. Presents for further evaluation. - Related Data Home Medications Medication Instructions Recorded Confirmed metFORMIN HCL [Glucophage] 1,000 mg PO BID 04/23/15 01/30/22 Atorvastatin [Lipitor] 40 mg PO DAILY 07/17/19 01/30/22 Metoprolol Tartrate [Lopressor] 25 mg PO HS 07/17/19 01/30/22 lisinopriL [Zestril] 5 mg PO DAILY 07/17/19 01/30/22 Hydrochlorothiazide 12.5 mg PO DAILY 01/15/21 01/30/22 [hydroCHLOROthiazide] Montelukast Sodium [Singulair] 10 mg PO HS 01/15/21 01/30/22 levETIRAcetam [Keppra] 500 mg PO BID 01/07/22 01/30/22 Cephalexin [Keflex] 1,000 mg PO Q12HR 01/30/22 01/30/22 Fluticasone Nasal [place] [Flonase 2 spray EA NOSTRIL DAILY PRN 01/30/22 01/30/22 Nasal [place]] Loratadine [Claritin] 10 mg PO HS PRN 01/30/22 01/30/22 Previous Rx's Medication Instructions Recorded Pantoprazole [Protonix] 40 mg PO DAILY #30 tab 12/31/21 Docusate [Colace] 100 mg PO BID #30 capsule 01/16/22 Allergies Allergy/AdvReac Type Severity Reaction Status Date / Time Sulfa (Sulfonamide Allergy Rash/Hives Verified 01/30/22 10:15 Antibiotics) amoxicillin [From Augmentin] AdvReac Nausea & Verified 01/30/22 10:15 Vomiting & Diarrhea clavulanic acid AdvReac Nausea & Verified 01/30/22 10:15 [From Augmentin] Vomiting & Diarrhea Review of Systems ROS Statement: Those systems with pertinent positive or pertinent negative responses have been documented in the HPI. Review of Systems: CONST: Denies fever EYES: Denies blurry vision ENT: Denies nasal congestion C/V: Denies Chest pain RESP: Denies shortness of breath GI: Endorses abdominal pain : Denies dysuria SKIN: Denies rash. MSK: Denies joint pain. NEURO: Denies headache ROS Other: All systems not noted in ROS Statement are negative. Past Medical History Past Medical History: Coronary Artery Disease (CAD), Cancer, Diabetes Mellitus, Hearing Disorder / Deafness, Hyperlipidemia, Hypertension, Myocardial Infarction ([place]), Osteoarthritis (OA), Prostate Disorder, Pulmonary Embolus (PE), Seizure Disorder Additional Past Medical History / Comment(s): PE 09/29/16, NON HODGKINS LYMPHOMA DX 2019, LAST SEIZURE 01/02/2022, HOSPITALIZED AT [facility] DECEMBER 2021 WITH BLEEDING COLON POLYP (CANCER)., CRUSHED DISCS LOWER BACK., ENLARGED PROSTATE. Last Myocardial Infarction Date:: 2017 History of Any Multi-Drug Resistant Organisms: None Reported Past Surgical History: Ear Surgery, Heart Catheterization With Stent, Hernia Repair Additional Past Surgical History / Comment(s): CARDIAC STENTS 2013 & 2017 ([facility]) AND 2018 (IN [place]), NO EAR DRUMS. Past Anesthesia/Blood Transfusion Reactions: No Reported Reaction Additional Past Anesthesia/Blood Transfusion Reaction / Comment(s): THEY DONT SEEM TO GIVE HIM ENOUGH Date of Last Stent Placement:: NOV 2018 Past Psychological History: Anxiety, Depression Smoking Status: Former smoker Past Alcohol Use History: Rare Past Drug Use History: None Reported - Past Family History Mother Family Medical History: Cancer Additional Family Medical History / Comment(s): Lung cancer Father Family Medical History: Cancer Additional Family Medical History / Comment(s): Spinal Cancer General Exam - General Exam Comments Initial Comments: General: Appears in mild to moderate distress secondary to abdominal pain. HEAD: Normal with no signs of head trauma. EYES: PERRLA, EOMI, conjunctiva normal, no discharge. Pupils 3 mm and equal bilaterally. ENT: Hearing grossly intact, normal oropharynx. RESPIRATORY: Clear breath sounds bilaterally. No wheezes, rales, or rhonchi. C/V: Tachycardic with a regular rhythm. S1 and S2 auscultated. Peripheral pulses 2+ and intact. No peripheral edema. ABD: Soft, obese. No obvious distention. Tenderness to palpation left lower quadrant as well as lung surgical incision. No guarding. No peritoneal signs. Rectal exam performed in the presence of a staff member. Reveals gross dark blood with clots present. EXT: Normal range of motion, no obvious deformity SKIN: We will discharge from the surgical incision. NEURO: Alert and oriented 4. No focal sensory strength deficits. Limitations: no limitations Course Vital Signs 01/30/22 09:22 Temperature 98 F Pulse Rate 130 H Respiratory 18 Rate Blood Pressure 133/77 O2 Sat by Pulse 96 Oximetry Medical Decision Making - Medical Decision Making I saw patient's presentation and physical exam, and concern for postoperative infection the patient's abdomen. He is also having some increased GI bleeding. Vital signs are initially within normal limits and stable. Therefore we'll obtain abdominal laboratory studies, infectious labs, as well as CT imaging of the abdomen and pelvis. He'll be empirically started on Zosyn as well as IV fluids. Patient was in agreement with this plan. While the patient remained here in the department, was noticed that he is somewhat hypoxic down to low 90s upper 80% on room air with tachycardia. Due to the recent surgery, risks for PE is elevated and therefore we'll obtain CT PE in addition to the CT abdomen and pelvis. He was in agreement this plan. He will be given morphine for analgesia. Laboratory studies are remarkable for a hemoglobin of 10.8, which is improved compared to prior. Patient's lactate is within normal limits. Troponin is negative. BNP is within normal limits. Remainder of labs are unremarkable. Stool occult blood is positive. Urinalysis still pending.EKG showed sinus tachycardia without any signs of acute ischemia. CT imaging of the abdomen and pelvis was obtained and revealed possible recurrence of lymphoma, as well as a possible anastomotic leak of the surgical resection. There is a mild area as well as ascites fluid present. There is also findings concerning for possible infectious etiology. Concern for also ileus. CT PE was obtained and revealed questionable PE without any signs of right heart strain. I discussed the finding is with radiology as well as surgery, Dr. Palmer. He was in agreement with admission to him, patient will be made nothing by mouth and given additional fluid boluses. Based on the imaging with the questionable PE, we will hold anticoagulation at this time. Symptoms are likely secondary to his intra-abdominal process. Patient may require surgery later. I discussed this with the patient as well as family and they were in agreement this plan. Patient remains tachycardic upon time of admission, however hypoxia is improved on 2 L nasal cannula. We'll attempt to wean him back off of it. - Lab Data Result diagrams: 01/30/22 09:56 01/30/22 09:56 Lab Results 01/30/22 01/30/22 01/30/22 Range/Units 09:56 09:56 09:56 WBC 7.9 (3.8-10.6) k/uL RBC 3.59 L (4.30-5.90) m/uL Hgb 10.8 L (13.0-17.5) gm/dL Hct 33.1 L (39.0-53.0) % MCV 92.1 (80.0-100.0) fL MCH 30.0 (25.0-35.0) pg MCHC 32.5 (31.0-37.0) g/dL RDW 15.5 (11.5-15.5) % Plt Count 247 D (150-450) k/uL MPV 10.1 Neutrophils % (Manual) 64 % Band Neuts % (Manual) 1 % Lymphocytes % (Manual) 20 % Monocytes % (Manual) 11 % Eosinophils % (Manual) 4 % Neutrophils # (Manual) 5.10 (1.3-7.7) k/uL Lymphocytes # (Manual) 1.58 (1.0-4.8) k/uL Monocytes # (Manual) 0.87 (0-1.0) k/uL Eosinophils # (Manual) 0.32 (0-0.7) k/uL Nucleated RBCs 0 (0-0) /100 WBC Manual Slide Review Performed Polychromasia Present Hypochromasia Slight PT 10.7 (9.0-12.0) sec INR 1.0 (<1.2) APTT 24.6 (22.0-30.0) sec Sodium (137-145) mmol/L Potassium (3.5-5.1) mmol/L Chloride (98-107) mmol/L Carbon Dioxide (22-30) mmol/L Anion Gap mmol/L BUN (9-20) mg/dL Creatinine (0.66-1.25) mg/dL Est GFR (CKD-EPI)AfAm (>60 ml/min/1.73 sqM) Est GFR (CKD-EPI)NonAf (>60 ml/min/1.73 sqM) Glucose (74-99) mg/dL Plasma Lactic Acid Levi (0.7-2.0) mmol/L Calcium (8.4-10.2) mg/dL Magnesium (1.6-2.3) mg/dL Total Bilirubin (0.2-1.3) mg/dL AST (17-59) U/L ALT (4-49) U/L Alkaline Phosphatase (38-126) U/L Ammonia (<30) umol/L Troponin I (0.000-0.034) ng/mL NT-Pro-B Natriuret Pep pg/mL Total Protein (6.3-8.2) g/dL Albumin (3.5-5.0) g/dL Lipase (23-300) U/L Stool Occult Blood Positive (Negative) Blood Type Blood Type Recheck Bld Type Recheck Status Antibody Screen Spec Expiration Date 01/30/22 01/30/22 01/30/22 Range/Units 09:56 09:56 09:56 WBC (3.8-10.6) k/uL RBC (4.30-5.90) m/uL Hgb (13.0-17.5) gm/dL Hct (39.0-53.0) % MCV (80.0-100.0) fL MCH (25.0-35.0) pg MCHC (31.0-37.0) g/dL RDW (11.5-15.5) % Plt Count (150-450) k/uL MPV Neutrophils % (Manual) % Band Neuts % (Manual) % Lymphocytes % (Manual) % Monocytes % (Manual) % Eosinophils % (Manual) % Neutrophils # (Manual) (1.3-7.7) k/uL Lymphocytes # (Manual) (1.0-4.8) k/uL Monocytes # (Manual) (0-1.0) k/uL Eosinophils # (Manual) (0-0.7) k/uL Nucleated RBCs (0-0) /100 WBC Manual Slide Review Polychromasia Hypochromasia PT (9.0-12.0) sec INR (<1.2) APTT (22.0-30.0) sec Sodium 133 L (137-145) mmol/L Potassium 3.6 (3.5-5.1) mmol/L Chloride 95 L (98-107) mmol/L Carbon Dioxide 30 (22-30) mmol/L Anion Gap 8 mmol/L BUN 27 H (9-20) mg/dL Creatinine 0.67 (0.66-1.25) mg/dL Est GFR (CKD-EPI)AfAm >90 (>60 ml/min/1.73 sqM) Est GFR (CKD-EPI)NonAf >90 (>60 ml/min/1.73 sqM) Glucose 150 H (74-99) mg/dL Plasma Lactic Acid Levi 1.2 (0.7-2.0) mmol/L Calcium 9.3 (8.4-10.2) mg/dL Magnesium 1.8 (1.6-2.3) mg/dL Total Bilirubin 0.7 (0.2-1.3) mg/dL AST 52 (17-59) U/L ALT 21 (4-49) U/L Alkaline Phosphatase 65 (38-126) U/L Ammonia <9 (<30) umol/L Troponin I (0.000-0.034) ng/mL NT-Pro-B Natriuret Pep pg/mL Total Protein 5.6 L (6.3-8.2) g/dL Albumin 3.0 L (3.5-5.0) g/dL Lipase 132 (23-300) U/L Stool Occult Blood (Negative) Blood Type O Positive Blood Type Recheck O Pos Bld Type Recheck Status No Antibody Screen NEGATIVE Spec Expiration Date 02/02/2022 - 235501/30/22 01/30/22 Range/Units 09:56 09:56 WBC (3.8-10.6) k/uL RBC (4.30-5.90) m/uL Hgb (13.0-17.5) gm/dL Hct (39.0-53.0) % MCV (80.0-100.0) fL MCH (25.0-35.0) pg MCHC (31.0-37.0) g/dL RDW (11.5-15.5) % Plt Count (150-450) k/uL MPV Neutrophils % (Manual) % Band Neuts % (Manual) % Lymphocytes % (Manual) % Monocytes % (Manual) % Eosinophils % (Manual) % Neutrophils # (Manual) (1.3-7.7) k/uL Lymphocytes # (Manual) (1.0-4.8) k/uL Monocytes # (Manual) (0-1.0) k/uL Eosinophils # (Manual) (0-0.7) k/uL Nucleated RBCs (0-0) /100 WBC Manual Slide Review Polychromasia Hypochromasia PT (9.0-12.0) sec INR (<1.2) APTT (22.0-30.0) sec Sodium (137-145) mmol/L Potassium (3.5-5.1) mmol/L Chloride (98-107) mmol/L Carbon Dioxide (22-30) mmol/L Anion Gap mmol/L BUN (9-20) mg/dL Creatinine (0.66-1.25) mg/dL Est GFR (CKD-EPI)AfAm (>60 ml/min/1.73 sqM) Est GFR (CKD-EPI)NonAf (>60 ml/min/1.73 sqM) Glucose (74-99) mg/dL Plasma Lactic Acid Levi (0.7-2.0) mmol/L Calcium (8.4-10.2) mg/dL Magnesium (1.6-2.3) mg/dL Total Bilirubin (0.2-1.3) mg/dL AST (17-59) U/L ALT (4-49) U/L Alkaline Phosphatase (38-126) U/L Ammonia (<30) umol/L Troponin I <0.012 (0.000-0.034) ng/mL NT-Pro-B Natriuret Pep 373 pg/mL Total Protein (6.3-8.2) g/dL Albumin (3.5-5.0) g/dL Lipase (23-300) U/L Stool Occult Blood (Negative) Blood Type Blood Type Recheck Bld Type Recheck Status Antibody Screen Spec Expiration Date - EKG Data -: EKG Interpreted by Me EKG Comments: 12-lead Electrocardiogram Interpretation Note EKG was reviewed and interpreted by myself. 12-lead ECG performed at 1305 is int erpreted by me as revealing sinus tachycardia at a rate of 129 beats per minute. Willis is normal. VA interval is 180 ms, QRS durations 101 ms, QTc is 402 ms.. There were no ST or T wave abnormalities to suggest myocardial ischemia or injury. R wave progression across the precordium was satisfactory. By my interpretation this EKG is non-diagnostic for acute ischemia. Critical Care Time Critical Care Time: Yes Total Critical Care Time: 35 Critical Care Time: Upon my evaluation, this patient had a high probability of imminent or life- threatening deterioration due to GI bleed, intra-abdominal infection, postop complication, which required my direct attention, intervention, and personal management. I have personally provided 35 minutes of critical care time exclusive of time spent on separately billable procedures. Time includes review of laboratory data, radiology results, discussion with consultants, and monitoring for potential decompensation. Interventions were performed as documented in my note. Disposition Clinical Impression: GI bleed, Post surgical complication, Intra-abdominal infection, Sinus tachycardia, History of cancer Disposition: ADMITTED IP TO THIS [facility] Condition: Serious Referrals: Huong Higgins DO [Primary Care Provider] - 1-2 days Time of Disposition: 12:00
[2022-01-30] MEDS: SODIUM CHLORIDE 0.9% 1,000 ML IV STA ×2 (13:30→20:19)
[2022-01-30] MEDS ORDERED: LACTATED RINGERS 1,000 ML IV SCH (15:00)
--- NOTE | 2022-01-30 15:49 | P.GSHP ---
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 Patient had developed a wound infection at the incision site had recently been started on antibiotics. Patient passed a large amount of blood with blood clots per rectum this morning. Computed tomography scan abdomen and pelvis head showed evidence of leak at the anastomosis site. Patient is tachycardic. Does report abdominal pain rated about a 9 out of 10 mostly on the right side of the abdomen. Patient will receive another 2 L IV fluid bolus. Patient seen and examined with Dr. Pierce at the bedside. Patient scheduled for surgery today. PAST MEDICAL HISTORY: See list. PAST SURGICAL HISTORY: See list. MEDICATIONS: See list. ALLERGIES: See list. SOCIAL HISTORY: No illicit drug use. REVIEW OF SYSTEMS: CONSTITUTIONAL: Denies fever or chills. HEENT: Denies blurred vision, vision changes, or eye pain. Denies hemoptysis CARDIOVASCULAR: Denies chest pain or pressure. RESPIRATORY: No shortness of breath. GASTROINTESTINAL: See HPI for pertinent findings HEMATOLOGIC: Denies bleeding disorders. GENITOURINARY: Denies any blood in urine or increased urinary frequency. SKIN: Denies pruitis. Denies rash. PHYSICAL EXAM: VITAL SIGNS: Reviewed GENERAL: Well-developed in no acute distress. HEENT: No sclera icterus. Extraocular movements grossly intact. Moist buccal mucosa. Head is atraumatic, normocephalic. No nasal drainage. ABDOMEN: Distended. Tenderness with palpation on the right side of abdomen NEUROLOGIC: Alert and oriented. Cranial nerves II through XII grossly intact. LABORATORY DATA: WBC 7.9 hemoglobin 10.8 platelets 247 INR 1.0 Sodium 133 potassium 3.6 creatinine 0.67 Lactic acid 1.2 Magnesium 1.8 LFTs normal Stool for occult blood positive Influenza, RSV and Covid screenings are all not detected IMAGING: Computed tomography scan abdomen and pelvis distal sigmoid resection and reanastomosis. Findings were positive for a leak at the anastomosis with mild scattered free air and mild ascites fluids. A more contained fluid collection/developing abscess extends right laterally and superiorly from the anastomosis measuring up to 9.5 x 3.7 cm. Mildly distended small bowel loops in the left side of the abdomen likely secondary to ileus. Increasing lymphaden opathy throughout the visualized lower chest and abdomen currently measuring up to 4.4 cm. Consider lymphoma recurrence. Chest CTA pulmonary arterial hypertension. No large central pulmonary embolus. Severely degraded exam of the other arterial branches. However, unable to exclude segmental/subsegmental branch embolus right and left upper lobes and possibly in the right lower lobe as well. Prominent cardiac motion. However no reflux of contrast into the hepatic veins to support right heart strain. Recurrent lymphoma as compared to 05/08/2020. Extensive LAD coronary artery calcifications. Atelectasis. Trace left effusion. ASSESSMENT: 1. Leak at the anastomosis site 2. Colon cancer 3. Non-Hodgkin's lymphoma PLAN: -Patient scheduled for exploratory laparotomy with possible colostomy today with Dr. pierce -Continue IV fluids -Given a 2 L IV fluid bolus -Continue IV antibiotics -Keep patient nothing by mouth -Continue pain medication as needed Physician Skin Washer note has been reviewed by physician. Signing provider agrees with the documented findings, assessment, and plan of care. Past Medical History Past Medical History: Coronary Artery Disease (CAD), Cancer, Diabetes Mellitus, Hearing Disorder / Deafness, Hyperlipidemia, Hypertension, Myocardial Infarction ([place]), Osteoarthritis (OA), Prostate Disorder, Pulmonary Embolus (PE), Seizure Disorder Additional Past Medical History / Comment(s): PE 09/29/16, NON HODGKINS LYMPHOMA DX 2019, LAST SEIZURE 01/02/2022, HOSPITALIZED AT [facility] DECEMBER 2021 WITH BLEEDING COLON POLYP (CANCER)., CRUSHED DISCS LOWER BACK., ENLARGED PROSTATE. Last Myocardial Infarction Date:: 2017 History of Any Multi-Drug Resistant Organisms: None Reported Past Surgical History: Ear Surgery, Heart Catheterization With Stent, Hernia Repair Additional Past Surgical History / Comment(s): CARDIAC STENTS 2013 & 2018 ([facility]) AND 2019 (IN [place]), NO EAR DRUMS. Past Anesthesia/Blood Transfusion Reactions: No Reported Reaction Additional Past Anesthesia/Blood Transfusion Reaction / Comment(s): THEY DONT SEEM TO GIVE HIM ENOUGH Date of Last Stent Placement:: NOV 2018 Past Psychological History: Anxiety, Depression Smoking Status: Former smoker Past Alcohol Use History: Rare Past Drug Use History: None Reported - Past Family History Mother Family Medical History: Cancer Additional Family Medical History / Comment(s): Lung cancer Father Family Medical History: Cancer Additional Family Medical History / Comment(s): Spinal Cancer Medications and Allergies Home Medications Medication Instructions Recorded Confirmed Type metFORMIN HCL [Glucophage] 1,000 mg PO BID 04/23/15 01/30/22 History Atorvastatin [Lipitor] 40 mg PO DAILY 07/17/19 01/30/22 History Metoprolol Tartrate [Lopressor] 25 mg PO HS 07/17/19 01/30/22 History lisinopriL [Zestril] 5 mg PO DAILY 07/17/19 01/30/22 History Hydrochlorothiazide 12.5 mg PO DAILY 01/15/21 01/30/22 History [hydroCHLOROthiazide] Montelukast Sodium [Singulair] 10 mg PO HS 01/15/21 01/30/22 History Pantoprazole [Protonix] 40 mg PO DAILY #30 tab 12/31/21 01/30/22 Rx levETIRAcetam [Keppra] 500 mg PO BID 01/07/22 01/30/22 History Docusate [Colace] 100 mg PO BID #30 capsule 01/16/22 01/30/22 Rx Cephalexin [Keflex] 1,000 mg PO Q12HR 01/30/22 01/30/22 History Fluticasone Nasal [place] [Flonase 2 spray EA NOSTRIL DAILY PRN 01/30/22 01/30/22 History Nasal [place]] Loratadine [Claritin] 10 mg PO HS PRN 01/30/22 01/30/22 History Allergies Allergy/AdvReac Type Severity Reaction Status Date / Time Sulfa (Sulfonamide Allergy Rash/Hives Verified 01/30/22 10:15 Antibiotics) amoxicillin [From Augmentin] AdvReac Nausea & Verified 01/30/22 10:15 Vomiting & Diarrhea clavulanic acid AdvReac Nausea & Verified 01/30/22 10:15 [From Augmentin] Vomiting & Diarrhea Surgical - Exam Vital Signs Temp Pulse Resp BP Pulse Ox 98 F 130 H 18 133/77 96 01/30/22 09:22 01/30/22 09:22 01/30/22 09:22 01/30/22 09:22 01/30/22 09:22 Results - Labs 01/30/22 09:56 01/30/22 09:56 Abnormal Lab Results - Last 24 Hours (Table) 01/30/22 01/30/22 Range/Units 09:56 09:56 RBC 3.59 L (4.30-5.90) m/uL Hgb 10.8 L (13.0-17.5) gm/dL Hct 33.1 L (39.0-53.0) % Sodium 133 L (137-145) mmol/L Chloride 95 L (98-107) mmol/L BUN 27 H (9-20) mg/dL Glucose 150 H (74-99) mg/dL Total Protein 5.6 L (6.3-8.2) g/dL Albumin 3.0 L (3.5-5.0) g/dL Diabetes panel 01/30/22 Range/Units 09:56 Sodium 133 L (137-145) mmol/L Potassium 3.6 (3.5-5.1) mmol/L Chloride 95 L (98-107) mmol/L Carbon Dioxide 30 (22-30) mmol/L BUN 27 H (9-20) mg/dL Creatinine 0.67 (0.66-1.25) mg/dL Glucose 150 H (74-99) mg/dL Calcium 9.3 (8.4-10.2) mg/dL AST 52 (17-59) U/L ALT 21 (4-49) U/L Alkaline Phosphatase 65 (38-126) U/L Total Protein 5.6 L (6.3-8.2) g/dL Albumin 3.0 L (3.5-5.0) g/dL Calcium panel 01/30/22 Range/Units 09:56 Calcium 9.3 (8.4-10.2) mg/dL Albumin 3.0 L (3.5-5.0) g/dL Pituitary panel 01/30/22 Range/Units 09:56 Sodium 133 L (137-145) mmol/L Potassium 3.6 (3.5-5.1) mmol/L Chloride 95 L (98-107) mmol/L Carbon Dioxide 30 (22-30) mmol/L BUN 27 H (9-20) mg/dL Creatinine 0.67 (0.66-1.25) mg/dL Glucose 150 H (74-99) mg/dL Calcium 9.3 (8.4-10.2) mg/dL Adrenal panel 01/30/22 Range/Units 09:56 Sodium 133 L (137-145) mmol/L Potassium 3.6 (3.5-5.1) mmol/L Chloride 95 L (98-107) mmol/L Carbon Dioxide 30 (22-30) mmol/L BUN 27 H (9-20) mg/dL Creatinine 0.67 (0.66-1.25) mg/dL Glucose 150 H (74-99) mg/dL Calcium 9.3 (8.4-10.2) mg/dL Total Bilirubin 0.7 (0.2-1.3) mg/dL AST 52 (17-59) U/L ALT 21 (4-49) U/L Alkaline Phosphatase 65 (38-126) U/L Total Protein 5.6 L (6.3-8.2) g/dL Albumin 3.0 L (3.5-5.0) g/dL
[2022-01-30] MEDS ORDERED: LACTATED RINGERS 1,000 ML IV ONE ×5 (16:00→17:11)
[2022-01-30] MEDS ORDERED: METOPROLOL TARTRATE 5 MG/5 ML VIAL IVP ONE ×2 (16:11→16:15)
[2022-01-30] MEDS ORDERED: fentaNYL (PF) 50 MCG/ML 2 ML AMP ONE (16:11)
[2022-01-30] MEDS ORDERED: PROPOFOL 10 MG/ML 20 ML VIAL IV ONE (16:11)
[2022-01-30] MEDS ORDERED: LIDOCAINE 1% INJ 10MG/ML (20 ML MDV) ONE (16:11)
[2022-01-30] MEDS ORDERED: MIDAZOLAM 2 MG/2 ML VIAL ONE (16:11)
[2022-01-30] MEDS ORDERED: ESMOLOL 100 MG/10 ML VIAL ONE (16:11)
[2022-01-30] MEDS ORDERED: SUCCINYLCHOLINE CHLORIDE VIAL 200 MG/10 ML VIAL IV ONE (16:11)
[2022-01-30] MEDS ORDERED: ROCURONIUM 10 MG/ML (5 ML VIAL) IV ONE (16:11)
[2022-01-30] MEDS ORDERED: ACETAMINOPHEN IV (For NPO) 1,000 MG/100 ML VIAL ONE (16:11)
[2022-01-30] MEDS ORDERED: ALBUMIN HUMAN 5% (12.5gm) 250 ML BOTTLE IVPB ONE (16:11)
[2022-01-30] MEDS ORDERED: FAMOTIDINE 20 MG/2 ML VIAL IVP ONE (16:15)
[2022-01-30] MEDS ORDERED: ONDANSETRON 4 MG/2 ML VIAL IVP ONE (16:15)
[2022-01-30 16:16] LABS: Glucose,Whole Blood 112 mg/dL (75-99)
[2022-01-30] MEDS ORDERED: SODIUM CHLORIDE 0.9% 100 ML with ceFAZolin 3,000 MG IV ONE ×2 (16:48)
--- NOTE | 2022-01-30 19:28 | P.OP ---
Date of Procedure: 01/30/22 Preoperative Diagnosis: Pelvic abscess Postoperative Diagnosis: Pelvic abscess Small bowel obstruction due to severe inflammatory reaction in the small bowel Lymphoma Procedure(s) Performed: Exploratory laparotomy Drainage of pelvic abscess Small bowel resection 3 Transverse end colostomy Placement of wound VAC Partial omentectomy Anesthesia: FADIA Surgeon: Carmelo Palmer Estimated Blood Loss (ml): 200 Pathology: other (Small bowel, omentum) Condition: critical Disposition: ICU Operative Findings: 3 cm pelvic abscess Intense cicatrix inflammatory response and small bowel causing small bowel obstruction Questionable enlarged lymph nodes related to lymphoma and small bowel Description of Procedure: The patient's placed on the operative table in supine position. He received general endotracheal tube anesthesia. His abdomen was prepped and draped in usual sterile fashion. The patient had a very obese abdomen. The skin was incised and the previous scar after deniz removed. The fascial sutures were removed. Electrocautery the fascia was opened. There was a significant inflammatory response in the midline around the fascia. Approximately 30 minutes of operative time used to lyse adhesions to expose the fascia. There was an obvious small bowel obstruction. The proximal bowel was quite dilated and thickened. There was a inflammatory mass of small bowel. This was matted together. The proximal small bowel was dissected free. Then transected with the ABDELRAHMAN stapler. There was a segment of bowel that was had significant seromuscular damage. This was transected. With a GI stapler. The specimens removed by dividing the mesentery the bowel with the Enseal device. And then anastomosis created using ABDELRAHMAN and TA staplers in a [id number] functional end-to-end staple anastomosis was created. 3 adjacent sutures as crotch stitch. A larger segment of the small bowel was matted together. This was transected proximally distally with the ABDELRAHMAN stapler.. Using the Enseal device mesentery the bowel was divided. And then the specimen was sent to pathology. The bowel was then reanastomosed using the ABDELRAHMAN and TA stapler. This was done a [id number] functional end-to-end stapled vessels. 3 adjacent sutures as a crotch stitch. The bowel was then run. There was another segment that had a significant serosal tear the which required resection. The bowel was then divided proximally distally GI stapler. Insulin was divided mesentery and the specimen sent to pathology. Then using the ABDELRAHMAN and TA stapler the [id number] functional end-to-end stapled vessels created. A 3 adjacent sutures used as a crotch stitch. The abdomen was irrigated no significant bleeding was seen. The pelvis was examined. There appeared to be a small 3 cm abscess on along the right side of the pelvis. This was entered with finger dissection. There was no feculent material seen in the abdomen. There was only some ascites. The abdomen was washed out again with 3 L normal saline. At this point decided to perform a transverse end colostomy. The transverse colon was divided with the ABDELRAHMAN stapler. And then the the colon was then brought up through the colostomy site in the right upper quadrant. No bleeding was seen. A JOSE drain is placed into the pelvis where the abscess cavity was. And then the fascia was closed with looped #1 PDS suture. The superior portion the skin was stapled for approximately 3 inches near the colostomy site. The wound VAC was applied. And then the colostomy was matured with 3-0 Vicryl suture. The colostomy appliance was applied. Patient was sent to the ICU in critical condition. He had arterial lines and central venous catheter placed by anesthesia. He was sedated admitted to the ICU.
--- NOTE | 2022-01-30 19:32 | P.ANPRN ---
Procedure Note - Anesthesia - Invasive Line Left Arterial Line Time Out Performed: Yes (1620) Date of Procedure: 01/30/22 Time of Procedure: 16:20 Location of Patient: OR Preparation: Sterile Prep, Sterile Dressing Arterial Line Location: Radial Ultrasound Used: No Purpose - Visualization and Identification of Vasculature: No Needle Guage: 20g Image Stored and Saved: No Narrative: Central line placement per sterile protocol utilized.
--- NOTE | 2022-01-30 19:34 | P.ANPRN ---
Procedure Note - Anesthesia - Invasive Line Right Central Line Time Out Performed: Yes (1620) Date of Procedure: 01/30/22 Time of Procedure: 19:15 Location of Patient: Phase I Preparation: Sterile Prep, Sterile Dressing Ultrasound Used: Yes Purpose - Visualization and Identification of Vasculature: Yes Needle Guage: 18g angio Image Stored and Saved: Yes Narrative: Central line placement per sterile protocol utilized. +loca +angio +cvp +jwire +uneventful dilation and introduction right IJ TLC. All lumens bled and flushed. Secured and dressed.
[2022-01-30 19:47] LABS: Glucose,Whole Blood 184 mg/dL (75-99)
[2022-01-30] MEDS ORDERED: propofoL 100 ML IV ONE (19:48)
[2022-01-30 20:16] LABS: ABG Base Excess -1.6 mmol/L; ABG HCO3 24 mmol/L (21-25); ABG Oxygen Saturation 99.5 % (94-97); ABG PCO2 45 mmHg (35-45); ABG PH 7.34 (7.35-7.45); ABG PO2 >400 mmHg (83-108); ABG TCO2 26 mmol/L (19-24); Allen Test Performed? Yes
[2022-01-30] MEDS: MORPHINE SULFATE 4 MG/ML SYRINGE IV PRN (20:40)
[2022-01-30] MEDS: metFORMIN 500 MG TAB PO SCH ×2 (20:41→21:09)
[2022-01-30] MEDS: PIPERACILLIN-TAZOBACTAM 3.375 GM in SODIUM CHLORIDE 0.9% 100 ML IVPB SCH (20:42)
[2022-01-30] MEDS ORDERED: METOPROLOL TARTRATE 25 MG TAB PO SCH (21:00)
[2022-01-30] MEDS ORDERED: levETIRAcetam 500 MG TAB PO SCH (21:00)
[2022-01-30 22:50] LABS: African American GFR (CKD) >90 (>60 ml/min/1.73 sqM); Anion Gap 8 mmol/L; Blood Urea Nitrogen 23 mg/dL (9-20); Calcium 8.1 mg/dL (8.4-10.2); Carbon Dioxide 21 mmol/L (22-30); Chloride 103 mmol/L (98-107); Glucose 187 mg/dL (74-99); Non-African American GFR(CKD) >90 (>60 ml/min/1.73 sqM); Potassium 4.1 mmol/L (3.5-5.1); Sodium 132 mmol/L (137-145)
[2022-01-30 23:08] LABS: HCT 35.4 % (39.0-53.0); HGB 10.7 gm/dL (13.0-17.5); Hypochromasia Marked; MCH 29.3 pg (25.0-35.0); MCHC 30.3 g/dL (31.0-37.0); MCV 96.4 fL (80.0-100.0); Mean Platelet Volume 10.4; Platelet Count 390 k/uL (150-450); RBC 3.67 m/uL (4.30-5.90); RDW 15.5 % (11.5-15.5); WBC 14.3 k/uL (3.8-10.6)
[2022-01-31] MEDS: PIPERACILLIN-TAZOBACTAM 3.375 GM in SODIUM CHLORIDE 0.9% 100 ML IVPB SCH ×4 (02:37→23:10)
[2022-01-31] MEDS: MORPHINE SULFATE 4 MG/ML SYRINGE IV PRN ×3 (02:38→22:28)
[2022-01-31 05:12] LABS: ALT 12 U/L (4-49); AST 23 U/L (17-59); African American GFR (CKD) >90 (>60 ml/min/1.73 sqM); Albumin 1.9 g/dL (3.5-5.0); Alkaline Phosphatase 40 U/L (38-126); Anion Gap 9 mmol/L; Blood Urea Nitrogen 26 mg/dL (9-20); Calcium 7.3 mg/dL (8.4-10.2); Carbon Dioxide 20 mmol/L (22-30); Chloride 105 mmol/L (98-107); Glucose 170 mg/dL (74-99); Magnesium 1.5 mg/dL (1.6-2.3); Non-African American GFR(CKD) 80 (>60 ml/min/1.73 sqM); Potassium 4.1 mmol/L (3.5-5.1); Sodium 134 mmol/L (137-145); Total Bilirubin 0.5 mg/dL (0.2-1.3); Total Protein 3.7 g/dL (6.3-8.2)
[2022-01-31 05:26] LABS: HCT 32.5 % (39.0-53.0); HGB 9.7 gm/dL (13.0-17.5); Hypochromasia Marked; MCH 28.9 pg (25.0-35.0); MCHC 29.9 g/dL (31.0-37.0); MCV 96.9 fL (80.0-100.0); Mean Platelet Volume 9.8; Platelet Count 304 k/uL (150-450); RBC 3.36 m/uL (4.30-5.90); RDW 15.4 % (11.5-15.5); WBC 12.7 k/uL (3.8-10.6)
[2022-01-31] MEDS ORDERED: Magnesium Replacement Protocol 1 EACH MISC MISCELLANE PRN (05:26)
[2022-01-31 05:55] LABS: ABG Base Excess -4.5 mmol/L; ABG HCO3 22 mmol/L (21-25); ABG PCO2 41 mmHg (35-45); ABG PH 7.33 (7.35-7.45); ABG PO2 106 mmHg (83-108); ABG TCO2 23 mmol/L (19-24); Allen Test Performed? Yes
[2022-01-31] MEDS: MAGNESIUM SULFATE-D5W PMX 1 GM in DEXTROSE/WATER 1 100ML.BAG IVPB SCH ×2 (05:55→06:52)
[2022-01-31 06:10] LABS: Band Neutrophils % 4 %; Lymphocytes # (M) 2.92 k/uL (1.0-4.8); Metamyelocytes # (M) 0.13 k/uL (0); Metamyelocytes % 1 %; Monocytes # (M) 0.89 k/uL (0-1.0); Neutrophils % (M) 66 %; Nucleated Red Blood Cells 0 /100 WBC (0-0); Total Cells Counted 200
[2022-01-31 06:11] LABS: Anisocytosis (M) Present; Large Platelets Present; Poikilocytosis (M) Present; Polychromasia Present
--- NOTE | 2022-01-31 06:23 | XR ---
EXAMINATION TYPE: XR chest 1V portable DATE OF EXAM: 01/31/2022 CLINICAL HISTORY: Difficulty breathing had to be intubated. Recent colonic surgery. TECHNIQUE: Single AP portable semiupright view of the chest is obtained. COMPARISON: Chest CTA from one day earlier and older studies FINDINGS: Satisfactory positioning of endotracheal tube at clavicular level approximately 4 cm above the heath. Satisfactory positioning of orogastric tube projecting below diaphragm. There is right i nternal jugular central venous catheter terminating in right atrium. Persistent low lung volumes with bibasilar opacities. Cardiac silhouette size stable and within bruce l limits. Underlying scoliotic curvature is present with multilevel spurring in the spine. IMPRESSION: 1. Satisfactory positioned endotracheal and orogastric tubes. 2. Low lung volumes with bibasilar atelectasis and/or developing infiltrates.
[2022-01-31] MEDS ORDERED: SODIUM CHLORIDE 0.9% 2,000 ML IV ONE ×2 (06:26→13:04)
[2022-01-31] MEDS ORDERED: SODIUM CHLORIDE 0.9% 1,000 ML IV ONE ×2 (08:30→15:05)
[2022-01-31 08:41] LABS: Glucose,Whole Blood 185 mg/dL (75-99)
[2022-01-31] MEDS: INSULIN ASPART (NovoLOG) 100 UNIT/ML VIAL SQ SCH ×4 (08:56→20:03)
[2022-01-31] MEDS: levETIRAcetam IV 500 MG in SODIUM CHLORIDE 0.9% 100 ML IVPB SCH ×2 (08:57→19:59)
[2022-01-31] MEDS ORDERED: lisinopriL 5 MG TAB PO SCH (09:00)
[2022-01-31] MEDS ORDERED: DEXTROSE 5% IN WATER 100 ML with AMIODARONE 150 MG IV ONE (09:00)
[2022-01-31] MEDS ORDERED: PANTOPRAZOLE 40 MG TABLET PO SCH (09:00)
[2022-01-31] MEDS ORDERED: ENOXAPARIN 40 MG/0.4 ML SYRINGE SQ SCH (09:00)
[2022-01-31] MEDS ORDERED: ATORVASTATIN 40 MG TAB PO SCH (09:00)
[2022-01-31] MEDS: PANTOPRAZOLE 40 MG/10 ML VIAL IVP SCH (09:02)
[2022-01-31] MEDS ORDERED: AMIODARONE 360 MG in DEXTROSE 5% IN WATER 200 ML IV ONE ×2 (09:10)
--- NOTE | 2022-01-31 10:02 | US ---
"EXAMINATION TYPE: US venous doppler duplex LE DATE OF EXAM: 01/31/2022 9:42 AM COMPARISON: US 2016 CLINICAL HISTORY: possible DVT, could not exclude PE on CTA. ICU pt on vent, possible DVT SIDE PERFORMED: Bilateral TECHNIQUE: The lower extremity deep venous system is examined utilizing real time linear array sonog alber with graded compression, doppler sonography and color-flow sonography. VESSELS IMAGED: Common Femoral Vein Deep Femoral Vein Greater Saphenous Vein * Femoral Vein Popliteal Vein Small Saphenous Vein * Proximal Calf Veins (* superficial vessels) Unable to visualize bilateral groins due to bandages Right Leg: Negative for DVT Left Leg: Probable acute DVT proximal/mid portion of left popliteal vein Grayscale, color doppler, spectral doppler imaging performed of the deep veins of the bilateral lower extremities. Suboptimal study. Incomplete compression of the proximal to mid popliteal vein which is expanded with hyperechoic material. . IMPRESSION: Findings consistent with partial occlusive acute DVT in the left popliteal vein. A Yellow level critical message alert has been initiated for Carmelo Palmer MD via the [employer] | Critical Results System on 01/31/2022 9:59 AM. This message alert has been sent to Carmelo Palmer MD via the preferences provided by the clinician for the receipt of Radiology Critical Findings. Tn ssage ID [id number]."
--- NOTE | 2022-01-31 10:07 | CDI ---
Documentation Clarification Form Date: 01/31/2022 09:47:32 AM From: Brittny Hale CCS, CCDS Admit Date: 01/30/2022 12:41:00 PM Patient Name: Nikolai Trevino Visit Number: [id number] Discharge Date: ATTENTION: The Clinical Documentation Specialists (CDI) and [facility] Coding Staff appreciate your assistance in clarifying documentation. Please respond to the clarification below the line at the bottom and electronically sign. The CDI & [facility] Coding staff will review the response and follow-up if needed. Please note: Queries are made part of the Legal Health Record. If you have any questions, please contact the author of this message via ITS. Dr. Carmelo Palmer: The patient presented with the following symptoms: Blood in stool, abdominal stool & inability to tolerate oral intake status post Sigmoidectomy for Colon Cancer three weeks ago. Recently started antibiotics for an abdominal wound infection. Additional clarification regarding the etiology/cause of the clinical indicators is requested. History/Risk Factors per the 01/30 General Surgery H/P: Colon Cancer, Non- Hodgkin's Lymphoma, Diabetes, Hypertension, ID, Seizure Disorder, PE and Former smoker. Clinical Indicators: Presented to the ED on 01/30 with the above signs/symptoms. In moderate distress secondary to abdominal discomfort. Tachycardic. Blood clots in rectum, discharge from the surgical incision site. Admit with GI Bleed, Post Surgical Complication, Intra-Abdominal Infection, Sinus Tachycardia. 01/30 VS: T 98, P 130, R 18, BP 133/77, PO 96 - 90 RA - 98 2Lnc, BMI: 35.5 01/30 LAB: WBC 7.9, 14.3; RBC 3.59, Hgb 10.8, Hct 33.1; Na 133, Cl 95, BUN 27, Glucose 150, total Protein 5.6, Albumin 3.0 Blood gas ABG: pH 7.34, pO2 >400, total CO2 26, O2 Sat 99.5 Blood cultures ordered, pending. 01/30 CT Abdomen/Pelvis: Leak at the Distal Sigmoid Resection & Re-Anastomosis, developing abscess, Mildly distended small bowel loops in the left side of the abdomen likely secondary to ileus. Increasing Lymphadenopathy throughout the lower chest & abdomen, consider Lymphoma. 01/30 CT Chest: Pulmonary arterial hypertension, Recurrent Lymphoma, LAD coronary artery calcifications. Prominent scattered area of atelectasis, trace left pleural effusion. Treatment 01/30: Prepped for surgery, Blood cultures, IV Na Cl 1,000 mls @ 999 mls/hr q1H x2, IV Zofran 4 mg x1, IV Zosyn 100 mls @ 200 mls/hr x1, IV Keppra 105 mls @ 400 mls/hr x1, IV Morphine 4 mg x2, I Na Cl 1,000 mls @ 100 mls/hr q10H Consults: Medical Management, Pulmonary/Critical Care (ICU management In your professional opinion, please clarify if these findings signify one of the following conditions: [ xxxx] Sepsis POA [ ] Sepsis, Not POA [ ] Other, please specify [ ] Unable to determine (Template Last Reviewed: November 2020) MTDD
[2022-01-31] MEDS: SODIUM CHLORIDE 0.9% 1,000 ML IV SCH ×2 (11:49→20:00)
[2022-01-31 11:58] LABS: Glucose,Whole Blood 176 mg/dL (75-99)
[2022-01-31] MEDS: ACETAMINOPHEN IV (For NPO) 1,000 MG in EMPTY BAG 1 BAG IVPB PRN ×2 (12:17→19:59)
--- NOTE | 2022-01-31 13:01 | P.PN ---
Progress Note - Text Progress Note Date: 01/30/22 Mr. Trevino was seen in the emergency room. His CAT scan shows evidence of a pelvic abscess and possible anastomotic leak. The patient states he has not felt well for a couple of days. On exam the patient's is tachycardic with pulse in the 120s to 140s. Abdomen soft there is some mild tenderness throughout. The abdomen is distended. The patient will need fluid resuscitation. I discussed with the patient and his that he will need to undergo exploratory laparotomy today. I have d iscussed the possibility of colostomy. Patient will receive fluid resuscitation and plan for surgery this afternoon.
[2022-01-31] MEDS: NOREPINEPHRINE 4 MG in SODIUM CHLORIDE 0.9% 250 ML IV SCH ×3 (13:36→20:19)
--- NOTE | 2022-01-31 14:01 | P.CNPUL ---
History of Present Illness Consult date: 01/31/22 Chief complaint: Abdominal pain History of present illness: This is a 66-year-old male patient was taken to the operating room yesterday and following that the patient was kept intubated and transferred to the intensive care unit for further care. The patient came into the MRSA problem having issues with abdominal pain and he was suspected of small bowel obstruction following a low AP resection for an underlying colonic cancer/adenocarcinoma. The patient also known to have systemic lymphoma. In any rate, the patient was taken to the operating room. The patient underwent expiratory laparotomy, the patient underwent a drainage of the pelvic abscess and small bowel resection 3 and transverse and colostomy and placement of a wound VAC. The patient also underwent a partial omentectomy. The patient is currently postop day #1. Mo ther the patient was brought into the intensive care unit intubated on a mechanical ventilator. The patient was on propofol and the dose was titrated and the patient is currently on a propofol of 50 mics respiratory kilogram per minute. The patient is on a mechanical ventilator on assist control mode at the rate of 60 with a tidal volume of 500 and FiO2 of 40% with a PEEP of 5. Blood gases from today showed a pH of 7.33 with a pCO2 of 41 and pO2 of 106. Serum bicarb is at 20 with a BUN of 26 and the creatinine 0.9. The white cell count is at 4.4 with hemoglobin 9.7 and platelet count of 304. T-max is 100.8. IV fluids and currently running at 100 mL an hour normal saline. Noted the patient received a total of 5 L of IV fluid in the form of normal saline since he arrived to the ICU and the patient received another 2 L in the operating room. chairman emeritus at around 3:57 AM, the patient went into tachycardia. This was irregular possibly related to A. fib/flutter. At a time of my valuation this morning, the patient's heart rate was around 150. He was started on amiodarone drip for rate control. Note that the patient also had a CT angiogram of the chest preoperatively and a CAT scan showed pulmonary artery hypertension. No central pulmonary embolism. There was however a segmental and subsegmental branch embolism, right and left upper lobes and possibly right lower lobes. No reflux of contrast into the hepatic veins to support right ventricular heart strain. There was evidence of an informal as the patient had abdominal lymphadenopathy. There was scattered areas of atelectasis and trace left-sided pleural effusion. As for the CAT scan of the abdomen that was done preoperatively, the patient was found to have distal sigmoid resection and reanastomosis findings which is related to a previous low AP resection. There was evidence of an anastomotic leak with mild scattered free air and mild ascites. A more contained fluid collection was seen also representing a developing abscess extending right laterally and superiorly from the anastomosis measuring 9.5 x 3.7 cm in size. There was also mildly distended small bowel loops in the left side of the abdomen likely secondary to bowel obstruction. There was also intra-abdominal lymphadenopathy and lymphadenopathy in the lower chest and abdomen area largest of fluid measuring 4.4 cm in size consistent with underlying lymphoma. In terms of oncologic history, the patient has a cell lymphoma. 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 he patient had additional workup done, with flow cytometric showing a small, 5% population of CD5 positive cells consistent with CLL/SLL. CT of the chest abdomen and pelvis showed minor hilar adenopathy, in the 1 cm range, fairly minor retroperitoneal adenopathy, 1 cm or less, left inguinal adenopathy maximum 2.1 cm, and bilateral axillary adenopathy, more on the left versus the right. (3.9 cm versus 2.5 cm, largest nodes) Workup for other causes of thrombocytopenia including autoimmune markers, protein electrophoresis studies and deficiency states was negative. Given the comparatively low volume of disease, and normal blood count. Otherwise, the mildly low plt count is felt to be a mild autoimmune phenomenon CLL, fish was negative. He was ZAP 70 negative and CD38 positive. The patient was seen in 12/17, as he had noted enlarged lymph nodes in both axilla, with some discomfort on the left side. He also reported progressive decrease in energy, increasing fatigue and increased sleeping time. He continued to report sensation of congestion and chest heaviness in the upper chest. The most recent sigmoid colon/omental resection revealed a T2 N0 M0 colonic adenocarcinoma. At the same time, lymph nodes from the designated sigmoid colon area excised showed small B-cell Hodgkin's lymphoma having features of CLL/SLL. It was negative for metastatic carcinoma. Other comorbid conditions include CAD, previous history of poor embolism back in 2016, previous history of coronary stenting for CAD and the patient has 4 stents, history of seizure disorder, hypertension and hyperlipidemia and impaired hearing and this is of course in combination with previous history of non-Hodgkin's lymphoma/CLL and recent diagnosis of colonic adenocarcinoma. He is known to have also history of depression. Review of Systems ROS unobtainable: due to endotracheal tube Past Medical History Past Medical History: Coronary Artery Disease (CAD), Cancer, Diabetes Mellitus, Hearing Disorder / Deafness, Hyperlipidemia, Hypertension, Myocardial Infarction (AR), Osteoarthritis (OA), Prostate Disorder, Pulmonary Embolus (PE), Seizure Disorder Additional Past Medical History / Comment(s): PE 09/29/16, NON HODGKINS LYMPHOMA DX 2019, LAST SEIZURE 01/02/2022, HOSPITALIZED AT [facility] DECEMBER 2021 WITH BLEEDING COLON POLYP (CANCER)., CRUSHED DISCS LOWER BACK., ENLARGED PROSTATE. Last Myocardial Infarction Date:: 2017 History of Any Multi-Drug Resistant Organisms: None Reported Past Surgical History: Ear Surgery, Heart Catheterization With Stent, Hernia Repair Additional Past Surgical History / Comment(s): CARDIAC STENTS 2013 & 2018 ([facility]) AND 2019 (IN [place]), NO EAR DRUMS. Past Anesthesia/Blood Transfusion Reactions: No Reported Reaction Additional Past Anesthesia/Blood Transfusion Reaction / Comment(s): THEY DONT SEEM TO GIVE HIM ENOUGH Date of Last Stent Placement:: NOV 2018 Past Psychological History: Anxiety, Depression Smoking Status: Former smoker Past Alcohol Use History: Rare Past Drug Use History: None Reported - Past Family History Mother Family Medical History: Cancer Additional Family Medical History / Comment(s): Lung cancer Father Family Medical History: Cancer Additional Family Medical History / Comment(s): Spinal Cancer Medications and Allergies Home Medications Medication Instructions Recorded Confirmed Type metFORMIN HCL [Glucophage] 1,000 mg PO BID 04/23/15 01/30/22 History Atorvastatin [Lipitor] 40 mg PO DAILY 07/17/19 01/30/22 History Metoprolol Tartrate [Lopressor] 25 mg PO HS 07/17/19 01/30/22 History lisinopriL [Zestril] 5 mg PO DAILY 07/17/19 01/30/22 History Hydrochlorothiazide 12.5 mg PO DAILY 01/15/21 01/30/22 History [hydroCHLOROthiazide] Montelukast Sodium [Singulair] 10 mg PO HS 01/15/21 01/30/22 History Pantoprazole [Protonix] 40 mg PO DAILY #30 tab 12/31/21 01/30/22 Rx levETIRAcetam [Keppra] 500 mg PO BID 01/07/22 01/30/22 History Docusate [Colace] 100 mg PO BID #30 capsule 01/16/22 01/30/22 Rx Cephalexin [Keflex] 1,000 mg PO Q12HR 01/30/22 01/30/22 History Fluticasone Nasal [place] [Flonase 2 spray EA NOSTRIL DAILY PRN 01/30/22 01/30/22 History Nasal [place]] Loratadine [Claritin] 10 mg PO HS PRN 01/30/22 01/30/22 History Allergies Allergy/AdvReac Type Severity Reaction Status Date / Time Sulfa (Sulfonamide Allergy Rash/Hives Verified 01/30/22 10:15 Antibiotics) amoxicillin [From Augmentin] AdvReac Nausea & Verified 01/30/22 10:15 Vomiting & Diarrhea clavulanic acid AdvReac Nausea & Verified 01/30/22 10:15 [From Augmentin] Vomiting & Diarrhea Physical Exam Vitals: Vital Signs Temp Pulse Pulse Resp BP BP Pulse Ox 01/31/22 13:00 102.6 F H 146 H 17 88/50 91 L 01/31/22 12:30 141 H 22 129/63 94 L 01/31/22 12:00 102 F H 137 H 22 132/64 96 01/31/22 11:30 138 H 17 103/61 94 L 01/31/22 11:00 146 H 17 100/57 94 L 01/31/22 10:30 147 H 15 104/66 95 01/31/22 10:00 101.2 F H 147 H 17 95 01/31/22 09:30 151 H 17 94 L 01/31/22 09:00 156 H 16 95 01/31/22 08:30 154 H 95 01/31/22 08:00 100.8 F H 154 H 16 100/65 96 01/31/22 07:30 152 H 17 100/65 96 01/31/22 07:00 152 H 17 96 01/31/22 06:30 151 H 16 100/65 96 01/31/22 06:00 100.3 F H 147 H 17 96 01/31/22 05:30 141 H 16 103/63 98 01/31/22 05:00 140 H 16 98 01/31/22 04:30 141 H 16 107/63 97 01/31/22 04:00 142 H 16 104/60 97 01/31/22 03:30 99.1 F 147 H 16 98/62 96 01/31/22 03:00 129 H 16 96 01/31/22 02:30 128 H 18 96 01/31/22 02:00 126 H 17 97 01/31/22 01:30 126 H 18 97 01/31/22 01:00 125 H 17 132/80 97 01/31/22 00:30 123 H 17 97 01/31/22 00:00 99.4 F 120 H 18 97 01/30/22 23:30 122 H 20 97 01/30/22 23:00 123 H 17 97 01/30/22 22:30 124 H 17 97 01/30/22 22:00 131 H 16 97 01/30/22 21:30 131 H 16 97 01/30/22 21:00 129 H 18 98 01/30/22 20:30 140 H 24 132/80 97 01/30/22 20:00 98.2 F 133 H 23 129/83 98 01/30/22 15:48 98.3 F 125 H 22 138/71 95 01/30/22 14:29 124 H 18 134/75 98 01/30/22 14:00 124 H 20 145/78 98 Intake and Output 01/30/22 01/31/22 01/31/22 22:59 06:59 14:59 Intake Total 2550 3900.000 4000 Output Total 1565 890 385 Balance 985 3010.000 3615 Intake: IV 2550 3600 3400 Piperacillin-Tazobactam 3 100 100 .375 gm In Sodium Chloride 0.9% 100 ml @ 25 mls/hr IVPB Q8HR [facility] Rx# :[id number] Sodium Chloride 0.9% 1, 300 3500 3400 000 ml @ 100 mls/hr IV . Q10H [facility] Rx#:[id number] Intake, IV Titration 300.000 600 Amount ACETAMINOPHEN IV (For NPO 100 ) 1,000 mg In Empty Bag 1 bag @ 400 mls/hr IVPB Q6HR PRN Rx#:[id number] Dextrose 5% in Water 100 100 ml @ 618 mls/hr IV .Q10M ONE with Amiodarone 150 mg Rx#:[id number] Magnesium Sulfate-D5w Pmx 100 1 gm In Dextrose/Water 1 100ml.bag @ 100 mls/hr IVPB Q1H [facility] Rx#: [id number] levETIRAcetam IV 500 mg 100 In Sodium Chloride 0.9% 100 ml @ 400 mls/hr IVPB Q12HR [facility] Rx#:[id number] propofoL 1,000 mg In 300.000 200 Empty Bag 1 bag @ 5 MCG/ KG/MIN 3.919 mls/hr IV . Q24H [facility] Rx#:[id number] Output: Gastric Drainage 500 400 Drainage 450 260 70 Abdomen 450 260 70 Urine 415 230 315 Estimated Blood Loss 200 Other: Voiding Method Indwelling Catheter Indwelling Catheter Weight 132.3 kg 132.3 kg ABP, PAP, CO, CI - Last 8 Hours Arterial Blood Pressure 120/48 Arterial Blood Pressure 95/44 Arterial Blood Pressure 91/44 Arterial Blood Pressure 90/46 Arterial Blood Pressure 94/47 Arterial Blood Pressure 101/50 Arterial Blood Pressure 101/51 Arterial Blood Pressure 105/50 Arterial Blood Pressure 105/52 Arterial Blood Pressure 101/48 Arterial Blood Pressure 94/46 Arterial Blood Pressure 106/48 Calm and comfortable, sedated with Precedex on a mechanical ventilator. Orogastric and orotracheal tube are both in place. Head exam was generally normal. There was no scleral icterus or corneal arcus. Mucous membranes were moist. Neck was supple and without jugular venous distension, thyromegaly, or carotid bruits. Carotids were easily palpable bilaterally. There was no adenopathy. Lungs sounds are diminished bilaterally along with some scattered throughout the lung hightower. Cardiac exam revealed the PMI to be normally situated and sized. The rhythm was regular and no extrasystoles were noted during several minutes of auscultation. The first and second heart sounds were normal and physiologic splitting of the second heart sound was noted. There were no murmurs, rubs, clicks, or gallops. Abdomen is soft. Bowel sounds are hypoactive/absent. The patient has a right- sided colostomy without any output at this point in time and the tissue is viable. The patient has also a JOSE drain in the right lower quadrant. The patient has a mid abdominal incision and the patient has a wound VAC in place. Organs cannot be palpated. No direct tenderness. No rebound tenderness. No guarding. Examination of the extremities revealed easily palpable radial, femoral and pedal pulses. There was no cyanosis, clubbing or edema. Examination of the skin revealed no evidence of significant rashes, suspicious appearing nevi or other concerning lesions. Abdominal wound was noted. Neurologically the patient is sedated, comfortable likely distress. Results - Laboratory Findings CBC and BMP: 01/31/22 04:30 01/31/22 04:30 ABG ABG pH 7.33 (7.35-7.45) L 01/31/22 05:50 ABG pCO2 41 mmHg (35-45) 01/31/22 05:50 ABG pO2 106 mmHg (83-108) 01/31/22 05:50 ABG O2 Saturation 98.0 % (94-97) H 01/31/22 05:50 PT/INR, D-dimer PT 10.7 sec (9.0-12.0) 01/30/22 09:56 INR 1.0 (<1.2) 01/30/22 09:56 Abnormal lab findings: Abnormal Labs 01/30/22 01/30/22 01/30/22 09:56 09:56 16:14 WBC RBC 3.59 L Hgb 10.8 L Hct 33.1 L MCHC Neutrophils # (Manual) Metamyelocytes # (Man) ABG pH ABG pO2 ABG Total CO2 ABG O2 Saturation Sodium 133 L Chloride 95 L Carbon Dioxide BUN 27 H Glucose 150 H POC Glucose (mg/dL) 112 H Calcium Magnesium Total Protein 5.6 L Albumin 3.0 L 01/30/22 01/30/22 01/30/22 19:46 20:10 22:15 WBC 14.3 H RBC 3.67 L Hgb 10.7 L Hct 35.4 L MCHC 30.3 L Neutrophils # (Manual) Metamyelocytes # (Man) ABG pH 7.34 L ABG pO2 >400 H ABG Total CO2 26 H ABG O2 Saturation 99.5 H Sodium Chloride Carbon Dioxide BUN Glucose POC Glucose (mg/dL) 184 H Calcium Magnesium Total Protein Albumin 01/30/22 01/31/22 01/31/22 22:15 04:30 04:30 WBC 12.7 H RBC 3.36 L Hgb 9.7 L Hct 32.5 L MCHC 29.9 L Neutrophils # (Manual) 8.80 H Metamyelocytes # (Man) 0.13 H ABG pH ABG pO2 ABG Total CO2 ABG O2 Saturation Sodium 132 L 134 L Chloride Carbon Dioxide 21 L 20 L BUN 23 H 26 H Glucose 187 H 170 H POC Glucose (mg/dL) Calcium 8.1 L 7.3 L Magnesium 1.5 L Total Protein 3.7 L Albumin 1.9 L 01/31/22 01/31/22 01/31/22 05:50 08:38 11:57 WBC RBC Hgb Hct MCHC Neutrophils # (Manual) Metamyelocytes # (Man) ABG pH 7.33 L ABG pO2 ABG Total CO2 ABG O2 Saturation 98.0 H Sodium Chloride Carbon Dioxide BUN Glucose POC Glucose (mg/dL) 185 H 176 H Calcium Magnesium Total Protein Albumin - Diagnostic Findings Chest x-ray: image reviewed CT scan - chest: image reviewed Assessment and Plan Plan: 1 acute abdomen with possibly development of an anastomotic leak and the patient presented with an acute abdominal pain and possibly an underlying abdominal abscess. The patient is postictal to laparotomy and drainage of a pelvic abscess and small bowel resection 3 along with transfers and colostomy and pa rtial omentectomy. The patient has a wound VAC in place. The patient is postop day #1. 2 history of colonic adenocarcinoma, T2 N0 M0 with a previous low AP resection 3 history of CLL/SLL with extensive intra-abdominal lymphadenopathy 4 acute hypoxic respiratory failure post abdominal surgery, currently intubated on mechanical ventilator 5 acute tachycardia with a possibility of a chair fibrillation/flutter, started on amiodarone drip 6 pulmonary embolism, bilateral based on CT angiogram. The patient has also has had previous history of PEs. Furthermore, the Doppler of the lower extremity showed a partially occlusive DVT in the left popliteal vein 7 coronary artery disease with previous coronary stenting 4 8 history of seizure disorder 9 history of non-Hodgkin's lymphoma/CLL/SLL, treatment as mentioned above. The patient has progressed and the patient was being considered for a BT K inhibitor as the patient had progression of B symptoms along with lymphadenopathy in terms of his underlying lymphoma. 10 diabetes mellitus 11 hypertension 12 anemia, multifactorial secondary to above Plan Continue ventilator support Give the patient additional 2 L of normal saline bolus and monitor the CVP May need to use pressors if the patient continues to be hypotensive Continue IV Zosyn Give the patient sedated with propofol We'll start the patient IV heparin Continue amiodarone per protocol Continue IV Keppra Morphine for pain control sliding scale insulin coverage Patient is a triple lumen catheter and arterial line catheter in place General surgeries on the case We'll continue to follow make further recommendations based on progress. Time with Patient: Greater than 30
--- NOTE | 2022-01-31 14:13 | P.PN ---
Subjective Progress Note Date: 01/31/22 CHIEF COMPLAINT: Pelvic abscess HISTORY OF PRESENT ILLNESS: Patient is status post exploratory laparotomy, drainage of pelvic abscess, small bowel resection 3, transverse and colostomy, placement of wound VAC and partial omentectomy. He is postop day #1. He is currently in the ICU and on mechanical ventilation. He has been hypotensive requiring IV fluid boluses. He had received already a total of 5 L and is going to be receiving another liter of fluid. He was placed on amiodarone for atrial fibrillation with RVR. Patient is starting to have fevers. T-max is 101.2. White count has decreased from 14.3-12.7 hemoglobin 9.7 magnesium 1.5. Patient has had 700 mL of output through the JOSE drain through the night. PHYSICAL EXAM: VITAL SIGNS: Reviewed. GENERAL: Well-developed in no acute distress. HEENT: No sclera icterus. Extraocular movements grossly intact. Moist buccal mucosa. Head is atraumatic, normocephalic. ABDOMEN: mildly distended. Patient has colostomy bag with no output. Incisional dressing clean dry and intact. JOSE drain with serosanguineous output. NEUROLOGIC: Alert and oriented. Cranial nerves II through XII grossly intact. ASSESSMENT: 1. Pelvic abscess, small bowel obstruction due to severe inflammatory reaction in the small bowel and lymphoma status post exploratory laparotomy, drainage of pelvic abscess, small bowel resection 3, transverse and colostomy, placement of wound VAC and partial omentectomy 2. History of colonic adenocarcinoma 3. History of non-Hodgkin's lymphoma 4. Hypomagnesemia 5. Pulmonary embolism and DVT left leg PLAN: -Continue ICU management -Continue supportive care -Potassium being replaced -Patient currently on IV heparin -Continue antibiotics -Patient receiving another 1 L IV fluid bolus -Dr. Palmer discussed CODE STATUS with at bedside. reported that patient wanted to be a no code. CODE STATUS has been changed to No code -IV Tylenol added for fevers Physician [employer] note has been reviewed by physician. Signing provider agrees with the documented findings, assessment, and plan of care. Objective - Vital Signs Vital signs: Vital Signs Temp 102.6 F H 01/31/22 13:00 Pulse 146 H 01/31/22 13:00 Resp 17 01/31/22 13:00 BP 88/50 01/31/22 13:00 Pulse Ox 91 L 01/31/22 13:00 Intake & Output 01/30/22 01/31/22 01/31/22 18:59 06:59 18:59 Intake Total 2150 4300.000 4002.352 Output Total 2455 385 Balance 2150 8591.767 7960.352 Weight 132.3 kg 132.3 kg Intake: IV 2150 4000 3400 Piperacillin-Tazobactam 3 200 .375 gm In Sodium Chloride 0.9% 100 ml @ 25 mls/hr IVPB Q8HR [facility] Rx# :[id number] Sodium Chloride 0.9% 1, 3800 3400 000 ml @ 100 mls/hr IV . Q10H [facility] Rx#:[id number] Intake, IV Titration 300.000 602.352 Amount ACETAMINOPHEN IV (For NPO 100 ) 1,000 mg In Empty Bag 1 bag @ 400 mls/hr IVPB Q6HR [facility] Rx#:[id number] Dextrose 5% in Water 100 100 ml @ 618 mls/hr IV .Q10M ONE with Amiodarone 150 mg Rx#:[id number] Magnesium Sulfate-D5w Pmx 100 1 gm In Dextrose/Water 1 100ml.bag @ 100 mls/hr IVPB Q1H [facility] Rx#: [id number] Norepinephrine 4 mg In 2.352 Sodium Chloride 0.9% 250 ml @ 0.05 MCG/KG/MIN 25. 203 mls/hr IV .Q10H5M [facility] Rx#:[id number] levETIRAcetam IV 500 mg 100 In Sodium Chloride 0.9% 100 ml @ 400 mls/hr IVPB Q12HR [facility] Rx#:[id number] propofoL 1,000 mg In 300.000 200 Empty Bag 1 bag @ 5 MCG/ KG/MIN 3.919 mls/hr IV . Q24H [facility] Rx#:[id number] Output: Gastric Drainage 900 Drainage 710 70 Abdomen 710 70 Urine 645 315 Estimated Blood Loss 200 Other: Voiding Method Indwelling Catheter ABP, PAP, CO, CI - Last Documented Arterial Blood Pressure 120/48 - Labs CBC & Chem 7: 01/31/22 04:30 01/31/22 04:30 Labs: Abnormal Lab Results - Last 24 Hours (Table) 01/30/22 01/30/22 01/30/22 Range/Units 16:14 19:46 20:10 WBC (3.8-10.6) k/uL RBC (4.30-5.90) m/uL Hgb (13.0-17.5) gm/dL Hct (39.0-53.0) % MCHC (31.0-37.0) g/dL Neutrophils # (Manual) (1.3-7.7) k/uL Metamyelocytes # (Man) (0) k/uL ABG pH 7.34 L (7.35-7.45) ABG pO2 >400 H (83-108) mmHg ABG Total CO2 26 H (19-24) mmol/L ABG O2 Saturation 99.5 H (94-97) % Sodium (137-145) mmol/L Carbon Dioxide (22-30) mmol/L BUN (9-20) mg/dL Glucose (74-99) mg/dL POC Glucose (mg/dL) 112 H 184 H (75-99) mg/dL Calcium (8.4-10.2) mg/dL Magnesium (1.6-2.3) mg/dL Total Protein (6.3-8.2) g/dL Albumin (3.5-5.0) g/dL 01/30/22 01/30/22 01/31/22 Range/Units 22:15 22:15 04:30 WBC 14.3 H 12.7 H (3.8-10.6) k/uL RBC 3.67 L 3.36 L (4.30-5.90) m/uL Hgb 10.7 L 9.7 L (13.0-17.5) gm/dL Hct 35.4 L 32.5 L (39.0-53.0) % MCHC 30.3 L 29.9 L (31.0-37.0) g/dL Neutrophils # (Manual) 8.80 H (1.3-7.7) k/uL Metamyelocytes # (Man) 0.13 H (0) k/uL ABG pH (7.35-7.45) ABG pO2 (83-108) mmHg ABG Total CO2 (19-24) mmol/L ABG O2 Saturation (94-97) % Sodium 132 L (137-145) mmol/L Carbon Dioxide 21 L (22-30) mmol/L BUN 23 H (9-20) mg/dL Glucose 187 H (74-99) mg/dL POC Glucose (mg/dL) (75-99) mg/dL Calcium 8.1 L (8.4-10.2) mg/dL Magnesium (1.6-2.3) mg/dL Total Protein (6.3-8.2) g/dL Albumin (3.5-5.0) g/dL 01/31/22 01/31/22 01/31/22 Range/Units 04:30 05:50 08:38 WBC (3.8-10.6) k/uL RBC (4.30-5.90) m/uL Hgb (13.0-17.5) gm/dL Hct (39.0-53.0) % MCHC (31.0-37.0) g/dL Neutrophils # (Manual) (1.3-7.7) k/uL Metamyelocytes # (Man) (0) k/uL ABG pH 7.33 L (7.35-7.45) ABG pO2 (83-108) mmHg ABG Total CO2 (19-24) mmol/L ABG O2 Saturation 98.0 H (94-97) % Sodium 134 L (137-145) mmol/L Carbon Dioxide 20 L (22-30) mmol/L BUN 26 H (9-20) mg/dL Glucose 170 H (74-99) mg/dL POC Glucose (mg/dL) 185 H (75-99) mg/dL Calcium 7.3 L (8.4-10.2) mg/dL Magnesium 1.5 L (1.6-2.3) mg/dL Total Protein 3.7 L (6.3-8.2) g/dL Albumin 1.9 L (3.5-5.0) g/dL 01/31/22 Range/Units 11:57 WBC (3.8-10.6) k/uL RBC (4.30-5.90) m/uL Hgb (13.0-17.5) gm/dL Hct (39.0-53.0) % MCHC (31.0-37.0) g/dL Neutrophils # (Manual) (1.3-7.7) k/uL Metamyelocytes # (Man) (0) k/uL ABG pH (7.35-7.45) ABG pO2 (83-108) mmHg ABG Total CO2 (19-24) mmol/L ABG O2 Saturation (94-97) % Sodium (137-145) mmol/L Carbon Dioxide (22-30) mmol/L BUN (9-20) mg/dL Glucose (74-99) mg/dL POC Glucose (mg/dL) 176 H (75-99) mg/dL Calcium (8.4-10.2) mg/dL Magnesium (1.6-2.3) mg/dL Total Protein (6.3-8.2) g/dL Albumin (3.5-5.0) g/dL Microbiology - Last 24 Hours (Table) 01/30/22 10:30 Blood Culture - Preliminary Blood No Growth after 24 hours 01/30/22 10:43 Blood Culture - Preliminary Blood No Growth after 24 hours
--- NOTE | 2022-01-31 15:22 | P.PCN ---
Date of Procedure: 01/31/22 Preoperative Diagnosis: acute abdomen Postoperative Diagnosis: acute abdomen, post ex laparotomy, colostomy, small bowel resection Procedure(s) Performed: arterial line insertion Anesthesia: local Surgeon: Renan Montero Washer Assembler #1: Asuncion Yee Estimated Blood Loss (ml): 0 Operative Findings: Indication: Hemodynamic monitoring. A time-out was completed verifying correct patient, procedure, site, positioning, and implant(s) or special equipment if applicable. Allens test was performed to ensure adequate perfusion. The patients right wrist groin was prepped and draped in sterile fashion. 1% Lidocaine was used to anesthetize the area. An 18G Arrow arterial line was introduced into the radial artery. The catheter was threaded over the guide wire and the needle was removed with appropriate pulsatile blood return. Blood loss was minimal. The catheter was then sutured in place to the skin and a sterile dressing applied. Perfusion to the extremity distal to the point of catheter insertion was checked and found to be adequate. The patient tolerated the procedure well and there were no complications.
[2022-01-31 15:44] LABS: Partial Thromboplastin Time 26.6 sec (22.0-30.0); Prothrombin Time 11.1 sec (9.0-12.0)
[2022-01-31] MEDS: AMIODARONE 450 MG in DEXTROSE 5% IN WATER 250 ML IV SCH ×2 (15:56)
[2022-01-31 15:57] LABS: HCT 27.9 % (39.0-53.0); HGB 8.5 gm/dL (13.0-17.5); Hypochromasia Marked; MCH 29.5 pg (25.0-35.0); MCHC 30.5 g/dL (31.0-37.0); MCV 96.7 fL (80.0-100.0); Mean Platelet Volume 9.5; Platelet Count 250 k/uL (150-450); RBC 2.89 m/uL (4.30-5.90); RDW 15.3 % (11.5-15.5)
[2022-01-31 16:27] LABS: Band Neutrophils % 9 %; Lymphocytes # (M) 2.94 k/uL (1.0-4.8); Metamyelocytes # (M) 0.14 k/uL (0); Metamyelocytes % 1 %; Monocytes # (M) 0.28 k/uL (0-1.0); Neutrophils % (M) 67 %; Nucleated Red Blood Cells 0 /100 WBC (0-0); Total Cells Counted 100
[2022-01-31 16:28] LABS: Polychromasia Present
[2022-01-31] MEDS: HEPARIN SOD,PORK IN 0.45% NACL 25,000 UNIT in 0.45% NACL 1 250ML.BAG IV SCH (16:37)
[2022-01-31 17:05] LABS: Glucose,Whole Blood 157 mg/dL (75-99)
[2022-01-31 18:00] LABS: Glucose,Whole Blood 138 mg/dL (75-99)
[2022-01-31 19:54] LABS: Glucose,Whole Blood 146 mg/dL (75-99)
[2022-01-31] MEDS: NOREPINEPHRINE 8 MG in SODIUM CHLORIDE 0.9% 250 ML IV SCH (22:55)
[2022-01-31 23:14] LABS: Glucose,Whole Blood 123 mg/dL (75-99)
[2022-01-31] MEDS ORDERED: ANIDULAFUNGIN 200 MG in SODIUM CHLORIDE 0.9% 200 ML IVPB ONE (23:27)
--- NOTE | 2022-01-31 23:27 | P.CONS ---
History of Present Illness - Reason for Consult Consult date: 01/31/22 Septic shock Requesting physician: Asuncion Yee - Chief Complaint abd pain x 1 week - History of Present Illness Patient is a 66-year-old male with a past medical history significant for diabetes mellitus hypertension [place] seizure disorder who recently did have a sigmoidectomy about 3 weeks ago presenting to the hospital yesterday morning for evaluation of abdominal discomfort that has been going on for 1 to 2 weeks pain has been mostly in the lower abdominal area and the patient be complaining of bright red blood per rectum with blood clots as well as inability to tolerate anything by mouth with the symptoms the patient was evaluated by ER physician on arrival to the ER the patient was afebrile however the patient be running a fever since 6 in the morning with a temperature of 102.6 F and the patient has been tachycardic did have elevated white count patient did have a CT abdominal pelvis with the findings suggestive of anastomosis leak with mild scattered free air and mild ascitic fluid and more contained fluid collection developing patient did have a severe angiogram of the chest no large central pulmonary embolism patient was taken to the OR last night and this patient was status post exploratory laparotomy drainage of the pelvic abscess but no cultures were done small bowel resections x3 transverse and colostomy and placement of the wound VAC patient currently being treated with Zosyn with the patient has been tolerating so far per the nursing staff as no rash has been noticed infectious disease was consulted this evening concerning for a septic shock most information has been obtained from review the chart and talking to nursing staff as the patient himself cannot provide any history Review of Systems Positive points has been mentioned in HPI complete review could not be obtained because patient is sedated on the vent Past Medical History Past Medical History: Coronary Artery Disease (CAD), Cancer, Diabetes Mellitus, Hearing Disorder / Deafness, Hyperlipidemia, Hypertension, Myocardial Infarction ([place]), Osteoarthritis (OA), Prostate Disorder, Pulmonary Embolus ([place]), Seizure Disorder Additional Past Medical History / Comment(s): PE 09/29/16, NON HODGKINS LYMPHOMA DX 2019, LAST SEIZURE 01/02/2022, HOSPITALIZED AT [facility] DECEMBER 2021 WITH BLEEDING COLON POLYP (CANCER)., CRUSHED DISCS LOWER BACK., ENLARGED PROSTATE. Last Myocardial Infarction Date:: 2017 History of Any Multi-Drug Resistant Organisms: None Reported Past Surgical History: Ear Surgery, Heart Catheterization With Stent, Hernia Repair Additional Past Surgical History / Comment(s): CARDIAC STENTS 2014 & 2018 ([facility]) AND 2019 (IN [place] NO EAR DRUMS. Past Anesthesia/Blood Transfusion Reactions: No Reported Reaction Additional Past Anesthesia/Blood Transfusion Reaction / Comm: THEY DONT SEEM TO GIVE HIM ENOUGH Date of Last Stent Placement:: NOV 2018 Past Psychological History: Anxiety, Depression Smoking Status: Former smoker Past Alcohol Use History: Rare Past Drug Use History: None Reported - Past Family History Mother Family Medical History: Cancer Additional Family Medical History / Comment(s): Lung cancer Father Family Medical History: Cancer Additional Family Medical History / Comment(s): Spinal Cancer Medications and Allergies Home Medications Medication Instructions Recorded Confirmed Type metFORMIN HCL [Glucophage] 1,000 mg PO BID 04/23/15 01/30/22 History Atorvastatin [Lipitor] 40 mg PO DAILY 07/17/19 01/30/22 History Metoprolol Tartrate [Lopressor] 25 mg PO HS 07/17/19 01/30/22 History lisinopriL [Zestril] 5 mg PO DAILY 07/17/19 01/30/22 History Hydrochlorothiazide 12.5 mg PO DAILY 01/15/21 01/30/22 History [hydroCHLOROthiazide] Montelukast Sodium [Singulair] 10 mg PO HS 01/15/21 01/30/22 History Pantoprazole [Protonix] 40 mg PO DAILY #30 tab 12/31/21 01/30/22 Rx levETIRAcetam [Keppra] 500 mg PO BID 01/07/22 01/30/22 History Docusate [Colace] 100 mg PO BID #30 capsule 01/16/22 01/30/22 Rx Cephalexin [Keflex] 1,000 mg PO Q12HR 01/30/22 01/30/22 History Fluticasone Nasal [place] [Flonase 2 spray EA NOSTRIL DAILY PRN 01/30/22 01/30/22 History Nasal [place]] Loratadine [Claritin] 10 mg PO HS PRN 01/30/22 01/30/22 History Allergies Allergy/AdvReac Type Severity Reaction Status Date / Time Sulfa (Sulfonamide Allergy Rash/Hives Verified 01/30/22 10:15 Antibiotics) amoxicillin [From Augmentin] AdvReac Nausea & Verified 01/30/22 10:15 Vomiting & Diarrhea clavulanic acid AdvReac Nausea & Verified 01/30/22 10:15 [From Augmentin] Vomiting & Diarrhea Physical Exam Vitals: Vital Signs Temp Pulse Resp BP Pulse Ox 01/31/22 16:00 100.6 F H 121 H 14 102/61 97 01/31/22 15:30 122 H 13 92/59 97 01/31/22 15:00 130 H 13 89/56 97 01/31/22 14:30 129 H 14 92/59 98 01/31/22 14:00 102.2 F H 130 H 13 89/56 97 01/31/22 13:30 138 H 16 99/69 93 L 01/31/22 13:00 102.6 F H 146 H 17 88/50 91 L 01/31/22 12:30 141 H 22 129/63 94 L 01/31/22 12:00 102 F H 137 H 22 132/64 96 01/31/22 11:30 138 H 17 103/61 94 L 01/31/22 11:00 146 H 17 100/57 94 L 01/31/22 10:30 147 H 15 104/66 95 01/31/22 10:00 101.2 F H 147 H 17 95 01/31/22 09:30 151 H 17 94 L 01/31/22 09:00 156 H 16 95 01/31/22 08:30 154 H 95 01/31/22 08:00 100.8 F H 154 H 16 100/65 96 01/31/22 07:30 152 H 17 100/65 96 01/31/22 07:00 152 H 17 96 01/31/22 06:30 151 H 16 100/65 96 01/31/22 06:00 100.3 F H 147 H 17 96 01/31/22 05:30 141 H 16 103/63 98 01/31/22 05:00 140 H 16 98 01/31/22 04:30 141 H 16 107/63 97 01/31/22 04:00 142 H 16 104/60 97 01/31/22 03:30 99.1 F 147 H 16 98/62 96 01/31/22 03:00 129 H 16 96 01/31/22 02:30 128 H 18 96 01/31/22 02:00 126 H 17 97 01/31/22 01:30 126 H 18 97 01/31/22 01:00 125 H 17 132/80 97 01/31/22 00:30 123 H 17 97 01/31/22 00:00 99.4 F 120 H 18 97 01/30/22 23:30 122 H 20 97 01/30/22 23:00 123 H 17 97 01/30/22 22:30 124 H 17 97 01/30/22 22:00 131 H 16 97 01/30/22 21:30 131 H 16 97 01/30/22 21:00 129 H 18 98 01/30/22 20:30 140 H 24 132/80 97 01/30/22 20:00 98.2 F 133 H 23 129/83 98 Intake and Output 01/31/22 01/31/22 01/31/22 06:59 14:59 22:59 Intake Total 3900.000 5002.352 1067.042 Output Total 890 400 35 Balance 3010.000 4602.352 1032.042 Intake: IV 3600 4400 1000 Piperacillin-Tazobactam 3 100 .375 gm In Sodium Chloride 0.9% 100 ml @ 25 mls/hr IVPB Q8HR [facility] Rx# :[id number] Sodium Chloride 0.9% 1, 3500 4400 1000 000 ml @ 100 mls/hr IV . Q10H [facility] Rx#:[id number] Intake, IV Titration 300.000 602.352 67.042 Amount ACETAMINOPHEN IV (For NPO 100 ) 1,000 mg In Empty Bag 1 bag @ 400 mls/hr IVPB Q6HR PRN Rx#:[id number] Dextrose 5% in Water 100 100 ml @ 618 mls/hr IV .Q10M ONE with Amiodarone 150 mg Rx#:[id number] Magnesium Sulfate-D5w Pmx 100 1 gm In Dextrose/Water 1 100ml.bag @ 100 mls/hr IVPB Q1H [facility] Rx#: [id number] Norepinephrine 4 mg In 2.352 67.042 Sodium Chloride 0.9% 250 ml @ 0.05 MCG/KG/MIN 25. 203 mls/hr IV .Q10H5M [facility] Rx#:[id number] levETIRAcetam IV 500 mg 100 In Sodium Chloride 0.9% 100 ml @ 400 mls/hr IVPB Q12HR [facility] Rx#:[id number] propofoL 1,000 mg In 300.000 200 Empty Bag 1 bag @ 5 MCG/ KG/MIN 3.919 mls/hr IV . Q24H [facility] Rx#:[id number] Output: Gastric Drainage 400 Drainage 260 70 Abdomen 260 70 Urine 230 330 35 Other: Voiding Method Indwelling Catheter Weight 132.3 kg ABP, PAP, CO, CI - Last 8 Hours Arterial Blood Pressure 92/50 Arterial Blood Pressure 79/45 Arterial Blood Pressure 79/39 Arterial Blood Pressure 120/48 Arterial Blood Pressure 95/44 Arterial Blood Pressure 91/44 Arterial Blood Pressure 90/46 Arterial Blood Pressure 94/47 Arterial Blood Pressure 101/50 Arterial Blood Pressure 101/51 GENERAL DESCRIPTION: An elderly male intubated on the vent. No tachypnea or accessory muscle of respiration use. HEENT: Shows Pallor , no scleral icterus. Oral mucous membrane is dry. No pharyngeal erythema or thrush NECK: Trachea central, no thyromegaly. LUNGS: Unlabored breathing. Decreased present at the base. No wheeze or crackle. HEART: S1, S2, regular rate and rhythm. No loud murmur ABDOMEN: Soft, mildly distended, abdominal incision is covered with a wound VAC EXTREMITIES: No edema of feet. SKIN: No rash, no masses palpable. NEUROLOGICAL: The patient is sedated on the vent Results CBC & Chem 7: 01/31/22 15:15 01/31/22 04:30 Labs: Abnormal Lab Results - Last 24 Hours (Table) 01/30/22 01/30/22 01/30/22 Range/Units 16:14 19:46 20:10 WBC (3.8-10.6) k/uL RBC (4.30-5.90) m/uL Hgb (13.0-17.5) gm/dL Hct (39.0-53.0) % MCHC (31.0-37.0) g/dL Neutrophils # (Manual) (1.3-7.7) k/uL Metamyelocytes # (Man) (0) k/uL ABG pH 7.34 L (7.35-7.45) ABG pO2 >400 H (83-108) mmHg ABG Total CO2 26 H (19-24) mmol/L ABG O2 Saturation 99.5 H (94-97) % Sodium (137-145) mmol/L Carbon Dioxide (22-30) mmol/L BUN (9-20) mg/dL Glucose (74-99) mg/dL POC Glucose (mg/dL) 112 H 184 H (75-99) mg/dL Calcium (8.4-10.2) mg/dL Magnesium (1.6-2.3) mg/dL Total Protein (6.3-8.2) g/dL Albumin (3.5-5.0) g/dL 01/30/22 01/30/22 01/31/22 Range/Units 22:15 22:15 04:30 WBC 14.3 H 12.7 H (3.8-10.6) k/uL RBC 3.67 L 3.36 L (4.30-5.90) m/uL Hgb 10.7 L 9.7 L (13.0-17.5) gm/dL Hct 35.4 L 32.5 L (39.0-53.0) % MCHC 30.3 L 29.9 L (31.0-37.0) g/dL Neutrophils # (Manual) 8.80 H (1.3-7.7) k/uL Metamyelocytes # (Man) 0.13 H (0) k/uL ABG pH (7.35-7.45) ABG pO2 (83-108) mmHg ABG Total CO2 (19-24) mmol/L ABG O2 Saturation (94-97) % Sodium 132 L (137-145) mmol/L Carbon Dioxide 21 L (22-30) mmol/L BUN 23 H (9-20) mg/dL Glucose 187 H (74-99) mg/dL POC Glucose (mg/dL) (75-99) mg/dL Calcium 8.1 L (8.4-10.2) mg/dL Magnesium (1.6-2.3) mg/dL Total Protein (6.3-8.2) g/dL Albumin (3.5-5.0) g/dL 01/31/22 01/31/22 01/31/22 Range/Units 04:30 05:50 08:38 WBC (3.8-10.6) k/uL RBC (4.30-5.90) m/uL Hgb (13.0-17.5) gm/dL Hct (39.0-53.0) % MCHC (31.0-37.0) g/dL Neutrophils # (Manual) (1.3-7.7) k/uL Metamyelocytes # (Man) (0) k/uL ABG pH 7.33 L (7.35-7.45) ABG pO2 (83-108) mmHg ABG Total CO2 (19-24) mmol/L ABG O2 Saturation 98.0 H (94-97) % Sodium 134 L (137-145) mmol/L Carbon Dioxide 20 L (22-30) mmol/L BUN 26 H (9-20) mg/dL Glucose 170 H (74-99) mg/dL POC Glucose (mg/dL) 185 H (75-99) mg/dL Calcium 7.3 L (8.4-10.2) mg/dL Magnesium 1.5 L (1.6-2.3) mg/dL Total Protein 3.7 L (6.3-8.2) g/dL Albumin 1.9 L (3.5-5.0) g/dL 01/31/22 01/31/22 Range/Units 11:57 15:15 WBC 14.0 H (3.8-10.6) k/uL RBC 2.89 L (4.30-5.90) m/uL Hgb 8.5 L (13.0-17.5) gm/dL Hct 27.9 L (39.0-53.0) % MCHC 30.5 L (31.0-37.0) g/dL Neutrophils # (Manual) (1.3-7.7) k/uL Metamyelocytes # (Man) (0) k/uL ABG pH (7.35-7.45) ABG pO2 (83-108) mmHg ABG Total CO2 (19-24) mmol/L ABG O2 Saturation (94-97) % Sodium (137-145) mmol/L Carbon Dioxide (22-30) mmol/L BUN (9-20) mg/dL Glucose (74-99) mg/dL POC Glucose (mg/dL) 176 H (75-99) mg/dL Calcium (8.4-10.2) mg/dL Magnesium (1.6-2.3) mg/dL Total Protein (6.3-8.2) g/dL Albumin (3.5-5.0) g/dL Microbiology - Last 24 Hours (Table) 01/30/22 10:30 Blood Culture - Preliminary Blood No Growth after 24 hours 01/30/22 10:43 Blood Culture - Preliminary Blood No Growth after 24 hours Assessment and Plan (1) Pelvic abscess Current Visit: Yes Status: Acute Code(s): AZL3612 - SNOMED Code(s): 216029830 Plan: 1patient presented to hospital with sepsis secondary abdominal source in this patient who recently did have a sigmoidectomy now with evidence of anastomosis leak and pelvic abscess patient is status post laparotomy drainage of the abscess unfortunately cultures were not done will need to cover for the enteric gram-negative to be the likely pathogen. 2Augmentin allergy with nausea vomiting and diarrhea more likely side effect and not a true allergy. 3Zosyn 3.375 g every 8 hours will provide adequate antibiotic coverage at this point. 4fluid and pressor support per traffic lieutenant We will follow on clinical condition and cultures to further adjust medication if needed Thank you for this consultation will follow this patient along with you
--- NOTE | 2022-01-31 23:44 | P.HPIM ---
History of Present Illness H&P Date: 01/31/22 Nikolai Trevino is a 66 yo M with PMH of recently diagnosed colon cancer, s/p LAD and sigmoid colectomy about 3 weeks ago who subsequently developed drainage from his surgical site a few days ago. He was started on antibiotics but then noticed passing blood with bowel movements. On his presentaiton pt tachycardic, WBC 7.9, FOBT positive, CT abd/pelvis with SBO and enlarged lymph nodes. Pt taken for surgery with drainage of abscess, small bowel resection and creation of end ileostomy. Today pt remains intubated and sedated in the ICU, WBC improved Review of Systems ROS unobtainable: due to endotracheal tube Past Medical History Past Medical History: Coronary Artery Disease (CAD), Cancer, Diabetes Mellitus, Hearing Disorder / Deafness, Hyperlipidemia, Hypertension, Myocardial Infarction ([place]), Osteoarthritis ([place]), Prostate Disorder, Pulmonary Embolus ([place]), Seizure Disorder Additional Past Medical History / Comment(s): PE 09/29/16, NON HODGKINS LYMPHOMA DX 2019, LAST SEIZURE 01/02/2022, HOSPITALIZED AT [facility] DECEMBER 2021 WITH BLEEDING COLON POLYP (CANCER)., CRUSHED DISCS LOWER BACK., ENLARGED PROSTATE. Last Myocardial Infarction Date:: 2017 History of Any Multi-Drug Resistant Organisms: None Reported Past Surgical History: Ear Surgery, Heart Catheterization With Stent, Hernia Repair Additional Past Surgical History / Comment(s): CARDIAC STENTS 2013 & 2017 ([facility]) AND 2019 (IN [place]), NO EAR DRUMS. Past Anesthesia/Blood Transfusion Reactions: No Reported Reaction Additional Past Anesthesia/Blood Transfusion Reaction / Comment(s): THEY DONT SEEM TO GIVE HIM ENOUGH Date of Last Stent Placement:: NOV 2018 Past Psychological History: Anxiety, Depression Smoking Status: Former smoker Past Alcohol Use History: Rare Past Drug Use History: None Reported - Past Family History Mother Family Medical History: Cancer Additional Family Medical History / Comment(s): Lung cancer Father Family Medical History: Cancer Additional Family Medical History / Comment(s): Spinal Cancer Medications and Allergies Home Medications Medication Instructions Recorded Confirmed Type metFORMIN HCL [Glucophage] 1,000 mg PO BID 04/23/15 01/30/22 History Atorvastatin [Lipitor] 40 mg PO DAILY 07/17/19 01/30/22 History Metoprolol Tartrate [Lopressor] 25 mg PO HS 07/17/19 01/30/22 History lisinopriL [Zestril] 5 mg PO DAILY 07/17/19 01/30/22 History Hydrochlorothiazide 12.5 mg PO DAILY 01/15/21 01/30/22 History [hydroCHLOROthiazide] Montelukast Sodium [Singulair] 10 mg PO HS 01/15/21 01/30/22 History Pantoprazole [Protonix] 40 mg PO DAILY #30 tab 12/31/21 01/30/22 Rx levETIRAcetam [Keppra] 500 mg PO BID 01/07/22 01/30/22 History Docusate [Colace] 100 mg PO BID #30 capsule 01/16/22 01/30/22 Rx Cephalexin [Keflex] 1,000 mg PO Q12HR 01/30/22 01/30/22 History Fluticasone Nasal [place] [Flonase 2 spray EA NOSTRIL DAILY PRN 01/30/22 01/30/22 History Nasal [place]] Loratadine [Claritin] 10 mg PO HS PRN 01/30/22 01/30/22 History Allergies Allergy/AdvReac Type Severity Reaction Status Date / Time Sulfa (Sulfonamide Allergy Rash/Hives Verified 01/30/22 10:15 Antibiotics) amoxicillin [From Augmentin] AdvReac Nausea & Verified 01/30/22 10:15 Vomiting & Diarrhea clavulanic acid AdvReac Nausea & Verified 01/30/22 10:15 [From Augmentin] Vomiting & Diarrhea Physical Exam Vitals: Vital Signs Temp Pulse Resp BP Pulse Ox 01/31/22 22:15 118 H 14 128/69 97 01/31/22 22:00 118 H 13 123/69 97 01/31/22 21:45 121 H 13 131/72 97 01/31/22 21:30 122 H 15 121/72 97 01/31/22 21:15 122 H 13 113/71 96 01/31/22 21:00 125 H 13 132/73 96 01/31/22 20:45 128 H 14 126/73 96 01/31/22 20:30 129 H 15 113/70 96 01/31/22 20:15 133 H 16 130/67 95 01/31/22 20:00 100.6 F H 135 H 16 136/69 94 L 01/31/22 19:45 133 H 21 111/69 94 L 01/31/22 19:30 131 H 13 117/67 94 L 01/31/22 19:15 133 H 13 120/66 94 L 01/31/22 19:00 134 H 14 107/67 93 L 01/31/22 18:30 138 H 14 101/61 93 L 01/31/22 18:00 141 H 13 106/61 92 L 01/31/22 17:30 134 H 13 108/60 93 L 01/31/22 17:00 129 H 14 105/61 94 L 01/31/22 16:30 126 H 13 99/62 95 01/31/22 16:00 100.6 F H 121 H 14 102/61 97 01/31/22 15:30 122 H 13 92/59 97 01/31/22 15:00 130 H 13 89/56 97 01/31/22 14:30 129 H 14 92/59 98 01/31/22 14:00 102.2 F H 130 H 13 89/56 97 01/31/22 13:30 138 H 16 99/69 93 L 01/31/22 13:00 102.6 F H 146 H 17 88/50 91 L 01/31/22 12:30 141 H 22 129/63 94 L 01/31/22 12:00 102 F H 137 H 22 132/64 96 01/31/22 11:30 138 H 17 103/61 94 L 01/31/22 11:00 146 H 17 100/57 94 L 01/31/22 10:30 147 H 15 104/66 95 01/31/22 10:00 101.2 F H 147 H 17 95 01/31/22 09:30 151 H 17 94 L 01/31/22 09:00 156 H 16 95 01/31/22 08:30 154 H 95 01/31/22 08:00 100.8 F H 154 H 16 100/65 96 01/31/22 07:30 152 H 17 100/65 96 01/31/22 07:00 152 H 17 96 01/31/22 06:30 151 H 16 100/65 96 01/31/22 06:00 100.3 F H 147 H 17 96 01/31/22 05:30 141 H 16 103/63 98 01/31/22 05:00 140 H 16 98 01/31/22 04:30 141 H 16 107/63 97 01/31/22 04:00 142 H 16 104/60 97 01/31/22 03:30 99.1 F 147 H 16 98/62 96 01/31/22 03:00 129 H 16 96 01/31/22 02:30 128 H 18 96 01/31/22 02:00 126 H 17 97 01/31/22 01:30 126 H 18 97 01/31/22 01:00 125 H 17 132/80 97 01/31/22 00:30 123 H 17 97 01/31/22 00:00 99.4 F 120 H 18 97 Intake and Output 01/31/22 01/31/22 02/01/22 14:59 22:59 06:59 Intake Total 5102.352 3230.746 150.227 Output Total 400 295 Balance 4702.352 2935.746 150.227 Intake: IV 4400 2600 Piperacillin-Tazobactam 3 100 .375 gm In Sodium Chloride 0.9% 100 ml @ 25 mls/hr IVPB Q8HR [facility] Rx# :[id number] Sodium Chloride 0.9% 1, 4400 2500 000 ml @ 100 mls/hr IV . Q10H [facility] Rx#:[id number] Intake, IV Titration 702.352 630.746 150.227 Amount ACETAMINOPHEN IV (For NPO 100 ) 1,000 mg In Empty Bag 1 bag @ 400 mls/hr IVPB Q6HR PRN Rx#:[id number] Dextrose 5% in Water 100 100 ml @ 618 mls/hr IV .Q10M ONE with Amiodarone 150 mg Rx#:[id number] Heparin Sod,Pork in 0.45% 150.227 NaCl 25,000 unit In 0.45 % NaCl 1 250ml.bag @ 17. 38 UNITS/KG/HR 22.994 mls /hr IV .[id number] [facility] Rx#: [id number] Magnesium Sulfate-D5w Pmx 100 1 gm In Dextrose/Water 1 100ml.bag @ 100 mls/hr IVPB Q1H [facility] Rx#: [id number] Norepinephrine 4 mg In 2.352 456.347 Sodium Chloride 0.9% 250 ml @ 0.05 MCG/KG/MIN 25. 203 mls/hr IV .Q10H5M [facility] Rx#:[id number] levETIRAcetam IV 500 mg 100 In Sodium Chloride 0.9% 100 ml @ 400 mls/hr IVPB Q12HR [facility] Rx#:[id number] propofoL 1,000 mg In 300 174.399 Empty Bag 1 bag @ 5 MCG/ KG/MIN 3.919 mls/hr IV . Q24H [facility] Rx#:[id number] Output: Gastric Drainage 50 Drainage 70 Abdomen 70 Urine 330 245 Other: Voiding Method Indwelling Catheter Indwelling Catheter ABP, PAP, CO, CI - Last 8 Hours Arterial Blood Pressure 129/56 Arterial Blood Pressure 108/51 Arterial Blood Pressure 104/49 Arterial Blood Pressure 116/53 Arterial Blood Pressure 113/53 Arterial Blood Pressure 110/49 Arterial Blood Pressure 115/49 Arterial Blood Pressure 116/50 Arterial Blood Pressure 124/50 Arterial Blood Pressure 127/49 Arterial Blood Pressure 109/48 Arterial Blood Pressure 102/48 Arterial Blood Pressure 120/49 Arterial Blood Pressure 103/45 Arterial Blood Pressure 105/46 Arterial Blood Pressure 97/42 Arterial Blood Pressure 108/46 Arterial Blood Pressure 90/48 Arterial Blood Pressure 98/47 Arterial Blood Pressure 92/50 General: Intubated, sedated. Vitals reviewed Eyes: PERRL, EOMI, conjunctiva normal HENT: normocephalic, mucus membranes moist Neck: supple, no JVD Lungs: no wheezes or rales CV: Regular rate and rhythm, no murmur. Peripheral pulses 2+ Abdomen: soft, no organomegaly Lymph: no cervical or axillary LAD Skin: warm and dry. Midline incision c/d/i Results CBC & Chem 7: 01/31/22 15:15 01/31/22 04:30 Labs: Abnormal Lab Results - Last 24 Hours (Table) 01/31/22 01/31/22 01/31/22 Range/Units 04:30 04:30 05:50 WBC 12.7 H (3.8-10.6) k/uL RBC 3.36 L (4.30-5.90) m/uL Hgb 9.7 L (13.0-17.5) gm/dL Hct 32.5 L (39.0-53.0) % MCHC 29.9 L (31.0-37.0) g/dL Neutrophils # (Manual) 8.80 H (1.3-7.7) k/uL Metamyelocytes # (Man) 0.13 H (0) k/uL APTT (22.0-30.0) sec ABG pH 7.33 L (7.35-7.45) ABG O2 Saturation 98.0 H (94-97) % Sodium 134 L (137-145) mmol/L Carbon Dioxide 20 L (22-30) mmol/L BUN 26 H (9-20) mg/dL Glucose 170 H (74-99) mg/dL POC Glucose (mg/dL) (75-99) mg/dL Calcium 7.3 L (8.4-10.2) mg/dL Magnesium 1.5 L (1.6-2.3) mg/dL Total Protein 3.7 L (6.3-8.2) g/dL Albumin 1.9 L (3.5-5.0) g/dL 01/31/22 01/31/22 01/31/22 Range/Units 08:38 11:57 15:15 WBC 14.0 H (3.8-10.6) k/uL RBC 2.89 L (4.30-5.90) m/uL Hgb 8.5 L (13.0-17.5) gm/dL Hct 27.9 L (39.0-53.0) % MCHC 30.5 L (31.0-37.0) g/dL Neutrophils # (Manual) 10.60 H (1.3-7.7) k/uL Metamyelocytes # (Man) 0.14 H (0) k/uL APTT (22.0-30.0) sec ABG pH (7.35-7.45) ABG O2 Saturation (94-97) % Sodium (137-145) mmol/L Carbon Dioxide (22-30) mmol/L BUN (9-20) mg/dL Glucose (74-99) mg/dL POC Glucose (mg/dL) 185 H 176 H (75-99) mg/dL Calcium (8.4-10.2) mg/dL Magnesium (1.6-2.3) mg/dL Total Protein (6.3-8.2) g/dL Albumin (3.5-5.0) g/dL 04/08/22 04/08/22 04/08/22 Range/Units 17:03 17:59 19:53 WBC (3.8-10.6) k/uL RBC (4.30-5.90) m/uL Hgb (13.0-17.5) gm/dL Hct (39.0-53.0) % MCHC (31.0-37.0) g/dL Neutrophils # (Manual) (1.3-7.7) k/uL Metamyelocytes # (Man) (0) k/uL APTT (22.0-30.0) sec ABG pH (7.35-7.45) ABG O2 Saturation (94-97) % Sodium (137-145) mmol/L Carbon Dioxide (22-30) mmol/L BUN (9-20) mg/dL Glucose (74-99) mg/dL POC Glucose (mg/dL) 157 H 138 H 146 H (75-99) mg/dL Calcium (8.4-10.2) mg/dL Magnesium (1.6-2.3) mg/dL Total Protein (6.3-8.2) g/dL Albumin (3.5-5.0) g/dL 01/31/22 01/31/22 Range/Units 22:25 23:13 WBC (3.8-10.6) k/uL RBC (4.30-5.90) m/uL Hgb (13.0-17.5) gm/dL Hct (39.0-53.0) % MCHC (31.0-37.0) g/dL Neutrophils # (Manual) (1.3-7.7) k/uL Metamyelocytes # (Man) (0) k/uL APTT 97.5 H (22.0-30.0) sec ABG pH (7.35-7.45) ABG O2 Saturation (94-97) % Sodium (137-145) mmol/L Carbon Dioxide (22-30) mmol/L BUN (9-20) mg/dL Glucose (74-99) mg/dL POC Glucose (mg/dL) 123 H (75-99) mg/dL Calcium (8.4-10.2) mg/dL Magnesium (1.6-2.3) mg/dL Total Protein (6.3-8.2) g/dL Albumin (3.5-5.0) g/dL Microbiology - Last 24 Hours (Table) 01/30/22 10:30 Blood Culture - Preliminary Blood No Growth after 24 hours 01/30/22 10:43 Blood Culture - Preliminary Blood No Growth after 24 hours Assessment and Plan Plan: 1. Post operative abscess, s/p drainage with Dr Palmer. Continue pt on zosyn, ICU care. 2. Fever, immunocompromise. ID consult, blood cutures negative 3. Colorectal cancer 4. Mesenteric lymphadenopathy 5. T2DM. continue with metformin
[2022-02-01] MEDS: INSULIN ASPART (NovoLOG) 100 UNIT/ML VIAL SQ SCH ×7 (00:11→23:36)
[2022-02-01] MEDS ORDERED: CISATRACURIUM 2 MG/ML 5 ML VIAL IV ONE (00:24)
[2022-02-01] MEDS: CISATRACURIUM 200 MG in SODIUM CHLORIDE 0.9% 180 ML IV SCH ×3 (00:38→19:22)
[2022-02-01] MEDS: MORPHINE SULFATE 4 MG/ML SYRINGE IV PRN ×3 (02:49→19:06)
[2022-02-01] MEDS: ARTIFICIAL TEARS-HYPROMELLOSE DROPS 15 ML BTL BOTH EYES SCH ×6 (03:02→23:21)
[2022-02-01] MEDS: HEPARIN SOD,PORK IN 0.45% NACL 25,000 UNIT in 0.45% NACL 1 250ML.BAG IV SCH ×2 (03:51→19:50)
[2022-02-01 04:21] LABS: Glucose,Whole Blood 159 mg/dL (75-99)
[2022-02-01] MEDS: NOREPINEPHRINE 8 MG in SODIUM CHLORIDE 0.9% 250 ML IV SCH ×2 (04:24→14:18)
[2022-02-01 04:33] LABS: Basophils # (A) 0.1 k/uL (0-0.2); Basophils % (A) 0 %; Eosinophils # (A) 0.1 k/uL (0-0.7); Eosinophils % (A) 1 %; HCT 29.3 % (39.0-53.0); HGB 8.7 gm/dL (13.0-17.5); Hypochromasia Marked; Lymphocytes # (A) 3.8 k/uL (1.0-4.8); Lymphocytes % (A) 19 %; MCH 29.1 pg (25.0-35.0); MCHC 29.6 g/dL (31.0-37.0); MCV 98.1 fL (80.0-100.0); Macrocytosis Slight; Mean Platelet Volume 9.6; Monocytes # (A) 1.1 k/uL (0-1.0); Monocytes % (A) 5 %; Neutrophils # (A) 13.9 k/uL (1.3-7.7); Neutrophils % (A) 71 %; Platelet Count 299 k/uL (150-450); RBC 2.99 m/uL (4.30-5.90); RDW 15.6 % (11.5-15.5); WBC 19.8 k/uL (3.8-10.6)
[2022-02-01 04:56] LABS: ALT 9 U/L (4-49); AST 24 U/L (17-59); African American GFR (CKD) >90 (>60 ml/min/1.73 sqM); Albumin 1.8 g/dL (3.5-5.0); Alkaline Phosphatase 58 U/L (38-126); Anion Gap 8 mmol/L; Blood Urea Nitrogen 28 mg/dL (9-20); Calcium 6.5 mg/dL (8.4-10.2); Carbon Dioxide 19 mmol/L (22-30); Chloride 111 mmol/L (98-107); Glucose 147 mg/dL (74-99); Magnesium 1.9 mg/dL (1.6-2.3); Non-African American GFR(CKD) >90 (>60 ml/min/1.73 sqM); Potassium 3.8 mmol/L (3.5-5.1); Sodium 138 mmol/L (137-145); Total Bilirubin 0.4 mg/dL (0.2-1.3); Total Protein 3.7 g/dL (6.3-8.2)
[2022-02-01] MEDS ORDERED: POTASSIUM CHLORIDE 20 MEQ in WATER FOR INJECTION 1 100ML.BAG IVPB STA (05:52)
[2022-02-01] MEDS: AMIODARONE 450 MG in DEXTROSE 5% IN WATER 250 ML IV SCH ×2 (06:03)
[2022-02-01] MEDS: SODIUM CHLORIDE 0.9% 1,000 ML IV SCH ×2 (06:04→19:23)
[2022-02-01 06:07] LABS: ABG Base Excess -5.7 mmol/L; ABG HCO3 22 mmol/L (21-25); ABG Oxygen Saturation 95.8 % (94-97); ABG PCO2 49 mmHg (35-45); ABG PH 7.25 (7.35-7.45); ABG PO2 84 mmHg (83-108); ABG TCO2 23 mmol/L (19-24); Allen Test Performed? Yes
--- NOTE | 2022-02-01 06:55 | XR ---
EXAMINATION TYPE: XR chest 1V portable DATE OF EXAM: 02/01/2022 5:34 AM COMPARISON:Chest radiograph from one day prior. CT 01/30/2022 TECHNIQUE: XR chest 1V portable Frontal view of the chest. CLINICAL INDICATION:Male, 66 years old with history of hypoxia; FINDINGS: P Lungs/Pleura: Bibasilar airspace opacities. No evidence for pneumothorax pleural effusion or focal co nsolidation. Pulmonary vascularity: Unremarkable. Heart/mediastinum: Cardiomediastinal silhouette is partially obscured due to patient positioning. Musculoskeletal: No acute osseous pathology. Other findings: None Lines/Tubes: Endotracheal tube with distal tip 4.4 cm above the heath Nasogastric tube with its distal tip and side-port projecting under the diaphragm. Right internal jugular central venous catheter with distal tip at the cavoatrial junction. IMPRESSION: 1. Similar basilar atelectasis 2. Stable support lines and tubes.
[2022-02-01] MEDS: CHLORHEXIDINE GLUCONATE 15 ML CUP MUCOUS MEM SCH ×2 (08:27→20:28)
[2022-02-01] MEDS: PANTOPRAZOLE 40 MG/10 ML VIAL IVP SCH (08:27)
[2022-02-01] MEDS: levETIRAcetam IV 500 MG in SODIUM CHLORIDE 0.9% 100 ML IVPB SCH ×2 (08:27→20:29)
[2022-02-01] MEDS: ACETAMINOPHEN IV (For NPO) 1,000 MG in EMPTY BAG 1 BAG IVPB PRN ×2 (08:30→19:21)
[2022-02-01 08:43] LABS: Glucose,Whole Blood 158 mg/dL (75-99)
--- NOTE | 2022-02-01 09:02 | P.PN ---
Subjective Progress Note Date: 02/01/22 Principal diagnosis: Pneumoperitoneum Patient remains on the ventilator. Patient is sedated and paralyzed. T-max 102.6. Patient on 20 mics of Levophed. Making good urine at this time. White blood cell count 19.8, pH 7.25. Ostomy is pink. Objective - Vital Signs Vital signs: Vital Signs Temp 101.8 F H 02/01/22 08:00 Pulse 138 H 02/01/22 08:15 Resp 20 02/01/22 08:15 BP 143/67 02/01/22 08:15 Pulse Ox 95 02/01/22 08:15 Intake & Output 01/31/22 02/01/22 02/01/22 18:59 06:59 18:59 Intake Total 7629.015 2922.233 437.728 Output Total 555 975 190 Balance 7074.015 1947.233 247.728 Weight 145.467 kg Intake: IV 6700 1500 200 Piperacillin-Tazobactam 3 100 100 .375 gm In Sodium Chloride 0.9% 100 ml @ 25 mls/hr IVPB Q8HR [facility] Rx# :[id number] Sodium Chloride 0.9% 1, 1100 200 000 ml @ 100 mls/hr IV . Q10H [facility] Rx#:[id number] Sodium Chloride 0.9% 1, 6600 300 000 ml @ 100 mls/hr IV . Q10H [facility] Rx#:[id number] Intake, IV Titration 164.080 0663.233 237.728 Amount ACETAMINOPHEN IV (For NPO 100 ) 1,000 mg In Empty Bag 1 bag @ 400 mls/hr IVPB Q6HR PRN Rx#:[id number] Amiodarone 450 mg In 235.282 Dextrose 5% in Water 250 ml @ 0.5 MG/MIN 16.667 mls/hr IV .Q15H [facility] Rx#: [id number] Cisatracurium 200 mg In 36.185 Sodium Chloride 0.9% 180 ml @ 1 MCG/KG/MIN 7.938 mls/hr IV .Q24H [facility] Rx#: [id number] Dextrose 5% in Water 100 100 ml @ 618 mls/hr IV .Q10M ONE with Amiodarone 150 mg Rx#:[id number] Heparin Sod,Pork in 0.45% 260.572 NaCl 25,000 unit In 0.45 % NaCl 1 250ml.bag @ 17. 38 UNITS/KG/HR 22.994 mls /hr IV .[id number] [facility]IE Rx#: [id number] Magnesium Sulfate-D5w Pmx 100 1 gm In Dextrose/Water 1 100ml.bag @ 100 mls/hr IVPB Q1H [facility] Rx#: [id number] Norepinephrine 4 mg In 229.015 229.684 Sodium Chloride 0.9% 250 ml @ 0.05 MCG/KG/MIN 25. 203 mls/hr IV .Q10H5M [facility] Rx#:[id number] Norepinephrine 8 mg In 189.440 137.728 Sodium Chloride 0.9% 250 ml @ 0.05 MCG/KG/MIN 12.8 mls/hr IV .[id number] [facility] Rx#:[id number] levETIRAcetam IV 500 mg 100 In Sodium Chloride 0.9% 100 ml @ 400 mls/hr IVPB Q12HR [facility] Rx#:[id number] propofoL 1,000 mg In 300 471.070 100 Empty Bag 1 bag @ 5 MCG/ KG/MIN 3.919 mls/hr IV . Q24H [facility] Rx#:[id number] Output: Gastric Drainage 50 Drainage 70 Abdomen 70 Urine 485 925 190 Other: Voiding Method Indwelling Catheter Indwelling Catheter ABP, PAP, CO, CI - Last Documented Arterial Blood Pressure 119/47 - Exam Abdomen: Soft, distended, wound VAC in place, ostomy pink without output - Labs CBC & Chem 7: 02/01/22 04:19 02/01/22 04:19 Labs: Abnormal Lab Results - Last 24 Hours (Table) 01/31/22 01/31/22 01/31/22 Range/Units 11:57 15:15 17:03 WBC 14.0 H (3.8-10.6) k/uL RBC 2.89 L (4.30-5.90) m/uL Hgb 8.5 L (13.0-17.5) gm/dL Hct 27.9 L (39.0-53.0) % MCHC 30.5 L (31.0-37.0) g/dL RDW (11.5-15.5) % Neutrophils # (1.3-7.7) k/uL Neutrophils # (Manual) 10.60 H (1.3-7.7) k/uL Monocytes # (0-1.0) k/uL Metamyelocytes # (Man) 0.14 H (0) k/uL APTT (22.0-30.0) sec ABG pH (7.35-7.45) ABG pCO2 (35-45) mmHg Chloride (98-107) mmol/L Carbon Dioxide (22-30) mmol/L BUN (9-20) mg/dL Glucose (74-99) mg/dL POC Glucose (mg/dL) 176 H 157 H (75-99) mg/dL Calcium (8.4-10.2) mg/dL Total Protein (6.3-8.2) g/dL Albumin (3.5-5.0) g/dL 01/31/22 01/31/22 01/31/22 Range/Units 17:59 19:53 22:25 WBC (3.8-10.6) k/uL RBC (4.30-5.90) m/uL Hgb (13.0-17.5) gm/dL Hct (39.0-53.0) % MCHC (31.0-37.0) g/dL RDW (11.5-15.5) % Neutrophils # (1.3-7.7) k/uL Neutrophils # (Manual) (1.3-7.7) k/uL Monocytes # (0-1.0) k/uL Metamyelocytes # (Man) (0) k/uL APTT 97.5 H (22.0-30.0) sec ABG pH (7.35-7.45) ABG pCO2 (35-45) mmHg Chloride (98-107) mmol/L Carbon Dioxide (22-30) mmol/L BUN (9-20) mg/dL Glucose (74-99) mg/dL POC Glucose (mg/dL) 138 H 146 H (75-99) mg/dL Calcium (8.4-10.2) mg/dL Total Protein (6.3-8.2) g/dL Albumin (3.5-5.0) g/dL 01/31/22 02/01/22 02/01/22 Range/Units 23:13 04:19 04:19 WBC 19.8 H (3.8-10.6) k/uL RBC 2.99 L (4.30-5.90) m/uL Hgb 8.7 L (13.0-17.5) gm/dL Hct 29.3 L (39.0-53.0) % MCHC 29.6 L (31.0-37.0) g/dL RDW 15.6 H (11.5-15.5) % Neutrophils # 13.9 H (1.3-7.7) k/uL Neutrophils # (Manual) (1.3-7.7) k/uL Monocytes # 1.1 H (0-1.0) k/uL Metamyelocytes # (Man) (0) k/uL APTT (22.0-30.0) sec ABG pH (7.35-7.45) ABG pCO2 (35-45) mmHg Chloride 111 H (98-107) mmol/L Carbon Dioxide 19 L (22-30) mmol/L BUN 28 H (9-20) mg/dL Glucose 147 H (74-99) mg/dL POC Glucose (mg/dL) 123 H (75-99) mg/dL Calcium 6.5 L (8.4-10.2) mg/dL Total Protein 3.7 L (6.3-8.2) g/dL Albumin 1.8 L (3.5-5.0) g/dL 02/01/22 02/01/22 02/01/22 Range/Units 04:19 04:19 06:01 WBC (3.8-10.6) k/uL RBC (4.30-5.90) m/uL Hgb (13.0-17.5) gm/dL Hct (39.0-53.0) % MCHC (31.0-37.0) g/dL RDW (11.5-15.5) % Neutrophils # (1.3-7.7) k/uL Neutrophils # (Manual) (1.3-7.7) k/uL Monocytes # (0-1.0) k/uL Metamyelocytes # (Man) (0) k/uL APTT 77.7 H (22.0-30.0) sec ABG pH 7.25 L (7.35-7.45) ABG pCO2 49 H (35-45) mmHg Chloride (98-107) mmol/L Carbon Dioxide (22-30) mmol/L BUN (9-20) mg/dL Glucose (74-99) mg/dL POC Glucose (mg/dL) 159 H (75-99) mg/dL Calcium (8.4-10.2) mg/dL Total Protein (6.3-8.2) g/dL Albumin (3.5-5.0) g/dL 02/01/22 Range/Units 08:42 WBC (3.8-10.6) k/uL RBC (4.30-5.90) m/uL Hgb (13.0-17.5) gm/dL Hct (39.0-53.0) % MCHC (31.0-37.0) g/dL RDW (11.5-15.5) % Neutrophils # (1.3-7.7) k/uL Neutrophils # (Manual) (1.3-7.7) k/uL Monocytes # (0-1.0) k/uL Metamyelocytes # (Man) (0) k/uL APTT (22.0-30.0) sec ABG pH (7.35-7.45) ABG pCO2 (35-45) mmHg Chloride (98-107) mmol/L Carbon Dioxide (22-30) mmol/L BUN (9-20) mg/dL Glucose (74-99) mg/dL POC Glucose (mg/dL) 158 H (75-99) mg/dL Calcium (8.4-10.2) mg/dL Total Protein (6.3-8.2) g/dL Albumin (3.5-5.0) g/dL Microbiology - Last 24 Hours (Table) 01/30/22 10:30 Blood Culture - Preliminary Blood No Growth after 24 hours 01/30/22 10:43 Blood Culture - Preliminary Blood No Growth after 24 hours Assessment and Plan (1) Intra-abdominal infection Narrative/Plan: Patient remains critically ill on the ventilator. Continue aggressive medical support at this point. Stay nothing by mouth for now. Wean pressors as able. Continue broad-spectrum antibiotics. Current Visit: Yes Status: Acute Code(s): B99.9 - UNSPECIFIED INFECTIOUS DISEASE SNOMED Code(s): 203922400
[2022-02-01] MEDS: PIPERACILLIN-TAZOBACTAM 3.375 GM in SODIUM CHLORIDE 0.9% 100 ML IVPB SCH ×4 (09:45→23:31)
[2022-02-01] MEDS: ANIDULAFUNGIN 100 MG in SODIUM CHLORIDE 0.9% 100 ML IVPB SCH (10:17)
--- NOTE | 2022-02-01 11:26 | P.PN ---
Subjective We seen him today for a consult follow-up patient was admitted under surgery service care on 01/30. Nikolai Trevino is a 66 yo M with PMH of recently diagnosed colon cancer, s/p LAD and sigmoid colectomy about 3 weeks ago who subsequently developed drainage from his surgical site a few days ago. He was started on antibiotics but then noticed passing blood with bowel movements. On his presentaiton pt tachycardic, WBC 7.9, FOBT positive, CT abd/pelvis with SBO and enlarged lymph nodes. Pt taken for surgery with drainage of abscess, small bowel resection and creation of end ileostomy. Today pt remains intubated and sedated in the ICU, WBC improved 02/01/2022 Patient remains in critical condition in the ICU, he is sedated and intubated, also he needs pressors currently on levophed . Wound VAC and dressing is in place. His heart rate is 149 and blood pressure 90/41, FiO2 of 45 and slightly tachypneic at 22. Chest x-ray showing atelectasis of the lungs. Also seen of the CT of the abdomen and pelvis. Also there is evidence of bilateral hilar lymphadenopathy and intra-abdominal lymphadenopathy with hepatomegaly consistent with his history of lymphoma. Ultrasound of the neck was positive for acute left DVT. He is on heparin drip, IV Protonix, normal saline, Zosyn and axis Active Medications Generic Name Dose Route Start Last Admin Trade Name Freq PRN Reason Stop Dose Admin Artificial Tears 2 drops 02/01/22 04:00 02/01/22 08:30 Artificial Tears-Hypromellose Drops 15 Ml Btl BOTH EYES 2 drops Q4HR ROSIE Administration Chlorhexidine Gluconate 15 ml 02/01/22 09:00 02/01/22 08:27 Chlorhexidine Gluconate 15 Ml Cup MUCOUS MEM 15 ml BID ROSIE Administration Heparin Sodium (Porcine) 0 unit 01/31/22 15:48 Heparin Sodium 1,000 Un/Ml (10ml Vl) IV PER PROTOCOL PRN Low PTT Protocol Piperacillin Sod/Tazobactam 100 mls @ 25 mls/hr 01/30/22 16:00 02/01/22 09:45 Sod 3.375 gm/ Sodium Chloride IVPB 25 mls/hr Q8HR ROSIE Administration Protocol Propofol 1,000 mg/ IV Solution 100 mls @ 3.919 mls/hr 01/30/22 22:15 02/01/22 10:48 IV 50 mcg/kg/min .Q24H ROSIE 39.191 mls/hr Administration Protocol 5 MCG/KG/MIN Levetiracetam 500 mg/ Sodium 105 mls @ 400 mls/hr 01/31/22 09:00 02/01/22 08:27 Chloride IVPB 400 mls/hr Q12HR ROSIE Administration Sodium Chloride 1,000 mls @ 100 mls/hr 01/31/22 10:45 02/01/22 06:04 Saline 0.9% IV 100 mls/hr .Q10H ROSIE Administration Heparin Sodium/Sodium Chloride 250 mls @ 22.994 mls/hr 01/31/22 16:00 02/01/22 05:59 25,000 unit/ Sodium Chloride IV 12.38 units/kg/hr .[id number] ROSIE 16.379 mls/hr Titration Protocol 17.38 UNITS/KG/HR Norepinephrine Bitartrate 8 mg 258 mls @ 12.8 mls/hr 01/31/22 20:30 02/01/22 08:53 / Sodium Chloride IV 0.1 mcg/kg/min .[id number] ROSIE 25.6 mls/hr Titration Protocol 0.05 MCG/KG/MIN Anidulafungin 100 mg/ Sodium 100 mls @ 84 mls/hr 02/01/22 09:00 02/01/22 10 :17 Chloride IVPB 84 mls/hr DAILY ROSIE Administration Protocol Cisatracurium Besylate 200 mg/ 200 mls @ 7.938 mls/hr 02/01/22 00:30 02/01/22 10:15 Sodium Chloride IV 2.5 mcg/kg/min .Q24H ROSIE 19.845 mls/hr Administration Protocol 1 MCG/KG/MIN Acetaminophen 1,000 mg/ IV 100 mls @ 400 mls/hr 02/01/22 08:14 02/01/22 08:30 Solution IVPB 02/02/22 06:14 400 mls/hr Q6HR PRN Administration Fever Insulin Aspart 0 unit 01/31/22 08:30 02/01/22 08:45 Insulin Aspart (Novolog) 100 Unit/Ml Vial SQ 2 unit Q4H ROSIE Administration Protocol Miscellaneous Information 1 each 04/08/22 05:26 Magnesium Replacement Protocol 1 Each Misc MISCELLANE DAILY PRN Per Protocol Protocol Morphine Sulfate 4 mg 01/30/22 12:40 02/01/22 02:49 Morphine Sulfate 4 Mg/Ml Syringe IV 4 mg Q4HR PRN Administration Severe Pain Naloxone HCl 0.2 mg 01/30/22 12:40 Naloxone 0.4 Mg/Ml 1 Ml Vial IV Q2M PRN Opioid Reversal Pantoprazole Sodium 40 mg 01/31/22 09:00 02/01/22 08:27 Pantoprazole 40 Mg/10 Ml Vial IVP 40 mg DAILY ROSIE Administration Objective - Vital Signs Vital signs: Vital Signs Temp 101.8 F H 02/01/22 08:00 Pulse 146 H 02/01/22 10:00 Resp 20 02/01/22 10:00 BP 126/67 02/01/22 09:15 Pulse Ox 96 02/01/22 10:00 Intake & Output 01/31/22 02/01/22 02/01/22 18:59 06:59 18:59 Intake Total 7629.015 2922.233 865.397 Output Total 555 975 365 Balance 7074.015 1947.233 500.397 Weight 145.467 kg Intake: IV 6700 1500 500 ACETAMINOPHEN IV (For NPO 100 ) 1,000 mg In Empty Bag 1 bag @ 400 mls/hr IVPB Q6HR PRN Rx#:[id number] Piperacillin-Tazobactam 3 100 100 100 .375 gm In Sodium Chloride 0.9% 100 ml @ 25 mls/hr IVPB Q8HR ROS[facility] Rx# :[id number] Sodium Chloride 0.9% 1, 1100 200 000 ml @ 100 mls/hr IV . Q10H ROSIE Rx#:[id number] Sodium Chloride 0.9% 1, 6600 300 000 ml @ 100 mls/hr IV . Q10H STA Rx#:[id number] levETIRAcetam IV 500 mg 100 In Sodium Chloride 0.9% 100 ml @ 400 mls/hr IVPB Q12HR [facility] Rx#:[id number] Intake, IV Titration 334.438 3064.233 365.397 Amount ACETAMINOPHEN IV (For NPO 100 ) 1,000 mg In Empty Bag 1 bag @ 400 mls/hr IVPB Q6HR PRN Rx#:[id number] Amiodarone 450 mg In 235.282 Dextrose 5% in Water 250 ml @ 0.5 MG/MIN 16.667 mls/hr IV .Q15H ROSIE Rx#: [id number] Cisatracurium 200 mg In 36.185 127.669 Sodium Chloride 0.9% 180 ml @ 1 MCG/KG/MIN 7.938 mls/hr IV .Q24H ROSIE Rx#: [id number] Dextrose 5% in Water 100 100 ml @ 618 mls/hr IV .Q10M ONE with Amiodarone 150 mg Rx#:[id number] Heparin Sod,Pork in 0.45% 260.572 NaCl 25,000 unit In 0.45 % NaCl 1 250ml.bag @ 17. 38 UNITS/KG/HR 22.994 mls /hr IV .[id number] ROSIE Rx#: [id number] Magnesium Sulfate-D5w Pmx 100 1 gm In Dextrose/Water 1 100ml.bag @ 100 mls/hr IVPB Q1H ROSIE Rx#: [id number] Norepinephrine 4 mg In 229.015 229.684 Sodium Chloride 0.9% 250 ml @ 0.05 MCG/KG/MIN 25. 203 mls/hr IV .Q10H5M ROSIE Rx#:[id number] Norepinephrine 8 mg In 189.440 137.728 Sodium Chloride 0.9% 250 ml @ 0.05 MCG/KG/MIN 12.8 mls/hr IV .[id number] ROSIE Rx#:[id number] levETIRAcetam IV 500 mg 100 In Sodium Chloride 0.9% 100 ml @ 400 mls/hr IVPB Q12HR ROSIE Rx#:[id number] propofoL 1,000 mg In 300 471.070 100 Empty Bag 1 bag @ 5 MCG/ KG/MIN 3.919 mls/hr IV . Q24H ROSIE Rx#:[id number] Output: Gastric Drainage 50 Drainage 70 Abdomen 70 Urine 485 925 365 Other: Voiding Method Indwelling Catheter Indwelling Catheter ABP, PAP, CO, CI - Last Documented Arterial Blood Pressure 90/41 - Exam -GENERAL: The patient is Intubated and sedated HEENT: Pupils are round and equally reacting to light. EOMI. No scleral icterus. No conjunctival pallor. Normocephalic, atraumatic. No pharyngeal erythema. No thyromegaly. CARDIOVASCULAR: S1 and S2 present. No murmurs, rubs, or gallops. PULMONARY: Chest is clear to auscultation, no wheezing or crackles. -ABDOMEN: Soft, nontender, nondistended, normoactive bowel sounds. No palpable organomegaly. Surgical wound with dressing in place, rest of exam deferred to surgery team. Wound VAC is in place as well. MUSCULOSKELETAL: No joint swelling or deformity. EXTREMITIES: No cyanosis, clubbing, or pedal edema. NEUROLOGICAL: Gross neurological examination did not reveal any focal deficits. SKIN: No rashes. no petechiae. - Labs CBC & Chem 7: 02/01/22 04:19 02/01/22 04:19 Labs: Abnormal Lab Results - Last 24 Hours (Table) 01/31/22 01/31/22 01/31/22 Range/Units 11:57 15:15 17:03 WBC 14.0 H (3.8-10.6) k/uL RBC 2.89 L (4.30-5.90) m/uL Hgb 8.5 L (13.0-17.5) gm/dL Hct 27.9 L (39.0-53.0) % MCHC 30.5 L (31.0-37.0) g/dL RDW (11.5-15.5) % Neutrophils # (1.3-7.7) k/uL Neutrophils # (Manual) 10.60 H (1.3-7.7) k/uL Monocytes # (0-1.0) k/uL Metamyelocytes # (Man) 0.14 H (0) k/uL APTT (22.0-30.0) sec ABG pH (7.35-7.45) ABG pCO2 (35-45) mmHg Chloride (98-107) mmol/L Carbon Dioxide (22-30) mmol/L BUN (9-20) mg/dL Glucose (74-99) mg/dL POC Glucose (mg/dL) 176 H 157 H (75-99) mg/dL Calcium (8.4-10.2) mg/dL Total Protein (6.3-8.2) g/dL Albumin (3.5-5.0) g/dL 01/31/22 01/31/22 01/31/22 Range/Units 17:59 19:53 22:25 WBC (3.8-10.6) k/uL RBC (4.30-5.90) m/uL Hgb (13.0-17.5) gm/dL Hct (39.0-53.0) % MCHC (31.0-37.0) g/dL RDW (11.5-15.5) % Neutrophils # (1.3-7.7) k/uL Neutrophils # (Manual) (1.3-7.7) k/uL Monocytes # (0-1.0) k/uL Metamyelocytes # (Man) (0) k/uL APTT 97.5 H (22.0-30.0) sec ABG pH (7.35-7.45) ABG pCO2 (35-45) mmHg Chloride (98-107) mmol/L Carbon Dioxide (22-30) mmol/L BUN (9-20) mg/dL Glucose (74-99) mg/dL POC Glucose (mg/dL) 138 H 146 H (75-99) mg/dL Calcium (8.4-10.2) mg/dL Total Protein (6.3-8.2) g/dL Albumin (3.5-5.0) g/dL 01/31/22 02/01/22 02/01/22 Range/Units 23:13 04:19 04:19 WBC 19.8 H (3.8-10.6) k/uL RBC 2.99 L (4.30-5.90) m/uL Hgb 8.7 L (13.0-17.5) gm/dL Hct 29.3 L (39.0-53.0) % MCHC 29.6 L (31.0-37.0) g/dL RDW 15.6 H (11.5-15.5) % Neutrophils # 13.9 H (1.3-7.7) k/uL Neutrophils # (Manual) (1.3-7.7) k/uL Monocytes # 1.1 H (0-1.0) k/uL Metamyelocytes # (Man) (0) k/uL APTT (22.0-30.0) sec ABG pH (7.35-7.45) ABG pCO2 (35-45) mmHg Chloride 111 H (98-107) mmol/L Carbon Dioxide 19 L (22-30) mmol/L BUN 28 H (9-20) mg/dL Glucose 147 H (74-99) mg/dL POC Glucose (mg/dL) 123 H (75-99) mg/dL Calcium 6.5 L (8.4-10.2) mg/dL Total Protein 3.7 L (6.3-8.2) g/dL Albumin 1.8 L (3.5-5.0) g/dL 02/01/22 02/01/22 02/01/22 Range/Units 04:19 04:19 06:01 WBC (3.8-10.6) k/uL RBC (4.30-5.90) m/uL Hgb (13.0-17.5) gm/dL Hct (39.0-53.0) % MCHC (31.0-37.0) g/dL RDW (11.5-15.5) % Neutrophils # (1.3-7.7) k/uL Neutrophils # (Manual) (1.3-7.7) k/uL Monocytes # (0-1.0) k/uL Metamyelocytes # (Man) (0) k/uL APTT 77.7 H (22.0-30.0) sec ABG pH 7.25 L (7.35-7.45) ABG pCO2 49 H (35-45) mmHg Chloride (98-107) mmol/L Carbon Dioxide (22-30) mmol/L BUN (9-20) mg/dL Glucose (74-99) mg/dL POC Glucose (mg/dL) 159 H (75-99) mg/dL Calcium (8.4-10.2) mg/dL Total Protein (6.3-8.2) g/dL Albumin (3.5-5.0) g/dL 02/01/22 Range/Units 08:42 WBC (3.8-10.6) k/uL RBC (4.30-5.90) m/uL Hgb (13.0-17.5) gm/dL Hct (39.0-53.0) % MCHC (31.0-37.0) g/dL RDW (11.5-15.5) % Neutrophils # (1.3-7.7) k/uL Neutrophils # (Manual) (1.3-7.7) k/uL Monocytes # (0-1.0) k/uL Metamyelocytes # (Man) (0) k/uL APTT (22.0-30.0) sec ABG pH (7.35-7.45) ABG pCO2 (35-45) mmHg Chloride (98-107) mmol/L Carbon Dioxide (22-30) mmol/L BUN (9-20) mg/dL Glucose (74-99) mg/dL POC Glucose (mg/dL) 158 H (75-99) mg/dL Calcium (8.4-10.2) mg/dL Total Protein (6.3-8.2) g/dL Albumin (3.5-5.0) g/dL Microbiology - Last 24 Hours (Table) 01/30/22 10:30 Blood Culture - Preliminary Blood No Growth after 24 hours 01/30/22 10:43 Blood Culture - Preliminary Blood No Growth after 24 hours Assessment and Plan Assessment: Small bowel obstruction status post exploratory laparotomy with drainage of the pelvic abscess, transverse pelvic colostomy and wound VAC placement on 01/30 Acute hypoxic respiratory failure postoperatively requiring intubation and mechanical ventilation Acute left deep venous thrombosis Lymphoma with hepatomegaly and her liver and intra-abdominal bilateral lymphadenopathy. History of colon adenocarcinoma Intra-abdominal infection with abscess Septic shock secondary to above Plan: This is a 66 years old male with intra-abdominal infection, abscess status post bowel resection, colostomy. Also acute DVT and currently he is on septic shock. Continue with critical care management. Pulmonary/critical care team on the case. Continue with pressors Continue with antibiotics per ID team. Currently on Zosyn and Eraxis. Kidney with heparin drip and monitor hemoglobin and vitals. Continue with normal saline at 100 mL per hour Labs and medication were reviewed.. Continue same treatment. Continue with symptomatic treatment. . Monitor lytes and vitals. DVT and GI prophylaxis. Further recommendationsas per clinical course of the patient DVT prophylaxis: Heparin drip GI Prophylaxis: Ppi Prognosis is guarded Thank you for consulting us, we will follow up with you
[2022-02-01 11:54] LABS: Glucose,Whole Blood 136 mg/dL (75-99)
--- NOTE | 2022-02-01 12:13 | P.PN ---
Subjective Progress Note Date: 02/01/22 02/01/2022, the patient is being seen for a follow-up. The patient is postop day #2. The patient is being seen in the intensive care unit. This morning, the patient is sedated with propofol which is running at 50 mcg/kg per minute and the patient is also Nimbex at 25 macrovascular kilogram per minute and the patient is adequately sedated and paralyzed. The patient remains on a mechanical ventilator. This morning, he is on assist control mode at the rate of 16 with a tidal volume of 500, FiO2 of 35% with a PEEP of 5. The blood gases from today shows a pH of 7.25 with a pCO2 of 49 and a pO2 of 84. Chest x-ray shows development of small bilateral pleural effusions. The patient's cardiac rhythm is still tachycardic at this currently is sinus and the patient remains on amiodarone running at 0.5 g per minute. Meanwhile, the patient is also on norepinephrine infusion which is running at 0.11 mcg/kg per minute. IV fluids in the form of normal saline at the rate of 100 mL an hour and overall the patient has received 10 L of IV fluid boluses since he arrived from the operating room. Urine output is in order of 50-75 mL an hour. The patient has minimal output from the NG tube. The JOSE drain in the right lower quadrant is draining approximately 26 over the past 24 hours and the patient has a wound VAC in place. Meanwhile, the patient had positive pulmonary emboli and DVT and the patient is currently on IV heparin. The sodium today is at 138, potassium level is at 3.8, BUN is a 28 with a creatinine of 0.85. The patient has a white cell count of 19.8 with hemoglobin of 8.7 and the plated count of 299. Serum bicarbonate of 19. His having on and off episodes of fever. He is currently on examination of Zosyn and Eraxis as broad-spectrum antibiotic coverage. He is also covered with antifungal agents. Objective - Vital Signs Vital signs: Vital Signs Temp 99.1 F 02/01/22 12:00 Pulse 130 H 02/01/22 12:00 Resp 24 02/01/22 12:00 BP 126/67 02/01/22 09:15 Pulse Ox 98 02/01/22 12:00 Intake & Output 01/31/22 02/01/2202/01/22 18:59 06:59 18:59 Intake Total 7629.015 2922.233 1137.678 Output Total 555 975 565 Balance 7074.015 1947.233 572.678 Weight 145.467 kg Intake: IV 6700 1500 600 ACETAMINOPHEN IV (For NPO 100 ) 1,000 mg In Empty Bag 1 bag @ 400 mls/hr IVPB Q6HR PRN Rx#:[id number] Anidulafungin 100 mg In 100 Sodium Chloride 0.9% 100 ml @ 84 mls/hr IVPB DAILY ROSIE Rx#:[id number] Piperacillin-Tazobactam 3 100 100 100 .375 gm In Sodium Chloride 0.9% 100 ml @ 25 mls/hr IVPB Q8HR [facility] Rx# :[id number] Sodium Chloride 0.9% 1, 1100 200 000 ml @ 100 mls/hr IV . Q10H [facility] Rx#:[id number] Sodium Chloride 0.9% 1, 6600 300 000 ml @ 100 mls/hr IV . Q10H STA Rx#:[id number] levETIRAcetam IV 500 mg 100 In Sodium Chloride 0.9% 100 ml @ 400 mls/hr IVPB Q12HR [facility] Rx#:[id number] Intake, IV Titration 028.657 4263.233 537.678 Amount ACETAMINOPHEN IV (For NPO 100 ) 1,000 mg In Empty Bag 1 bag @ 400 mls/hr IVPB Q6HR PRN Rx#:[id number] Amiodarone 450 mg In 235.282 80.835 Dextrose 5% in Water 250 ml @ 0.5 MG/MIN 16.667 mls/hr IV .Q15H [facility] Rx#: [id number] Cisatracurium 200 mg In 36.185 127.669 Sodium Chloride 0.9% 180 ml @ 1 MCG/KG/MIN 7.938 mls/hr IV .Q24H [facility]IE Rx#: [id number] Dextrose 5% in Water 100 100 ml @ 618 mls/hr IV .Q10M ONE with Amiodarone 150 mg Rx#:[id number] Heparin Sod,Pork in 0.45% 260.572 NaCl 25,000 unit In 0.45 % NaCl 1 250ml.bag @ 17. 38 UNITS/KG/HR 22.994 mls /hr IV .[id number] [facility]IE Rx#: [id number] Magnesium Sulfate-D5w Pmx 100 1 gm In Dextrose/Water 1 100ml.bag @ 100 mls/hr IVPB Q1H [facility] Rx#: [id number] Norepinephrine 4 mg In 229.015 229.684 Sodium Chloride 0.9% 250 ml @ 0.05 MCG/KG/MIN 25. 203 mls/hr IV .Q10H5M [facility] Rx#:[id number] Norepinephrine 8 mg In 189.440 137.728 Sodium Chloride 0.9% 250 ml @ 0.05 MCG/KG/MIN 12.8 mls/hr IV .[id number] [facility] Rx#:[id number] levETIRAcetam IV 500 mg 100 In Sodium Chloride 0.9% 100 ml @ 400 mls/hr IVPB Q12HR [facility] Rx#:[id number] propofoL 1,000 mg In 300 471.070 191.446 Empty Bag 1 bag @ 5 MCG/ KG/MIN 3.919 mls/hr IV . Q24H [facility] Rx#:[id number] Output: Gastric Drainage 50 Drainage 70 Abdomen 70 Urine 485 925 565 Other: Voiding Method Indwelling Catheter Indwelling Catheter ABP, PAP, CO, CI - Last Documented Arterial Blood Pressure 117/48 - Exam Calm and comfortable, sedated with Precedex on a mechanical ventilator. Orogastric and orotracheal tube are both in place. Head exam was generally normal. There was no scleral icterus or corneal arcus. Mucous membranes were moist. Neck was supple and without jugular venous distension, thyromegaly, or carotid bruits. Carotids were easily palpable bilaterally. There was no adenopathy. Lungs sounds are diminished bilaterally along with some scattered throughout the lung hightower. Cardiac exam revealed the PMI to be normally situated and sized. The rhythm was regular and no extrasystoles were noted during several minutes of auscultation. The first and second heart sounds were normal and physiologic splitting of the second heart sound was noted. There were no murmurs, rubs, clicks, or gallops. Abdomen is soft. Bowel sounds are hypoactive/absent. The patient has a right- sided colostomy without any output at this point in time and the tissue is viable. The patient has also a JOSE drain in the right lower quadrant. The patient has a mid abdominal incision and the patient has a wound VAC in place. Organs cannot be palpated. No direct tenderness. No rebound tenderness. No guarding. Examination of the extremities revealed easily palpable radial, femoral and pedal pulses. There was no cyanosis, clubbing or edema. Examination of the skin revealed no evidence of significant rashes, suspicious appearing nevi or other concerning lesions. Abdominal wound was noted. Neurologically the patient is sedated, comfortable likely distress. - Labs CBC & Chem 7: 02/01/22 04:19 02/01/22 04:19 Labs: Abnormal Lab Results - Last 24 Hours (Table) 01/31/22 01/31/22 01/31/22 Range/Units 15:15 17:03 17:59 WBC 14.0 H (3.8-10.6) k/uL RBC 2.89 L (4.30-5.90) m/uL Hgb 8.5 L (13.0-17.5) gm/dL Hct 27.9 L (39.0-53.0) % MCHC 30.5 L (31.0-37.0) g/dL RDW (11.5-15.5) % Neutrophils # (1.3-7.7) k/uL Neutrophils # (Manual) 10.60 H (1.3-7.7) k/uL Monocytes # (0-1.0) k/uL Metamyelocytes # (Man) 0.14 H (0) k/uL APTT (22.0-30.0) sec ABG pH (7.35-7.45) ABG pCO2 (35-45) mmHg Chloride (98-107) mmol/L Carbon Dioxide (22-30) mmol/L BUN (9-20) mg/dL Glucose (74-99) mg/dL POC Glucose (mg/dL) 157 H 138 H (75-99) mg/dL Calcium (8.4-10.2) mg/dL Total Protein (6.3-8.2) g/dL Albumin (3.5-5.0) g/dL 01/31/22 01/31/22 01/31/22 Range/Units 19:53 22:25 23:13 WBC (3.8-10.6) k/uL RBC (4.30-5.90) m/uL Hgb (13.0-17.5) gm/dL Hct (39.0-53.0) % MCHC (31.0-37.0) g/dL RDW (11.5-15.5) % Neutrophils # (1.3-7.7) k/uL Neutrophils # (Manual) (1.3-7.7) k/uL Monocytes # (0-1.0) k/uL Metamyelocytes # (Man) (0) k/uL APTT 97.5 H (22.0-30.0) sec ABG pH (7.35-7.45) ABG pCO2 (35-45) mmHg Chloride (98-107) mmol/L Carbon Dioxide (22-30) mmol/L BUN (9-20) mg/dL Glucose (74-99) mg/dL POC Glucose (mg/dL) 146 H 123 H (75-99) mg/dL Calcium (8.4-10.2) mg/dL Total Protein (6.3-8.2) g/dL Albumin (3.5-5.0) g/dL 02/01/22 02/01/22 02/01/22 Range/Units 04:19 04:19 04:19 WBC 19.8 H (3.8-10.6) k/uL RBC 2.99 L (4.30-5.90) m/uL Hgb 8.7 L (13.0-17.5) gm/dL Hct 29.3 L (39.0-53.0) % MCHC 29.6 L (31.0-37.0) g/dL RDW 15.6 H (11.5-15.5) % Neutrophils # 13.9 H (1.3-7.7) k/uL Neutrophils # (Manual) (1.3-7.7) k/uL Monocytes # 1.1 H (0-1.0) k/uL Metamyelocytes # (Man) (0) k/uL APTT 77.7 H (22.0-30.0) sec ABG pH (7.35-7.45) ABG pCO2 (35-45) mmHg Chloride 111 H (98-107) mmol/L Carbon Dioxide 19 L (22-30) mmol/L BUN 28 H (9-20) mg/dL Glucose 147 H (74-99) mg/dL POC Glucose (mg/dL) (75-99) mg/dL Calcium 6.5 L (8.4-10.2) mg/dL Total Protein 3.7 L (6.3-8.2) g/dL Albumin 1.8 L (3.5-5.0) g/dL 02/01/22 02/01/22 02/01/22 Range/Units 04:19 06:01 08:42 WBC (3.8-10.6) k/uL RBC (4.30-5.90) m/uL Hgb (13.0-17.5) gm/dL Hct (39.0-53.0) % MCHC (31.0-37.0) g/dL RDW (11.5-15.5) % Neutrophils # (1.3-7.7) k/uL Neutrophils # (Manual) (1.3-7.7) k/uL Monocytes # (0-1.0) k/uL Metamyelocytes # (Man) (0) k/uL APTT (22.0-30.0) sec ABG pH 7.25 L (7.35-7.45) ABG pCO2 49 H (35-45) mmHg Chloride (98-107) mmol/L Carbon Dioxide (22-30) mmol/L BUN (9-20) mg/dL Glucose (74-99) mg/dL POC Glucose (mg/dL) 159 H 158 H (75-99) mg/dL Calcium (8.4-10.2) mg/dL Total Protein (6.3-8.2) g/dL Albumin (3.5-5.0) g/dL 02/01/22 Range/Units 11:53 WBC (3.8-10.6) k/uL RBC (4.30-5.90) m/uL Hgb (13.0-17.5) gm/dL Hct (39.0-53.0) % MCHC (31.0-37.0) g/dL RDW (11.5-15.5) % Neutrophils # (1.3-7.7) k/uL Neutrophils # (Manual) (1.3-7.7) k/uL Monocytes # (0-1.0) k/uL Metamyelocytes # (Man) (0) k/uL APTT (22.0-30.0) sec ABG pH (7.35-7.45) ABG pCO2 (35-45) mmHg Chloride (98-107) mmol/L Carbon Dioxide (22-30) mmol/L BUN (9-20) mg/dL Glucose (74-99) mg/dL POC Glucose (mg/dL) 136 H (75-99) mg/dL Calcium (8.4-10.2) mg/dL Total Protein (6.3-8.2) g/dL Albumin (3.5-5.0) g/dL Microbiology - Last 24 Hours (Table) 01/30/22 10:30 Blood Culture - Preliminary Blood No Growth after 24 hours 01/30/22 10:43 Blood Culture - Preliminary Blood No Growth after 24 hours Assessment and Plan Plan: 1 acute abdomen with possibly development of an anastomotic leak and the patient presented with an acute abdominal pain and possibly an underlying abdominal abscess. The patient is postictal to laparotomy and drainage of a pelvic abscess and small bowel resection 3 along with transfers and colostomy and partial omentectomy. The patient has a wound VAC in place. The patient is postop day #2. 2 history of colonic adenocarcinoma, T2 N0 M0 with a previous low AP resection 3 history of CLL/SLL with extensive intra-abdominal lymphadenopathy 4 acute hypoxic respiratory failure post abdominal surgery, currently intubated on mechanical ventilator. This morning, the patient is sedated and paralyzed on a mechanical ventilator. Blood gases showing a component of metabolic and respiratory acidosis. 5 acute tachycardia with a possibility of a chair fibrillation/flutter, started on amiodarone drip. The patient remains on a amiodarone maintenance of 0.5 mg per minute and the patient's underlying rhythm is sinus tachycardia. 6 pulmonary embolism, bilateral based on CT angiogram. The patient has also has had previous history of PEs. Furthermore, the Doppler of the lower extremity showed a partially occlusive DVT in the left popliteal vein 7 coronary artery disease with previous coronary stenting 4 8 history of seizure disorder 9 history of non-Hodgkin's lymphoma/CLL/SLL, treatment as mentioned above. The patient has progressed and the patient was being considered for a BT K inhibitor as the patient had progression of B symptoms along with lymphadenopathy in terms of his underlying lymphoma. 10 diabetes mellitus 11 hypertension 12 anemia, multifactorial secondary to above Plan Continue ventilator support Increase the respiratory rate up to 24 Discontinue amiodarone drip The patient has received a total of 10 L of IV fluids Continued IV Zosyn and Eraxis Continue IV heparin and watch for any signs of bleeding Continue IV Keppra Keep the wound VAC in place Keep the patient nothing by mouth Wean off norepinephrine infusion to maintain a mean artery pressure above 65 General surgeries on the case We'll continue to follow make further recommendations based on progress. This is a critically care evaluation that was done more than 30 minutes. Condition is very critical. CODE STATUS isDNR/DNI as the patient has multiple comorbidities and his outcomes obviously poor baseline above-mentioned comorbidities. Time with Patient: Greater than 30
--- NOTE | 2022-02-01 15:44 | P.PN ---
Subjective Progress Note Date: 02/01/22 Principal diagnosis: Abdominal abscess and sepsis Patient is a 66-year-old male admitted to the hospital with abdominal abscess in this patient who is status post laparotomy drainage of the abscess but no culture and diverting colostomy patient subsequently has been admitted to the ICU on the vent has been running a fever and requiring a pressor support. On today's evaluation that is 02/01/2022 the patient did spike another fever this morning of 101.8F, the patient is currently on Levophed to maintain his blood pressure was down to 17 g compared to 23 g yesterday, the patient affect is currently down to 35% and no significant purulent secretions rigidity or any other changes were reported by the nursing staff Objective - Vital Signs Vital signs: Vital Signs Temp 99.1 F 02/01/22 12:00 Pulse 120 H 02/01/22 14:15 Resp 24 02/01/22 14:15 BP 126/67 02/01/22 09:15 Pulse Ox 96 02/01/22 14:15 Intake & Output 01/31/22 02/01/22 02/01/22 18:59 06:59 18:59 Intake Total 7629.015 2922.233 1559.486 Output Total 555 975 810 Balance 7074.015 1947.233 749.486 Weight 145.467 kg Intake: IV 6700 1500 800 ACETAMINOPHEN IV (For NPO 100 ) 1,000 mg In Empty Bag 1 bag @ 400 mls/hr IVPB Q6HR PRN Rx#:[id number] Anidulafungin 100 mg In 100 Sodium Chloride 0.9% 100 ml @ 84 mls/hr IVPB DAILY [facility]IE Rx#:[id number] Piperacillin-Tazobactam 3 100 100 100 .375 gm In Sodium Chloride 0.9% 100 ml @ 25 mls/hr IVPB Q8HR [facility] Rx# :[id number] Sodium Chloride 0.9% 1, 1100 400 000 ml @ 100 mls/hr IV . Q10H [facility]IE Rx#:[id number] Sodium Chloride 0.9% 1, 6600 300 000 ml @ 100 mls/hr IV . Q10H STA Rx#:[id number] levETIRAcetam IV 500 mg 100 In Sodium Chloride 0.9% 100 ml @ 400 mls/hr IVPB Q12HR ROSIE Rx#:[id number] Intake, IV Titration 754.565 5376.233 759.486 Amount ACETAMINOPHEN IV (For NPO 100 ) 1,000 mg In Empty Bag 1 bag @ 400 mls/hr IVPB Q6HR PRN Rx#:[id number] Amiodarone 450 mg In 235.282 80.835 Dextrose 5% in Water 250 ml @ 0.5 MG/MIN 16.667 mls/hr IV .Q15H ROSIE Rx#: [id number] Cisatracurium 200 mg In 36.185 127.669 Sodium Chloride 0.9% 180 ml @ 1 MCG/KG/MIN 7.938 mls/hr IV .Q24H [facility]IE Rx#: [id number] Dextrose 5% in Water 100 100 ml @ 618 mls/hr IV .Q10M ONE with Amiodarone 150 mg Rx#:[id number] Heparin Sod,Pork in 0.45% 260.572 NaCl 25,000 unit In 0.45 % NaCl 1 250ml.bag @ 17. 38 UNITS/KG/HR 22.994 mls /hr IV .[id number] ROSIE Rx#: [id number] Magnesium Sulfate-D5w Pmx 100 1 gm In Dextrose/Water 1 100ml.bag @ 100 mls/hr IVPB Q1H [facility]IE Rx#: [id number] Norepinephrine 4 mg In 229.015 229.684 Sodium Chloride 0.9% 250 ml @ 0.05 MCG/KG/MIN 25. 203 mls/hr IV .Q10H5M [facility]IE Rx#:[id number] Norepinephrine 8 mg In 189.440 259.536 Sodium Chloride 0.9% 250 ml @ 0.05 MCG/KG/MIN 12.8 mls/hr IV .[id number] ROSIE Rx#:[id number] levETIRAcetam IV 500 mg 100 In Sodium Chloride 0.9% 100 ml @ 400 mls/hr IVPB Q12HR [facility]IE Rx#:[id number] propofoL 1,000 mg In 300 471.070 291.446 Empty Bag 1 bag @ 5 MCG/ KG/MIN 3.919 mls/hr IV . Q24H [facility]IE Rx#:[id number] Output: Gastric Drainage 50 Drainage 70 20 Abdomen 70 20 Urine 485 345 790 Other: Voiding Method Indwelling Catheter Indwelling Catheter ABP, PAP, CO, CI - Last Documented Arterial Blood Pressure 110/44 - Exam GENERAL DESCRIPTION: An elderly male intubated on the vent RESPIRATORY SYSTEM: Unlabored breathing , decreased breath sounds at bases HEART: S1 S2 regular rate and rhythm , ABDOMEN: Soft , midline incision is covered with a wound VAC EXTREMITIES: No edema feet - Labs CBC & Chem 7: 02/01/22 04:19 02/01/22 04:19 Labs: Abnormal Lab Results - Last 24 Hours (Table) 01/31/22 01/31/22 01/31/22 Range/Units 15:15 17:03 17:59 WBC 14.0 H (3.8-10.6) k/uL RBC 2.89 L (4.30-5.90) m/uL Hgb 8.5 L (13.0-17.5) gm/dL Hct 27.9 L (39.0-53.0) % MCHC 30.5 L (31.0-37.0) g/dL RDW (11.5-15.5) % Neutrophils # (1.3-7.7) k/uL Neutrophils # (Manual) 10.60 H (1.3-7.7) k/uL Monocytes # (0-1.0) k/uL Metamyelocytes # (Man) 0.14 H (0) k/uL APTT (22.0-30.0) sec ABG pH (7.35-7.45) ABG pCO2 (35-45) mmHg Chloride (98-107) mmol/L Carbon Dioxide (22-30) mmol/L BUN (9-20) mg/dL Glucose (74-99) mg/dL POC Glucose (mg/dL) 157 H 138 H (75-99) mg/dL Calcium (8.4-10.2) mg/dL Total Protein (6.3-8.2) g/dL Albumin (3.5-5.0) g/dL 01/31/22 01/31/22 01/31/22 Range/Units 19:53 22:25 23:13 WBC (3.8-10.6) k/uL RBC (4.30-5.90) m/uL Hgb (13.0-17.5) gm/dL Hct (39.0-53.0) % MCHC (31.0-37.0) g/dL RDW (11.5-15.5) % Neutrophils # (1.3-7.7) k/uL Neutrophils # (Manual) (1.3-7.7) k/uL Monocytes # (0-1.0) k/uL Metamyelocytes # (Man) (0) k/uL APTT 97.5 H (22.0-30.0) sec ABG pH (7.35-7.45) ABG pCO2 (35-45) mmHg Chloride (98-107) mmol/L Carbon Dioxide (22-30) mmol/L BUN (9-20) mg/dL Glucose (74-99) mg/dL POC Glucose (mg/dL) 146 H 123 H (75-99) mg/dL Calcium (8.4-10.2) mg/dL Total Protein (6.3-8.2) g/dL Albumin (3.5-5.0) g/dL 02/01/22 02/01/22 02/01/22 Range/Units 04:19 04:19 04:19 WBC 19.8 H (3.8-10.6) k/uL RBC 2.99 L (4.30-5.90) m/uL Hgb 8.7 L (13.0-17.5) gm/dL Hct 29.3 L (39.0-53.0) % MCHC 29.6 L (31.0-37.0) g/dL RDW 15.6 H (11.5-15.5) % Neutrophils # 13.9 H (1.3-7.7) k/uL Neutrophils # (Manual) (1.3-7.7) k/uL Monocytes # 1.1 H (0-1.0) k/uL Metamyelocytes # (Man) (0) k/uL APTT 77.7 H (22.0-30.0) sec ABG pH (7.35-7.45) ABG pCO2 (35-45) mmHg Chloride 111 H (98-107) mmol/L Carbon Dioxide 19 L (22-30) mmol/L BUN 28 H (9-20) mg/dL Glucose 147 H (74-99) mg/dL POC Glucose (mg/dL) (75-99) mg/dL Calcium 6.5 L (8.4-10.2) mg/dL Total Protein 3.7 L (6.3-8.2) g/dL Albumin 1.8 L (3.5-5.0) g/dL 02/01/22 02/01/22 02/01/22 Range/Units 04:19 06:01 08:42 WBC (3.8-10.6) k/uL RBC (4.30-5.90) m/uL Hgb (13.0-17.5) gm/dL Hct (39.0-53.0) % MCHC (31.0-37.0) g/dL RDW (11.5-15.5) % Neutrophils # (1.3-7.7) k/uL Neutrophils # (Manual) (1.3-7.7) k/uL Monocytes # (0-1.0) k/uL Metamyelocytes # (Man) (0) k/uL APTT (22.0-30.0) sec ABG pH 7.25 L (7.35-7.45) ABG pCO2 49 H (35-45) mmHg Chloride (98-107) mmol/L Carbon Dioxide (22-30) mmol/L BUN (9-20) mg/dL Glucose (74-99) mg/dL POC Glucose (mg/dL) 159 H 158 H (75-99) mg/dL Calcium (8.4-10.2) mg/dL Total Protein (6.3-8.2) g/dL Albumin (3.5-5.0) g/dL 02/01/22 02/01/22 Range/Units 11:53 11:59 WBC (3.8-10.6) k/uL RBC (4.30-5.90) m/uL Hgb (13.0-17.5) gm/dL Hct (39.0-53.0) % MCHC (31.0-37.0) g/dL RDW (11.5-15.5) % Neutrophils # (1.3-7.7) k/uL Neutrophils # (Manual) (1.3-7.7) k/uL Monocytes # (0-1.0) k/uL Metamyelocytes # (Man) (0) k/uL APTT 60.4 H (22.0-30.0) sec ABG pH (7.35-7.45) ABG pCO2 (35-45) mmHg Chloride (98-107) mmol/L Carbon Dioxide (22-30) mmol/L BUN (9-20) mg/dL Glucose (74-99) mg/dL POC Glucose (mg/dL) 136 H (75-99) mg/dL Calcium (8.4-10.2) mg/dL Total Protein (6.3-8.2) g/dL Albumin (3.5-5.0) g/dL Microbiology - Last 24 Hours (Table) 01/30/22 10:43 Blood Culture - Preliminary Blood No Growth after 48 hours 01/30/22 10:30 Blood Culture - Preliminary Blood No Growth after 48 hours Assessment and Plan (1) Pelvic abscess Current Visit: Yes Status: Acute Code(s): [id number] - SNOMED Code(s): 1113 15249 Plan: 1patient presented to hospital with sepsis secondary abdominal source in this patient who recently did have a sigmoidectomy now with evidence of anastomosis leak and pelvic abscess patient is status post laparotomy drainage of the abscess unfortunately cultures were not done will need to cover for the enteric gram-negative to be the likely pathogen. 2 patient is currently be treated with Zosyn 3.375 g every 8 hours and micafungin however is still running a fever we will add daptomycin for gram- positive coverage cannot use vancomycin to decrease risk of his nephrotoxicity, overall prognosis was very guarded, at the bedside she did have multiple questions and concerns and those were answered in Layman terms Time with Patient: Less than 30
[2022-02-01 16:32] LABS: Glucose,Whole Blood 120 mg/dL (75-99)
[2022-02-01] MEDS: DEXTROSE 5% IN WATER 100 ML with AMIODARONE 150 MG IV ONE ×3 (19:51→20:06)
[2022-02-01] MEDS ORDERED: DEXTROSE 5% IN WATER 100 ML with AMIODARONE 150 MG IV ONE (20:00)
[2022-02-01 20:04] LABS: Glucose,Whole Blood 143 mg/dL (75-99)
[2022-02-01] MEDS ORDERED: AMIODARONE 360 MG in DEXTROSE 5% IN WATER 200 ML IV ONE ×2 (20:15)
[2022-02-01] MEDS ORDERED: SODIUM CHLORIDE 0.9% 2,000 ML IV ONE (20:21)
[2022-02-01 23:38] LABS: Glucose,Whole Blood 100 mg/dL (75-99)
[2022-02-02] MEDS: AMIODARONE 450 MG in DEXTROSE 5% IN WATER 250 ML IV SCH ×4 (02:15→16:36)
[2022-02-02] MEDS: MORPHINE SULFATE 4 MG/ML SYRINGE IV PRN ×4 (02:15→22:24)
[2022-02-02] MEDS: SODIUM CHLORIDE 0.9% 1,000 ML IV SCH ×2 (02:18→16:36)
[2022-02-02 04:33] LABS: Glucose,Whole Blood 115 mg/dL (75-99)
[2022-02-02] MEDS: INSULIN ASPART (NovoLOG) 100 UNIT/ML VIAL SQ SCH ×5 (04:38→20:26)
[2022-02-02 04:44] LABS: Basophils % (A) 0 %; Eosinophils # (A) 0.2 k/uL (0-0.7); Eosinophils % (A) 2 %; HCT 24.6 % (39.0-53.0); HGB 7.3 gm/dL (13.0-17.5); Hypochromasia Marked; Lymphocytes % (A) 20 %; MCH 29.1 pg (25.0-35.0); MCHC 29.6 g/dL (31.0-37.0); MCV 98.2 fL (80.0-100.0); Macrocytosis Slight; Monocytes # (A) 0.4 k/uL (0-1.0); Monocytes % (A) 4 %; Neutrophils # (A) 7.4 k/uL (1.3-7.7); Neutrophils % (A) 72 %; Platelet Count 197 k/uL (150-450); RBC 2.51 m/uL (4.30-5.90); RDW 15.6 % (11.5-15.5); WBC 10.3 k/uL (3.8-10.6)
[2022-02-02] MEDS: ARTIFICIAL TEARS-HYPROMELLOSE DROPS 15 ML BTL BOTH EYES SCH ×5 (04:49→20:25)
[2022-02-02 05:17] LABS: ALT 7 U/L (4-49); AST 19 U/L (17-59); African American GFR (CKD) >90 (>60 ml/min/1.73 sqM); Albumin 1.7 g/dL (3.5-5.0); Alkaline Phosphatase 65 U/L (38-126); Anion Gap 4 mmol/L; Blood Urea Nitrogen 21 mg/dL (9-20); Calcium 6.7 mg/dL (8.4-10.2); Carbon Dioxide 20 mmol/L (22-30); Chloride 114 mmol/L (98-107); Glucose 106 mg/dL (74-99); Non-African American GFR(CKD) >90 (>60 ml/min/1.73 sqM); Potassium 3.8 mmol/L (3.5-5.1); Sodium 138 mmol/L (137-145); Total Bilirubin 0.3 mg/dL (0.2-1.3); Total Protein 3.5 g/dL (6.3-8.2)
[2022-02-02] MEDS ORDERED: POTASSIUM CHLORIDE 20 MEQ in WATER FOR INJECTION 1 100ML.BAG IVPB STA (05:25)
[2022-02-02] MEDS: HEPARIN SODIUM 1,000 UN/ML (10ML VL) IV PRN (05:41)
[2022-02-02 05:49] LABS: ABG Base Excess -4.3 mmol/L; ABG HCO3 21 mmol/L (21-25); ABG Oxygen Saturation 95.9 % (94-97); ABG PCO2 39 mmHg (35-45); ABG PH 7.35 (7.35-7.45); ABG PO2 76 mmHg (83-108); ABG TCO2 23 mmol/L (19-24); Allen Test Performed? Yes
[2022-02-02] MEDS: CISATRACURIUM 200 MG in SODIUM CHLORIDE 0.9% 180 ML IV SCH (08:14)
[2022-02-02] MEDS: PANTOPRAZOLE 40 MG/10 ML VIAL IVP SCH (08:15)
[2022-02-02] MEDS: CHLORHEXIDINE GLUCONATE 15 ML CUP MUCOUS MEM SCH ×2 (08:15→22:23)
[2022-02-02] MEDS: PIPERACILLIN-TAZOBACTAM 3.375 GM in SODIUM CHLORIDE 0.9% 100 ML IVPB SCH (08:16)
[2022-02-02] MEDS: levETIRAcetam IV 500 MG in SODIUM CHLORIDE 0.9% 100 ML IVPB SCH ×2 (08:18→22:31)
[2022-02-02] MEDS: ANIDULAFUNGIN 100 MG in SODIUM CHLORIDE 0.9% 100 ML IVPB SCH (08:37)
[2022-02-02 08:46] LABS: Glucose,Whole Blood 109 mg/dL (75-99)
--- NOTE | 2022-02-02 09:08 | P.PN ---
Subjective Progress Note Date: 02/02/22 Principal diagnosis: Pneumoperitoneum Patient remains on the ventilator. He had an episode of atrial fibrillation and converted spontaneously. Still with good urine output. JOSE drain old blood appearing. Off of pressors at this time. T-max 100.8. White blood cell count improved. Objective - Vital Signs Vital signs: Vital Signs Temp 99.6 F 02/02/22 08:00 Pulse 106 H 02/02/22 08:00 Resp 24 02/02/22 08:00 BP 135/74 02/01/22 18:45 Pulse Ox 95 02/02/22 08:00 Intake & Output 02/01/22 02/02/22 02/02/22 18:59 06:59 18:59 Intake Total 2412.794 4369.521 56.675 Output Total 1260 915 125 Balance 6847.791 2375.521 -68.325 Weight 149.1 kg Intake: IV 1200 3400 20 ACETAMINOPHEN IV (For NPO 100 ) 1,000 mg In Empty Bag 1 bag @ 400 mls/hr IVPB Q6HR PRN Rx#:[id number] Anidulafungin 100 mg In 100 Sodium Chloride 0.9% 100 ml @ 84 mls/hr IVPB DAILY [facility] Rx#:[id number] Piperacillin-Tazobactam 3 100 100 .375 gm In Sodium Chloride 0.9% 100 ml @ 25 mls/hr IVPB Q8HR [facility] Rx# :[id number] Sodium Chloride 0.9% 1, 800 3200 20 000 ml @ 100 mls/hr IV . Q10H [facility]IE Rx#:[id number] levETIRAcetam IV 500 mg 100 100 In Sodium Chloride 0.9% 100 ml @ 400 mls/hr IVPB Q12HR [facility] Rx#:[id number] Intake, IV Titration 1212.794 969.521 36.675 Amount Amiodarone 450 mg In 80.835 Dextrose 5% in Water 250 ml @ 0.5 MG/MIN 16.667 mls/hr IV .Q15H [facility]IE Rx#: [id number] Cisatracurium 200 mg In 127.669 344.245 36.675 Sodium Chloride 0.9% 180 ml @ 1 MCG/KG/MIN 7.938 mls/hr IV .Q24H [facility]IE Rx#: [id number] Heparin Sod,Pork in 0.45% 209.413 161.333 NaCl 25,000 unit In 0.45 % NaCl 1 250ml.bag @ 17. 38 UNITS/KG/HR 22.994 mls /hr IV .[id number] ROSIE Rx#: [id number] Norepinephrine 8 mg In 319.824 21.675 Sodium Chloride 0.9% 250 ml @ 0.05 MCG/KG/MIN 12.8 mls/hr IV .[id number] ROSIE Rx#:[id number] propofoL 1,000 mg In 475.053 442.268 Empty Bag 1 bag @ 5 MCG/ KG/MIN 3.919 mls/hr IV . Q24H [facility]IE Rx#:[id number] Output: Drainage 20 Abdomen 20 Urine 1240 915 125 Other: Voiding Method Indwelling Catheter Indwelling Catheter Indwelling Catheter ABP, PAP, CO, CI - Last Documented Arterial Blood Pressure 124/50 - Exam Abdomen: Soft, wound VAC in place, ostomy pink without output - Labs CBC & Chem 7: 02/02/22 04:32 02/02/22 04:32 Labs: Abnormal Lab Results - Last 24 Hours (Table) 02/01/22 02/01/22 02/01/22 Range/Units 11:53 11:59 16:30 RBC (4.30-5.90) m/uL Hgb (13.0-17.5) gm/dL Hct (39.0-53.0) % MCHC (31.0-37.0) g/dL RDW (11.5-15.5) % APTT 60.4 H (22.0-30.0) sec ABG pO2 (83-108) mmHg Chloride (98-107) mmol/L Carbon Dioxide (22-30) mmol/L BUN (9-20) mg/dL Glucose (74-99) mg/dL POC Glucose (mg/dL) 136 H 120 H (75-99) mg/dL Calcium (8.4-10.2) mg/dL Total Protein (6.3-8.2) g/dL Albumin (3.5-5.0) g/dL 02/01/22 02/01/22 02/02/22 Range/Units 20:02 23:36 04:31 RBC (4.30-5.90) m/uL Hgb (13.0-17.5) gm/dL Hct (39.0-53.0) % MCHC (31.0-37.0) g/dL RDW (11.5-15.5) % APTT (22.0-30.0) sec ABG pO2 (83-108) mmHg Chloride (98-107) mmol/L Carbon Dioxide (22-30) mmol/L BUN (9-20) mg/dL Glucose (74-99) mg/dL POC Glucose (mg/dL) 143 H 100 H 115 H (75-99) mg/dL Calcium (8.4-10.2) mg/dL Total Protein (6.3-8.2) g/dL Albumin (3.5-5.0) g/dL 02/02/22 02/02/22 02/02/22 Range/Units 04:32 04:32 04:32 RBC 2.51 L (4.30-5.90) m/uL Hgb 7.3 L (13.0-17.5) gm/dL Hct 24.6 L (39.0-53.0) % MCHC 29.6 L (31.0-37.0) g/dL RDW 15.6 H (11.5-15.5) % APTT 42.2 H (22.0-30.0) sec ABG pO2 (83-108) mmHg Chloride 114 H (98-107) mmol/L Carbon Dioxide 20 L (22-30) mmol/L BUN 21 H (9-20) mg/dL Glucose 106 H (74-99) mg/dL POC Glucose (mg/dL) (75-99) mg/dL Calcium 6.7 L (8.4-10.2) mg/dL Total Protein 3.5 L (6.3-8.2) g/dL Albumin 1.7 L (3.5-5.0) g/dL 02/02/22 02/02/22 Range/Units 05:45 08:44 RBC (4.30-5.90) m/uL Hgb (13.0-17.5) gm/dL Hct (39.0-53.0) % MCHC (31.0-37.0) g/dL RDW (11.5-15.5) % APTT (22.0-30.0) sec ABG pO2 76 L (83-108) mmHg Chloride (98-107) mmol/L Carbon Dioxide (22-30) mmol/L BUN (9-20) mg/dL Glucose (74-99) mg/dL POC Glucose (mg/dL) 109 H (75-99) mg/dL Calcium (8.4-10.2) mg/dL Total Protein (6.3-8.2) g/dL Albumin (3.5-5.0) g/dL Microbiology - Last 24 Hours (Table) 02/01/22 06:30 Blood Culture - Preliminary Blood No Growth after 24 hours 01/30/22 10:43 Blood Culture - Preliminary Blood No Growth after 48 hours 01/30/22 10:30 Blood Culture - Preliminary Blood No Growth after 48 hours Assessment and Plan (1) Intra-abdominal infection Narrative/Plan: Patient clinically improved from yesterday. Continue supportive care. Keep nothing by mouth for for now. Continue broad-spectrum antibiotics. Continue wound VAC. Current Visit: Yes Status: Acute Code(s): B99.9 - UNSPECIFIED INFECTIOUS DISEASE SNOMED Code(s): 770724861
--- NOTE | 2022-02-02 10:23 | XR ---
EXAMINATION TYPE: XR chest 1V portable DATE OF EXAM: 02/02/2022 CLINICAL HISTORY: Difficulty breathing progress study. TECHNIQUE: Single AP portable supine view of the chest is obtained. COMPARISON: Chest x-ray from one day earlier and older studies FINDINGS: Stable endotracheal and orogastric tubes. Stable right internal jugular central venous cat heter. Persistent low lung volumes with bibasilar opacities. Cardiac silhouette size stable and mildly enlar ged. Osseous structures are intact. IMPRESSION: Mild cardiomegaly and low lung volumes with central vascular congestion and small to tiny bilateral pleural effusions and associated bibasilar atelectasis and/or infiltrate are all redemonst rated. No significant change from most recent prior.
[2022-02-02] MEDS: HEPARIN SOD,PORK IN 0.45% NACL 25,000 UNIT in 0.45% NACL 1 250ML.BAG IV SCH ×2 (10:49→13:20)
--- NOTE | 2022-02-02 11:28 | P.PN ---
Subjective We seen him today for a consult follow-up patient was admitted under surgery service care on 01/30. Nikolai Trevino is a 66 yo M with PMH of recently diagnosed colon cancer, s/p LAD and sigmoid colectomy about 3 weeks ago who subsequently developed drainage from his surgical site a few days ago. He was started on antibiotics but then noticed passing blood with bowel movements. On his presentaiton pt tachycardic, WBC 7.9, FOBT positive, CT abd/pelvis with SBO and enlarged lymph nodes. Pt taken for surgery with drainage of abscess, small bowel resection and creation of end ileostomy. Today pt remains intubated and sedated in the ICU, WBC improved 02/01/2022 Patient remains in critical condition in the ICU, he is sedated and intubated, also he needs pressors currently on levophed . Wound VAC and dressing is in place. His heart rate is 149 and blood pressure 90/41, FiO2 of 45 and slightly tachypneic at 22. Chest x-ray showing atelectasis of the lungs. Also seen of the CT of the abdomen and pelvis. Also there is evidence of bilateral hilar lymphadenopathy and intra-abdominal lymphadenopathy with hepatomegaly consistent with his history of lymphoma. Ultrasound of the neck was positive for acute left DVT. He is on heparin drip, IV Protonix, normal saline, Zosyn and axis 02/02/2022 Remains in the ICU in critical condition, intubated and sedated with pulmonary/critical care team following him closely. Patient came off Levophed however he developed another atrial fibrillation and he was started on amiodarone drip again. He was continued on heparin drip as well. He remains on broad-spectrum antibiotics of Zosyn and Eraxis per ID team and wound VAC still in place. Chest x-ray showing similar changes like yesterday with small bilateral effusion with adjacent atelectasis versus infiltrates. Hemoglobin 7.3, WBC is 10.3 Heart rate is 115, blood pressure 149/59, FiO2 34% with respiratory rate 25 per min Objective - Vital Signs Vital signs: Vital Signs Temp 99.6 F 02/02/22 08:00 Pulse 106 H 02/02/22 08:00 Resp 24 02/02/22 08:00 BP 135/74 02/01/22 18:45 Pulse Ox 95 02/02/22 08:00 Intake & Output 02/01/22 02/02/22 02/02/22 18:59 06:59 18:59 Intake Total 2412.794 4369.521 156.675 Output Total 1260 915 125 Balance 9767.252 4325.521 31.675 Weight 149.1 kg Intake: IV 1200 3400 20 ACETAMINOPHEN IV (For NPO 100 ) 1,000 mg In Empty Bag 1 bag @ 400 mls/hr IVPB Q6HR PRN Rx#:[id number] Anidulafungin 100 mg In 100 Sodium Chloride 0.9% 100 ml @ 84 mls/hr IVPB DAILY [facility] Rx#:[id number] Piperacillin-Tazobactam 3 100 100 .375 gm In Sodium Chloride 0.9% 100 ml @ 25 mls/hr IVPB Q8HR [facility] Rx# :[id number] Sodium Chloride 0.9% 1, 800 3200 20 000 ml @ 100 mls/hr IV . Q10H [facility] Rx#:[id number] levETIRAcetam IV 500 mg 100 100 In Sodium Chloride 0.9% 100 ml @ 400 mls/hr IVPB Q12HR [facility] Rx#:[id number] Intake, IV Titration 1212.794 969.521 136.675 Amount Amiodarone 450 mg In 80.835 Dextrose 5% in Water 250 ml @ 0.5 MG/MIN 16.667 mls/hr IV .Q15H [facility] Rx#: [id number] Cisatracurium 200 mg In 127.669 344.245 36.675 Sodium Chloride 0.9% 180 ml @ 1 MCG/KG/MIN 7.938 mls/hr IV .Q24H [facility] Rx#: [id number] Heparin Sod,Pork in 0.45% 209.413 161.333 NaCl 25,000 unit In 0.45 % NaCl 1 250ml.bag @ 17. 38 UNITS/KG/HR 22.994 mls /hr IV .[id number] [facility] Rx#: [id number] Norepinephrine 8 mg In 319.824 21.675 Sodium Chloride 0.9% 250 ml @ 0.05 MCG/KG/MIN 12.8 mls/hr IV .[id number] [facility] Rx#:[id number] propofoL 1,000 mg In 475.053 442.268 100 Empty Bag 1 bag @ 5 MCG/ KG/MIN 3.919 mls/hr IV . Q24H [facility] Rx#:[id number] Output: Drainage 20 Abdomen 20 Urine 1240 915 125 Other: Voiding Method Indwelling Catheter Indwelling Catheter Indwelling Catheter ABP, PAP, CO, CI - Last Documented Arterial Blood Pressure 124/50 - Exam -GENERAL: The patient is Intubated and sedated HEENT: Pupils are round and equally reacting to light. EOMI. No scleral icterus. No conjunctival pallor. Normocephalic, atraumatic. No pharyngeal erythema. No thyromegaly. CARDIOVASCULAR: S1 and S2 present. No murmurs, rubs, or gallops. PULMONARY: Chest is clear to auscultation, no wheezing or crackles. -ABDOMEN: Soft, nontender, nondistended, normoactive bowel sounds. No palpable organomegaly. Surgical wound with dressing in place, rest of exam deferred to surgery team. Wound VAC is in place as well. MUSCULOSKELETAL: No joint swelling or deformity. EXTREMITIES: No cyanosis, clubbing, or pedal edema. NEUROLOGICAL: Gross neurological examination did not reveal any focal deficits. SKIN: No rashes. no petechiae. - Labs CBC & Chem 7: 02/02/22 04:32 02/02/22 04:32 Labs: Abnormal Lab Results - Last 24 Hours (Table) 02/01/22 02/01/22 02/01/22 Range/Units 11:53 11:59 16:30 RBC (4.30-5.90) m/uL Hgb (13.0-17.5) gm/dL Hct (39.0-53.0) % MCHC (31.0-37.0) g/dL RDW (11.5-15.5) % APTT 60.4 H (22.0-30.0) sec ABG pO2 (83-108) mmHg Chloride (98-107) mmol/L Carbon Dioxide (22-30) mmol/L BUN (9-20) mg/dL Glucose (74-99) mg/dL POC Glucose (mg/dL) 136 H 120 H (75-99) mg/dL Calcium (8.4-10.2) mg/dL Total Protein (6.3-8.2) g/dL Albumin (3.5-5.0) g/dL 02/01/22 02/01/22 02/02/22 Range/Units 20:02 23:36 04:31 RBC (4.30-5.90) m/uL Hgb (13.0-17.5) gm/dL Hct (39.0-53.0) % MCHC (31.0-37.0) g/dL RDW (11.5-15.5) % APTT (22.0-30.0) sec ABG pO2 (83-108) mmHg Chloride (98-107) mmol/L Carbon Dioxide (22-30) mmol/L BUN (9-20) mg/dL Glucose (74-99) mg/dL POC Glucose (mg/dL) 143 H 100 H 115 H (75-99) mg/dL Calcium (8.4-10.2) mg/dL Total Protein (6.3-8.2) g/dL Albumin (3.5-5.0) g/dL 02/02/22 02/02/22 02/02/22 Range/Units 04:32 04:32 04:32 RBC 2.51 L (4.30-5.90) m/uL Hgb 7.3 L (13.0-17.5) gm/dL Hct 24.6 L (39.0-53.0) % MCHC 29.6 L (31.0-37.0) g/dL RDW 15.6 H (11.5-15.5) % APTT 42.2 H (22.0-30.0) sec ABG pO2 (83-108) mmHg Chloride 114 H (98-107) mmol/L Carbon Dioxide 20 L (22-30) mmol/L BUN 21 H (9-20) mg/dL Glucose 106 H (74-99) mg/dL POC Glucose (mg/dL) (75-99) mg/dL Calcium 6.7 L (8.4-10.2) mg/dL Total Protein 3.5 L (6.3-8.2) g/dL Albumin 1.7 L (3.5-5.0) g/dL 02/02/22 02/02/22 Range/Units 05:45 08:44 RBC (4.30-5.90) m/uL Hgb (13.0-17.5) gm/dL Hct (39.0-53.0) % MCHC (31.0-37.0) g/dL RDW (11.5-15.5) % APTT (22.0-30.0) sec ABG pO2 76 L (83-108) mmHg Chloride (98-107) mmol/L Carbon Dioxide (22-30) mmol/L BUN (9-20) mg/dL Glucose (74-99) mg/dL POC Glucose (mg/dL) 109 H (75-99) mg/dL Calcium (8.4-10.2) mg/dL Total Protein (6.3-8.2) g/dL Albumin (3.5-5.0) g/dL Microbiology - Last 24 Hours (Table) 02/01/22 06:30 Blood Culture - Preliminary Blood No Growth after 24 hours 01/30/22 10:43 Blood Culture - Preliminary Blood No Growth after 48 hours 01/30/22 10:30 Blood Culture - Preliminary Blood No Growth after 48 hours Assessment and Plan Assessment: Small bowel obstruction status post exploratory laparotomy with drainage of the pelvic abscess, transverse pelvic colostomy and wound VAC placement on 01/30 Acute hypoxic respiratory failure postoperatively requiring intubation and mechanical ventilation Acute left deep venous thrombosis Lymphoma with hepatomegaly and her liver and intra-abdominal bilateral ly mphadenopathy. History of colon adenocarcinoma Intra-abdominal infection with abscess Septic shock secondary to above Plan: This is a 66 years old male with intra-abdominal infection, abscess status post bowel resection, colostomy. Also acute DVT and currently he is on septic shock. Continue with critical care management. Pulmonary/critical care team on the case. he is off pressors Continue with amiodarone drip. Continue with heparin drip Continue with antibiotics per ID team. Currently on Zosyn and Eraxis. Kidney with heparin drip and monitor hemoglobin and vitals. Continue with normal saline at 100 mL per hour Labs and medication were reviewed.. Continue same treatment. Continue with symptomatic treatment. . Monitor lytes and vitals. DVT and GI prophylaxis. Further recommendationsas per clinical course of the patient DVT prophylaxis: Heparin drip GI Prophylaxis: Ppi Prognosis is guarded Thank you for consulting us, we will follow up with you
[2022-02-02 11:59] LABS: Glucose,Whole Blood 132 mg/dL (75-99)
--- NOTE | 2022-02-02 12:15 | P.PN ---
Subjective Progress Note Date: 02/02/22 02/01/2022, the patient is being seen for a follow-up. The patient is postop day #2. The patient is being seen in the intensive care unit. This morning, the patient is sedated with propofol which is running at 50 mcg/kg per minute and the patient is also Nimbex at 25 macrovascular kilogram per minute and the patient is adequately sedated and paralyzed. The patient remains on a mechanical ventilator. This morning, he is on assist control mode at the rate of 16 with a tidal volume of 500, FiO2 of 35% with a PEEP of 5. The blood gases from today shows a pH of 7.25 with a pCO2 of 49 and a pO2 of 84. Chest x-ray shows development of small bilateral pleural effusions. The patient's cardiac rhythm is still tachycardic at this currently is sinus and the patient remains on amiodarone running at 0.5 g per minute. Meanwhile, the patient is also on norepinephrine infusion which is running at 0.11 mcg/kg per minute. IV fluids in the form of normal saline at the rate of 100 mL an hour and overall the patient has received 10 L of IV fluid boluses since he arrived from the operating room. Urine output is in order of 50-75 mL an hour. The patient has minimal output from the NG tube. The JOSE drain in the right lower quadrant is draining approximately 26 over the past 24 hours and the patient has a wound VAC in place. Meanwhile, the patient had positive pulmonary emboli and DVT and the patient is currently on IV heparin. The sodium today is at 138, potassium level is at 3.8, BUN is a 28 with a creatinine of 0.85. The patient has a white cell count of 19.8 with hemoglobin of 8.7 and the plated count of 299. Serum bicarbonate of 19. His having on and off episodes of fever. He is currently on examination of Zosyn and Eraxis as broad-spectrum antibiotic coverage. He is also covered with antifungal agents. 02/02/2022, the patient is postop day #3. The patient remains critically ill. Noted the patient was spiking temperatures throughout the day yesterday and the patient was becoming tachycardic and the patient was taken off amiodarone. Overnight, the patient was given 3 boluses of amiodarone 150 mg and the patient was restarted on a maintenance of 0.5 mg per minute. This morning, the patient is on a propofol infusion at the rate of 50 macrovascular kilogram per minute and the patient is also Nimbex at 1.5 macrovascular kilogram per minute and the patient is was sedated and paralyzed. The patient is in the normal infusions the rate of 100 mL an hour. The patient has a overall fluid balance of +4.6 L over the past 24 hours as the patient was given an additional 2 L Jorgito yesterday and the patient's CVP currently is around 10. The patient remains on a mechanical ventilator. The patient is an assist-control mode at the rate of 24, tidal volume of 500, FiO2 of 35% with a PEEP of 5. The blood gases from today shows a pH of 7.35 with a pCO2 of 39 and pO2 of 76. Chest x-ray still pending for now. Meanwhile, the patient has an NG tube with minimal amount of output. JOSE drain has produced only 10 mL over the past 24 hours. The patient's white cell count is at 10.3. Hemoglobin has dropped down to 7.3 and a platelet count is at 197. The patient has a sodium level of 138, chloride is 140 with a bicarb of 20 and a BUN is 21 with a creatinine of 0.6. The patient remains on IV heparin. No signs of any acute bleeding. The patient is a wound VAC over the anterior abdominal wound. He has developed increased edema in lower extremity is bilaterally. Antibiotic combination remains Zosyn and Eraxis. IVs on the case. General surgeries on the case. Condition remains extremely critical. Objective - Vital Signs Vital signs: Vital Signs Temp 99.4 F 02/02/22 12:00 Pulse 113 H 02/02/22 12:00 Resp 24 02/02/22 12:00 BP 135/74 02/02/22 10:30 Pulse Ox 93 L 02/02/22 12:00 Intake & Output 02/01/22 02/02/22 02/02/22 18:59 06:59 18:59 Intake Total 2412.794 4369.521 683.071 Output Total 1260 915 510 Balance 6092.219 0620.521 173.071 Weight 149.1 kg Intake: IV 1200 3400 380 ACETAMINOPHEN IV (For NPO 100 ) 1,000 mg In Empty Bag 1 bag @ 400 mls/hr IVPB Q6HR PRN Rx#:[id number] Anidulafungin 100 mg In 100 100 Sodium Chloride 0.9% 100 ml @ 84 mls/hr IVPB DAILY [facility] Rx#:[id number] Piperacillin-Tazobactam 3 100 100 100 .375 gm In Sodium Chloride 0.9% 100 ml @ 25 mls/hr IVPB Q8HR [facility] Rx# :[id number] Sodium Chloride 0.9% 1, 800 3200 80 000 ml @ 100 mls/hr IV . Q10H [facility] Rx#:[id number] levETIRAcetam IV 500 mg 100 100 100 In Sodium Chloride 0.9% 100 ml @ 400 mls/hr IVPB Q12HR [facility] Rx#:[id number] Intake, IV Titration 1212.794 969.521 303.071 Amount Amiodarone 450 mg In 80.835 Dextrose 5% in Water 250 ml @ 0.5 MG/MIN 16.667 mls/hr IV .Q15H [facility] Rx#: [id number] Cisatracurium 200 mg In 127.669 344.245 36.675 Sodium Chloride 0.9% 180 ml @ 1 MCG/KG/MIN 7.938 mls/hr IV .Q24H [facility] Rx#: [id number] Heparin Sod,Pork in 0.45% 209.413 161.333 88.667 NaCl 25,000 unit In 0.45 % NaCl 1 250ml.bag @ 17. 38 UNITS/KG/HR 22.994 mls /hr IV .[id number] [facility] Rx#: [id number] Norepinephrine 8 mg In 319.824 21.675 Sodium Chloride 0.9% 250 ml @ 0.05 MCG/KG/MIN 12.8 mls/hr IV .[id number] [facility] Rx#:[id number] propofoL 1,000 mg In 475.053 442.268 177.729 Empty Bag 1 bag @ 5 MCG/ KG/MIN 3.919 mls/hr IV . Q24H [facility] Rx#:[id number] Output: Drainage 20 Abdomen 20 Urine 1240 915 510 Other: Voiding Method Indwelling Catheter Indwelling Catheter Indwelling Catheter ABP, PAP, CO, CI - Last Documented Arterial Blood Pressure 122/49 - Exam Calm and comfortable, sedated with Precedex on a mechanical ventilator. Orogastric and orotracheal tube are both in place. Head exam was generally normal. There was no scleral icterus or corneal arcus. Mucous membranes were moist. Neck was supple and without jugular venous distension, thyromegaly, or carotid bruits. Carotids were easily palpable bilaterally. There was no adenopathy. Lungs sounds are diminished bilaterally along with some scattered throughout the lung hightower. Cardiac exam revealed the PMI to be normally situated and sized. The rhythm was irregular consistent with atrial fibrillation and no extrasystoles were noted during several minutes of auscultation. The first and second heart sounds were normal and physiologic splitting of the second heart sound was noted. There were no murmurs, rubs, clicks, or gallops. Abdomen is soft. Bowel sounds are hypoactive/absent. The patient has a right- sided colostomy without any output at this point in time and the tissue is viable. The patient has also a JOSE drain in the right lower quadrant. The patient has a mid abdominal incision and the patient has a wound VAC in place. Organs cannot be palpated. No direct tenderness. No rebound tenderness. No guarding. Examination of the extremities revealed easily palpable radial, femoral and pedal pulses. There was no cyanosis, clubbing and there is extensive edema in lower oximetry is bilaterally Examination of the skin revealed no evidence of significant rashes, suspicious appearing nevi or other concerning lesions. Abdominal wound was noted. Neurologically the patient is sedated, comfortable likely distress. - Labs CBC & Chem 7: 02/02/22 04:32 02/02/22 04:32 Labs: Abnormal Lab Results - Last 24 Hours (Table) 02/01/22 02/01/22 02/01/22 Range/Units 11:59 16:30 20:02 RBC (4.30-5.90) m/uL Hgb (13.0-17.5) gm/dL Hct (39.0-53.0) % MCHC (31.0-37.0) g/dL RDW (11.5-15.5) % APTT 60.4 H (22.0-30.0) sec ABG pO2 (83-108) mmHg Chloride (98-107) mmol/L Carbon Dioxide (22-30) mmol/L BUN (9-20) mg/dL Glucose (74-99) mg/dL POC Glucose (mg/dL) 120 H 143 H (75-99) mg/dL Calcium (8.4-10.2) mg/dL Total Protein (6.3-8.2) g/dL Albumin (3.5-5.0) g/dL 02/01/22 02/02/22 02/02/22 Range/Units 23:36 04:31 04:32 RBC 2.51 L (4.30-5.90) m/uL Hgb 7.3 L (13.0-17.5) gm/dL Hct 24.6 L (39.0-53.0) % MCHC 29.6 L (31.0-37.0) g/dL RDW 15.6 H (11.5-15.5) % APTT (22.0-30.0) sec ABG pO2 (83-108) mmHg Chloride (98-107) mmol/L Carbon Dioxide (22-30) mmol/L BUN (9-20) mg/dL Glucose (74-99) mg/dL POC Glucose (mg/dL) 100 H 115 H (75-99) mg/dL Calcium (8.4-10.2) mg/dL Total Protein (6.3-8.2) g/dL Albumin (3.5-5.0) g/dL 02/02/22 02/02/22 02/02/22 Range/Units 04:32 04:32 05:45 RBC (4.30-5.90) m/uL Hgb (13.0-17.5) gm/dL Hct (39.0-53.0) % MCHC (31.0-37.0) g/dL RDW (11.5-15.5) % APTT 42.2 H (22.0-30.0) sec ABG pO2 76 L (83-108) mmHg Chloride 114 H (98-107) mmol/L Carbon Dioxide 20 L (22-30) mmol/L BUN 21 H (9-20) mg/dL Glucose 106 H (74-99) mg/dL POC Glucose (mg/dL) (75-99) mg/dL Calcium 6.7 L (8.4-10.2) mg/dL Total Protein 3.5 L (6.3-8.2) g/dL Albumin 1.7 L (3.5-5.0) g/dL 02/02/22 02/02/22 Range/Units 08:44 11:56 RBC (4.30-5.90) m/uL Hgb (13.0-17.5) gm/dL Hct (39.0-53.0) % MCHC (31.0-37.0) g/dL RDW (11.5-15.5) % APTT (22.0-30.0) sec ABG pO2 (83-108) mmHg Chloride (98-107) mmol/L Carbon Dioxide (22-30) mmol/L BUN (9-20) mg/dL Glucose (74-99) mg/dL POC Glucose (mg/dL) 109 H 132 H (75-99) mg/dL Calcium (8.4-10.2) mg/dL Total Protein (6.3-8.2) g/dL Albumin (3.5-5.0) g/dL Microbiology - Last 24 Hours (Table) 02/01/22 06:30 Blood Culture - Preliminary Blood No Growth after 24 hours 01/30/22 10:43 Blood Culture - Preliminary Blood No Growth after 48 hours 01/30/22 10:30 Blood Culture - Preliminary Blood No Growth after 48 hours Assessment and Plan Plan: 1 acute abdomen with possibly development of an anastomotic leak and the patient presented with an acute abdominal pain and possibly an underlying abdominal abscess. The patient is postictal to laparotomy and drainage of a pelvic abscess and small bowel resection 3 along with transfers and colostomy and partial omentectomy. The patient has a wound VAC in place. The patient is postop day # 3. 2 history of colonic adenocarcinoma, T2 N0 M0 with a previous low AP resection 3 history of CLL/SLL with extensive intra-abdominal lymphadenopathy, this was probably the cause of the underlying development of small bowel obstruction. The patient has bulky lymphadenopathy within the abdomen. 4 acute hypoxic respiratory failure post abdominal surgery, currently intubated on mechanical ventilator. This morning, the patient is sedated and paralyzed on a mechanical ventilator. Blood gases was noted from today and there is improvement and acid base status 5 paroxysmal atrial fibrillation /flutter, started again on a on amiodarone drip after receiving several bolus of amiodarone yesterday. . The patient remains on a amiodarone maintenance of 0.5 mg per minute and the patient's underlying rhythm is sinus tachycardia.patient is also on IV heparin. 6 pulmonary embolism, bilateral based on CT angiogram. The patient has also has had previous history of PEs. Furthermore, the Doppler of the lower extremity showed a partially occlusive DVT in the left popliteal vein, the patient remains on IV heparin. No evidence of rebleeding and there is a drop in hemoglobin down to 7.3 and this will be monitored. 7 coronary artery disease with previous coronary stenting 4 8 history of seizure disorder 9 history of non-Hodgkin's lymphoma/CLL/SLL, treatment as mentioned above. The patient has progressed and the patient was being considered for a BT K inhibitor as the patient had progression of B symptoms along with lymphadenopathy in terms of his underlying lymphoma. 10 diabetes mellitus 11 hypertension 12 anemia, multifactorial secondary to above Plan Continue ventilator support No ventilator changes for today Discontinue amiodarone dripactivity maintenance of 0.5 mg per minute The patient has received an additional total of 2 L of IV fluid yesterday Continued IV Zosyn and Eraxis Continue IV heparin and watch for any signs of bleeding, monitor hemoglobin and hemoglobin currently is at 7.3 Continue IV Keppra Keep the wound VAC in place Keep the patient nothing by mouth Wean off norepinephrine infusion to maintain a mean artery pressure above 65 General surgeries on the case We'll continue to follow make further recommendations based on progress. Possible TPN within next 24 hours This is a critically care evaluation that was done more than 30 minutes. Condition is very critical. CODE STATUS is DNR/DNI as the patient has multiple comorbidities and his outcomes obviously poor baseline above-mentioned comorbidities. Time with Patient: Greater than 30
[2022-02-02 17:29] LABS: Glucose,Whole Blood 115 mg/dL (75-99)
[2022-02-02 20:22] LABS: Glucose,Whole Blood 127 mg/dL (75-99)
--- NOTE | 2022-02-02 22:59 | P.PN ---
Subjective Progress Note Date: 02/02/22 Principal diagnosis: Abdominal abscess and sepsis Patient is a 66-year-old male admitted to the hospital with abdominal abscess in this patient who is status post laparotomy drainage of the abscess but no culture and diverting colostomy patient subsequently has been admitted to the ICU on the vent has been running a fever and requiring a pressor support. On today's evaluation that is 02/02/2022 the patient is afebrile for the last 24 hour, the patient is off the pressor support, the patient FiO2 is stable at 35% and no significant purulent secretions through the ET or any other changes were reported by the nursing staff Objective - Vital Signs Vital signs: Vital Signs Temp 99.4 F 02/02/22 12:00 Pulse 107 H 02/02/22 13:00 Resp 24 02/02/22 13:00 BP 135/74 02/02/22 10:30 Pulse Ox 95 02/02/22 13:00 Intake & Output 02/01/22 02/02/22 02/02/22 18:59 06:59 18:59 Intake Total 2412.794 4369.521 783.071 Output Total 1260 915 625 Balance 3144.327 7840.521 158.071 Weight 149.1 kg Intake: IV 1200 3400 480 ACETAMINOPHEN IV (For NPO 100 ) 1,000 mg In Empty Bag 1 bag @ 400 mls/hr IVPB Q6HR PRN Rx#:[id number] Anidulafungin 100 mg In 100 100 Sodium Chloride 0.9% 100 ml @ 84 mls/hr IVPB DAILY [facility] Rx#:[id number] Piperacillin-Tazobactam 3 100 100 100 .375 gm In Sodium Chloride 0.9% 100 ml @ 25 mls/hr IVPB Q8HR [facility] Rx# :[id number] Sodium Chloride 0.9% 1, 800 3200 180 000 ml @ 100 mls/hr IV . Q10H [facility] Rx#:[id number] levETIRAcetam IV 500 mg 100 100 100 In Sodium Chloride 0.9% 100 ml @ 400 mls/hr IVPB Q12HR [facility] Rx#:[id number] Intake, IV Titration 1212.794 969.521 303.071 Amount Amiodarone 450 mg In 80.835 Dextrose 5% in Water 250 ml @ 0.5 MG/MIN 16.667 mls/hr IV .Q15H [facility] Rx#: [id number] Cisatracurium 200 mg In 127.669 344.245 36.675 Sodium Chloride 0.9% 180 ml @ 1 MCG/KG/MIN 7.938 mls/hr IV .Q24H [facility] Rx#: [id number] Heparin Sod,Pork in 0.45% 209.413 161.333 88.667 NaCl 25,000 unit In 0.45 % NaCl 1 250ml.bag @ 17. 38 UNITS/KG/HR 22.994 mls /hr IV .[id number] [facility] Rx#: [id number] Norepinephrine 8 mg In 319.824 21.675 Sodium Chloride 0.9% 250 ml @ 0.05 MCG/KG/MIN 12.8 mls/hr IV .[id number] [facility] Rx#:[id number] propofoL 1,000 mg In 475.053 442.268 177.729 Empty Bag 1 bag @ 5 MCG/ KG/MIN 3.919 mls/hr IV . Q24H [facility] Rx#:[id number] Output: Drainage 20 Abdomen 20 Urine 1240 915 625 Other: Voiding Method Indwelling Catheter Indwelling Catheter Indwelling Catheter ABP, PAP, CO, CI - Last Documented Arterial Blood Pressure 113/47 - Exam GENERAL DESCRIPTION: An elderly male intubated on the vent RESPIRATORY SYSTEM: Unlabored breathing , decreased breath sounds at bases HEART: S1 S2 regular rate and rhythm , ABDOMEN: Soft , midline incision is covered with a wound VAC EXTREMITIES: No edema feet - Labs CBC & Chem 7: 02/02/22 04:32 02/02/22 04:32 Labs: Abnormal Lab Results - Last 24 Hours (Table) 02/01/22 02/01/22 02/01/22 Range/Units 16:30 20:02 23:36 RBC (4.30-5.90) m/uL Hgb (13.0-17.5) gm/dL Hct (39.0-53.0) % MCHC (31.0-37.0) g/dL RDW (11.5-15.5) % APTT (22.0-30.0) sec ABG pO2 (83-108) mmHg Chloride (98-107) mmol/L Carbon Dioxide (22-30) mmol/L BUN (9-20) mg/dL Glucose (74-99) mg/dL POC Glucose (mg/dL) 120 H 143 H 100 H (75-99) mg/dL Calcium (8.4-10.2) mg/dL Total Protein (6.3-8.2) g/dL Albumin (3.5-5.0) g/dL 02/02/22 02/02/22 02/02/22 Range/Units 04:31 04:32 04:32 RBC 2.51 L (4.30-5.90) m/uL Hgb 7.3 L (13.0-17.5) gm/dL Hct 24.6 L (39.0-53.0) % MCHC 29.6 L (31.0-37.0) g/dL RDW 15.6 H (11.5-15.5) % APTT (22.0-30.0) sec ABG pO2 (83-108) mmHg Chloride 114 H (98-107) mmol/L Carbon Dioxide 20 L (22-30) mmol/L BUN 21 H (9-20) mg/dL Glucose 106 H (74-99) mg/dL POC Glucose (mg/dL) 115 H (75-99) mg/dL Calcium 6.7 L (8.4-10.2) mg/dL Total Protein 3.5 L (6.3-8.2) g/dL Albumin 1.7 L (3.5-5.0) g/dL 02/02/22 02/02/22 02/02/22 Range/Units 04:32 05:45 08:44 RBC (4.30-5.90) m/uL Hgb (13.0-17.5) gm/dL Hct (39.0-53.0) % MCHC (31.0-37.0) g/dL RDW (11.5-15.5) % APTT 42.2 H (22.0-30.0) sec ABG pO2 76 L (83-108) mmHg Chloride (98-107) mmol/L Carbon Dioxide (22-30) mmol/L BUN (9-20) mg/dL Glucose (74-99) mg/dL POC Glucose (mg/dL) 109 H (75-99) mg/dL Calcium (8.4-10.2) mg/dL Total Protein (6.3-8.2) g/dL Albumin (3.5-5.0) g/dL 02/02/22 02/02/22 Range/Units 11:56 11:59 RBC (4.30-5.90) m/uL Hgb (13.0-17.5) gm/dL Hct (39.0-53.0) % MCHC (31.0-37.0) g/dL RDW (11.5-15.5) % APTT 56.8 H (22.0-30.0) sec ABG pO2 (83-108) mmHg Chloride (98-107) mmol/L Carbon Dioxide (22-30) mmol/L BUN (9-20) mg/dL Glucose (74-99) mg/dL POC Glucose (mg/dL) 132 H (75-99) mg/dL Calcium (8.4-10.2) mg/dL Total Protein (6.3-8.2) g/dL Albumin (3.5-5.0) g/dL Microbiology - Last 24 Hours (Table) 01/30/22 10:43 Blood Culture - Preliminary Blood No Growth after 72 hours 01/30/22 10:30 Blood Culture - Preliminary Blood No Growth after 72 hours 02/01/22 06:30 Blood Culture - Preliminary Blood No Growth after 24 hours Assessment and Plan (1) Pelvic abscess Current Visit: Yes Status: Acute Code(s): FNA7627 - SNOMED Code(s): 731778249 Plan: 1patient presented to hospital with sepsis secondary abdominal source in this patient who recently did have a sigmoidectomy now with evidence of anastomosis leak and pelvic abscess patient is status post laparotomy drainage of the abscess unfortunately cultures were not done will need to cover for the enteric gram-negative to be the likely pathogen. 2 patient to continue with Zosyn 3.375 g every 8 hours, micafungin and daptomycin while waiting for condition to stabilized Time with Patient: Less than 30
[2022-02-03 00:42] LABS: Glucose,Whole Blood 124 mg/dL (75-99)
[2022-02-03] MEDS: PIPERACILLIN-TAZOBACTAM 3.375 GM in SODIUM CHLORIDE 0.9% 100 ML IVPB SCH ×3 (00:53→16:07)
[2022-02-03] MEDS: CISATRACURIUM 200 MG in SODIUM CHLORIDE 0.9% 180 ML IV SCH (00:56)
[2022-02-03] MEDS: HEPARIN SOD,PORK IN 0.45% NACL 25,000 UNIT in 0.45% NACL 1 250ML.BAG IV SCH ×2 (00:56→12:38)
[2022-02-03] MEDS: INSULIN ASPART (NovoLOG) 100 UNIT/ML VIAL SQ SCH ×5 (00:58→18:19)
[2022-02-03] MEDS: ARTIFICIAL TEARS-HYPROMELLOSE DROPS 15 ML BTL BOTH EYES SCH ×4 (00:59→12:37)
[2022-02-03 03:51] LABS: Glucose,Whole Blood 129 mg/dL (75-99)
[2022-02-03] MEDS: MORPHINE SULFATE 4 MG/ML SYRINGE IV PRN ×7 (03:55→22:18)
[2022-02-03] MEDS: SODIUM CHLORIDE 0.9% 1,000 ML IV SCH ×3 (03:57→16:03)
[2022-02-03 04:23] LABS: HGB 7.3 gm/dL (13.0-17.5); Hypochromasia Marked; MCH 28.6 pg (25.0-35.0); MCV 98.7 fL (80.0-100.0); Macrocytosis Slight; Mean Platelet Volume 9.1; Platelet Count 224 k/uL (150-450); RBC 2.54 m/uL (4.30-5.90); RDW 15.3 % (11.5-15.5); WBC 12.4 k/uL (3.8-10.6)
[2022-02-03 04:54] LABS: African American GFR (CKD) >90 (>60 ml/min/1.73 sqM); Anion Gap 6 mmol/L; Blood Urea Nitrogen 18 mg/dL (9-20); Calcium 7.1 mg/dL (8.4-10.2); Carbon Dioxide 21 mmol/L (22-30); Chloride 114 mmol/L (98-107); Glucose 121 mg/dL (74-99); Non-African American GFR(CKD) >90 (>60 ml/min/1.73 sqM); Potassium 3.8 mmol/L (3.5-5.1); Sodium 141 mmol/L (137-145)
[2022-02-03 05:56] LABS: ABG Base Excess -3.7 mmol/L; ABG HCO3 22 mmol/L (21-25); ABG Oxygen Saturation 97.2 % (94-97); ABG PCO2 39 mmHg (35-45); ABG PH 7.36 (7.35-7.45); ABG PO2 85 mmHg (83-108); ABG TCO2 23 mmol/L (19-24); Allen Test Performed? Yes
[2022-02-03] MEDS: HEPARIN SODIUM 1,000 UN/ML (10ML VL) IV PRN (06:00)
[2022-02-03] MEDS ORDERED: Potassium Replacement Protocol 1 EACH MISC MISCELLANE PRN (07:15)
--- NOTE | 2022-02-03 07:18 | XR ---
EXAMINATION TYPE: XR chest 1V portable DATE OF EXAM: 02/03/2022 COMPARISON: 02/02/2022 HISTORY: SOB, Follow Up FINDINGS: Indwelling tubes and catheters are unchanged. No change in bibasilar opacities. Stable appearance of the cardio-mediastinal structures at this time. Pleural effusion unchanged. IMPRESSION: 1. Stable portable chest. Clinical correlation and follow up until resolution is recommended.
[2022-02-03] MEDS ORDERED: POTASSIUM BICARBONATE/CIT AC 20 MEQ TABLET.EFF NG-TUBE SCH (08:00)
--- NOTE | 2022-02-03 08:27 | CDI ---
Documentation Clarification Form Date: 02/03/2022 08:05:43 AM From: Brittny Hale CCS, CCDS Admit Date: 01/30/2022 12:41:00 PM Patient Name: Nikolai Trevino Visit Number: [id number] Discharge Date: ATTENTION: The Clinical Documentation Specialists (CDI) and [facility] Coding Staff appreciate your assistance in clarifying documentation. Please respond to the clarification below the line at the bottom and electronically sign. The CDI & [facility] Coding staff will review the response and follow-up if needed. Please note: Queries are made part of the Legal Health Record. If you have any questions, please contact the author of this message via ITS. Dr. Renan Montero: Acute Hypoxic Respiratory Failure status post abdominal surgery is documented in the 01/31 Pulmonary/Critical Care Consult on 01/30. The patient is status post a bowel resection for previously diagnosed Colon Cancer and returned on 01/28 with an abdominal infection, underwent a bowel resection & colostomy on 01/30, transferred to the ICU intubated and remains intubated as of 02/03. Additional clarification is requested regarding the relationship, if any, that exists between the diagnosis of acute hypoxic respiratory failure and the procedure. Patients Admitting Diagnosis 01/30: Postoperative Abscess, Fever, immunocompromised, Colorectal Cancer, mesenteric Lymphadenopathy & DM II. Post-Operative Diagnosis 01/30: Pelvic Abscess, Small bowel obstruction due to severe inflammatory reaction the small bowel. Lymphoma. Procedure performed 01/30: Exploratory laparotomy, Drainage of the pelvic abscess, Small bowel resection x3, Transverse end colostomy, Placement of wound VAC & Partial Omentectomy. History/Risk Factors per the 01/31 H/P: CAD, Non Hodgkins Lymphoma, DM, Hyperlipidemia, Hypertension, DE, Osteoarthritis, PE, Seizure Disorder. Clinical Indicators: Presented to the ED on 01/30 with GI bleed status post recent Sigmoidectomy for Cancer. Admit with GI Bleed, Post Surgical Complication, Intra-abdominal infection, Sinus tachycardia. 01/30 VS: T 98, P 130, R 18, BP 133/77, PO 96 RA, BMI: 40.5 01/31 VS: T 98.2, P 133-140, R 23, BP 129/83, PO 98 on vent. 01/30 LAB: Hgb 10.8, Hct 33.1, Na 133, Chloride 95, BUN 27, Glucose 150, total Protein 5.6, Albumin 3.0 01/31 LAB: WBC 14.0, RBC 2.89, Hgb 8.5, Hct 27.9, Neut 10.60, Higgins 0.14, Na 134, CO2 20, BUN 26, Glucose 170, Calcium 7.3, Mag 1.5, Total Protein 3.7, Albumin 1.9 01/31 ABG: pH 7.33, O2 Sat 98.0. 01/31 CXR: Low lung volumes w/bibasilar atelectasis and/or developing infiltrates. Treatment 01/31: Intubated on vent, Insulin sliding scale, IV MagSulfate/Dextrose 100 mls/hr q1H, IV Na Cl 2,000 mls @ 999 mls/hr q2H, IV Na Cl 1,000 mls @ 999 mls/hr q1H, IV Levophed 254 mls @ 25.203 mls/hr q10H. What relationship, if any, exists between the diagnosis of Acute Hypoxic Respiratory Failure and the procedure: [ ] Acute Hypoxic Respiratory Failure is a complication of surgical procedure [ x] Acute Hypoxic Respiratory Failure is an expected outcome of the surgical procedure [ ] Acute Hypoxic Respiratory Failure is related to patients co-morbid condition(s) of, please specify: & not a complication of the procedure [ ] Other please specify: [ ] Unable to determine (Template Last Revised: December 2020) MTDD
--- NOTE | 2022-02-03 08:40 | CDI ---
Documentation Clarification Form Date: 02/03/2022 08:28:00 AM From: Brittny Hale CCS, CCDS Admit Date: 01/30/2022 12:41:00 PM Patient Name: Nikolai Trevino Visit Number: [id number] Discharge Date: ATTENTION: The Clinical Documentation Specialists (CDI) and [facility] Coding Staff appreciate your assistance in clarifying documentation. Please respond to the clarification below the line at the bottom and electronically sign. The CDI & [facility] Coding staff will review the response and follow-up if needed. Please note: Queries are made part of the Legal Health Record. If you have any questions, please contact the author of this message via ITS. Dr. Renan Montero: Anemia, multifactorial secondary to above is documented in the 01/31 Pulmonary/Critical Care Consult and in subsequent Progress Notes, (patient is admitted with Acute Abdomen with possible Anastomotic Leak status post Small Bowel Resection, Drainage of Pelvic Abscess and Transverse End Cololstomy) Additional specificity regarding the Acuity & Type of Anemia is requested. Patients Admitting Diagnosis 01/30: Postoperative Abscess, Fever, immunocompromised, Colorectal Cancer, mesenteric Lymphadenopathy & DM II. Post-Operative Diagnosis 01/30: Pelvic Abscess, Small bowel obstruction due to severe inflammatory reaction the small bowel. Lymphoma. Procedure performed 01/30: Exploratory laparotomy, Drainage of the pelvic abscess, Small bowel resection x3, Transverse end colostomy, Placement of wound VAC & Partial Omentectomy. History/Risk Factors per the 01/31 H/P: CAD, Non Hodgkins Lymphoma, DM, Hyperlipidemia, Hypertension, MS, Osteoarthritis, PE, Seizure Disorder. Clinical Indicators: Presented to the ED on 01/30 with GI bleed status post recent Sigmoidectomy for Cancer. Admit with GI Bleed, Post Surgical Complication, Intra-abdominal infection, Sinus tachycardia. 01/30 VS: T 98, P 130, R 18, BP 133/77, PO 96 RA, BMI: 40.5 01/31 VS: T 98.2, P 133-140, R 23, BP 129/83, PO 98 on vent. 01/30: Hgb 10.8, 10.7, Hct 33.1, 35.4 01/31: Hgb 9.7, 8.5; 32.5, 27.9 4/9: Hgb 8.7, Hct 29.3 02/02: Hgb 7.3, Hct 24.6 02/03: Hgb 7.3, Hct 25.0 Treatment 01/30: IV Na Cl 1,000 mls @ 999 mls/hr q1H, IV Zosyn 100 mls @ 200 mls/hr x1, IV Na Cl 1,000 mls @ 999 mls/hr q1H, IV Na 1,000 mls @ 100 mls/hr q10H, IV Lactated Ringers 01/31: Intubated on vent, Insulin sliding scale, IV MagSulfate/Dextrose 100 mls/hr q1H, IV Na Cl 2,000 mls @ 999 mls/hr q2H, IV Na Cl 1,000 mls @ 999 mls/hr q1H, IV Levophed 254 mls @ 25.203 mls/hr q10H. Please clarify the Type and Acuity of Anemia: [ ] Acute blood loss anemia [ ] Acute on chronic blood loss anemia [ ] Chronic blood loss anemia [ ] Hemolytic anemia [ ] Drug induced anemia [ x ] Anemia due to malignancy [ ] Nutritional anemia [ ] Unable to determine [ ] Other, please specify (Template Last Revised: November 2020) MTDD
[2022-02-03] MEDS: CHLORHEXIDINE GLUCONATE 15 ML CUP MUCOUS MEM SCH ×2 (08:56→20:47)
[2022-02-03] MEDS: ANIDULAFUNGIN 100 MG in SODIUM CHLORIDE 0.9% 100 ML IVPB SCH (08:56)
[2022-02-03] MEDS: PANTOPRAZOLE 40 MG/10 ML VIAL IVP SCH (08:56)
[2022-02-03] MEDS: levETIRAcetam IV 500 MG in SODIUM CHLORIDE 0.9% 100 ML IVPB SCH ×2 (08:56→20:48)
[2022-02-03] MEDS: NOREPINEPHRINE 8 MG in SODIUM CHLORIDE 0.9% 250 ML IV SCH (09:11)
[2022-02-03 09:12] LABS: Glucose,Whole Blood 118 mg/dL (75-99)
[2022-02-03] MEDS: POTASSIUM CHLORIDE 10 MEQ in WATER FOR INJECTION 1 100ML.BAG IVPB SCH ×2 (09:26→12:38)
[2022-02-03] MEDS: AMIODARONE 450 MG in DEXTROSE 5% IN WATER 250 ML IV SCH ×2 (10:14)
[2022-02-03] MEDS: FUROSEMIDE 10 MG/ML 4 ML VIAL IV SCH ×2 (10:15→20:47)
[2022-02-03 11:45] LABS: Glucose,Whole Blood 143 mg/dL (75-99)
--- NOTE | 2022-02-03 12:46 | P.PN ---
Subjective Progress Note Date: 02/03/22 Principal diagnosis: Abdominal pain, acute hypoxic respiratory failure, acute abdomen, small bowel obstruction On 02/03/2022 patient seen in follow-up in the intensive care unit. Patient is status post laparotomy and drainage of a pelvic abscess and Small Bowel Resection 3 along with transverse colostomy and partial omentectomy. Patient remains intubated, sedated and paralyzed on mechanical ventilator on assist control mode with a rate of 24, Tylenol is 500, FiO2 of 35% and PEEP of 5, this morning blood gases shows pO2 of 85, pCO2 of 39, pH of 7.36 this was done on the above-mentioned ventilator settings. Today's chest x-ray shows low lung volumes, mild cardiomegaly, some central vascular congestion small to tiny bilateral pleural effusions and associated bibasilar atelectasis. No significant change compared to most recent exam. Patient is currently on Diprivan and at 50 mics per kilo per minute, amiodarone at 0.5 mg per hour, Nimbex is at 1.5 mics per kilo per minute, and heparin infusion at weight-based protocol. Has not been started on tube feedings yet, hemodynamically he is not requiring any vasopressor support. He remains on a combination of antibiotics with Zosyn and Eraxis. Blood cultures remain negative. He is in sinus rhythm sinus tach with a rate of 108 BPM. Generally appears to be quite fluid overloaded. Patient has required multiple fluid boluses initially in the postoperative period after surgery for hypotension. According to the documented weight he is positive at least 21 kg since admission. Patient has mild generalized edema in his upper and truncal edema, and moderate pitting edema in his bilateral lower extremities. Has not received any diuretics yet. Mid abdominal incision with a wound VAC in place with minimal output. JOSE drain in the right lower abdomen also putting out minimal amount of drainage. Colostomy in the right upper quadrant is not producing any gas or stool. Bowel sounds are absent or extremely hypoactive. No acute issues overnight. Today's lab 7 reviewed showing a white blood cell count which is improved and is down to 12.4 hemoglobin is 7.3, sodium is 141, potassium is 3.8, chloride is 114, CO2 is 21, BUN is 18 creatinine 0.57. Objective - Vital Signs Vital signs: Vital Signs Temp 97.9 F 02/03/22 08:00 Pulse 123 H 02/03/22 11:00 Resp 16 02/03/22 11:00 BP 135/74 02/02/22 10:30 Pulse Ox 95 02/03/22 11:00 Intake & Output 02/02/22 02/03/22 02/03/22 18:59 06:59 18:59 Intake Total 1593.474 6193.628 923.319 Output Total 1075 1085 755 Balance 647.242 997.628 168.319 Weight 151 kg Intake: IV 980 1060 620.6 .9 KVO 20 Amiodarone 450 mg In 16.6 Dextrose 5% in Water 250 ml @ 0.5 MG/MIN 16.667 mls/hr IV .Q15H [facility] Rx#: [id number] Anidulafungin 100 mg In 100 84 Sodium Chloride 0.9% 100 ml @ 84 mls/hr IVPB DAILY [facility] Rx#:[id number] Piperacillin-Tazobactam 3 100 100 100 .375 gm In Sodium Chloride 0.9% 100 ml @ 25 mls/hr IVPB Q8HR [facility] Rx# :[id number] Sodium Chloride 0.9% 1, 680 860 300 000 ml @ 100 mls/hr IV . Q10H [facility] Rx#:[id number] levETIRAcetam IV 500 mg 100 100 100 In Sodium Chloride 0.9% 100 ml @ 400 mls/hr IVPB Q12HR [facility] Rx#:[id number] Intake, IV Titration 934.735 9060.628 302.719 Amount Amiodarone 450 mg In 239.171 Dextrose 5% in Water 250 ml @ 0.5 MG/MIN 16.667 mls/hr IV .Q15H [facility] Rx#: [id number] Cisatracurium 200 mg In 36.675 198.847 117.152 Sodium Chloride 0.9% 180 ml @ 1 MCG/KG/MIN 7.938 mls/hr IV .Q24H [facility] Rx#: [id number] Heparin Sod,Pork in 0.45% 88.667 344.808 NaCl 25,000 unit In 0.45 % NaCl 1 250ml.bag @ 17. 38 UNITS/KG/HR 22.994 mls /hr IV .[id number] [facility] Rx#: [id number] propofoL 1,000 mg In 377.729 478.973 185.567 Empty Bag 1 bag @ 5 MCG/ KG/MIN 3.919 mls/hr IV . Q24H [facility] Rx#:[id number] Output: Urine 1075 1085 755 Other: Voiding Method Indwelling Catheter Indwelling Catheter Indwelling Catheter ABP, PAP, CO, CI - Last Documented Arterial Blood Pressure 149/57 - Exam GENERAL EXAM: Sedated, intubated and paralyzed 66-year-old white man on assist- control mode of ventilation with a rate of 24, tacrolimus 500, FiO2 of 35% and PEEP of 5 comfortable in no apparent distress. HEAD: Normocephalic/atraumatic. EYES: Normal reaction of pupils, equal size. Conjunctiva pink, sclera white. NOSE: Clear with pink turbinates. THROAT: No erythema or exudates. NECK: No masses, no JVD, no thyroid enlargement, no adenopathy. CHEST: No chest wall deformity. Symmetrical expansion. LUNGS: Equal air entry with no crackles, wheeze, rhonchi or dullness. CVS: Regular rate and rhythm, normal S1 and S2, no gallops, no murmurs, no rubs ABDOMEN: Soft, mid abdominal incision with wound VAC in place black foam, with minimal drainage and the canister, right-sided JOSE drain with minimal output, right-sided colostomy with no gas or stool. No hepatosplenomegaly, normal bowel sounds, no guarding or rigidity. EXTREMITIES: No clubbing, to monitor generalized edema no cyanosis, 2+ pulses and upper and lower extremities. MUSCULOSKELETAL: Muscle strength and tone normal. SPINE: No scoliosis or deformity SKIN: No rashes CENTRAL NERVOUS SYSTEM: Sedated and intubated No focal deficits, tone is normal in all 4 extremities. - Labs CBC & Chem 7: 02/03/22 03:50 02/03/22 03:50 Labs: Abnormal Lab Results - Last 24 Hours (Table) 02/02/22 02/02/22 02/03/22 Range/Units 17:27 20:21 00:41 WBC (3.8-10.6) k/uL RBC (4.30-5.90) m/uL Hgb (13.0-17.5) gm/dL Hct (39.0-53.0) % MCHC (31.0-37.0) g/dL APTT (22.0-30.0) sec ABG O2 Saturation (94-97) % Chloride (98-107) mmol/L Carbon Dioxide (22-30) mmol/L Creatinine (0.66-1.25) mg/dL Glucose (74-99) mg/dL POC Glucose (mg/dL) 115 H 127 H 124 H (75-99) mg/dL Calcium (8.4-10.2) mg/dL 02/03/22 02/03/22 02/03/22 Range/Units 03:49 03:50 03:50 WBC 12.4 H (3.8-10.6) k/uL RBC 2.54 L (4.30-5.90) m/uL Hgb 7.3 L (13.0-17.5) gm/dL Hct 25.0 L (39.0-53.0) % MCHC 29.0 L (31.0-37.0) g/dL APTT 40.2 H (22.0-30.0) sec ABG O2 Saturation (94-97) % Chloride (98-107) mmol/L Carbon Dioxide (22-30) mmol/L Creatinine (0.66-1.25) mg/dL Glucose (74-99) mg/dL POC Glucose (mg/dL) 129 H (75-99) mg/dL Calcium (8.4-10.2) mg/dL 02/03/22 02/03/22 02/03/22 Range/Units 03:50 05:52 09:10 WBC (3.8-10.6) k/uL RBC (4.30-5.90) m/uL Hgb (13.0-17.5) gm/dL Hct (39.0-53.0) % MCHC (31.0-37.0) g/dL APTT (22.0-30.0) sec ABG O2 Saturation 97.2 H (94-97) % Chloride 114 H (98-107) mmol/L Carbon Dioxide 21 L (22-30) mmol/L Creatinine 0.57 L (0.66-1.25) mg/dL Glucose 121 H (74-99) mg/dL POC Glucose (mg/dL) 118 H (75-99) mg/dL Calcium 7.1 L (8.4-10.2) mg/dL 02/03/22 Range/Units 11:44 WBC (3.8-10.6) k/uL RBC (4.30-5.90) m/uL Hgb (13.0-17.5) gm/dL Hct (39.0-53.0) % MCHC (31.0-37.0) g/dL APTT (22.0-30.0) sec ABG O2 Saturation (94-97) % Chloride (98-107) mmol/L Carbon Dioxide (22-30) mmol/L Creatinine (0.66-1.25) mg/dL Glucose (74-99) mg/dL POC Glucose (mg/dL) 143 H (75-99) mg/dL Calcium (8.4-10.2) mg/dL Microbiology - Last 24 Hours (Table) 02/01/22 06:30 Blood Culture - Preliminary Blood No Growth after 48 hours 01/30/22 10:43 Blood Culture - Preliminary Blood No Growth after 72 hours 01/30/22 10:30 Blood Culture - Preliminary Blood No Growth after 72 hours Assessment and Plan Plan: Assessment: #1. Abdominal sepsis with the possibility of development of an anastomotic leak, patient is status post exploratory laparotomy, drainage of a pelvic abscess and small bowel resection 3 along with transverse colostomy and partial omentectomy, postoperative day #4 #2. Acute hypoxic respiratory failure related to acute sepsis, patient remains on ventilator today on 02/03/2022 #3. History of CLL/SLL with extensive intra-abdominal lymphadenopathy, likely contributing to small bowel obstruction #4. History of colonic adenocarcinomaT2, N0, M0 with a previous low AP resection #5. Paroxysmal atrial fibrillation, shouldn't is currently in sinus mechanism, remains on amiodarone drip #6. Bilateral pulmonary embolism based on the CT angiogram of the chest, patient has previous history of PEs. Lower extremity Doppler showed a DVT in the left popliteal vein, patient remains on heparin infusion #7. Coronary artery disease with previous intervention 4 #8. History of seizure disorder #9. History of non-Hodgkin's lymphoma #10. Diabetes mellitus #11. Hypertension #12. Acute on chronic anemia, possibly related to blood loss related to recent history of GI bleeding, nutritional and some dilutional anemia Plan: Continue antibiotics We'll stop the paralytics Continue with amiodarone, continue heparin infusion We'll add Lasix 40 mg twice daily Nutritional recommendations per surgery Continue weaning FiO2 Follow-up blood gases labs and chest x-ray tomorrow No plans for weaning today We will try to wean off the paralytics and reassess tolerance Continue to follow his clinical course Overall prognosis is extremely guarded I have personally seen and examined the patient, performed the documentation and the assessment and plan as written. Number of minutes spent on the visit: [15] Time with Patient: Greater than 30
--- NOTE | 2022-02-03 12:56 | P.PN ---
Subjective Progress Note Date: 02/03/22 CHIEF COMPLAINT: Pelvic abscess HISTORY OF PRESENT ILLNESS: Patient is status post exploratory laparotomy, drainage of pelvic abscess, small bowel resection 3, transverse and colostomy, placement of wound VAC and partial omentectomy. He is postop day #4. Patient remains in the ICU and on mechanical ventilation. No function from ostomy. He is still requiring IV amiodarone. Patient is on IV heparin for pulmonary embolism, DVT and afib. WBC is up from 10.3-12.4. Hemoglobin 7.3 sodium 141 potassium 3.8 creatinine 0.57 PHYSICAL EXAM: VITAL SIGNS: Reviewed. GENERAL: Well-developed in no acute distress. HEENT: No sclera icterus. Extraocular movements grossly intact. Moist buccal mucosa. Head is atraumatic, normocephalic. ABDOMEN: soft, Nondistended. Wound VAC in place, ostomy pink without output NEUROLOGIC: Alert and oriented. Cranial nerves II through XII grossly intact. ASSESSMENT: 1. Pelvic abscess, small bowel obstruction due to severe inflammatory reaction in the small bowel and lymphoma status post exploratory laparotomy, drainage of pelvic abscess, small bowel resection 3, transverse and colostomy, placement of wound VAC and partial omentectomy 2. History of colonic adenocarcinoma 3. History of non-Hodgkin's lymphoma 4. Hypomagnesemia 5. Pulmonary embolism and DVT left leg PLAN: -Continue ICU management -Continue supportive care -Continue antibiotics Physician Driver Messenger note has been reviewed by physician. Signing provider agrees with the documented findings, assessment, and plan of care. Objective - Vital Signs Vital signs: Vital Signs Temp 97.9 F 02/03/22 08:00 Pulse 123 H 02/03/22 11:00 Resp 16 02/03/22 11:00 BP 135/74 02/02/22 10:30 Pulse Ox 95 02/03/22 11:00 Intake & Output 02/02/22 02/03/22 02/03/22 18:59 06:59 18:59 Intake Total 1511.430 7850.628 1068.876 Output Total 1075 1085 755 Balance 647.242 997.628 313.876 Weight 151 kg Intake: IV 980 1060 620.6 .9 KVO 20 Amiodarone 450 mg In 16.6 Dextrose 5% in Water 250 ml @ 0.5 MG/MIN 16.667 mls/hr IV .Q15H [facility] Rx#: [id number] Anidulafungin 100 mg In 100 84 Sodium Chloride 0.9% 100 ml @ 84 mls/hr IVPB DAILY [facility] Rx#:[id number] Piperacillin-Tazobactam 3 100 100 100 .375 gm In Sodium Chloride 0.9% 100 ml @ 25 mls/hr IVPB Q8HR [facility] Rx# :[id number] Sodium Chloride 0.9% 1, 680 860 300 000 ml @ 100 mls/hr IV . Q10H [facility] Rx#:[id number] levETIRAcetam IV 500 mg 100 100 100 In Sodium Chloride 0.9% 100 ml @ 400 mls/hr IVPB Q12HR [facility] Rx#:[id number] Intake, IV Titration 389.167 7228.628 448.276 Amount Amiodarone 450 mg In 239.171 Dextrose 5% in Water 250 ml @ 0.5 MG/MIN 16.667 mls/hr IV .Q15H [facility] Rx#: [id number] Cisatracurium 200 mg In 36.675 198.847 117.152 Sodium Chloride 0.9% 180 ml @ 1 MCG/KG/MIN 7.938 mls/hr IV .Q24H [facility] Rx#: [id number] Heparin Sod,Pork in 0.45% 88.667 344.808 145.557 NaCl 25,000 unit In 0.45 % NaCl 1 250ml.bag @ 17. 38 UNITS/KG/HR 22.994 mls /hr IV .[id number] [facility] Rx#: [id number] propofoL 1,000 mg In 377.729 478.973 185.567 Empty Bag 1 bag @ 5 MCG/ KG/MIN 3.919 mls/hr IV . Q24H [facility] Rx#:[id number] Output: Urine 1075 1085 755 Other: Voiding Method Indwelling Catheter Indwelling Catheter Indwelling Catheter ABP, PAP, CO, CI - Last Documented Arterial Blood Pressure 149/57 - Labs CBC & Chem 7: 02/03/22 03:50 02/03/22 03:50 Labs: Abnormal Lab Results - Last 24 Hours (Table) 02/02/22 02/02/22 02/03/22 Range/Units 17:27 20:21 00:41 WBC (3.8-10.6) k/uL RBC (4.30-5.90) m/uL Hgb (13.0-17.5) gm/dL Hct (39.0-53.0) % MCHC (31.0-37.0) g/dL APTT (22.0-30.0) sec ABG O2 Saturation (94-97) % Chloride (98-107) mmol/L Carbon Dioxide (22-30) mmol/L Creatinine (0.66-1.25) mg/dL Glucose (74-99) mg/dL POC Glucose (mg/dL) 115 H 127 H 124 H (75-99) mg/dL Calcium (8.4-10.2) mg/dL 02/03/22 02/03/22 02/03/22 Range/Units 03:49 03:50 03:50 WBC 12.4 H (3.8-10.6) k/uL RBC 2.54 L (4.30-5.90) m/uL Hgb 7.3 L (13.0-17.5) gm/dL Hct 25.0 L (39.0-53.0) % MCHC 29.0 L (31.0-37.0) g/dL APTT 40.2 H (22.0-30.0) sec ABG O2 Saturation (94-97) % Chloride (98-107) mmol/L Carbon Dioxide (22-30) mmol/L Creatinine (0.66-1.25) mg/dL Glucose (74-99) mg/dL POC Glucose (mg/dL) 129 H (75-99) mg/dL Calcium (8.4-10.2) mg/dL 02/03/22 02/03/22 02/03/22 Range/Units 03:50 05:52 09:10 WBC (3.8-10.6) k/uL RBC (4.30-5.90) m/uL Hgb (13.0-17.5) gm/dL Hct (39.0-53.0) % MCHC (31.0-37.0) g/dL APTT (22.0-30.0) sec ABG O2 Saturation 97.2 H (94-97) % Chloride 114 H (98-107) mmol/L Carbon Dioxide 21 L (22-30) mmol/L Creatinine 0.57 L (0.66-1.25) mg/dL Glucose 121 H (74-99) mg/dL POC Glucose (mg/dL) 118 H (75-99) mg/dL Calcium 7.1 L (8.4-10.2) mg/dL 02/03/22 02/03/22 Range/Units 11:44 11:50 WBC (3.8-10.6) k/uL RBC (4.30-5.90) m/uL Hgb (13.0-17.5) gm/dL Hct (39.0-53.0) % MCHC (31.0-37.0) g/dL APTT 48.9 H (22.0-30.0) sec ABG O2 Saturation (94-97) % Chloride (98-107) mmol/L Carbon Dioxide (22-30) mmol/L Creatinine (0.66-1.25) mg/dL Glucose (74-99) mg/dL POC Glucose (mg/dL) 143 H (75-99) mg/dL Calcium (8.4-10.2) mg/dL Microbiology - Last 24 Hours (Table) 02/01/22 06:30 Blood Culture - Preliminary Blood No Growth after 48 hours 01/30/22 10:43 Blood Culture - Preliminary Blood No Growth after 72 hours 01/30/22 10:30 Blood Culture - Preliminary Blood No Growth after 72 hours
[2022-02-03 16:18] LABS: Magnesium 2.2 mg/dL (1.6-2.3); Phosphorus 2.5 mg/dL (2.5-4.5)
[2022-02-03 18:14] LABS: Glucose,Whole Blood 117 mg/dL (75-99)
[2022-02-03] MEDS ORDERED: MVI, ADULT NO.4 WITH VIT K 10 ML, TRACE (CONC-1ML/DOSE) 1 ML, POTASSIUM PHOSPHATE 15 MM... IV SCH ×7 (19:30)
--- NOTE | 2022-02-03 20:45 | P.PN ---
Subjective Progress Note Date: 02/03/22 Principal diagnosis: Abdominal abscess and sepsis Patient is a 66-year-old male admitted to the hospital with abdominal abscess in this patient who is status post laparotomy drainage of the abscess but no culture and diverting colostomy patient subsequently has been admitted to the ICU on the vent has been running a fever and requiring a pressor support. On today's evaluation that is 02/03/2022 the patient is afebrile for more than 48 hours now, the patient is off the pressor support, the patient FiO2 is stable at 35%, no significant purulent secretions through the ET or any other changes were reported by the nursing staff patient seemed to have only to A. fib with RVR requiring amiodarone Objective - Vital Signs Vital signs: Vital Signs Temp 98.4 F 02/03/22 12:00 Pulse 99 02/03/22 14:00 Resp 24 02/03/22 14:00 BP 135/74 02/02/22 10:30 Pulse Ox 98 02/03/22 14:00 Intake & Output 02/02/22 02/03/22 02/03/22 18:59 06:59 18:59 Intake Total 3646.026 7159.628 1436.134 Output Total 1075 1085 1705 Balance 647.242 997.628 -268.866 Weight 151 kg Intake: IV 980 1060 893.8 .9 KVO 60 Amiodarone 450 mg In 49.8 Dextrose 5% in Water 250 ml @ 0.5 MG/MIN 16.667 mls/hr IV .Q15H [facility] Rx#: [id number] Anidulafungin 100 mg In 100 84 Sodium Chloride 0.9% 100 ml @ 84 mls/hr IVPB DAILY [facility] Rx#:[id number] Piperacillin-Tazobactam 3 100 100 100 .375 gm In Sodium Chloride 0.9% 100 ml @ 25 mls/hr IVPB Q8HR [facility] Rx# :[id number] Potassium Chloride 10 meq 200 In Water For Injection 1 100ml.bag @ 100 mls/hr IVPB Q1H [facility] Rx#: [id number] Sodium Chloride 0.9% 1, 680 860 300 000 ml @ 100 mls/hr IV . Q10H [facility] Rx#:[id number] levETIRAcetam IV 500 mg 100 100 100 In Sodium Chloride 0.9% 100 ml @ 400 mls/hr IVPB Q12HR [facility] Rx#:[id number] Intake, IV Titration 487.356 6400.628 542.334 Amount Amiodarone 450 mg In 239.171 Dextrose 5% in Water 250 ml @ 0.5 MG/MIN 16.667 mls/hr IV .Q15H [facility] Rx#: [id number] Cisatracurium 200 mg In 36.675 198.847 117.152 Sodium Chloride 0.9% 180 ml @ 1 MCG/KG/MIN 7.938 mls/hr IV .Q24H [facility] Rx#: [id number] Heparin Sod,Pork in 0.45% 88.667 344.808 145.557 NaCl 25,000 unit In 0.45 % NaCl 1 250ml.bag @ 17. 38 UNITS/KG/HR 22.994 mls /hr IV .P29H24S [facility] Rx#: [id number] propofoL 1,000 mg In 377.729 478.973 279.625 Empty Bag 1 bag @ 5 MCG/ KG/MIN 3.919 mls/hr IV . Q24H [facility] Rx#:[id number] Output: Urine 1075 1085 1705 Other: Voiding Method Indwelling Catheter Indwelling Catheter Indwelling Catheter ABP, PAP, CO, CI - Last Documented Arterial Blood Pressure 124/50 - Exam GENERAL DESCRIPTION: An elderly male intubated on the vent RESPIRATORY SYSTEM: Unlabored breathing , decreased breath sounds at bases HEART: S1 S2 regular rate and rhythm , ABDOMEN: Soft , midline incision is covered with a wound VAC EXTREMITIES: No edema feet - Labs CBC & Chem 7: 02/03/22 03:50 02/03/22 03:50 Labs: Abnormal Lab Results - Last 24 Hours (Table) 02/02/22 02/02/22 02/03/22 Range/Units 17:27 20:21 00:41 WBC (3.8-10.6) k/uL RBC (4.30-5.90) m/uL Hgb (13.0-17.5) gm/dL Hct (39.0-53.0) % MCHC (31.0-37.0) g/dL APTT (22.0-30.0) sec ABG O2 Saturation (94-97) % Chloride (98-107) mmol/L Carbon Dioxide (22-30) mmol/L Creatinine (0.66-1.25) mg/dL Glucose (74-99) mg/dL POC Glucose (mg/dL) 115 H 127 H 124 H (75-99) mg/dL Calcium (8.4-10.2) mg/dL 02/03/22 02/03/22 02/03/22 Range/Units 03:49 03:50 03:50 WBC 12.4 H (3.8-10.6) k/uL RBC 2.54 L (4.30-5.90) m/uL Hgb 7.3 L (13.0-17.5) gm/dL Hct 25.0 L (39.0-53.0) % MCHC 29.0 L (31.0-37.0) g/dL APTT 40.2 H (22.0-30.0) sec ABG O2 Saturation (94-97) % Chloride (98-107) mmol/L Carbon Dioxide (22-30) mmol/L Creatinine (0.66-1.25) mg/dL Glucose (74-99) mg/dL POC Glucose (mg/dL) 129 H (75-99) mg/dL Calcium (8.4-10.2) mg/dL 02/03/22 02/03/22 02/03/22 Range/Units 03:50 05:52 09:10 WBC (3.8-10.6) k/uL RBC (4.30-5.90) m/uL Hgb (13.0-17.5) gm/dL Hct (39.0-53.0) % MCHC (31.0-37.0) g/dL APTT (22.0-30.0) sec ABG O2 Saturation 97.2 H (94-97) % Chloride 114 H (98-107) mmol/L Carbon Dioxide 21 L (22-30) mmol/L Creatinine 0.57 L (0.66-1.25) mg/dL Glucose 121 H (74-99) mg/dL POC Glucose (mg/dL) 118 H (75-99) mg/dL Calcium 7.1 L (8.4-10.2) mg/dL 02/03/22 02/03/22 Range/Units 11:44 11:50 WBC (3.8-10.6) k/uL RBC (4.30-5.90) m/uL Hgb (13.0-17.5) gm/dL Hct (39.0-53.0) % MCHC (31.0-37.0) g/dL APTT 48.9 H (22.0-30.0) sec ABG O2 Saturation (94-97) % Chloride (98-107) mmol/L Carbon Dioxide (22-30) mmol/L Creatinine (0.66-1.25) mg/dL Glucose (74-99) mg/dL POC Glucose (mg/dL) 143 H (75-99) mg/dL Calcium (8.4-10.2) mg/dL Microbiology - Last 24 Hours (Table) 01/30/22 10:30 Blood Culture - Preliminary Blood No Growth after 96 hours 01/30/22 10:43 Blood Culture - Preliminary Blood No Growth after 96 hours 02/01/22 06:30 Blood Culture - Preliminary Blood No Growth after 48 hours Assessment and Plan (1) Pelvic abscess Current Visit: Yes Status: Acute Code(s): PDR0010 - SNOMED Code(s): 079907620 Plan: 1patient presented to hospital with sepsis secondary abdominal source in this patient who recently did have a sigmoidectomy now with evidence of anastomosis leak and pelvic abscess patient is status post laparotomy drainage of the abscess unfortunately cultures were not done will need to cover for the enteric gram-negative to be the likely pathogen. 2 patient seemed to have shown clinical improvement with Zosyn 3.375 g every 8 hours, micafungin and daptomycin which will be continued, at the bedside questions were answered Time with Patient: Less than 30
--- NOTE | 2022-02-03 22:34 | P.PN ---
Subjective Progress Note Date: 02/03/22 We seen him today for a consult follow-up patient was admitted under surgery service care on 01/30. Nikolai Trevino is a 66 yo M with PMH of recently diagnosed colon cancer, s/p LAD and sigmoid colectomy about 3 weeks ago who subsequently developed drainage from his surgical site a few days ago. He was started on antibiotics but then noticed passing blood with bowel movements. On his presentaiton pt tachycardic, WBC 7.9, FOBT positive, CT abd/pelvis with SBO and enlarged lymph nodes. Pt taken for surgery with drainage of abscess, small bowel resection and creation of end ileostomy. Today pt remains intubated and sedated in the ICU, WBC improved 02/01/2022 Patient remains in critical condition in the ICU, he is sedated and intubated, also he needs pressors currently on levophed . Wound VAC and dressing is in place. His heart rate is 149 and blood pressure 90/41, FiO2 of 45 and slightly tachypneic at 22. Chest x-ray showing atelectasis of the lungs. Also seen of the CT of the abdomen and pelvis. Also there is evidence of bilateral hilar lymphadenopathy and intra-abdominal lymphadenopathy with hepatomegaly consistent with his history of lymphoma. Ultrasound of the neck was positive for acute left DVT. He is on heparin drip, IV Protonix, normal saline, Zosyn and axis 02/02/2022 Remains in the ICU in critical condition, intubated and sedated with pulmonary/critical care team following him closely. Patient came off Levophed however he developed another atrial fibrillation and he was started on amiodarone drip again. He was continued on heparin drip as well. He remains on broad-spectrum antibiotics of Zosyn and Eraxis per ID team and wound VAC still in place. Chest x-ray showing similar changes like yesterday with small bilateral effusion with adjacent atelectasis versus infiltrates. Hemoglobin 7.3, WBC is 10.3 Heart rate is 115, blood pressure 149/59, FiO2 34% with respiratory rate 25 per min 02/03/2022 He remains in critical condition in the ICU, he is intubated and sedated. He continues on amiodarone and heparin drip today. He is hemodynamically stable, Hgb and renal function stable. Blood cultures no growth. Objective - Vital Signs Vital signs: Vital Signs Temp 99.0 F 02/03/22 20:00 Pulse 102 H 02/03/22 21:00 Resp 26 H 02/03/22 21:00 BP 135/74 02/02/22 10:30 Pulse Ox 98 02/03/22 21:00 Intake & Output 02/03/22 02/03/22 02/04/22 06:59 18:59 06:59 Intake Total 2082.628 1868.076 355.374 Output Total 1085 2180 225 Balance 997.628 -311.924 130.374 Weight 151 kg 151 kg Intake: IV 1060 1206.8 176.6 .9 KVO 140 60 Amiodarone 450 mg In 132.8 16.6 Dextrose 5% in Water 250 ml @ 0.5 MG/MIN 16.667 mls/hr IV .Q15H [facility] Rx#: [id number] Anidulafungin 100 mg In 84 Sodium Chloride 0.9% 100 ml @ 84 mls/hr IVPB DAILY [facility] Rx#:[id number] DAPTOmycin 700 mg In 50 Sodium Chloride 0.9% 50 ml @ 100 mls/hr IVPB Q24H [facility] Rx#:[id number] Piperacillin-Tazobactam 3 100 200 .375 gm In Sodium Chloride 0.9% 100 ml @ 25 mls/hr IVPB Q8HR [facility] Rx# :[id number] Potassium Chloride 10 meq 200 In Water For Injection 1 100ml.bag @ 100 mls/hr IVPB Q1H [facility] Rx#: [id number] Sodium Chloride 0.9% 1, 860 300 000 ml @ 100 mls/hr IV . Q10H [facility] Rx#:[id number] levETIRAcetam IV 500 mg 100 100 100 In Sodium Chloride 0.9% 100 ml @ 400 mls/hr IVPB Q12HR [facility] Rx#:[id number] Intake, IV Titration 1022.628 661.276 178.774 Amount Cisatracurium 200 mg In 198.847 117.152 Sodium Chloride 0.9% 180 ml @ 1 MCG/KG/MIN 7.938 mls/hr IV .Q24H [facility] Rx#: [id number] Heparin Sod,Pork in 0.45% 344.808 145.557 NaCl 25,000 unit In 0.45 % NaCl 1 250ml.bag @ 17. 38 UNITS/KG/HR 22.994 mls /hr IV .[id number] [facility] Rx#: [id number] propofoL 1,000 mg In 478.973 398.567 178.774 Empty Bag 1 bag @ 5 MCG/ KG/MIN 3.919 mls/hr IV . Q24H [facility] Rx#:[id number] Output: Urine 1085 2180 225 Other: Voiding Method Indwelling Catheter Indwelling Catheter ABP, PAP, CO, CI - Last Documented Arterial Blood Pressure 149/55 - Exam Gen: Intubated, sedated. Obese. Vitals reviewed CV: Irregular, no murmur Lungs: No rales or wheezing Abd: wound vac to surgical site. Ostomy tissue healthy - Labs CBC & Chem 7: 02/03/22 03:50 02/03/22 03:50 Labs: Abnormal Lab Results - Last 24 Hours (Table) 02/03/22 02/03/22 02/03/22 Range/Units 00:41 03:49 03:50 WBC 12.4 H (3.8-10.6) k/uL RBC 2.54 L (4.30-5.90) m/uL Hgb 7.3 L (13.0-17.5) gm/dL Hct 25.0 L (39.0-53.0) % MCHC 29.0 L (31.0-37.0) g/dL APTT (22.0-30.0) sec ABG O2 Saturation (94-97) % Chloride (98-107) mmol/L Carbon Dioxide (22-30) mmol/L Creatinine (0.66-1.25) mg/dL Glucose (74-99) mg/dL POC Glucose (mg/dL) 124 H 129 H (75-99) mg/dL Calcium (8.4-10.2) mg/dL 02/03/22 02/03/22 02/03/22 Range/Units 03:50 03:50 05:52 WBC (3.8-10.6) k/uL RBC (4.30-5.90) m/uL Hgb (13.0-17.5) gm/dL Hct (39.0-53.0) % MCHC (31.0-37.0) g/dL APTT 40.2 H (22.0-30.0) sec ABG O2 Saturation 97.2 H (94-97) % Chloride 114 H (98-107) mmol/L Carbon Dioxide 21 L (22-30) mmol/L Creatinine 0.57 L (0.66-1.25) mg/dL Glucose 121 H (74-99) mg/dL POC Glucose (mg/dL) (75-99) mg/dL Calcium 7.1 L (8.4-10.2) mg/dL 02/03/22 02/03/22 02/03/22 Range/Units 09:10 11:44 11:50 WBC (3.8-10.6) k/uL RBC (4.30-5.90) m/uL Hgb (13.0-17.5) gm/dL Hct (39.0-53.0) % MCHC (31.0-37.0) g/dL APTT 48.9 H (22.0-30.0) sec ABG O2 Saturation (94-97) % Chloride (98-107) mmol/L Carbon Dioxide (22-30) mmol/L Creatinine (0.66-1.25) mg/dL Glucose (74-99) mg/dL POC Glucose (mg/dL) 118 H 143 H (75-99) mg/dL Calcium (8.4-10.2) mg/dL 02/03/22 Range/Units 18:12 WBC (3.8-10.6) k/uL RBC (4.30-5.90) m/uL Hgb (13.0-17.5) gm/dL Hct (39.0-53.0) % MCHC (31.0-37.0) g/dL APTT (22.0-30.0) sec ABG O2 Saturation (94-97) % Chloride (98-107) mmol/L Carbon Dioxide (22-30) mmol/L Creatinine (0.66-1.25) mg/dL Glucose (74-99) mg/dL POC Glucose (mg/dL) 117 H (75-99) mg/dL Calcium (8.4-10.2) mg/dL Microbiology - Last 24 Hours (Table) 01/30/22 10:30 Blood Culture - Preliminary Blood No Growth after 96 hours 01/30/22 10:43 Blood Culture - Preliminary Blood No Growth after 96 hours 02/01/22 06:30 Blood Culture - Preliminary Blood No Growth after 48 hours Assessment and Plan Plan: Continue with zosyn, daptomycin; ID following. Pt maintained on heparin, amiodarone drip. Continue lasix. Accucheck and sliding scale
[2022-02-04 00:08] LABS: Glucose,Whole Blood 116 mg/dL (75-99)
[2022-02-04] MEDS: HEPARIN SOD,PORK IN 0.45% NACL 25,000 UNIT in 0.45% NACL 1 250ML.BAG IV SCH ×2 (01:05→12:32)
[2022-02-04] MEDS: AMIODARONE 450 MG in DEXTROSE 5% IN WATER 250 ML IV SCH ×4 (01:06→17:10)
[2022-02-04] MEDS: PIPERACILLIN-TAZOBACTAM 3.375 GM in SODIUM CHLORIDE 0.9% 100 ML IVPB SCH ×3 (01:09→16:24)
[2022-02-04] MEDS: INSULIN ASPART (NovoLOG) 100 UNIT/ML VIAL SQ SCH ×4 (01:09→17:26)
[2022-02-04] MEDS: MORPHINE SULFATE 4 MG/ML SYRINGE IV PRN ×7 (04:13→22:37)
[2022-02-04 05:00] LABS: Anisocytosis Slight; Basophils # (A) 0.1 k/uL (0-0.2); Basophils % (A) 1 %; Eosinophils # (A) 0.2 k/uL (0-0.7); Eosinophils % (A) 2 %; HCT 22.1 % (39.0-53.0); Hypochromasia Marked; Lymphocytes # (A) 2.6 k/uL (1.0-4.8); Lymphocytes % (A) 22 %; MCH 28.8 pg (25.0-35.0); Monocytes # (A) 0.4 k/uL (0-1.0); Monocytes % (A) 4 %; Neutrophils # (A) 8.1 k/uL (1.3-7.7); Neutrophils % (A) 69 %; Platelet Count 248 k/uL (150-450); RDW 16.3 % (11.5-15.5); WBC 11.8 k/uL (3.8-10.6)
[2022-02-04 05:03] LABS: HGB 6.6 gm/dL (13.0-17.5)
[2022-02-04 05:18] LABS: ALT 7 U/L (4-49); AST 27 U/L (17-59); African American GFR (CKD) >90 (>60 ml/min/1.73 sqM); Albumin 1.9 g/dL (3.5-5.0); Alkaline Phosphatase 62 U/L (38-126); Anion Gap 5 mmol/L; Blood Urea Nitrogen 16 mg/dL (9-20); Calcium 7.2 mg/dL (8.4-10.2); Carbon Dioxide 23 mmol/L (22-30); Chloride 113 mmol/L (98-107); Glucose 131 mg/dL (74-99); Magnesium 1.9 mg/dL (1.6-2.3); Non-African American GFR(CKD) >90 (>60 ml/min/1.73 sqM); Phosphorus 2.2 mg/dL (2.5-4.5); Potassium 3.2 mmol/L (3.5-5.1); Sodium 141 mmol/L (137-145); Total Bilirubin 0.3 mg/dL (0.2-1.3)
[2022-02-04 05:51] LABS: ABG Base Excess 0.6 mmol/L; ABG HCO3 24 mmol/L (21-25); ABG PCO2 32 mmHg (35-45); ABG PH 7.48 (7.35-7.45); ABG PO2 107 mmHg (83-108); ABG TCO2 25 mmol/L (19-24); Allen Test Performed? Yes
[2022-02-04 06:12] LABS: Glucose,Whole Blood 138 mg/dL (75-99)
[2022-02-04] MEDS ORDERED: POTASSIUM BICARBONATE/CIT AC 20 MEQ TABLET.EFF NG-TUBE SCH (07:00)
[2022-02-04] MEDS: NOREPINEPHRINE 8 MG in SODIUM CHLORIDE 0.9% 250 ML IV SCH (08:19)
[2022-02-04] MEDS: POTASSIUM CHLORIDE 20 MEQ in WATER FOR INJECTION 1 100ML.BAG IVPB SCH ×3 (08:26→21:40)
--- NOTE | 2022-02-04 08:34 | XR ---
EXAMINATION TYPE: XR chest 1V portable DATE OF EXAM: 02/04/2022 Comparison: 02/03/2022 Clinical History: 66-year-old male intubated Findings: ET tube tip at the level of the clavicular heads. NG tube courses below the diaphragm. Right IJ CVC t ip in the right atrium. Heart upper limits of normal in size. Interstitial changes and patchy mid and lower lung opacities. Small pleural effusions persist. Impression: Continued small pleural effusions with adjacent atelectasis and/or consolidation. There may be slight improvement in the interval. Interstitial changes. Findings may be secondary to pulmonary edema vers us underlying basal infiltrates.
[2022-02-04] MEDS: CHLORHEXIDINE GLUCONATE 15 ML CUP MUCOUS MEM SCH ×2 (08:44→21:40)
[2022-02-04] MEDS: FUROSEMIDE 10 MG/ML 4 ML VIAL IV SCH ×2 (08:44→21:40)
[2022-02-04] MEDS: PANTOPRAZOLE 40 MG/10 ML VIAL IVP SCH (08:44)
[2022-02-04] MEDS: levETIRAcetam IV 500 MG in SODIUM CHLORIDE 0.9% 100 ML IVPB SCH ×2 (09:00→21:40)
[2022-02-04] MEDS: ANIDULAFUNGIN 100 MG in SODIUM CHLORIDE 0.9% 100 ML IVPB SCH (09:12)
[2022-02-04] MEDS ORDERED: POTASSIUM PHOSPHATE 10 MMOL in SODIUM CHLORIDE 0.9% 100 ML IV ONE (10:00)
--- NOTE | 2022-02-04 11:07 | P.PN ---
Subjective Progress Note Date: 02/04/22 Principal diagnosis: Acute hypoxic respiratory failure, small bowel obstruction, abdominal sepsis. On 02/03/2022 patient seen in follow-up in the intensive care unit. Patient is status post laparotomy and drainage of a pelvic abscess and Small Bowel Resection 3 along with transverse colostomy and partial omentectomy. Patient remains intubated, sedated and paralyzed on mechanical ventilator on assist control mode with a rate of 24, Tylenol is 500, FiO2 of 35% and PEEP of 5, this morning blood gases shows pO2 of 85, pCO2 of 39, pH of 7.36 this was done on the above-mentioned ventilator settings. Today's chest x-ray shows low lung volumes, mild cardiomegaly, some central vascular congestion small to tiny bilateral pleural effusions and associated bibasilar atelectasis. No significant change compared to most recent exam. Patient is currently on Diprivan and at 50 mics per kilo per minute, amiodarone at 0.5 mg per hour, Nimbex is at 1.5 mics per kilo per minute, and heparin infusion at weight-based protocol. Has not been started on tube feedings yet, hemodynamically he is not requiring any vasopressor support. He remains on a combination of antibiotics with Zosyn and Eraxis. Blood cultures remain negative. He is in sinus rhythm sinus tach with a rate of 108 BPM. Generally appears to be quite fluid overloaded. Patient has required multiple fluid boluses initially in the postoperative period after surgery for hypotension. According to the documented weight he is positive at least 21 kg since admission. Patient has mild generalized edema in his upper and truncal edema, and moderate pitting edema in his bilateral lower extremities. Has not received any diuretics yet. Mid abdominal incision with a wound VAC in place with minimal output. JOSE drain in the right lower abdomen also putting out minimal amount of drainage. Colostomy in the right upper quadrant is not producing any gas or stool. Bowel sounds are absent or extremely hypoactive. No acute issues overnight. Today's lab 7 reviewed showing a white blood cell count which is improved and is down to 12.4 hemoglobin is 7.3, sodium is 141, potassium is 3.8, chloride is 114, CO2 is 21, BUN is 18 creatinine 0.57. Reevaluated today on 02/04/2022, patient remains in the ICU, intubated and mechanically ventilated. He is on assist control rate of 24th volar 500 FiO2 35% PEEP of 5. ABG showed a pO2 of 107 pCO2 32 pH of 7.48. Electrolytes are normal except for low potassium of 3.2 and renal profile is normal CBC is relatively normal except for a drop in hemoglobin down to 6.6, no active bleeding, and I am a bit reluctant to stop the heparin at this point, will resume heparin, and if he continues to show drop in his hemoglobin, may have to consider IVC filter placement in this patient and stopping anticoagulation therapy all together. Patient remains on propofol at 55 mcg/kg/m, he remains on Zosyn and Eraxis. He is also on amiodarone drip at 0.5 mg/m. Asked x-ray is sh owing improvement in his interstitial edema, patient was placed on Lasix yesterday at 40 mg IV push every 12 hours, patient is responding well to diuretics, and he has excellent urine output. Nonetheless, the patient remains edematous in upper and lower extremities. Objective - Vital Signs Vital signs: Vital Signs Temp 99.0 F 02/04/22 10:16 Pulse 101 H 02/04/22 10:16 Resp 26 H 02/04/22 10:16 BP 163/54 02/04/22 10:16 Pulse Ox 98 02/04/22 09:46 Intake & Output 02/03/22 02/04/22 02/04/22 18:59 06:59 18:59 Intake Total 4109.543 4717.382 217.410 Output Total 2180 2455 120 Balance -311.924 -1068.618 97.410 Weight 151 kg 147.5 kg Intake: IV 1206.8 406.6 20 .9 KVO 140 190 20 Amiodarone 450 mg In 132.8 16.6 Dextrose 5% in Water 250 ml @ 0.5 MG/MIN 16.667 mls/hr IV .Q15H [facility] Rx#: [id number] Anidulafungin 100 mg In 84 Sodium Chloride 0.9% 100 ml @ 84 mls/hr IVPB DAILY [facility] Rx#:[id number] DAPTOmycin 700 mg In 50 Sodium Chloride 0.9% 50 ml @ 100 mls/hr IVPB Q24H [facility] Rx#:[id number] Piperacillin-Tazobactam 3 200 100 .375 gm In Sodium Chloride 0.9% 100 ml @ 25 mls/hr IVPB Q8HR [facility] Rx# :[id number] Potassium Chloride 10 meq 200 In Water For Injection 1 100ml.bag @ 100 mls/hr IVPB Q1H [facility] Rx#: [id number] Sodium Chloride 0.9% 1, 300 000 ml @ 100 mls/hr IV . Q10H [facility] Rx#:[id number] levETIRAcetam IV 500 mg 100 100 In Sodium Chloride 0.9% 100 ml @ 400 mls/hr IVPB Q12HR [facility] Rx#:[id number] Intake, IV Titration 661.276 979.782 167.410 Amount Amiodarone 450 mg In 247.783 Dextrose 5% in Water 250 ml @ 0.5 MG/MIN 16.667 mls/hr IV .Q15H [facility] Rx#: [id number] Cisatracurium 200 mg In 117.152 Sodium Chloride 0.9% 180 ml @ 1 MCG/KG/MIN 7.938 mls/hr IV .Q24H [facility] Rx#: [id number] Heparin Sod,Pork in 0.45% 145.557 363.412 NaCl 25,000 unit In 0.45 % NaCl 1 250ml.bag @ 17. 38 UNITS/KG/HR 22.994 mls /hr IV .[id number] [facility] Rx#: [id number] propofoL 1,000 mg In 398.567 368.587 167.410 Empty Bag 1 bag @ 5 MCG/ KG/MIN 3.919 mls/hr IV . Q24H [facility] Rx#:[id number] TPN/PPN 30 .9 KVO 30 Blood Product 0 Rc As-1 Unit 0 [id number] Output: Gastric Drainage 150 Drainage 5 Abdomen 5 Urine 2180 2300 120 Other: Voiding Method Indwelling Catheter Indwelling Catheter ABP, PAP, CO, CI - Last Documented Arterial Blood Pressure 165/54 - Exam GENERAL EXAM: Revealed a 66-year-old white male intubated and mechanically v entilated, off paralytics since yesterday, remains on propofol at 55 mcg/kg/m HEAD: Normocephalic/atraumatic. HEENT: PERRLA, EOMI, nonicteric, no neck masses, no JVD, no stridor, right IJ triple-lumen catheter is noted. CHEST: No chest wall deformity. Symmetrical expansion. LUNGS: Fine crackles at the bases. CVS: Distant S1 and S2, no S3 gallop. Patient is in sinus rhythm ABDOMEN: Soft, mid abdominal incision with wound VAC in place black foam, with minimal drainage and the canister, right-sided JOSE drain with minimal output, right-sided colostomy with no gas or stool. No hepatosplenomegaly, normal bowel sounds, no guarding or rigidity. EXTREMITIES: 2+ bipedal edema, diminished distal pulses. MUSCULOSKELETAL: No deformities. SKIN: No rashes CENTRAL NERVOUS SYSTEM: Fully sedated, could not assess mental status. And could not assess her neurologically. Psychiatric: Unable to assess - Labs CBC & Chem 7: 02/04/22 04:30 02/04/22 04:30 Labs: Abnormal Lab Results - Last 24 Hours (Table) 02/03/22 02/03/22 02/03/22 Range/Units 11:44 11:50 18:12 WBC (3.8-10.6) k/uL RBC (4.30-5.90) m/uL Hgb (13.0-17.5) gm/dL Hct (39.0-53.0) % MCHC (31.0-37.0) g/dL RDW (11.5-15.5) % Neutrophils # (1.3-7.7) k/uL APTT 48.9 H (22.0-30.0) sec ABG pH (7.35-7.45) ABG pCO2 (35-45) mmHg ABG Total CO2 (19-24) mmol/L ABG O2 Saturation (94-97) % Potassium (3.5-5.1) mmol/L Chloride (98-107) mmol/L Creatinine (0.66-1.25) mg/dL Glucose (74-99) mg/dL POC Glucose (mg/dL) 143 H 117 H (75-99) mg/dL Calcium (8.4-10.2) mg/dL Phosphorus (2.5-4.5) mg/dL Total Protein (6.3-8.2) g/dL Albumin (3.5-5.0) g/dL Crossmatch 02/04/22 02/04/22 02/04/22 Range/Units 00:07 04:30 04:30 WBC 11.8 H (3.8-10.6) k/uL RBC 2.30 L (4.30-5.90) m/uL Hgb 6.6 L* (13.0-17.5) gm/dL Hct 22.1 L (39.0-53.0) % MCHC 30.0 L (31.0-37.0) g/dL RDW 16.3 H (11.5-15.5) % Neutrophils # 8.1 H (1.3-7.7) k/uL APTT 40.6 H (22.0-30.0) sec ABG pH (7.35-7.45) ABG pCO2 (35-45) mmHg ABG Total CO2 (19-24) mmol/L ABG O2 Saturation (94-97) % Potassium (3.5-5.1) mmol/L Chloride (98-107) mmol/L Creatinine (0.66-1.25) mg/dL Glucose (74-99) mg/dL POC Glucose (mg/dL) 116 H (75-99) mg/dL Calcium (8.4-10.2) mg/dL Phosphorus (2.5-4.5) mg/dL Total Protein (6.3-8.2) g/dL Albumin (3.5-5.0) g/dL Crossmatch 02/04/22 02/04/22 02/04/22 Range/Units 04:30 05:50 06:11 WBC (3.8-10.6) k/uL RBC (4.30-5.90) m/uL Hgb (13.0-17.5) gm/dL Hct (39.0-53.0) % MCHC (31.0-37.0) g/dL RDW (11.5-15.5) % Neutrophils # (1.3-7.7) k/uL APTT (22.0-30.0) sec ABG pH 7.48 H (7.35-7.45) ABG pCO2 32 L (35-45) mmHg ABG Total CO2 25 H (19-24) mmol/L ABG O2 Saturation 99.0 H (94-97) % Potassium 3.2 L (3.5-5.1) mmol/L Chloride 113 H (98-107) mmol/L Creatinine 0.57 L (0.66-1.25) mg/dL Glucose 131 H (74-99) mg/dL POC Glucose (mg/dL) 138 H (75-99) mg/dL Calcium 7.2 L (8.4-10.2) mg/dL Phosphorus 2.2 L (2.5-4.5) mg/dL Total Protein 4.0 L (6.3-8.2) g/dL Albumin 1.9 L (3.5-5.0) g/dL Crossmatch 02/04/22 Range/Units 06:25 WBC (3.8-10.6) k/uL RBC (4.30-5.90) m/uL Hgb (13.0-17.5) gm/dL Hct (39.0-53.0) % MCHC (31.0-37.0) g/dL RDW (11.5-15.5) % Neutrophils # (1.3-7.7) k/uL APTT (22.0-30.0) sec ABG pH (7.35-7.45) ABG pCO2 (35-45) mmHg ABG Total CO2 (19-24) mmol/L ABG O2 Saturation (94-97) % Potassium (3.5-5.1) mmol/L Chloride (98-107) mmol/L Creatinine (0.66-1.25) mg/dL Glucose (74-99) mg/dL POC Glucose (mg/dL) (75-99) mg/dL Calcium (8.4-10.2) mg/dL Phosphorus (2.5-4.5) mg/dL Total Protein (6.3-8.2) g/dL Albumin (3.5-5.0) g/dL Crossmatch See Detail Microbiology - Last 24 Hours (Table) 02/01/22 06:30 Blood Culture - Preliminary Blood No Growth after 72 hours 01/30/22 10:30 Blood Culture - Preliminary Blood No Growth after 96 hours 01/30/22 10:43 Blood Culture - Preliminary Blood No Growth after 96 hours Assessment and Plan Assessment: Impression: Acute hypoxic respiratory failure, multifactorial. Mostly secondary to abdominal sepsis Abdominal sepsis with development of an anastomotic leak, patient is now postoperative day #5, he is status post exploratory laparotomy, drainage of pelvic abscess, small bowel resection 3 along with transverse colostomy and partial omentectomy. History of chronic lymphocytic leukemia with extensive intra-abdominal lymphadenopathy possibly leading to his initial small bowel obstruction presentation. History of colonic adenocarcinoma T2 N0 M0 and previous AP resection. Paroxysmal atrial fibrillation, remains on amiodarone drip. Bilateral pulmonary embolism and DVT of the left popliteal vein, on anticoagulation therapy History of coronary artery disease and previous intervention 4 History of non-Hodgkin's lymphoma 9 essential hypertension Type 2 diabetes Acute on chronic anemia, related to recent abdominal surgery, and recent history of GI bleeding, expected. Recommendation: Continue ventilatory support Continue nutritional support Continue hemodynamic support if needed Daily trials of weaning and sedation interruption will start doing that today. And assess for weaning Continue antibiotics, Zosyn and Eraxis. Continue Lasix 40 mg IV push twice a day. Continue amiodarone presently he is in sinus rhythm Prognosis remains poor and guarded. Patient remains critically ill. We'll continue to follow. Critical care time is over 30 minutes. Time with Patient: Greater than 30
[2022-02-04 11:31] LABS: Glucose,Whole Blood 149 mg/dL (75-99)
[2022-02-04] MEDS: MAGNESIUM SULFATE-D5W PMX 1 GM in DEXTROSE/WATER 1 100ML.BAG IVPB SCH ×2 (12:01→13:15)
--- NOTE | 2022-02-04 12:53 | P.PN ---
Subjective Progress Note Date: 02/04/22 CHIEF COMPLAINT: Pelvic abscess HISTORY OF PRESENT ILLNESS: Patient is status post exploratory laparotomy, drainage of pelvic abscess, small bowel resection 3, transverse and colostomy, placement of wound VAC and partial omentectomy. He is postop day #5. Patient remains in the ICU and on mechanical ventilation. No function from ostomy. Patient's wound VAC was changed yesterday. Patient had emesis around his OG tube. Patient is anemic with a hemoglobin of 6.6. He is receiving a unit of blood. His potassium was 3.2 is being replaced. He did have a low-grade temp of 100 last night. White count 11.8. Patient is on IV heparin for pulmonary embolism, DVT and afib. Patient seen and examined with Dr. pierce PHYSICAL EXAM: VITAL SIGNS: Reviewed. GENERAL: no acute distress. HEENT: Head is atraumatic, normocephalic. ABDOMEN: soft, Nondistended. Wound VAC in place, ostomy pink without output NEUROLOGIC: Intubated and sedated ASSESSMENT: 1. Pelvic abscess, small bowel obstruction due to severe inflammatory reaction in the small bowel and lymphoma status post exploratory laparotomy, drainage of pelvic abscess, small bowel resection 3, transverse and colostomy, placement of wound VAC and partial omentectomy 2. History of colonic adenocarcinoma 3. History of non-Hodgkin's lymphoma 4. Hypomagnesemia 5. Pulmonary embolism and DVT left leg 6. Ileus PLAN: -Continue ICU management -Continue supportive care -Continue antibiotics -Agree with blood transfusion. Continue to monitor hemoglobin. Physician Customer Experience Leader note has been reviewed by physician. Signing provider agrees with the documented findings, assessment, and plan of care. Objective - Vital Signs Vital signs: Vital Signs Temp 99.5 F 02/04/22 12:36 Pulse 112 H 02/04/22 12:36 Resp 27 H 02/04/22 12:36 BP 144/49 02/04/22 12:36 Pulse Ox 99 02/04/22 12:36 Intake & Output 02/03/22 02/04/22 02/04/22 18:59 06:59 18:59 Intake Total 6437.972 1601.382 1623.998 Output Total 2180 2455 2730 Balance -311.924 -1068.618 -1106.002 Weight 151 kg 147.5 kg Intake: IV 1206.8 406.6 380 .9 KVO 140 190 80 Amiodarone 450 mg In 132.8 16.6 Dextrose 5% in Water 250 ml @ 0.5 MG/MIN 16.667 mls/hr IV .Q15H [facility] Rx#: [id number] Anidulafungin 100 mg In 84 100 Sodium Chloride 0.9% 100 ml @ 84 mls/hr IVPB DAILY [facility] Rx#:[id number] DAPTOmycin 700 mg In 50 Sodium Chloride 0.9% 50 ml @ 100 mls/hr IVPB Q24H [facility] Rx#:[id number] Piperacillin-Tazobactam 3 200 100 100 .375 gm In Sodium Chloride 0.9% 100 ml @ 25 mls/hr IVPB Q8HR [facility] Rx# :[id number] Potassium Chloride 10 meq 200 In Water For Injection 1 100ml.bag @ 100 mls/hr IVPB Q1H [facility] Rx#: [id number] Sodium Chloride 0.9% 1, 300 000 ml @ 100 mls/hr IV . Q10H [facility] Rx#:[id number] levETIRAcetam IV 500 mg 100 100 100 In Sodium Chloride 0.9% 100 ml @ 400 mls/hr IVPB Q12HR [facility] Rx#:[id number] Intake, IV Titration 661.276 979.782 503.998 Amount Amiodarone 450 mg In 247.783 Dextrose 5% in Water 250 ml @ 0.5 MG/MIN 16.667 mls/hr IV .Q15H [facility] Rx#: [id number] Cisatracurium 200 mg In 117.152 Sodium Chloride 0.9% 180 ml @ 1 MCG/KG/MIN 7.938 mls/hr IV .Q24H [facility] Rx#: [id number] Heparin Sod,Pork in 0.45% 145.557 363.412 136.588 NaCl 25,000 unit In 0.45 % NaCl 1 250ml.bag @ 17. 38 UNITS/KG/HR 22.994 mls /hr IV .[id number] [facility] Rx#: [id number] Potassium Chloride 20 meq 100 In Water For Injection 1 100ml.bag @ 50 mls/hr IVPB Q2H [facility] Rx#: [id number] propofoL 1,000 mg In 398.567 368.587 267.410 Empty Bag 1 bag @ 5 MCG/ KG/MIN 3.919 mls/hr IV . Q24H [facility] Rx#:[id number] TPN/PPN 120 .9 KVO 120 Blood Product 620 Rc As-1 Unit 310 [id number] Output: Gastric Drainage 150 1500 Drainage 5 Abdomen 5 Urine 2180 2300 1230 Other: Voiding Method Indwelling Catheter Indwelling Catheter Indwelling Catheter ABP, PAP, CO, CI - Last Documented Arterial Blood Pressure 146/53 - Labs CBC & Chem 7: 02/04/22 04:30 02/04/22 04:30 Labs: Abnormal Lab Results - Last 24 Hours (Table) 02/03/22 02/04/22 02/04/22 Range/Units 18:12 00:07 04:30 WBC 11.8 H (3.8-10.6) k/uL RBC 2.30 L (4.30-5.90) m/uL Hgb 6.6 L* (13.0-17.5) gm/dL Hct 22.1 L (39.0-53.0) % MCHC 30.0 L (31.0-37.0) g/dL RDW 16.3 H (11.5-15.5) % Neutrophils # 8.1 H (1.3-7.7) k/uL APTT (22.0-30.0) sec ABG pH (7.35-7.45) ABG pCO2 (35-45) mmHg ABG Total CO2 (19-24) mmol/L ABG O2 Saturation (94-97) % Potassium (3.5-5.1) mmol/L Chloride (98-107) mmol/L Creatinine (0.66-1.25) mg/dL Glucose (74-99) mg/dL POC Glucose (mg/dL) 117 H 116 H (75-99) mg/dL Calcium (8.4-10.2) mg/dL Phosphorus (2.5-4.5) mg/dL Total Protein (6.3-8.2) g/dL Albumin (3.5-5.0) g/dL Crossmatch 02/04/22 02/04/22 02/04/22 Range/Units 04:30 04:30 05:50 WBC (3.8-10.6) k/uL RBC (4.30-5.90) m/uL Hgb (13.0-17.5) gm/dL Hct (39.0-53.0) % MCHC (31.0-37.0) g/dL RDW (11.5-15.5) % Neutrophils # (1.3-7.7) k/uL APTT 40.6 H (22.0-30.0) sec ABG pH 7.48 H (7.35-7.45) ABG pCO2 32 L (35-45) mmHg ABG Total CO2 25 H (19-24) mmol/L ABG O2 Saturation 99.0 H (94-97) % Potassium 3.2 L (3.5-5.1) mmol/L Chloride 113 H (98-107) mmol/L Creatinine 0.57 L (0.66-1.25) mg/dL Glucose 131 H (74-99) mg/dL POC Glucose (mg/dL) (75-99) mg/dL Calcium 7.2 L (8.4-10.2) mg/dL Phosphorus 2.2 L (2.5-4.5) mg/dL Total Protein 4.0 L (6.3-8.2) g/dL Albumin 1.9 L (3.5-5.0) g/dL Crossmatch 02/04/22 02/04/22 02/04/22 Range/Units 06:11 06:25 11:29 WBC (3.8-10.6) k/uL RBC (4.30-5.90) m/uL Hgb (13.0-17.5) gm/dL Hct (39.0-53.0) % MCHC (31.0-37.0) g/dL RDW (11.5-15.5) % Neutrophils # (1.3-7.7) k/uL APTT (22.0-30.0) sec ABG pH (7.35-7.45) ABG pCO2 (35-45) mmHg ABG Total CO2 (19-24) mmol/L ABG O2 Saturation (94-97) % Potassium (3.5-5.1) mmol/L Chloride (98-107) mmol/L Creatinine (0.66-1.25) mg/dL Glucose (74-99) mg/dL POC Glucose (mg/dL) 138 H 149 H (75-99) mg/dL Calcium (8.4-10.2) mg/dL Phosphorus (2.5-4.5) mg/dL Total Protein (6.3-8.2) g/dL Albumin (3.5-5.0) g/dL Crossmatch See Detail Microbiology - Last 24 Hours (Table) 02/01/22 06:30 Blood Culture - Preliminary Blood No Growth after 72 hours 01/30/22 10:30 Blood Culture - Preliminary Blood No Growth after 96 hours 01/30/22 10:43 Blood Culture - Preliminary Blood No Growth after 96 hours
[2022-02-04] MEDS: DEXMEDETOMIDINE/0.9% NACL(PMX) 400 MCG in EMPTY BAG 1 BAG IV SCH ×2 (16:03→22:38)
[2022-02-04 17:20] LABS: Glucose,Whole Blood 162 mg/dL (75-99)
--- NOTE | 2022-02-04 21:06 | P.PN ---
Subjective Progress Note Date: 02/04/22 Principal diagnosis: Abdominal abscess and sepsis Patient is a 66-year-old male admitted to the hospital with abdominal abscess in this patient who is status post laparotomy drainage of the abscess but no culture and diverting colostomy patient subsequently has been admitted to the ICU on the vent has been running a fever and requiring a pressor support. On today's evaluation that is 02/04/2022 the patient did have a low-grade fever 100.3 this morning the patient is afebrile since than, the patient is off the pressor support, the patient FiO2 is stable at 35%, no significant purulent secretions through the ET or any other changes were reported by the nursing sta ff patient remained to be sedated on the vent Objective - Vital Signs Vital signs: Vital Signs Temp 99.5 F 02/04/22 12:36 Pulse 112 H 02/04/22 12:36 Resp 27 H 02/04/22 12:36 BP 144/49 02/04/22 12:36 Pulse Ox 99 02/04/22 12:36 Intake & Output 02/03/22 02/04/22 02/04/22 18:59 06:59 18:59 Intake Total 8861.636 4265.382 1963.386 Output Total 2180 2455 2980 Balance -311.924 -1068.618 -1016.614 Weight 151 kg 147.5 kg Intake: IV 1206.8 406.6 620 .9 KVO 140 190 120 Amiodarone 450 mg In 132.8 16.6 Dextrose 5% in Water 250 ml @ 0.5 MG/MIN 16.667 mls/hr IV .Q15H [facility] Rx#: [id number] Anidulafungin 100 mg In 84 100 Sodium Chloride 0.9% 100 ml @ 84 mls/hr IVPB DAILY [facility] Rx#:[id number] DAPTOmycin 700 mg In 50 Sodium Chloride 0.9% 50 ml @ 100 mls/hr IVPB Q24H [facility] Rx#:[id number] Magnesium Sulfate-D5w Pmx 100 1 gm In Dextrose/Water 1 100ml.bag @ 100 mls/hr IVPB Q1H [facility] Rx#: [id number] Piperacillin-Tazobactam 3 200 100 100 .375 gm In Sodium Chloride 0.9% 100 ml @ 25 mls/hr IVPB Q8HR [facility] Rx# :[id number] Potassium Chloride 10 meq 200 In Water For Injection 1 100ml.bag @ 100 mls/hr IVPB Q1H [facility] Rx#: [id number] Potassium Chloride 20 meq 100 In Water For Injection 1 100ml.bag @ 50 mls/hr IVPB Q2H [facility] Rx#: [id number] Sodium Chloride 0.9% 1, 300 000 ml @ 100 mls/hr IV . Q10H [facility] Rx#:[id number] levETIRAcetam IV 500 mg 100 100 100 In Sodium Chloride 0.9% 100 ml @ 400 mls/hr IVPB Q12HR [facility] Rx#:[id number] Intake, IV Titration 661.276 979.782 543.386 Amount Amiodarone 450 mg In 247.783 Dextrose 5% in Water 250 ml @ 0.5 MG/MIN 16.667 mls/hr IV .Q15H [facility] Rx#: [id number] Cisatracurium 200 mg In 117.152 Sodium Chloride 0.9% 180 ml @ 1 MCG/KG/MIN 7.938 mls/hr IV .Q24H [facility] Rx#: [id number] Heparin Sod,Pork in 0.45% 145.557 363.412 136.588 NaCl 25,000 unit In 0.45 % NaCl 1 250ml.bag @ 17. 38 UNITS/KG/HR 22.994 mls /hr IV .[id number] [facility] Rx#: [id number] Potassium Chloride 20 meq 100 In Water For Injection 1 100ml.bag @ 50 mls/hr IVPB Q2H [facility] Rx#: [id number] propofoL 1,000 mg In 398.567 368.587 306.798 Empty Bag 1 bag @ 5 MCG/ KG/MIN 3.919 mls/hr IV . Q24H [facility] Rx#:[id number] TPN/PPN 180 .9 KVO 180 Blood Product 620 Rc As-1 Unit 310 [id number] Output: Gastric Drainage 150 1500 Drainage 5 Abdomen 5 Urine 2180 2300 1480 Other: Voiding Method Indwelling Catheter Indwelling Catheter Indwelling Catheter ABP, PAP, CO, CI - Last Documented Arterial Blood Pressure 146/51 - Exam GENERAL DESCRIPTION: An elderly male intubated on the vent RESPIRATORY SYSTEM: Unlabored breathing , decreased breath sounds at bases HEART: S1 S2 regular rate and rhythm , ABDOMEN: Soft , midline incision is covered with a wound VAC EXTREMITIES: No edema feet - Labs CBC & Chem 7: 02/04/22 04:30 02/04/22 18:30 Labs: Abnormal Lab Results - Last 24 Hours (Table) 02/03/22 02/04/22 02/04/22 Range/Units 18:12 00:07 04:30 WBC 11.8 H (3.8-10.6) k/uL RBC 2.30 L (4.30-5.90) m/uL Hgb 6.6 L* (13.0-17.5) gm/dL Hct 22.1 L (39.0-53.0) % MCHC 30.0 L (31.0-37.0) g/dL RDW 16.3 H (11.5-15.5) % Neutrophils # 8.1 H (1.3-7.7) k/uL APTT (22.0-30.0) sec ABG pH (7.35-7.45) ABG pCO2 (35-45) mmHg ABG Total CO2 (19-24) mmol/L ABG O2 Saturation (94-97) % Potassium (3.5-5.1) mmol/L Chloride (98-107) mmol/L Creatinine (0.66-1.25) mg/dL Glucose (74-99) mg/dL POC Glucose (mg/dL) 117 H 116 H (75-99) mg/dL Calcium (8.4-10.2) mg/dL Phosphorus (2.5-4.5) mg/dL Total Protein (6.3-8.2) g/dL Albumin (3.5-5.0) g/dL Crossmatch 02/04/22 02/04/22 02/04/22 Range/Units 04:30 04:30 05:50 WBC (3.8-10.6) k/uL RBC (4.30-5.90) m/uL Hgb (13.0-17.5) gm/dL Hct (39.0-53.0) % MCHC (31.0-37.0) g/dL RDW (11.5-15.5) % Neutrophils # (1.3-7.7) k/uL APTT 40.6 H (22.0-30.0) sec ABG pH 7.48 H (7.35-7.45) ABG pCO2 32 L (35-45) mmHg ABG Total CO2 25 H (19-24) mmol/L ABG O2 Saturation 99.0 H (94-97) % Potassium 3.2 L (3.5-5.1) mmol/L Chloride 113 H (98-107) mmol/L Creatinine 0.57 L (0.66-1.25) mg/dL Glucose 131 H (74-99) mg/dL POC Glucose (mg/dL) (75-99) mg/dL Calcium 7.2 L (8.4-10.2) mg/dL Phosphorus 2.2 L (2.5-4.5) mg/dL Total Protein 4.0 L (6.3-8.2) g/dL Albumin 1.9 L (3.5-5.0) g/dL Crossmatch 02/04/22 02/04/22 02/04/22 Range/Units 06:11 06:25 11:29 WBC (3.8-10.6) k/uL RBC (4.30-5.90) m/uL Hgb (13.0-17.5) gm/dL Hct (39.0-53.0) % MCHC (31.0-37.0) g/dL RDW (11.5-15.5) % Neutrophils # (1.3-7.7) k/uL APTT (22.0-30.0) sec ABG pH (7.35-7.45) ABG pCO2 (35-45) mmHg ABG Total CO2 (19-24) mmol/L ABG O2 Saturation (94-97) % Potassium (3.5-5.1) mmol/L Chloride (98-107) mmol/L Creatinine (0.66-1.25) mg/dL Glucose (74-99) mg/dL POC Glucose (mg/dL) 138 H 149 H (75-99) mg/dL Calcium (8.4-10.2) mg/dL Phosphorus (2.5-4.5) mg/dL Total Protein (6.3-8.2) g/dL Albumin (3.5-5.0) g/dL Crossmatch See Detail 02/04/22 Range/Units 12:25 WBC (3.8-10.6) k/uL RBC (4.30-5.90) m/uL Hgb (13.0-17.5) gm/dL Hct (39.0-53.0) % MCHC (31.0-37.0) g/dL RDW (11.5-15.5) % Neutrophils # (1.3-7.7) k/uL APTT 45.3 H (22.0-30.0) sec ABG pH (7.35-7.45) ABG pCO2 (35-45) mmHg ABG Total CO2 (19-24) mmol/L ABG O2 Saturation (94-97) % Potassium (3.5-5.1) mmol/L Chloride (98-107) mmol/L Creatinine (0.66-1.25) mg/dL Glucose (74-99) mg/dL POC Glucose (mg/dL) (75-99) mg/dL Calcium (8.4-10.2) mg/dL Phosphorus (2.5-4.5) mg/dL Total Protein (6.3-8.2) g/dL Albumin (3.5-5.0) g/dL Crossmatch Microbiology - Last 24 Hours (Table) 01/30/22 10:30 Blood Culture - Preliminary Blood No Growth after 120 hours 01/30/22 10:43 Blood Culture - Preliminary Blood No Growth after 120 hours 02/01/22 06:30 Blood Culture - Preliminary Blood No Growth after 72 hours Assessment and Plan (1) Pelvic abscess Current Visit: Yes Status: Acute Code(s): [id number] - SNOMED Code(s): 482925907 Plan: 1patient presented to hospital with sepsis secondary abdominal source in this patient who recently did have a sigmoidectomy now with evidence of anastomosis leak and pelvic abscess patient is status post laparotomy drainage of the abscess unfortunately cultures were not done will need to cover for the enteric gram-negative to be the likely pathogen. 2 patient to continue with Zosyn 3.375 g every 8 hours, micafungin and daptomycin as the patient white count is trending down blood cultures have been negative patient spike any further fever cultures repeated antibiotic will be adjusted Time with Patient: Less than 30
--- NOTE | 2022-02-04 23:22 | P.PN ---
Subjective Progress Note Date: 02/04/22 We seen him today for a consult follow-up patient was admitted under surgery service care on 01/30. Nikolai Trevino is a 66 yo M with PMH of recently diagnosed colon cancer, s/p LAD and sigmoid colectomy about 3 weeks ago who subsequently developed drainage from his surgical site a few days ago. He was started on antibiotics but then noticed passing blood with bowel movements. On his presentaiton pt tachycardic, WBC 7.9, FOBT positive, CT abd/pelvis with SBO and enlarged lymph nodes. Pt taken for surgery with drainage of abscess, small bowel resection and creation of end ileostomy. Today pt remains intubated and sedated in the ICU, WBC improved 02/01/2022 Patient remains in critical condition in the ICU, he is sedated and intubated, also he needs pressors currently on levophed . Wound VAC and dressing is in place. His heart rate is 149 and blood pressure 90/41, FiO2 of 45 and slightly tachypneic at 22. Chest x-ray showing atelectasis of the lungs. Also seen of the CT of the abdomen and pelvis. Also there is evidence of bilateral hilar lymphadenopathy and intra-abdominal lymphadenopathy with hepatomegaly consistent with his history of lymphoma. Ultrasound of the neck was positive for acute left DVT. He is on heparin drip, IV Protonix, normal saline, Zosyn and axis 02/02/2022 Remains in the ICU in critical condition, intubated and sedated with pulmonary/critical care team following him closely. Patient came off Levophed however he developed another atrial fibrillation and he was started on amiodarone drip again. He was continued on heparin drip as well. He remains on broad-spectrum antibiotics of Zosyn and Eraxis per ID team and wound VAC still in place. Chest x-ray showing similar changes like yesterday with small bilateral effusion with adjacent atelectasis versus infiltrates. Hemoglobin 7.3, WBC is 10.3 Heart rate is 115, blood pressure 149/59, FiO2 34% with respiratory rate 25 per min 02/03/2022 He remains in critical condition in the ICU, he is intubated and sedated. He continues on amiodarone and heparin drip today. He is hemodynamically stable, Hgb and renal function stable. Blood cultures no growth. 02/04/2022 Pt remains intubated and sedated in the ICU, continues on daptomycin and zosyn, T max 100.3 last 24 hours. Blood cultures no growth. Hgb 6.6 this morning. Objective - Vital Signs Vital signs: Vital Signs Temp 100.6 F H 02/04/22 20:00 Pulse 95 02/04/22 21:00 Resp 18 02/04/22 21:00 BP 111/60 02/04/22 21:00 Pulse Ox 99 02/04/22 21:00 Intake & Output 02/04/22 02/04/22 02/05/22 06:59 18:59 06:59 Intake Total 5995.588 8703.281 278.308 Output Total 2455 3580 125 Balance -1068.618 -997.719 153.308 Weight 147.5 kg Intake: IV 406.6 1040 230 .9 KVO 190 240 30 Amiodarone 450 mg In 16.6 Dextrose 5% in Water 250 ml @ 0.5 MG/MIN 16.667 mls/hr IV .Q15H [facility] Rx#: [id number] Anidulafungin 100 mg In 100 Sodium Chloride 0.9% 100 ml @ 84 mls/hr IVPB DAILY [facility] Rx#:[id number] DAPTOmycin 700 mg In 100 Sodium Chloride 0.9% 50 ml @ 100 mls/hr IVPB Q24H [facility] Rx#:[id number] Magnesium Sulfate-D5w Pmx 100 1 gm In Dextrose/Water 1 100ml.bag @ 100 mls/hr IVPB Q1H [facility] Rx#: [id number] Piperacillin-Tazobactam 3 100 200 .375 gm In Sodium Chloride 0.9% 100 ml @ 25 mls/hr IVPB Q8HR [facility] Rx# :[id number] Potassium Chloride 20 meq 100 In Water For Injection 1 100ml.bag @ 50 mls/hr IVPB Q2H [facility] Rx#: [id number] Potassium Phosphate 10 100 100 mmol In Sodium Chloride 0 .9% 100 ml @ 50 mls/hr IV ONCE ONE Rx#:[id number] levETIRAcetam IV 500 mg 100 100 100 In Sodium Chloride 0.9% 100 ml @ 400 mls/hr IVPB Q12HR [facility] Rx#:[id number] Intake, IV Titration 979.782 562.281 48.308 Amount Amiodarone 450 mg In 247.783 Dextrose 5% in Water 250 ml @ 0.5 MG/MIN 16.667 mls/hr IV .Q15H [facility] Rx#: [id number] Dexmedetomidine/0.9% NaCl 16.348 48.308 (Pmx) 400 mcg In Empty Bag 1 bag @ 0.2 MCG/KG/HR 7.375 mls/hr IV .[id number] [facility] Rx#:[id number] Heparin Sod,Pork in 0.45% 363.412 136.588 NaCl 25,000 unit In 0.45 % NaCl 1 250ml.bag @ 17. 38 UNITS/KG/HR 22.994 mls /hr IV .[id number] [facility] Rx#: [id number] Potassium Chloride 20 meq 100 In Water For Injection 1 100ml.bag @ 50 mls/hr IVPB Q2H [facility] Rx#: [id number] propofoL 1,000 mg In 368.587 309.345 Empty Bag 1 bag @ 5 MCG/ KG/MIN 3.919 mls/hr IV . Q24H [facility] Rx#:[id number] TPN/PPN 360 .9 KVO 360 Blood Product 620 Rc As-1 Unit 310 [id number] Output: Gastric Drainage 150 1700 Drainage 5 Abdomen 5 Urine 2300 1880 125 Other: Voiding Method Indwelling Catheter Indwelling Catheter ABP, PAP, CO, CI - Last Documented Arterial Blood Pressure 119/44 - Exam Gen: Intubated, sedated. Obese. Vitals reviewed CV: Irregular, no murmur Lungs: No rales or wheezing Abd: wound vac to surgical site. Ostomy present - Labs CBC & Chem 7: 02/04/22 04:30 02/04/22 18:30 Labs: Abnormal Lab Results - Last 24 Hours (Table) 02/04/22 02/04/22 02/04/22 Range/Units 00:07 04:30 04:30 WBC 11.8 H (3.8-10.6) k/uL RBC 2.30 L (4.30-5.90) m/uL Hgb 6.6 L* (13.0-17.5) gm/dL Hct 22.1 L (39.0-53.0) % MCHC 30.0 L (31.0-37.0) g/dL RDW 16.3 H (11.5-15.5) % Neutrophils # 8.1 H (1.3-7.7) k/uL APTT 40.6 H (22.0-30.0) sec ABG pH (7.35-7.45) ABG pCO2 (35-45) mmHg ABG Total CO2 (19-24) mmol/L ABG O2 Saturation (94-97) % Potassium (3.5-5.1) mmol/L Chloride (98-107) mmol/L Creatinine (0.66-1.25) mg/dL Glucose (74-99) mg/dL POC Glucose (mg/dL) 116 H (75-99) mg/dL Calcium (8.4-10.2) mg/dL Phosphorus (2.5-4.5) mg/dL Total Protein (6.3-8.2) g/dL Albumin (3.5-5.0) g/dL Crossmatch 02/04/22 02/04/22 02/04/22 Range/Units 04:30 05:50 06:11 WBC (3.8-10.6) k/uL RBC (4.30-5.90) m/uL Hgb (13.0-17.5) gm/dL Hct (39.0-53.0) % MCHC (31.0-37.0) g/dL RDW (11.5-15.5) % Neutrophils # (1.3-7.7) k/uL APTT (22.0-30.0) sec ABG pH 7.48 H (7.35-7.45) ABG pCO2 32 L (35-45) mmHg ABG Total CO2 25 H (19-24) mmol/L ABG O2 Saturation 99.0 H (94-97) % Potassium 3.2 L (3.5-5.1) mmol/L Chloride 113 H (98-107) mmol/L Creatinine 0.57 L (0.66-1.25) mg/dL Glucose 131 H (74-99) mg/dL POC Glucose (mg/dL) 138 H (75-99) mg/dL Calcium 7.2 L (8.4-10.2) mg/dL Phosphorus 2.2 L (2.5-4.5) mg/dL Total Protein 4.0 L (6.3-8.2) g/dL Albumin 1.9 L (3.5-5.0) g/dL Crossmatch 02/04/22 02/04/22 02/04/22 Range/Units 06:25 11:29 12:25 WBC (3.8-10.6) k/uL RBC (4.30-5.90) m/uL Hgb (13.0-17.5) gm/dL Hct (39.0-53.0) % MCHC (31.0-37.0) g/dL RDW (11.5-15.5) % Neutrophils # (1.3-7.7) k/uL APTT 45.3 H (22.0-30.0) sec ABG pH (7.35-7.45) ABG pCO2 (35-45) mmHg ABG Total CO2 (19-24) mmol/L ABG O2 Saturation (94-97) % Potassium (3.5-5.1) mmol/L Chloride (98-107) mmol/L Creatinine (0.66-1.25) mg/dL Glucose (74-99) mg/dL POC Glucose (mg/dL) 149 H (75-99) mg/dL Calcium (8.4-10.2) mg/dL Phosphorus (2.5-4.5) mg/dL Total Protein (6.3-8.2) g/dL Albumin (3.5-5.0) g/dL Crossmatch See Detail 02/04/22 02/04/22 Range/Units 17:18 18:30 WBC (3.8-10.6) k/uL RBC (4.30-5.90) m/uL Hgb (13.0-17.5) gm/dL Hct (39.0-53.0) % MCHC (31.0-37.0) g/dL RDW (11.5-15.5) % Neutrophils # (1.3-7.7) k/uL APTT (22.0-30.0) sec ABG pH (7.35-7.45) ABG pCO2 (35-45) mmHg ABG Total CO2 (19-24) mmol/L ABG O2 Saturation (94-97) % Potassium 3.1 L (3.5-5.1) mmol/L Chloride (98-107) mmol/L Creatinine (0.66-1.25) mg/dL Glucose (74-99) mg/dL POC Glucose (mg/dL) 162 H (75-99) mg/dL Calcium (8.4-10.2) mg/dL Phosphorus (2.5-4.5) mg/dL Total Protein (6.3-8.2) g/dL Albumin (3.5-5.0) g/dL Crossmatch Microbiology - Last 24 Hours (Table) 01/30/22 10:30 Blood Culture - Preliminary Blood No Growth after 120 hours 01/30/22 10:43 Blood Culture - Preliminary Blood No Growth after 120 hours 02/01/22 06:30 Blood Culture - Preliminary Blood No Growth after 72 hours Assessment and Plan Plan: Transfuse 1 U PRBC today. Continue with zosyn, daptomycin; ID following. Pt maintained on heparin, amiodarone drip. Continue lasix. Accucheck and sliding scale
[2022-02-04 23:50] LABS: Glucose,Whole Blood 175 mg/dL (75-99)
[2022-02-05] MEDS: PIPERACILLIN-TAZOBACTAM 3.375 GM in SODIUM CHLORIDE 0.9% 100 ML IVPB SCH ×4 (00:10→23:58)
[2022-02-05] MEDS: POTASSIUM CHLORIDE 20 MEQ in WATER FOR INJECTION 1 100ML.BAG IVPB SCH ×3 (00:10→09:51)
[2022-02-05] MEDS: INSULIN ASPART (NovoLOG) 100 UNIT/ML VIAL SQ SCH ×4 (00:10→18:25)
[2022-02-05] MEDS: HEPARIN SOD,PORK IN 0.45% NACL 25,000 UNIT in 0.45% NACL 1 250ML.BAG IV SCH ×3 (00:11→21:14)
[2022-02-05] MEDS: SODIUM CHLORIDE 0.9% 1,000 ML IV SCH ×2 (00:31→16:23)
[2022-02-05] MEDS: DEXMEDETOMIDINE/0.9% NACL(PMX) 400 MCG in EMPTY BAG 1 BAG IV SCH ×3 (03:16→12:49)
[2022-02-05] MEDS: NOREPINEPHRINE 8 MG in SODIUM CHLORIDE 0.9% 250 ML IV SCH ×2 (03:17→22:45)
[2022-02-05] MEDS: MORPHINE SULFATE 4 MG/ML SYRINGE IV PRN ×2 (03:35→18:59)
[2022-02-05 04:49] LABS: Anisocytosis Slight; Basophils # (A) 0.2 k/uL (0-0.2); Basophils % (A) 2 %; Eosinophils # (A) 0.2 k/uL (0-0.7); Eosinophils % (A) 1 %; HCT 23.7 % (39.0-53.0); HGB 7.3 gm/dL (13.0-17.5); Hypochromasia Moderate; Lymphocytes % (A) 20 %; MCH 28.6 pg (25.0-35.0); MCHC 30.9 g/dL (31.0-37.0); MCV 92.6 fL (80.0-100.0); Mean Platelet Volume 9.2; Monocytes # (A) 0.5 k/uL (0-1.0); Monocytes % (A) 4 %; Neutrophils # (A) 10.6 k/uL (1.3-7.7); Neutrophils % (A) 71 %; Platelet Count 233 k/uL (150-450); Poikilocytosis Slight; RBC 2.56 m/uL (4.30-5.90)
[2022-02-05 05:32] LABS: ALT 9 U/L (4-49); AST 40 U/L (17-59); African American GFR (CKD) >90 (>60 ml/min/1.73 sqM); Albumin 1.9 g/dL (3.5-5.0); Alkaline Phosphatase 64 U/L (38-126); Anion Gap 2 mmol/L; Blood Urea Nitrogen 17 mg/dL (9-20); Calcium 7.3 mg/dL (8.4-10.2); Carbon Dioxide 27 mmol/L (22-30); Chloride 112 mmol/L (98-107); Glucose 186 mg/dL (74-99); Non-African American GFR(CKD) >90 (>60 ml/min/1.73 sqM); Phosphorus 2.6 mg/dL (2.5-4.5); Potassium 3.4 mmol/L (3.5-5.1); Sodium 141 mmol/L (137-145); Total Bilirubin 0.5 mg/dL (0.2-1.3); Total Protein 4.1 g/dL (6.3-8.2)
[2022-02-05 05:46] LABS: C Reactive Protein 16.6 mg/dL (<1.0)
[2022-02-05 05:59] LABS: ABG Base Excess 3.8 mmol/L; ABG HCO3 26 mmol/L (21-25); ABG Oxygen Saturation 98.9 % (94-97); ABG PCO2 29 mmHg (35-45); ABG PO2 126 mmHg (83-108); ABG TCO2 27 mmol/L (19-24)
[2022-02-05 06:02] LABS: ABG PH 7.56 (7.35-7.45); Allen Test Performed? No
[2022-02-05 06:12] LABS: Glucose,Whole Blood 211 mg/dL (75-99)
--- NOTE | 2022-02-05 07:52 | XR ---
EXAMINATION TYPE: XR chest 1V portable DATE OF EXAM: 02/05/2022 COMPARISON: 02/04/2022 INDICATION: Intubated difficulty breathing TECHNIQUE: Single frontal view of the chest is obtained. FINDINGS: The heart size is normal. The pulmonary vasculature is normal. Small left pleural effusion may be present. Atelectasis may be present. There is some fullness in the perihilar regions. Right lower lobe infiltrate is improving Endotracheal tube tip is above heath. Nasogastric tube tip is in the upper esophageal region is appr oximately 30 cm from typical positioning. Right central venous catheter tip is in the proximal right atrium. IMPRESSION: 1. Improving right lower lobe infiltrate. 2. Left lower lobe infiltrate and/or small pleural effusion. 3. Nasogastric tube is been pulled back significantly with the tip currently in the proximal esophagu s region.
[2022-02-05] MEDS: PANTOPRAZOLE 40 MG/10 ML VIAL IVP SCH (08:06)
[2022-02-05] MEDS: FUROSEMIDE 10 MG/ML 4 ML VIAL IV SCH ×2 (08:06→21:16)
[2022-02-05] MEDS: CHLORHEXIDINE GLUCONATE 15 ML CUP MUCOUS MEM SCH ×2 (08:07→21:15)
[2022-02-05] MEDS: levETIRAcetam IV 500 MG in SODIUM CHLORIDE 0.9% 100 ML IVPB SCH ×2 (08:12→21:16)
[2022-02-05] MEDS: AMIODARONE 450 MG in DEXTROSE 5% IN WATER 250 ML IV SCH ×2 (09:43)
[2022-02-05] MEDS: ANIDULAFUNGIN 100 MG in SODIUM CHLORIDE 0.9% 100 ML IVPB SCH (09:50)
[2022-02-05 10:40] VITALS: BMI 39.3
--- NOTE | 2022-02-05 11:28 | P.PN ---
Subjective Progress Note Date: 02/05/22 Principal diagnosis: Acute hypoxic respiratory failure, small bowel obstruction, abdominal sepsis. On 02/03/2022 patient seen in follow-up in the intensive care unit. Patient is status post laparotomy and drainage of a pelvic abscess and Small Bowel Resection 3 along with transverse colostomy and partial omentectomy. Patient remains intubated, sedated and paralyzed on mechanical ventilator on assist control mode with a rate of 24, Tylenol is 500, FiO2 of 35% and PEEP of 5, this morning blood gases shows pO2 of 85, pCO2 of 39, pH of 7.36 this was done on the above-mentioned ventilator settings. Today's chest x-ray shows low lung volumes, mild cardiomegaly, some central vascular congestion small to tiny bilateral pleural effusions and associated bibasilar atelectasis. No significant change compared to most recent exam. Patient is currently on Diprivan and at 50 mics per kilo per minute, amiodarone at 0.5 mg per hour, Nimbex is at 1.5 mics per kilo per minute, and heparin infusion at weight-based protocol. Has not been started on tube feedings yet, hemodynamically he is not requiring any vasopressor support. He remains on a combination of antibiotics with Zosyn and Eraxis. Blood cultures remain negative. He is in sinus rhythm sinus tach with a rate of 108 BPM. Generally appears to be quite fluid overloaded. Patient has required multiple fluid boluses initially in the postoperative period after surgery for hypotension. According to the documented weight he is positive at least 21 kg since admission. Patient has mild generalized edema in his upper and truncal edema, and moderate pitting edema in his bilateral lower extremities. Has not received any diuretics yet. Mid abdominal incision with a wound VAC in place with minimal output. JOSE drain in the right lower abdomen also putting out minimal amount of drainage. Colostomy in the right upper quadrant is not producing any gas or stool. Bowel sounds are absent or extremely hypoactive. No acute issues overnight. Today's lab 7 reviewed showing a white blood cell count which is improved and is down to 12.4 hemoglobin is 7.3, sodium is 141, potassium is 3.8, chloride is 114, CO2 is 21, BUN is 18 creatinine 0.57. Reevaluated today on 02/04/2022, patient remains in the ICU, intubated and mechanically ventilated. He is on assist control rate of 24th tidal volume 500 FiO2 35% PEEP of 5. ABG showed a pO2 of 107 pCO2 32 pH of 7.48. Electrolytes are normal except for low potassium of 3.2 and renal profile is normal CBC is relatively normal except for a drop in hemoglobin down to 6.6, no active bleeding, and I am a bit reluctant to stop the heparin at this point, will resume heparin, and if he continues to show drop in his hemoglobin, may have to consider IVC filter placement in this patient and stopping anticoagulation therapy all together. Patient remains on propofol at 55 mcg/kg/m, he remains on Zosyn and Eraxis. He is also on amiodarone drip at 0.5 mg/m. Asked x-ray is showing improvement in his interstitial edema, patient was placed on Lasix yesterday at 40 mg IV push every 12 hours, patient is responding well to diuretics, and he has excellent urine output. Nonetheless, the patient remains edematous in upper and lower extremities. Reevaluated today on 02/05/2022, remains in the ICU, intubated and mechanically ventilated. Patient has been off propofol since yesterday, he is on Precedex at 0.4 mcg/kg/h, however the patient is not waking up enough to maintain any eye contact. He seems to be comfortable on assist control mode of mechanical ventilation which is basically the same. Tidal volume is 500 FiO2 35% rate is 24, and PEEP is 5. ABG today showed a pO2 of 126 pCO2 29 pH of 7.56 his PTT is 48.7. Hemoglobin is holding. Electrolytes are normal except for slightly low potassium of 3.4, renal profile is normal. CBC showed a bit of leukocytosis with WBC of 15.0 hemoglobin is 7.3. Blood cultures remain negative. Chest x- ray showed improved rt lower lobe infiltrate, there is a left lower lobe infiltrate and small pleural effusion nasogastric tube was noted to be high in the esophagus, and this was advanced already by nurse taking care of the patient . Patient remains on Eraxis, daptomycin, Lasix 40 mg IV push every 12 hours, heparin drip, Keppra, morphine when necessary, he is now on Precedex instead of propofol. Patient is on GI prophylaxis in the form of Protonix, remains on Zosyn as per infectious disease on the case. Patient needs to be on TPN. Objective - Vital Signs Vital signs: Vital Signs Temp 99.9 F H 02/05/22 08:00 Pulse 95 02/05/22 10:00 Resp 30 H 02/05/22 10:00 BP 125/64 02/05/22 10:00 Pulse Ox 98 02/05/22 10:00 Intake & Output 02/04/22 02/05/22 02/05/22 18:59 06:59 18:59 Intake Total 2582.281 309.490 6107.227 Output Total 3580 1890 425 Balance -997.719 -5721.617 3848.227 Weight 146.6 kg 146.6 kg Intake: IV 1040 430 670 .9 KVO 240 130 70 Anidulafungin 100 mg In 100 100 Sodium Chloride 0.9% 100 ml @ 84 mls/hr IVPB DAILY [facility] Rx#:[id number] DAPTOmycin 700 mg In 100 Sodium Chloride 0.9% 50 ml @ 100 mls/hr IVPB Q24H [facility] Rx#:[id number] Magnesium Sulfate-D5w Pmx 100 1 gm In Dextrose/Water 1 100ml.bag @ 100 mls/hr IVPB Q1H [facility] Rx#: [id number] Piperacillin-Tazobactam 3 200 100 100 .375 gm In Sodium Chloride 0.9% 100 ml @ 25 mls/hr IVPB Q8HR [facility] Rx# :[id number] Potassium Chloride 20 meq 100 300 In Water For Injection 1 100ml.bag @ 50 mls/hr IVPB Q2H [facility] Rx#: [id number] Potassium Phosphate 10 100 100 mmol In Sodium Chloride 0 .9% 100 ml @ 50 mls/hr IV ONCE ONE Rx#:[id number] levETIRAcetam IV 500 mg 100 100 100 In Sodium Chloride 0.9% 100 ml @ 400 mls/hr IVPB Q12HR [facility] Rx#:[id number] Intake, IV Titration 562.281 396.457 656.227 Amount Amiodarone 450 mg In 250 Dextrose 5% in Water 250 ml @ 0.5 MG/MIN 16.667 mls/hr IV .Q15H [facility] Rx#: [id number] Dexmedetomidine/0.9% NaCl 16.348 146.457 158.194 (Pmx) 400 mcg In Empty Bag 1 bag @ 0.2 MCG/KG/HR 7.375 mls/hr IV .[id number] [facility] Rx#:[id number] Heparin Sod,Pork in 0.45% 136.588 250 248.033 NaCl 25,000 unit In 0.45 % NaCl 1 250ml.bag @ 17. 38 UNITS/KG/HR 22.994 mls /hr IV .[id number] [facility] Rx#: [id number] Potassium Chloride 20 meq 100 In Water For Injection 1 100ml.bag @ 50 mls/hr IVPB Q2H [facility] Rx#: [id number] propofoL 1,000 mg In 309.345 Empty Bag 1 bag @ 5 MCG/ KG/MIN 3.919 mls/hr IV . Q24H [facility] Rx#:[id number] TPN/PPN 360 255 .9 KVO 360 255 Blood Product 620 Rc As-1 Unit 310 [id number] Output: Gastric Drainage 1700 Urine 1880 1890 425 Other: Voiding Method Indwelling Catheter Indwelling Catheter ABP, PAP, CO, CI - Last Documented Arterial Blood Pressure 152/56 - Exam GENERAL EXAM: Revealed a 66-year-old white male intubated and mechanically ventilated, does not open eyes, does not maintain eye contact, in spite of the fact that the patient has been on Precedex since yesterday, off propofol. HEAD: Normocephalic/atraumatic. HEENT: PERRLA, EOMI, nonicteric, no neck masses, no JVD, no stridor, right IJ triple-lumen catheter is noted. CHEST: No chest wall deformity. Symmetrical expansion. LUNGS: Fine crackles at the bases. CVS: Distant S1 and S2, no S3 gallop. Patient is in sinus rhythm ABDOMEN: Soft, mid abdominal incision with wound VAC in place black foam, with minimal drainage and the canister, right-sided JOSE drain with minimal output, right-sided colostomy with no gas or stool. No hepatosplenomegaly, normal bowel sounds, no guarding or rigidity. EXTREMITIES: 2+ bipedal edema, diminished distal pulses. MUSCULOSKELETAL: No deformities. SKIN: No rashes CENTRAL NERVOUS SYSTEM: On Precedex, does not follow any instructions, and does not open eyes or maintain eye contact. Psychiatric: Unable to assess - Labs CBC & Chem 7: 02/05/22 04:25 02/05/22 04:25 Labs: Abnormal Lab Results - Last 24 Hours (Table) 02/04/22 02/04/22 02/04/22 Range/Units 06:25 11:29 12:25 WBC (3.8-10.6) k/uL RBC (4.30-5.90) m/uL Hgb (13.0-17.5) gm/dL Hct (39.0-53.0) % MCHC (31.0-37.0) g/dL RDW (11.5-15.5) % Neutrophils # (1.3-7.7) k/uL APTT 45.3 H (22.0-30.0) sec ABG pH (7.35-7.45) ABG pCO2 (35-45) mmHg ABG pO2 (83-108) mmHg ABG HCO3 (21-25) mmol/L ABG Total CO2 (19-24) mmol/L ABG O2 Saturation (94-97) % Potassium (3.5-5.1) mmol/L Chloride (98-107) mmol/L Creatinine (0.66-1.25) mg/dL Glucose (74-99) mg/dL POC Glucose (mg/dL) 149 H (75-99) mg/dL Calcium (8.4-10.2) mg/dL C-Reactive Protein (<1.0) mg/dL Total Protein (6.3-8.2) g/dL Albumin (3.5-5.0) g/dL Crossmatch See Detail 02/04/22 02/04/22 02/04/22 Range/Units 17:18 18:30 23:48 WBC (3.8-10.6) k/uL RBC (4.30-5.90) m/uL Hgb (13.0-17.5) gm/dL Hct (39.0-53.0) % MCHC (31.0-37.0) g/dL RDW (11.5-15.5) % Neutrophils # (1.3-7.7) k/uL APTT (22.0-30.0) sec ABG pH (7.35-7.45) ABG pCO2 (35-45) mmHg ABG pO2 (83-108) mmHg ABG HCO3 (21-25) mmol/L ABG Total CO2 (19-24) mmol/L ABG O2 Saturation (94-97) % Potassium 3.1 L (3.5-5.1) mmol/L Chloride (98-107) mmol/L Creatinine (0.66-1.25) mg/dL Glucose (74-99) mg/dL POC Glucose (mg/dL) 162 H 175 H (75-99) mg/dL Calcium (8.4-10.2) mg/dL C-Reactive Protein (<1.0) mg/dL Total Protein (6.3-8.2) g/dL Albumin (3.5-5.0) g/dL Crossmatch 02/05/22 02/05/22 02/05/22 Range/Units 04:25 04:25 04:25 WBC 15.0 H (3.8-10.6) k/uL RBC 2.56 L (4.30-5.90) m/uL Hgb 7.3 L (13.0-17.5) gm/dL Hct 23.7 L (39.0-53.0) % MCHC 30.9 L (31.0-37.0) g/dL RDW 16.0 H (11.5-15.5) % Neutrophils # 10.6 H (1.3-7.7) k/uL APTT 48.7 H (22.0-30.0) sec ABG pH (7.35-7.45) ABG pCO2 (35-45) mmHg ABG pO2 (83-108) mmHg ABG HCO3 (21-25) mmol/L ABG Total CO2 (19-24) mmol/L ABG O2 Saturation (94-97) % Potassium 3.4 L (3.5-5.1) mmol/L Chloride 112 H (98-107) mmol/L Creatinine 0.50 L (0.66-1.25) mg/dL Glucose 186 H (74-99) mg/dL POC Glucose (mg/dL) (75-99) mg/dL Calcium 7.3 L (8.4-10.2) mg/dL C-Reactive Protein 16.6 H (<1.0) mg/dL Total Protein 4.1 L (6.3-8.2) g/dL Albumin 1.9 L (3.5-5.0) g/dL Crossmatch 02/05/22 02/05/22 Range/Units 05:56 06:09 WBC (3.8-10.6) k/uL RBC (4.30-5.90) m/uL Hgb (13.0-17.5) gm/dL Hct (39.0-53.0) % MCHC (31.0-37.0) g/dL RDW (11.5-15.5) % Neutrophils # (1.3-7.7) k/uL APTT (22.0-30.0) sec ABG pH 7.56 H* (7.35-7.45) ABG pCO2 29 L (35-45) mmHg ABG pO2 126 H (83-108) mmHg ABG HCO3 26 H (21-25) mmol/L ABG Total CO2 27 H (19-24) mmol/L ABG O2 Saturation 98.9 H (94-97) % Potassium (3.5-5.1) mmol/L Chloride (98-107) mmol/L Creatinine (0.66-1.25) mg/dL Glucose (74-99) mg/dL POC Glucose (mg/dL) 211 H (75-99) mg/dL Calcium (8.4-10.2) mg/dL C-Reactive Protein (<1.0) mg/dL Total Protein (6.3-8.2) g/dL Albumin (3.5-5.0) g/dL Crossmatch Microbiology - Last 24 Hours (Table) 02/01/22 06:30 Blood Culture - Preliminary Blood No Growth after 96 hours 01/30/22 10:30 Blood Culture - Preliminary Blood No Growth after 120 hours 01/30/22 10:43 Blood Culture - Preliminary Blood No Growth after 120 hours Assessment and Plan Assessment: Impression: Acute hypoxic respiratory failure, multifactorial. Mostly secondary to abdominal sepsis Abdominal sepsis with development of an anastomotic leak, patient is now postoperative day #6 he is status post exploratory laparotomy, drainage of pelvic abscess, small bowel resection 3 along with transverse colostomy and partial omentectomy. History of chronic lymphocytic leukemia with extensive intra-abdominal lymphadenopathy possibly leading to his initial small bowel obstruction presentation. History of colonic adenocarcinoma T2 N0 M0 and previous AP resection. Paroxysmal atrial fibrillation, remains on amiodarone drip. Bilateral pulmonary embolism and DVT of the left popliteal vein, on anticoagulation therapy History of coronary artery disease and previous intervention 4 History of non-Hodgkin's lymphoma 9 essential hypertension Type 2 diabetes Acute on chronic anemia, related to recent abdominal surgery, and recent history of GI bleeding, expected. Recommendation: Continue ventilatory support TPN/nutritional support Continue amiodarone for now, will eventually transitioned to beta sary or oral amiodarone via nasogastric tube. Continue to hold propofol and continue Precedex for now. Continue antibiotics, as per ID on the case. Patient is now on an axis, Zosyn, and daptomycin. Continue Lasix 40 mg IV push twice a day. Prognosis remains poor and guarded. Patient remains critically ill. We'll continue to follow. Critical care time is over 30 minutes. Time with Patient: Greater than 30
[2022-02-05 11:35] LABS: Glucose,Whole Blood 216 mg/dL (75-99)
[2022-02-05] MEDS: IOPAMIDOL CONTRAST (ORAL USE) VIAL PO PRN ×2 (12:19→13:23)
--- NOTE | 2022-02-05 14:44 | CT ---
EXAMINATION TYPE: CT ChestAbdPelvis w con DATE OF EXAM: 02/05/2022 COMPARISON: CT dated 01/30/2022 HISTORY: Fever, leukocytosis. CT DLP: 4089.4 mGycm Automated exposure control for dose reduction was used. CONTRAST: CT scan of the chest, abdomen and pelvis is performed with Oral Contrast and with IV Contrast, patien t injected with 100 mL of Isovue 300. FINDINGS: LUNGS: Small bilateral pleural effusions slightly more prominent on the left side. Bilateral lower lo be atelectasis/consolidation with air bronchogram within, slightly larger on the left side. This coul d be due to pleural effusions however underlying infection cannot be excluded, please correlate clini giancarlo. Scattered smaller pulmonary atelectasis. Endotracheal tube is seen with the tip is about 4.1 c m proximal to the heath. MEDIASTINUM: Mild cardiomegaly. Scattered arterial atherosclerotic calcifications. No sizable pericar dial effusion. Right central venous line with the tip is seen at the superior aspect of the right atr ium. Enlarged bilateral axillary lymph nodes measuring up to 15 mm on the right side and 27 mm on the left side, please correlate clinically. This could be related to lymphoma or other lymphoproliferati ve disease, for further workup. Subcentimeter mediastinal and hilar lymph nodes, nonspecific. The pul monary trunk measures 3.3 cm. OTHER: Degenerative changes of the right glenohumeral articulation and thoracic spine. LIVER/GB: Bulky liver. Previous cholecystectomy. Mild of perihepatic fluid. PANCREAS: Fatty infiltration of the pancreas. SPLEEN: No significant abnormality is seen. ADRENALS: No significant abnormality is seen. KIDNEYS: Tiny cortical defect is seen at the posterior aspect of the midpole of the left kidney, othe rwise unremarkable kidneys. The urinary bladder is collapsed over a Stephens catheter, cystitis cannot b e excluded. BOWEL: NG tube is seen within the stomach. Dense contrast is seen within the gastric fundus. Right l ower quadrant surgical drain. Apparent dehiscence at the colonic anastomosis in the pelvis with tiny air seen adjacent to its. The previously seen right pelvic collection/abscess is not appreciated toda y. Unremarkable duodenum. Scattered segments of mild small bowel dilatation and mild thickening, poss ibly representing ileus. Focal dilatation of the small bowel anastomosis in the mid abdomen with slig ht wall thickening. Diffuse mesenteric fat stranding and reactive fluid, peritonitis cannot be exclud ed. Unremarkable right abdominal colostomy. Questionable left mid abdominal 3.5 cm collection adjacen t to the small bowel anastomosis. No other sizable drainable collection is seen in the abdomen or the pelvis. Anterior abdominal wall midline incision and overlying skin deniz. Mild gapping is seen al johanna the incision inferiorly. REPRODUCTIVE ORGANS: Prostatic concretion. LYMPH NODES: Persistent prominent retroperitoneal and upper abdominal lymph nodes measuring up to 2.4 cm along the superior aspect of the pancreatic neck. OSSEOUS STRUCTURES: Degenerative changes of the lumbar spine. OTHER: Arterial atherosclerotic calcifications. Bilateral abdominal wall soft tissues fat stranding a nd reactive fluid. IMPRESSION: 1. Bilateral pleural effusions larger on the left side with adjacent pulmonary atelectasis/consolidat ion, pneumonia cannot be excluded, please relate clinically. 2. The previously seen right pelvic collection is not appreciated today however there is persistent s igns of dehiscence at the colonic anastomosis in the pelvis as described above. 3. Persistent mesenteric fat stranding and reactive fluid in the mid and lower abdomen, peritonitis c annot be excluded. 4. Questionable 3.5 cm left mid abdominal collection adjacent to the small bowel anastomosis. No othe r definite abscess formation or sizable collection seen in the abdomen or the pelvis. 5. Mild dilatation and wall thickening of some of the small bowel loops as described above, possibly representing ileus, please correlate clinically. 6. Other incidental findings as described above.
--- NOTE | 2022-02-05 15:33 | P.PN ---
Subjective Progress Note Date: 02/05/22 CHIEF COMPLAINT: Pelvic abscess HISTORY OF PRESENT ILLNESS: Patient is status post exploratory laparotomy, drainage of pelvic abscess, small bowel resection 3, transverse and colostomy, placement of wound VAC and partial omentectomy. He is postop day #6. Patient remains in the ICU and on mechanical ventilation. No function from ostomy. Patient is having large amount of output through his old G-tube. Had 1700 mL output through the night of greenish in color. OG tube was advanced this morning. And again had about 1600 mL output this morning. JOSE drain is brownish in color. Patient has been having low-grade fevers throughout the evening. White count did go up from 11.8-15 hemoglobin 7.3 potassium 3.4. Patient is on IV heparin for pulmonary embolism, DVT and afib. Patient seen and examined with Dr. pierce PHYSICAL EXAM: VITAL SIGNS: Reviewed. GENERAL: no acute distress. HEENT: Head is atraumatic, normocephalic. ABDOMEN: soft, Nondistended. Wound VAC in place, ostomy pink without output. JOSE drain with brownish, dark output NEUROLOGIC: Intubated and sedated ASSESSMENT: 1. Pelvic abscess, small bowel obstruction due to severe inflammatory reaction in the small bowel and lymphoma status post exploratory laparotomy, drainage of pelvic abscess, small bowel resection 3, transverse and colostomy, placement of wound VAC and partial omentectomy 2. History of colonic adenocarcinoma 3. History of non-Hodgkin's lymphoma 4. Hypomagnesemia 5. Pulmonary embolism and DVT left leg 6. Ileus PLAN: -Computed tomography scan chest abdomen and pelvis ordered for further evaluation of patient's fever and white count -Continue ICU management -Continue supportive care -Continue antibiotics -Patient received potassium supplement for hypokalemia Physician Professional Architect note has been reviewed by physician. Signing provider agrees with the documented findings, assessment, and plan of care. Objective - Vital Signs Vital signs: Vital Signs Temp 99.9 F H 02/05/22 08:00 Pulse 95 02/05/22 10:00 Resp 30 H 02/05/22 10:00 BP 125/64 02/05/22 10:00 Pulse Ox 98 02/05/22 10:00 Intake & Output 02/04/22 02/05/22 02/05/22 18:59 06:59 18:59 Intake Total 2582.281 897.900 0836.227 Output Total 3580 1890 425 Balance -997.719 -4445.268 6494.227 Weight 146.6 kg 146.6 kg Intake: IV 1040 430 670 .9 KVO 240 130 70 Anidulafungin 100 mg In 100 100 Sodium Chloride 0.9% 100 ml @ 84 mls/hr IVPB DAILY [facility] Rx#:[id number] DAPTOmycin 700 mg In 100 Sodium Chloride 0.9% 50 ml @ 100 mls/hr IVPB Q24H [facility] Rx#:[id number] Magnesium Sulfate-D5w Pmx 100 1 gm In Dextrose/Water 1 100ml.bag @ 100 mls/hr IVPB Q1H [facility] Rx#: [id number] Piperacillin-Tazobactam 3 200 100 100 .375 gm In Sodium Chloride 0.9% 100 ml @ 25 mls/hr IVPB Q8HR [facility] Rx# :[id number] Potassium Chloride 20 meq 100 300 In Water For Injection 1 100ml.bag @ 50 mls/hr IVPB Q2H [facility] Rx#: [id number] Potassium Phosphate 10 100 100 mmol In Sodium Chloride 0 .9% 100 ml @ 50 mls/hr IV ONCE ONE Rx#:[id number] levETIRAcetam IV 500 mg 100 100 100 In Sodium Chloride 0.9% 100 ml @ 400 mls/hr IVPB Q12HR [facility] Rx#:[id number] Intake, IV Titration 562.281 396.457 656.227 Amount Amiodarone 450 mg In 250 Dextrose 5% in Water 250 ml @ 0.5 MG/MIN 16.667 mls/hr IV .Q15H [facility] Rx#: [id number] Dexmedetomidine/0.9% NaCl 16.348 146.457 158.194 (Pmx) 400 mcg In Empty Bag 1 bag @ 0.2 MCG/KG/HR 7.375 mls/hr IV .[id number] [facility] Rx#:[id number] Heparin Sod,Pork in 0.45% 136.588 250 248.033 NaCl 25,000 unit In 0.45 % NaCl 1 250ml.bag @ 17. 38 UNITS/KG/HR 22.994 mls /hr IV .[id number] [facility] Rx#: [id number] Potassium Chloride 20 meq 100 In Water For Injection 1 100ml.bag @ 50 mls/hr IVPB Q2H [facility] Rx#: [id number] propofoL 1,000 mg In 309.345 Empty Bag 1 bag @ 5 MCG/ KG/MIN 3.919 mls/hr IV . Q24H [facility] Rx#:[id number] TPN/PPN 360 255 .9 KVO 360 255 Blood Product 620 Rc As-1 Unit 310 [id number] Output: Gastric Drainage 1700 Urine 1880 1890 425 Other: Voiding Method Indwelling Catheter Indwelling Catheter ABP, PAP, CO, CI - Last Documented Arterial Blood Pressure 152/56 - Labs CBC & Chem 7: 02/05/22 04:25 02/05/22 04:25 Labs: Abnormal Lab Results - Last 24 Hours (Table) 02/04/22 02/04/22 02/04/22 Range/Units 06:25 12:25 17:18 WBC (3.8-10.6) k/uL RBC (4.30-5.90) m/uL Hgb (13.0-17.5) gm/dL Hct (39.0-53.0) % MCHC (31.0-37.0) g/dL RDW (11.5-15.5) % Neutrophils # (1.3-7.7) k/uL APTT 45.3 H (22.0-30.0) sec ABG pH (7.35-7.45) ABG pCO2 (35-45) mmHg ABG pO2 (83-108) mmHg ABG HCO3 (21-25) mmol/L ABG Total CO2 (19-24) mmol/L ABG O2 Saturation (94-97) % Potassium (3.5-5.1) mmol/L Chloride (98-107) mmol/L Creatinine (0.66-1.25) mg/dL Glucose (74-99) mg/dL POC Glucose (mg/dL) 162 H (75-99) mg/dL Calcium (8.4-10.2) mg/dL C-Reactive Protein (<1.0) mg/dL Total Protein (6.3-8.2) g/dL Albumin (3.5-5.0) g/dL Crossmatch See Detail 02/04/22 02/04/22 02/05/22 Range/Units 18:30 23:48 04:25 WBC (3.8-10.6) k/uL RBC (4.30-5.90) m/uL Hgb (13.0-17.5) gm/dL Hct (39.0-53.0) % MCHC (31.0-37.0) g/dL RDW (11.5-15.5) % Neutrophils # (1.3-7.7) k/uL APTT (22.0-30.0) sec ABG pH (7.35-7.45) ABG pCO2 (35-45) mmHg ABG pO2 (83-108) mmHg ABG HCO3 (21-25) mmol/L ABG Total CO2 (19-24) mmol/L ABG O2 Saturation (94-97) % Potassium 3.1 L 3.4 L (3.5-5.1) mmol/L Chloride 112 H (98-107) mmol/L Creatinine 0.50 L (0.66-1.25) mg/dL Glucose 186 H (74-99) mg/dL POC Glucose (mg/dL) 175 H (75-99) mg/dL Calcium 7.3 L (8.4-10.2) mg/dL C-Reactive Protein 16.6 H (<1.0) mg/dL Total Protein 4.1 L (6.3-8.2) g/dL Albumin 1.9 L (3.5-5.0) g/dL Crossmatch 02/05/22 02/05/22 02/05/22 Range/Units 04:25 04:25 05:56 WBC 15.0 H (3.8-10.6) k/uL RBC 2.56 L (4.30-5.90) m/uL Hgb 7.3 L (13.0-17.5) gm/dL Hct 23.7 L (39.0-53.0) % MCHC 30.9 L (31.0-37.0) g/dL RDW 16.0 H (11.5-15.5) % Neutrophils # 10.6 H (1.3-7.7) k/uL APTT 48.7 H (22.0-30.0) sec ABG pH 7.56 H* (7.35-7.45) ABG pCO2 29 L (35-45) mmHg ABG pO2 126 H (83-108) mmHg ABG HCO3 26 H (21-25) mmol/L ABG Total CO2 27 H (19-24) mmol/L ABG O2 Saturation 98.9 H (94-97) % Potassium (3.5-5.1) mmol/L Chloride (98-107) mmol/L Creatinine (0.66-1.25) mg/dL Glucose (74-99) mg/dL POC Glucose (mg/dL) (75-99) mg/dL Calcium (8.4-10.2) mg/dL C-Reactive Protein (<1.0) mg/dL Total Protein (6.3-8.2) g/dL Albumin (3.5-5.0) g/dL Crossmatch 02/05/22 Range/Units 06:09 WBC (3.8-10.6) k/uL RBC (4.30-5.90) m/uL Hgb (13.0-17.5) gm/dL Hct (39.0-53.0) % MCHC (31.0-37.0) g/dL RDW (11.5-15.5) % Neutrophils # (1.3-7.7) k/uL APTT (22.0-30.0) sec ABG pH (7.35-7.45) ABG pCO2 (35-45) mmHg ABG pO2 (83-108) mmHg ABG HCO3 (21-25) mmol/L ABG Total CO2 (19-24) mmol/L ABG O2 Saturation (94-97) % Potassium (3.5-5.1) mmol/L Chloride (98-107) mmol/L Creatinine (0.66-1.25) mg/dL Glucose (74-99) mg/dL POC Glucose (mg/dL) 211 H (75-99) mg/dL Calcium (8.4-10.2) mg/dL C-Reactive Protein (<1.0) mg/dL Total Protein (6.3-8.2) g/dL Albumin (3.5-5.0) g/dL Crossmatch Microbiology - Last 24 Hours (Table) 02/01/22 06:30 Blood Culture - Preliminary Blood No Growth after 96 hours 01/30/22 10:30 Blood Culture - Preliminary Blood No Growth after 120 hours 01/30/22 10:43 Blood Culture - Preliminary Blood No Growth after 120 hours
[2022-02-05 18:14] LABS: Glucose,Whole Blood 258 mg/dL (75-99)
[2022-02-05] MEDS ORDERED: INSULIN DETEMIR (LEVEMIR) 100 UNIT/ML SYR SQ SCH (21:00)
--- NOTE | 2022-02-05 22:44 | P.PN ---
Subjective Progress Note Date: 02/05/22 We seen him today for a consult follow-up patient was admitted under surgery service care on 01/30. Nikoali Trevino is a 66 yo M with PMH of recently diagnosed colon cancer, s/p LAD and sigmoid colectomy about 3 weeks ago who subsequently developed drainage from his surgical site a few days ago. He was started on antibiotics but then noticed passing blood with bowel movements. On his presentaiton pt tachycardic, WBC 7.9, FOBT positive, CT abd/pelvis with SBO and enlarged lymph nodes. Pt taken for surgery with drainage of abscess, small bowel resection and creation of end ileostomy. Today pt remains intubated and sedated in the ICU, WBC improved 02/01/2022 Patient remains in critical condition in the ICU, he is sedated and intubated, also he needs pressors currently on levophed . Wound VAC and dressing is in place. His heart rate is 149 and blood pressure 90/41, FiO2 of 45 and slightly tachypneic at 22. Chest x-ray showing atelectasis of the lungs. Also seen of the CT of the abdomen and pelvis. Also there is evidence of bilateral hilar lymphadenopathy and intra-abdominal lymphadenopathy with hepatomegaly consistent with his history of lymphoma. Ultrasound of the neck was positive for acute left DVT. He is on heparin drip, IV Protonix, normal saline, Zosyn and axis 02/02/2022 Remains in the ICU in critical condition, intubated and sedated with pulmonary/critical care team following him closely. Patient came off Levophed however he developed another atrial fibrillation and he was started on amiodarone drip again. He was continued on heparin drip as well. He remains on broad-spectrum antibiotics of Zosyn and Eraxis per ID team and wound VAC still in place. Chest x-ray showing similar changes like yesterday with small bilateral effusion with adjacent atelectasis versus infiltrates. Hemoglobin 7.3, WBC is 10.3 Heart rate is 115, blood pressure 149/59, FiO2 34% with respiratory rate 25 per min 02/03/2022 He remains in critical condition in the ICU, he is intubated and sedated. He continues on amiodarone and heparin drip today. He is hemodynamically stable, Hgb and renal function stable. Blood cultures no growth. 02/04/2022 Pt remains intubated and sedated in the ICU, continues on daptomycin and zosyn, T max 100.3 last 24 hours. Blood cultures no growth. Hgb 6.6 this morning. 02/05/2022 Pt remains in the ICU today, intubated and sedated with vent settings table. He was transfused yesterday and Hgb 7.3. He remians febrile with Tmax 100 last 24 hours. Cultures no growth, he continues on daptomycin and zosyn. Blood glucose running 200s today. Objective - Vital Signs Vital signs: Vital Signs Temp 98.8 F 02/05/22 20:00 Pulse 103 H 02/05/22 22:00 Resp 19 02/05/22 22:00 BP 135/64 02/05/22 22:00 Pulse Ox 99 02/05/22 22:00 Intake & Output 02/05/22 02/05/22 02/06/22 06:59 18:59 06:59 Intake Total 942.422 5274.773 464.385 Output Total 1890 3195 235 Balance -1063.543 -524.227 229.385 Weight 146.6 kg 146.6 kg Intake: IV 430 1555 120 .9 KVO 130 230 20 Anidulafungin 100 mg In 100 Sodium Chloride 0.9% 100 ml @ 84 mls/hr IVPB DAILY [facility] Rx#:[id number] Mvi, Adult No.4 with Vit 725 100 K 10 ml Trace (Conc-1Ml/ Dose) 1 ml Potassium Phosphate 15 mmol Sodium Acetate 30 meq Magnesium Sulfate gm 0.5 gm Calcium Chloride 0.33 gm In Amino Acid 5%-D15w 1,000 ml @ 85 mls/hr IV .BY DURATION [facility] Rx#: [id number] Piperacillin-Tazobactam 3 100 100 .375 gm In Sodium Chloride 0.9% 100 ml @ 25 mls/hr IVPB Q8HR [facility] Rx# :[id number] Potassium Chloride 20 meq 300 In Water For Injection 1 100ml.bag @ 50 mls/hr IVPB Q2H [facility] Rx#: [id number] Potassium Phosphate 10 100 mmol In Sodium Chloride 0 .9% 100 ml @ 50 mls/hr IV ONCE ONE Rx#:[id number] levETIRAcetam IV 500 mg 100 100 In Sodium Chloride 0.9% 100 ml @ 400 mls/hr IVPB Q12HR [facility] Rx#:[id number] Intake, IV Titration 396.457 860.773 344.385 Amount Amiodarone 450 mg In 250 Dextrose 5% in Water 250 ml @ 0.5 MG/MIN 16.667 mls/hr IV .Q15H [facility] Rx#: [id number] Dexmedetomidine/0.9% NaCl 146.457 295.138 (Pmx) 400 mcg In Empty Bag 1 bag @ 0.2 MCG/KG/HR 7.375 mls/hr IV .[id number] [facility] Rx#:[id number] Heparin Sod,Pork in 0.45% 250 248.033 250 NaCl 25,000 unit In 0.45 % NaCl 1 250ml.bag @ 17. 38 UNITS/KG/HR 22.994 mls /hr IV .[id number] [facility] Rx#: [id number] propofoL 1,000 mg In 67.602 94.385 Empty Bag 1 bag @ 5 MCG/ KG/MIN 3.919 mls/hr IV . Q24H [facility] Rx#:[id number] TPN/PPN 255 .9 KVO 255 Output: Gastric Drainage 1750 Urine 1890 1445 235 Other: Voiding Method Indwelling Catheter Indwelling Catheter Indwelling Catheter ABP, PAP, CO, CI - Last Documented Arterial Blood Pressure 146/53 - Exam Gen: Intubated, sedated. Obese. Vitals reviewed CV: Irregular, no murmur Lungs: No rales or wheezing Abd: wound vac to surgical site. Ostomy present - Labs CBC & Chem 7: 02/05/22 04:25 02/05/22 18:30 Labs: Abnormal Lab Results - Last 24 Hours (Table) 02/04/22 02/05/22 02/05/22 Range/Units 23:48 04:25 04:25 WBC 15.0 H (3.8-10.6) k/uL RBC 2.56 L (4.30-5.90) m/uL Hgb 7.3 L (13.0-17.5) gm/dL Hct 23.7 L (39.0-53.0) % MCHC 30.9 L (31.0-37.0) g/dL RDW 16.0 H (11.5-15.5) % Neutrophils # 10.6 H (1.3-7.7) k/uL APTT (22.0-30.0) sec ABG pH (7.35-7.45) ABG pCO2 (35-45) mmHg ABG pO2 (83-108) mmHg ABG HCO3 (21-25) mmol/L ABG Total CO2 (19-24) mmol/L ABG O2 Saturation (94-97) % Potassium 3.4 L (3.5-5.1) mmol/L Chloride 112 H (98-107) mmol/L Creatinine 0.50 L (0.66-1.25) mg/dL Glucose 186 H (74-99) mg/dL POC Glucose (mg/dL) 175 H (75-99) mg/dL Calcium 7.3 L (8.4-10.2) mg/dL C-Reactive Protein 16.6 H (<1.0) mg/dL Total Protein 4.1 L (6.3-8.2) g/dL Albumin 1.9 L (3.5-5.0) g/dL 02/05/22 02/05/22 02/05/22 Range/Units 04:25 05:56 06:09 WBC (3.8-10.6) k/uL RBC (4.30-5.90) m/uL Hgb (13.0-17.5) gm/dL Hct (39.0-53.0) % MCHC (31.0-37.0) g/dL RDW (11.5-15.5) % Neutrophils # (1.3-7.7) k/uL APTT 48.7 H (22.0-30.0) sec ABG pH 7.56 H* (7.35-7.45) ABG pCO2 29 L (35-45) mmHg ABG pO2 126 H (83-108) mmHg ABG HCO3 26 H (21-25) mmol/L ABG Total CO2 27 H (19-24) mmol/L ABG O2 Saturation 98.9 H (94-97) % Potassium (3.5-5.1) mmol/L Chloride (98-107) mmol/L Creatinine (0.66-1.25) mg/dL Glucose (74-99) mg/dL POC Glucose (mg/dL) 211 H (75-99) mg/dL Calcium (8.4-10.2) mg/dL C-Reactive Protein (<1.0) mg/dL Total Protein (6.3-8.2) g/dL Albumin (3.5-5.0) g/dL 02/05/22 02/05/22 02/05/22 Range/Units 11:34 18:13 18:30 WBC (3.8-10.6) k/uL RBC (4.30-5.90) m/uL Hgb (13.0-17.5) gm/dL Hct (39.0-53.0) % MCHC (31.0-37.0) g/dL RDW (11.5-15.5) % Neutrophils # (1.3-7.7) k/uL APTT (22.0-30.0) sec ABG pH (7.35-7.45) ABG pCO2 (35-45) mmHg ABG pO2 (83-108) mmHg ABG HCO3 (21-25) mmol/L ABG Total CO2 (19-24) mmol/L ABG O2 Saturation (94-97) % Potassium 3.3 L (3.5-5.1) mmol/L Chloride (98-107) mmol/L Creatinine (0.66-1.25) mg/dL Glucose (74-99) mg/dL POC Glucose (mg/dL) 216 H 258 H (75-99) mg/dL Calcium (8.4-10.2) mg/dL C-Reactive Protein (<1.0) mg/dL Total Protein (6.3-8.2) g/dL Albumin (3.5-5.0) g/dL Microbiology - Last 24 Hours (Table) 01/30/22 10:43 Blood Culture - Final Blood No Growth after 144 hours 01/30/22 10:30 Blood Culture - Final Blood No Growth after 144 hours 02/01/22 06:30 Blood Culture - Preliminary Blood No Growth after 96 hours Assessment and Plan Plan: Continue with zosyn, daptomycin; ID following. Pt maintained on heparin, amiodarone drip. Continue lasix. Accucheck and sliding scale. Add levemir 8 units
[2022-02-05 23:51] LABS: Glucose,Whole Blood 213 mg/dL (75-99)
[2022-02-06] MEDS: INSULIN ASPART (NovoLOG) 100 UNIT/ML VIAL SQ SCH ×3 (00:08→13:22)
[2022-02-06] MEDS ORDERED: AMIODARONE 450 MG in DEXTROSE 5% IN WATER 250 ML IV SCH ×2 (02:00)
[2022-02-06 05:23] LABS: ALT 11 U/L (4-49); AST 32 U/L (17-59); African American GFR (CKD) >90 (>60 ml/min/1.73 sqM); Albumin 2.1 g/dL (3.5-5.0); Alkaline Phosphatase 84 U/L (38-126); Anion Gap 5 mmol/L; Blood Urea Nitrogen 22 mg/dL (9-20); Calcium 7.6 mg/dL (8.4-10.2); Carbon Dioxide 26 mmol/L (22-30); Chloride 109 mmol/L (98-107); Glucose 200 mg/dL (74-99); Magnesium 1.7 mg/dL (1.6-2.3); Non-African American GFR(CKD) >90 (>60 ml/min/1.73 sqM); Phosphorus 3.7 mg/dL (2.5-4.5); Potassium 3.5 mmol/L (3.5-5.1); Sodium 140 mmol/L (137-145); Total Bilirubin 0.3 mg/dL (0.2-1.3); Total Protein 4.6 g/dL (6.3-8.2)
[2022-02-06 05:37] LABS: Anisocytosis Slight; HCT 24.4 % (39.0-53.0); HGB 7.6 gm/dL (13.0-17.5); Hypochromasia Marked; MCH 29.4 pg (25.0-35.0); MCHC 31.1 g/dL (31.0-37.0); MCV 94.4 fL (80.0-100.0); Mean Platelet Volume 9.5; Platelet Count 242 k/uL (150-450); Poikilocytosis Slight; RBC 2.59 m/uL (4.30-5.90); RDW 16.1 % (11.5-15.5)
[2022-02-06 05:54] LABS: Band Neutrophils % 10 %; Lymphocytes # (M) 4.14 k/uL (1.0-4.8); Metamyelocytes # (M) 1.13 k/uL (0); Metamyelocytes % 6 %; Monocytes # (M) 0.94 k/uL (0-1.0); Myelocytes # (M) 0.38 k/uL (0); Myelocytes % 2 %; Neutrophils % (M) 55 %; Nucleated Red Blood Cells 4 /100 WBC (0-0); Total Cells Counted 200; WBC 18.8 k/uL (3.8-10.6)
[2022-02-06 05:55] LABS: Polychromasia Present; Toxic Granulation Present
[2022-02-06 05:56] LABS: Glucose,Whole Blood 227 mg/dL (75-99)
[2022-02-06 06:07] LABS: ABG HCO3 26 mmol/L (21-25); ABG Oxygen Saturation 96.6 % (94-97); ABG PCO2 40 mmHg (35-45); ABG PH 7.43 (7.35-7.45); ABG PO2 84 mmHg (83-108); ABG TCO2 28 mmol/L (19-24); Allen Test Performed? Yes
[2022-02-06] MEDS: POTASSIUM CHLORIDE 20 MEQ in WATER FOR INJECTION 1 100ML.BAG IVPB SCH ×2 (06:37→09:13)
[2022-02-06] MEDS: HEPARIN SOD,PORK IN 0.45% NACL 25,000 UNIT in 0.45% NACL 1 250ML.BAG IV SCH (06:56)
--- NOTE | 2022-02-06 07:33 | XR ---
EXAMINATION TYPE: XR chest 1V portable DATE OF EXAM: 02/06/2022 Comparison: 02/05/2022 Clinical History: 66-year-old male intubated Findings: ET tube tip at the level of the medial clavicular heads. NG tube now courses below the diaphragm. Rig ht IJ CVC tip in the right atrium. Heart is mildly enlarged. Continued small left pleural effusion wi th patchy left basilar opacity. Some perihilar density is also present without significant change. In terstitium shows some improvement from prior. Impression: 1. Satisfactory interval advancement of the NG tube. 2. Some interval improvement in the appearance of the interstitium. 3. Continued small left pleural effusion with adjacent atelectasis and/or consolidation. 4. Continued bilateral hilar opacities suggesting underlying pulmonary arterial hypertension.
[2022-02-06] MEDS ORDERED: SODIUM CHLORIDE 0.9% 250 ML BAG ONE (08:00)
[2022-02-06] MEDS: CHLORHEXIDINE GLUCONATE 15 ML CUP MUCOUS MEM SCH (09:11)
[2022-02-06] MEDS: PANTOPRAZOLE 40 MG/10 ML VIAL IVP SCH (09:11)
[2022-02-06] MEDS: FUROSEMIDE 10 MG/ML 4 ML VIAL IV SCH (09:12)
[2022-02-06] MEDS: ANIDULAFUNGIN 100 MG in SODIUM CHLORIDE 0.9% 100 ML IVPB SCH (09:12)
[2022-02-06] MEDS: levETIRAcetam IV 500 MG in SODIUM CHLORIDE 0.9% 100 ML IVPB SCH (09:12)
[2022-02-06] MEDS: MAGNESIUM SULFATE-D5W PMX 1 GM in DEXTROSE/WATER 1 100ML.BAG IVPB SCH ×2 (09:12→10:33)
[2022-02-06] MEDS: PIPERACILLIN-TAZOBACTAM 3.375 GM in SODIUM CHLORIDE 0.9% 100 ML IVPB SCH (09:12)
[2022-02-06] MEDS ORDERED: ACETAMINOPHEN IV (For NPO) 1,000 MG in EMPTY BAG 1 BAG IVPB PRN (10:21)
[2022-02-06] MEDS ORDERED: ENOXAPARIN 80 MG/0.8 ML SYRINGE SQ SCH (10:30)
[2022-02-06 11:32] LABS: Glucose,Whole Blood 251 mg/dL (75-99)
[2022-02-06] MEDS ORDERED: LORazepam 2 MG/ML INJ IV PRN (12:56)
[2022-02-06] MEDS ORDERED: METOCLOPRAMIDE 5 MG/ML 2 ML VIAL IVP PRN (12:56)
[2022-02-06 13:22] VITALS: TEMP 99.6
[2022-02-06] MEDS ORDERED: SCOPOLAMINE 1 MG/72 HR PATCH TRANSDERM SCH (13:30)
[2022-02-06] MEDS ORDERED: MORPHINE SULFATE (100 MG/2 ML) 100 MG in SODIUM CHLORIDE 0.9% 100 ML IV SCH (13:30)
--- NOTE | 2022-02-06 13:32 | P.PN ---
Subjective Progress Note Date: 02/06/22 Principal diagnosis: Acute hypoxic respiratory failure, small bowel obstruction, abdominal sepsis. On 02/03/2022 patient seen in follow-up in the intensive care unit. Patient is status post laparotomy and drainage of a pelvic abscess and Small Bowel Resection 3 along with transverse colostomy and partial omentectomy. Patient remains intubated, sedated and paralyzed on mechanical ventilator on assist control mode with a rate of 24, Tylenol is 500, FiO2 of 35% and PEEP of 5, this morning blood gases shows pO2 of 85, pCO2 of 39, pH of 7.36 this was done on the above-mentioned ventilator settings. Today's chest x-ray shows low lung volumes, mild cardiomegaly, some central vascular congestion small to tiny bilateral pleural effusions and associated bibasilar atelectasis. No significant change compared to most recent exam. Patient is currently on Diprivan and at 50 mics per kilo per minute, amiodarone at 0.5 mg per hour, Nimbex is at 1.5 mics per kilo per minute, and heparin infusion at weight-based protocol. Has not been started on tube feedings yet, hemodynamically he is not requiring any vasopressor support. He remains on a combination of antibiotics with Zosyn and Eraxis. Blood cultures remain negative. He is in sinus rhythm sinus tach with a rate of 108 BPM. Generally appears to be quite fluid overloaded. Patient has required multiple fluid boluses initially in the postoperative period after surgery for hypotension. According to the documented weight he is positive at least 21 kg since admission. Patient has mild generalized edema in his upper and truncal edema, and moderate pitting edema in his bilateral lower extremities. Has not received any diuretics yet. Mid abdominal incision with a wound VAC in place with minimal output. JOSE drain in the right lower abdomen also putting out minimal amount of drainage. Colostomy in the right upper quadrant is not producing any gas or stool. Bowel sounds are absent or extremely hypoactive. No acute issues overnight. Today's lab 7 reviewed showing a white blood cell count which is improved and is down to 12.4 hemoglobin is 7.3, sodium is 141, potassium is 3.8, chloride is 114, CO2 is 21, BUN is 18 creatinine 0.57. Reevaluated today on 02/04/2022, patient remains in the ICU, intubated and mechanically ventilated. He is on assist control rate of 24th tidal volume 500 FiO2 35% PEEP of 5. ABG showed a pO2 of 107 pCO2 32 pH of 7.48. Electrolytes are normal except for low potassium of 3.2 and renal profile is normal CBC is relatively normal except for a drop in hemoglobin down to 6.6, no active bleeding, and I am a bit reluctant to stop the heparin at this point, will resume heparin, and if he continues to show drop in his hemoglobin, may have to consider IVC filter placement in this patient and stopping anticoagulation therapy all together. Patient remains on propofol at 55 mcg/kg/m, he remains on Zosyn and Eraxis. He is also on amiodarone drip at 0.5 mg/m. Asked x-ray is showing improvement in his interstitial edema, patient was placed on Lasix yesterday at 40 mg IV push every 12 hours, patient is responding well to diuretics, and he has excellent urine output. Nonetheless, the patient remains edematous in upper and lower extremities. Reevaluated today on 02/05/2022, remains in the ICU, intubated and mechanically ventilated. Patient has been off propofol since yesterday, he is on Precedex at 0.4 mcg/kg/h, however the patient is not waking up enough to maintain any eye contact. He seems to be comfortable on assist control mode of mechanical ventilation which is basically the same. Tidal volume is 500 FiO2 35% rate is 24, and PEEP is 5. ABG today showed a pO2 of 126 pCO2 29 pH of 7.56 his PTT is 48.7. Hemoglobin is holding. Electrolytes are normal except for slightly low potassium of 3.4, renal profile is normal. CBC showed a bit of leukocytosis with WBC of 15.0 hemoglobin is 7.3. Blood cultures remain negative. Chest x- ray showed improved rt lower lobe infiltrate, there is a left lower lobe infiltrate and small pleural effusion nasogastric tube was noted to be high in the esophagus, and this was advanced already by nurse taking care of the patient . Patient remains on Eraxis, daptomycin, Lasix 40 mg IV push every 12 hours, heparin drip, Keppra, morphine when necessary, he is now on Precedex instead of propofol. Patient is on GI prophylaxis in the form of Protonix, remains on Zosyn as per infectious disease on the case. Patient needs to be on TPN. Reevaluated today on 02/06/22, patient remains in the ICU, intubated and mecha nically ventilated, he is now on assist control rate of 24th tidal volume 500 FiO2 35%, PEEP of 5. ABG showed a pO2 of 80 pCO2 40 pH of 7.43. Patient was on Precedex for almost 24 hours, however yesterday his clinical status seemed to deteriorate, and the patient was getting more and more restless and agitated, could not open his eyes or follow any instructions, and his CT of the abdomen is questioning a leak/dehiscence at the anastomosis site. Discussed this with the surgeon, and he clearly believe that the patient will not be able to tolerate surgery, apparently he discussed his condition with family and willing to proceed with comfort care measures. Patient is presently on heparin, Eraxis, Zosyn, propofol at 50, and he is off amiodarone. Patient is not requiring any pressors for hemodynamic support. Earlier today, the patient was taken off propofol, and he was still unable to open his eyes, and able to follow any instructions, he is noted intermittently to develop significantly elevated blood pressure, intermittent fevers, and diaphoresis. I believe the findings are most likely findings of worsening abdominal sepsis. Obviously the patient is not anywhere near weaning considering his overall clinical status. And I believe it is appropriate to consider comfort care measures on this patient. Already his status was discussed with the family by the surgeon on the case/Dr. Palmer. White count is coming up to 18.8 hemoglobin is 7.6. Electrolytes are normal renal profile is normal chest x-ray is showing improvement Objective - Vital Signs Vital signs: Vital Signs Temp 99.6 F 02/06/22 12:00 Pulse 111 H 02/06/22 13:00 Resp 29 H 02/06/22 13:00 BP 144/76 02/06/22 04:00 Pulse Ox 98 02/06/22 13:00 Intake & Output 02/05/22 02/06/22 02/06/22 18:59 06:59 18:59 Intake Total 2670.773 2707.638 773.81 Output Total 3195 2190 3505 Balance -524.227 517.638 -2731.19 Weight 146.6 kg 143.7 kg Intake: IV 1555 1755 200 .9 KVO 230 180 Anidulafungin 100 mg In 100 Sodium Chloride 0.9% 100 ml @ 84 mls/hr IVPB DAILY [facility] Rx#:[id number] Magnesium Sulfate-D5w Pmx 200 1 gm In Dextrose/Water 1 100ml.bag @ 100 mls/hr IVPB Q1H [facility] Rx#: [id number] Mvi, Adult No.4 with Vit 725 1300 K 10 ml Trace (Conc-1Ml/ Dose) 1 ml Potassium Phosphate 15 mmol Sodium Acetate 30 meq Magnesium Sulfate gm 0.5 gm Calcium Chloride 0.33 gm In Amino Acid 5%-D15w 1,000 ml @ 85 mls/hr IV .BY DURATION [facility] Rx#: [id number] Piperacillin-Tazobactam 3 100 75 .375 gm In Sodium Chloride 0.9% 100 ml @ 25 mls/hr IVPB Q8HR [facility] Rx# :[id number] Potassium Chloride 20 meq 300 In Water For Injection 1 100ml.bag @ 50 mls/hr IVPB Q2H [facility] Rx#: [id number] Potassium Chloride 20 meq 100 In Water For Injection 1 100ml.bag @ 50 mls/hr IVPB Q2H [facility] Rx#: [id number] levETIRAcetam IV 500 mg 100 100 In Sodium Chloride 0.9% 100 ml @ 400 mls/hr IVPB Q12HR [facility] Rx#:[id number] Intake, IV Titration 860.773 952.638 173.81 Amount Amiodarone 450 mg In 250 Dextrose 5% in Water 250 ml @ 0.5 MG/MIN 16.667 mls/hr IV .Q15H [facility] Rx#: [id number] Dexmedetomidine/0.9% NaCl 295.138 (Pmx) 400 mcg In Empty Bag 1 bag @ 0.2 MCG/KG/HR 7.375 mls/hr IV .[id number] [facility] Rx#:[id number] Heparin Sod,Pork in 0.45% 248.033 485.875 NaCl 25,000 unit In 0.45 % NaCl 1 250ml.bag @ 17. 38 UNITS/KG/HR 22.994 mls /hr IV .[id number] [facility] Rx#: [id number] propofoL 1,000 mg In 67.602 466.763 173.81 Empty Bag 1 bag @ 5 MCG/ KG/MIN 3.919 mls/hr IV . Q24H [facility] Rx#:[id number] TPN/PPN 255 400 .9 KVO 255 Mvi, Adult No.4 with Vit 400 K 10 ml Trace (Conc-1Ml/ Dose) 1 ml Potassium Phosphate 15 mmol Sodium Acetate 30 meq Magnesium Sulfate gm 0.5 gm Calcium Chloride 0.33 gm In Amino Acid 5%-D15w 1,000 ml @ 85 mls/hr IV .BY DURATION [facility] Rx#: [id number] Output: Gastric Drainage 2817 939 5973 Urine 1445 1540 1405 Other: Voiding Method Indwelling Catheter Indwelling Catheter ABP, PAP, CO, CI - Last Documented Arterial Blood Pressure 149/57 - Exam GENERAL EXAM: Revealed a 66-year-old white male intubated and mechanically ventilated, does not open eyes, does not follow instructions, presently off propofol. Noted to be quite diaphoretic. HEAD: Normocephalic/atraumatic. HEENT: PERRLA, EOMI, nonicteric, no neck masses, no JVD, no stridor, right IJ triple-lumen catheter is noted. CHEST: No chest wall deformity. Symmetrical expansion. LUNGS: Fine crackles at the bases. CVS: Distant S1 and S2, no S3 gallop. Patient is in sinus rhythm ABDOMEN: Soft, mid abdominal incision with wound VAC in place black foam, with minimal drainage and the canister, right-sided JOSE drain with minimal output, right-sided colostomy with no gas or stool. No hepatosplenomegaly, normal bowel sounds, no guarding or rigidity. Earlier today according to the nurse the patient had significant output from his nasogastric tube. EXTREMITIES: 2+ bipedal edema, diminished distal pulses. MUSCULOSKELETAL: No deformities. SKIN: No rashes CENTRAL NERVOUS SYSTEM: Unresponsive, does not open eyes, does not follow any instructions. Psychiatric: Unable to assess - Labs CBC & Chem 7: 02/06/22 04:50 02/06/22 04:50 Labs: Abnormal Lab Results - Last 24 Hours (Table) 02/05/22 02/05/22 02/05/22 Range/Units 18:13 18:30 23:50 WBC (3.8-10.6) k/uL RBC (4.30-5.90) m/uL Hgb (13.0-17.5) gm/dL Hct (39.0-53.0) % RDW (11.5-15.5) % Neutrophils # (Manual) (1.3-7.7) k/uL Metamyelocytes # (Man) (0) k/uL Myelocytes # (Manual) (0) k/uL Nucleated RBCs (0-0) /100 WBC APTT (22.0-30.0) sec ABG HCO3 (21-25) mmol/L ABG Total CO2 (19-24) mmol/L Potassium 3.3 L (3.5-5.1) mmol/L Chloride (98-107) mmol/L BUN (9-20) mg/dL Creatinine (0.66-1.25) mg/dL Glucose (74-99) mg/dL POC Glucose (mg/dL) 258 H 213 H (75-99) mg/dL Calcium (8.4-10.2) mg/dL Total Protein (6.3-8.2) g/dL Albumin (3.5-5.0) g/dL 02/06/22 02/06/22 02/06/22 Range/Units 04:50 04:50 04:50 WBC 18.8 H (3.8-10.6) k/uL RBC 2.59 L (4.30-5.90) m/uL Hgb 7.6 L (13.0-17.5) gm/dL Hct 24.4 L (39.0-53.0) % RDW 16.1 H (11.5-15.5) % Neutrophils # (Manual) 12.20 H (1.3-7.7) k/uL Metamyelocytes # (Man) 1.13 H (0) k/uL Myelocytes # (Manual) 0.38 H (0) k/uL Nucleated RBCs 4 H (0-0) /100 WBC APTT 41.0 H (22.0-30.0) sec ABG HCO3 (21-25) mmol/L ABG Total CO2 (19-24) mmol/L Potassium (3.5-5.1) mmol/L Chloride 109 H (98-107) mmol/L BUN 22 H (9-20) mg/dL Creatinine 0.54 L (0.66-1.25) mg/dL Glucose 200 H (74-99) mg/dL POC Glucose (mg/dL) (75-99) mg/dL Calcium 7.6 L (8.4-10.2) mg/dL Total Protein 4.6 L (6.3-8.2) g/dL Albumin 2.1 L (3.5-5.0) g/dL 02/06/22 02/06/22 02/06/22 Range/Units 05:53 06:03 11:30 WBC (3.8-10.6) k/uL RBC (4.30-5.90) m/uL Hgb (13.0-17.5) gm/dL Hct (39.0-53.0) % RDW (11.5-15.5) % Neutrophils # (Manual) (1.3-7.7) k/uL Metamyelocytes # (Man) (0) k/uL Myelocytes # (Manual) (0) k/uL Nucleated RBCs (0-0) /100 WBC APTT (22.0-30.0) sec ABG HCO3 26 H (21-25) mmol/L ABG Total CO2 28 H (19-24) mmol/L Potassium (3.5-5.1) mmol/L Chloride (98-107) mmol/L BUN (9-20) mg/dL Creatinine (0.66-1.25) mg/dL Glucose (74-99) mg/dL POC Glucose (mg/dL) 227 H 251 H (75-99) mg/dL Calcium (8.4-10.2) mg/dL Total Protein (6.3-8.2) g/dL Albumin (3.5-5.0) g/dL Microbiology - Last 24 Hours (Table) 02/01/22 06:30 Blood Culture - Preliminary Blood No Growth after 120 hours 01/30/22 10:43 Blood Culture - Final Blood No Growth after 144 hours 01/30/22 10:30 Blood Culture - Final Blood No Growth after 144 hours Assessment and Plan Assessment: Impression: Acute hypoxic respiratory failure, multifactorial. Mostly secondary to abdominal sepsis Abdominal sepsis with development of an anastomotic leak, patient is now postoperative day #7 he is status post exploratory laparotomy, drainage of pelvic abscess, small bowel resection 3 along with transverse colostomy and partial omentectomy. History of chronic lymphocytic leukemia with extensive intra-abdominal lymphadenopathy possibly leading to his initial small bowel obstruction presentation. History of colonic adenocarcinoma T2 N0 M0 and previous AP resection. Paroxysmal atrial fibrillation, remains on amiodarone drip. Bilateral pulmonary embolism and DVT of the left popliteal vein, on anticoagulation therapy History of coronary artery disease and previous intervention 4 History of non-Hodgkin's lymphoma 9 essential hypertension Type 2 diabetes Acute on chronic anemia, related to recent abdominal surgery, and recent history of GI bleeding, expected. Recommendation: Discussed his condition with surgery on the case, apparently the surgeon discussed his overall status with the family, and willing to proceed with comfort care. Will confirm this,, and if that is the case, would proceed with comfort care measures. Extremely poor prognosis. Critical care time is over 30 minutes. Time with Patient: Greater than 30
[2022-02-06] MEDS ORDERED: ATROPINE OPHTH SOLN 1% 5ML BTL SUBLINGUAL PRN (14:53)
[2022-02-06 15:30] VITALS: BP 152/50; PULSE 121; RESP 15
[2022-02-06] MEDS: SODIUM CHLORIDE 0.9% IV SCH ×2 (16:18→18:30)
[2022-02-06] MEDS: MORPHINE SULFATE IV SCH ×2 (16:18→18:30)
--- NOTE | 2022-02-06 16:49 | P.PN ---
Subjective Progress Note Date: 02/06/22 CHIEF COMPLAINT: Pelvic abscess HISTORY OF PRESENT ILLNESS: Patient is status post exploratory laparotomy, drainage of pelvic abscess, small bowel resection 3, transverse and colostomy, placement of wound VAC and partial omentectomy. He is postop day #7. Patient is not progressing well. His overall condition is very poor and guarded. Patient has had over 2 L output of bile from his OG tube. Patient had been undergoing a sedation holiday. He does not open his eyes or follow commands. He has been having temps as high as 101.2 his been tachycardic white count is trending up to 18.8 the patient had a computed tomography scan of the abdomen and pelvis completed yesterday with results showing previously seen right pelvic collection not appreciated today however there is persistent signs of dehiscence at the colonic anastomosis in the pelvis. Persistent mesenteric fat stranding and reactive fluid in the mid and lower abdomen, peritonitis cannot be excluded. Questionable 3.5 cm left mid abdominal collection adjacent to the small bowel anastomosis. No other definite abscess formation or sizable collection seen in the abdomen or pelvis. Mild dilatation and wall thickening of some of the small bowel loops, possibly representing ileus. Computed tomography scan findings were reviewed with Dr. pierce. I'd patient is not a good surgical candidate. Patient would not survive another surgery. Dr. pierce did discuss with patient's significant other regarding comfort care measures. She is agreeable to proceed with comfort care measures. Dr. pierce also discussed patient's ca se with critical care service and medical service. Patient seen and examined with Dr. pierce PHYSICAL EXAM: VITAL SIGNS: Reviewed. GENERAL: Intubated and sedated HEENT: Head is atraumatic, normocephalic. ABDOMEN: soft, Nondistended. Wound VAC in place, ostomy pink without output. JOSE drain with brownish, dark output NEUROLOGIC: Not opening eyes or follow commands ASSESSMENT: 1. Pelvic abscess, small bowel obstruction due to severe inflammatory reaction in the small bowel and lymphoma status post exploratory laparotomy, drainage of pelvic abscess, small bowel resection 3, transverse and colostomy, placement of wound VAC and partial omentectomy 2. History of colonic adenocarcinoma 3. History of non-Hodgkin's lymphoma 4. Hypomagnesemia 5. Pulmonary embolism and DVT left leg 6. Ileus PLAN: -Due to patient's overall poor prognosis recommend proceeding with comfort care -Patient's case was discussed with patient's significant other and the other consulting physicians on the case and is decided to proceed with comfort care Physician Soil Scientist note has been reviewed by physician. Signing provider agrees with the documented findings, assessment, and plan of care. Objective - Vital Signs Vital signs: Vital Signs Temp 99.6 F 02/06/22 12:00 Pulse 121 H 02/06/22 14:00 Resp 15 02/06/22 14:00 BP 152/50 02/06/22 14:00 Pulse Ox 83 L 02/06/22 14:00 Intake & Output 02/05/22 02/06/22 02/06/22 18:59 06:59 18:59 Intake Total 2670.773 2707.638 1127.595 Output Total 3195 2190 3905 Balance -524.227 517.638 -2777.405 Weight 146.6 kg 143.7 kg Intake: IV 1555 1755 200 .9 KVO 230 180 Anidulafungin 100 mg In 100 Sodium Chloride 0.9% 100 ml @ 84 mls/hr IVPB DAILY [facility] Rx#:[id number] Magnesium Sulfate-D5w Pmx 200 1 gm In Dextrose/Water 1 100ml.bag @ 100 mls/hr IVPB Q1H [facility] Rx#: [id number] Mvi, Adult No.4 with Vit 725 1300 K 10 ml Trace (Conc-1Ml/ Dose) 1 ml Potassium Phosphate 15 mmol Sodium Acetate 30 meq Magnesium Sulfate gm 0.5 gm Calcium Chloride 0.33 gm In Amino Acid 5%-D15w 1,000 ml @ 85 mls/hr IV .BY DURATION [facility] Rx#: [id number] Piperacillin-Tazobactam 3 100 75 .375 gm In Sodium Chloride 0.9% 100 ml @ 25 mls/hr IVPB Q8HR [facility] Rx# :[id number] Potassium Chloride 20 meq 300 In Water For Injection 1 100ml.bag @ 50 mls/hr IVPB Q2H [facility] Rx#: [id number] Potassium Chloride 20 meq 100 In Water For Injection 1 100ml.bag @ 50 mls/hr IVPB Q2H [facility] Rx#: [id number] levETIRAcetam IV 500 mg 100 100 In Sodium Chloride 0.9% 100 ml @ 400 mls/hr IVPB Q12HR [facility] Rx#:[id number] Intake, IV Titration 860.773 952.638 327.595 Amount Amiodarone 450 mg In 250 Dextrose 5% in Water 250 ml @ 0.5 MG/MIN 16.667 mls/hr IV .Q15H [facility] Rx#: [id number] Dexmedetomidine/0.9% NaCl 295.138 (Pmx) 400 mcg In Empty Bag 1 bag @ 0.2 MCG/KG/HR 7.375 mls/hr IV .[id number] [facility] Rx#:[id number] Heparin Sod,Pork in 0.45% 248.033 485.875 NaCl 25,000 unit In 0.45 % NaCl 1 250ml.bag @ 17. 38 UNITS/KG/HR 22.994 mls /hr IV .[id number] [facility] Rx#: [id number] Morphine Sulfate (100 mg/ 55.454 2 ml) 100 mg In Sodium Chloride 0.9% 100 ml @ 1 MG/HR 1.02 mls/hr IV . Q24H [facility] Rx#:[id number] Morphine Sulfate (100 mg/ 23.868 2 ml) 300 mg In Sodium Chloride 0.9% 300 ml @ 1 MG/HR 1.02 mls/hr IV . Q24H [facility] Rx#:[id number] propofoL 1,000 mg In 67.602 466.763 248.273 Empty Bag 1 bag @ 5 MCG/ KG/MIN 3.919 mls/hr IV . Q24H [facility] Rx#:[id number] TPN/PPN 255 600 .9 KVO 255 Mvi, Adult No.4 with Vit 600 K 10 ml Trace (Conc-1Ml/ Dose) 1 ml Potassium Phosphate 15 mmol Sodium Acetate 30 meq Magnesium Sulfate gm 0.5 gm Calcium Chloride 0.33 gm In Amino Acid 5%-D15w 1,000 ml @ 85 mls/hr IV .BY DURATION [facility] Rx#: [id number] Output: Gastric Drainage 0076 896 8532 Urine 1445 1540 1805 Other: Voiding Method Indwelling Catheter Indwelling Catheter Indwelling Catheter ABP, PAP, CO, CI - Last Documented Arterial Blood Pressure 149/57 - Labs CBC & Chem 7: 02/06/22 04:50 02/06/22 04:50 Labs: Abnormal Lab Results - Last 24 Hours (Table) 02/05/22 02/05/22 02/05/22 Range/Units 18:13 18:30 23:50 WBC (3.8-10.6) k/uL RBC (4.30-5.90) m/uL Hgb (13.0-17.5) gm/dL Hct (39.0-53.0) % RDW (11.5-15.5) % Neutrophils # (Manual) (1.3-7.7) k/uL Metamyelocytes # (Man) (0) k/uL Myelocytes # (Manual) (0) k/uL Nucleated RBCs (0-0) /100 WBC APTT (22.0-30.0) sec ABG HCO3 (21-25) mmol/L ABG Total CO2 (19-24) mmol/L Potassium 3.3 L (3.5-5.1) mmol/L Chloride (98-107) mmol/L BUN (9-20) mg/dL Creatinine (0.66-1.25) mg/dL Glucose (74-99) mg/dL POC Glucose (mg/dL) 258 H 213 H (75-99) mg/dL Calcium (8.4-10.2) mg/dL Total Protein (6.3-8.2) g/dL Albumin (3.5-5.0) g/dL 02/06/22 02/06/22 02/06/22 Range/Units 04:50 04:50 04:50 WBC 18.8 H (3.8-10.6) k/uL RBC 2.59 L (4.30-5.90) m/uL Hgb 7.6 L (13.0-17.5) gm/dL Hct 24.4 L (39.0-53.0) % RDW 16.1 H (11.5-15.5) % Neutrophils # (Manual) 12.20 H (1.3-7.7) k/uL Metamyelocytes # (Man) 1.13 H (0) k/uL Myelocytes # (Manual) 0.38 H (0) k/uL Nucleated RBCs 4 H (0-0) /100 WBC APTT 41.0 H (22.0-30.0) sec ABG HCO3 (21-25) mmol/L ABG Total CO2 (19-24) mmol/L Potassium (3.5-5.1) mmol/L Chloride 109 H (98-107) mmol/L BUN 22 H (9-20) mg/dL Creatinine 0.54 L (0.66-1.25) mg/dL Glucose 200 H (74-99) mg/dL POC Glucose (mg/dL) (75-99) mg/dL Calcium 7.6 L (8.4-10.2) mg/dL Total Protein 4.6 L (6.3-8.2) g/dL Albumin 2.1 L (3.5-5.0) g/dL 02/06/22 02/06/22 02/06/22 Range/Units 05:53 06:03 11:30 WBC (3.8-10.6) k/uL RBC (4.30-5.90) m/uL Hgb (13.0-17.5) gm/dL Hct (39.0-53.0) % RDW (11.5-15.5) % Neutrophils # (Manual) (1.3-7.7) k/uL Metamyelocytes # (Man) (0) k/uL Myelocytes # (Manual) (0) k/uL Nucleated RBCs (0-0) /100 WBC APTT (22.0-30.0) sec ABG HCO3 26 H (21-25) mmol/L ABG Total CO2 28 H (19-24) mmol/L Potassium (3.5-5.1) mmol/L Chloride (98-107) mmol/L BUN (9-20) mg/dL Creatinine (0.66-1.25) mg/dL Glucose (74-99) mg/dL POC Glucose (mg/dL) 227 H 251 H (75-99) mg/dL Calcium (8.4-10.2) mg/dL Total Protein (6.3-8.2) g/dL Albumin (3.5-5.0) g/dL Microbiology - Last 24 Hours (Table) 02/01/22 06:30 Blood Culture - Preliminary Blood No Growth after 120 hours 01/30/22 10:43 Blood Culture - Final Blood No Growth after 144 hours 01/30/22 10:30 Blood Culture - Final Blood No Growth after 144 hours
--- NOTE | 2022-02-06 17:57 | P.PN ---
Subjective Progress Note Date: 02/05/22 Principal diagnosis: Abdominal abscess and sepsis Patient is a 66-year-old male admitted to the hospital with abdominal abscess in this patient who is status post laparotomy drainage of the abscess but no culture and diverting colostomy patient subsequently has been admitted to the ICU on the vent has been running a fever and requiring a pressor support. On today's evaluation that is 02/05/2022 the patient did spike to fever last night and this morning low-grade, the patient is hemodynamically stable and off the pressor support, the patient FiO2 is stable at 35%, no significant purulent secretions through the ET or any other changes were reported by the nursing staff patient remained to be sedated on the vent Objective - Vital Signs Vital signs: Vital Signs Temp 99.4 F 02/05/22 12:00 Pulse 105 H 02/05/22 12:00 Resp 25 H 02/05/22 12:00 BP 130/64 02/05/22 12:00 Pulse Ox 98 02/05/22 12:00 Intake & Output 02/04/22 02/05/22 02/05/22 18:59 06:59 18:59 Intake Total 2582.281 098.613 9053.171 Output Total 3580 1890 2675 Balance -997.719 -1063.543 -741.829 Weight 146.6 kg 146.6 kg Intake: IV 1040 430 985 .9 KVO 240 130 130 Anidulafungin 100 mg In 100 100 Sodium Chloride 0.9% 100 ml @ 84 mls/hr IVPB DAILY [facility] Rx#:[id number] DAPTOmycin 700 mg In 100 Sodium Chloride 0.9% 50 ml @ 100 mls/hr IVPB Q24H [facility] Rx#:[id number] Magnesium Sulfate-D5w Pmx 100 1 gm In Dextrose/Water 1 100ml.bag @ 100 mls/hr IVPB Q1H [facility] Rx#: [id number] Mvi, Adult No.4 with Vit 255 K 10 ml Trace (Conc-1Ml/ Dose) 1 ml Potassium Phosphate 15 mmol Sodium Acetate 30 meq Magnesium Sulfate gm 0.5 gm Calcium Chloride 0.33 gm In Amino Acid 5%-D15w 1,000 ml @ 85 mls/hr IV .BY DURATION [facility] Rx#: [id number] Piperacillin-Tazobactam 3 200 100 100 .375 gm In Sodium Chloride 0.9% 100 ml @ 25 mls/hr IVPB Q8HR [facility] Rx# :[id number] Potassium Chloride 20 meq 100 300 In Water For Injection 1 100ml.bag @ 50 mls/hr IVPB Q2H [facility] Rx#: [id number] Potassium Phosphate 10 100 100 mmol In Sodium Chloride 0 .9% 100 ml @ 50 mls/hr IV ONCE ONE Rx#:[id number] levETIRAcetam IV 500 mg 100 100 100 In Sodium Chloride 0.9% 100 ml @ 400 mls/hr IVPB Q12HR [facility] Rx#:[id number] Intake, IV Titration 562.281 396.457 693.171 Amount Amiodarone 450 mg In 250 Dextrose 5% in Water 250 ml @ 0.5 MG/MIN 16.667 mls/hr IV .Q15H [facility] Rx#: [id number] Dexmedetomidine/0.9% NaCl 16.348 146.457 195.138 (Pmx) 400 mcg In Empty Bag 1 bag @ 0.2 MCG/KG/HR 7.375 mls/hr IV .[id number] [facility] Rx#:[id number] Heparin Sod,Pork in 0.45% 136.588 250 248.033 NaCl 25,000 unit In 0.45 % NaCl 1 250ml.bag @ 17. 38 UNITS/KG/HR 22.994 mls /hr IV .[id number] [facility] Rx#: [id number] Potassium Chloride 20 meq 100 In Water For Injection 1 100ml.bag @ 50 mls/hr IVPB Q2H [facility] Rx#: [id number] propofoL 1,000 mg In 309.345 Empty Bag 1 bag @ 5 MCG/ KG/MIN 3.919 mls/hr IV . Q24H [facility] Rx#:[id number] TPN/PPN 360 255 .9 KVO 360 255 Blood Product 620 Rc As-1 Unit 310 [id number] Output: Gastric Drainage 1700 1550 Urine 1880 1890 1125 Other: Voiding Method Indwelling Catheter Indwelling Catheter ABP, PAP, CO, CI - Last Documented Arterial Blood Pressure 163/58 - Exam GENERAL DESCRIPTION: An elderly male intubated on the vent RESPIRATORY SYSTEM: Unlabored breathing , decreased breath sounds at bases HEART: S1 S2 regular rate and rhythm , ABDOMEN: Soft , midline incision is covered with a wound VAC EXTREMITIES: No edema feet - Labs CBC & Chem 7: 02/06/22 04:50 02/06/22 04:50 Labs: Abnormal Lab Results - Last 24 Hours (Table) 02/04/22 02/04/22 02/04/22 Range/Units 17:18 18:30 23:48 WBC (3.8-10.6) k/uL RBC (4.30-5.90) m/uL Hgb (13.0-17.5) gm/dL Hct (39.0-53.0) % MCHC (31.0-37.0) g/dL RDW (11.5-15.5) % Neutrophils # (1.3-7.7) k/uL APTT (22.0-30.0) sec ABG pH (7.35-7.45) ABG pCO2 (35-45) mmHg ABG pO2 (83-108) mmHg ABG HCO3 (21-25) mmol/L ABG Total CO2 (19-24) mmol/L ABG O2 Saturation (94-97) % Potassium 3.1 L (3.5-5.1) mmol/L Chloride (98-107) mmol/L Creatinine (0.66-1.25) mg/dL Glucose (74-99) mg/dL POC Glucose (mg/dL) 162 H 175 H (75-99) mg/dL Calcium (8.4-10.2) mg/dL C-Reactive Protein (<1.0) mg/dL Total Protein (6.3-8.2) g/dL Albumin (3.5-5.0) g/dL 02/05/22 02/05/22 02/05/22 Range/Units 04:25 04:25 04:25 WBC 15.0 H (3.8-10.6) k/uL RBC 2.56 L (4.30-5.90) m/uL Hgb 7.3 L (13.0-17.5) gm/dL Hct 23.7 L (39.0-53.0) % MCHC 30.9 L (31.0-37.0) g/dL RDW 16.0 H (11.5-15.5) % Neutrophils # 10.6 H (1.3-7.7) k/uL APTT 48.7 H (22.0-30.0) sec ABG pH (7.35-7.45) ABG pCO2 (35-45) mmHg ABG pO2 (83-108) mmHg ABG HCO3 (21-25) mmol/L ABG Total CO2 (19-24) mmol/L ABG O2 Saturation (94-97) % Potassium 3.4 L (3.5-5.1) mmol/L Chloride 112 H (98-107) mmol/L Creatinine 0.50 L (0.66-1.25) mg/dL Glucose 186 H (74-99) mg/dL POC Glucose (mg/dL) (75-99) mg/dL Calcium 7.3 L (8.4-10.2) mg/dL C-Reactive Protein 16.6 H (<1.0) mg/dL Total Protein 4.1 L (6.3-8.2) g/dL Albumin 1.9 L (3.5-5.0) g/dL 02/05/22 02/05/22 02/05/22 Range/Units 05:56 06:09 11:34 WBC (3.8-10.6) k/uL RBC (4.30-5.90) m/uL Hgb (13.0-17.5) gm/dL Hct (39.0-53.0) % MCHC (31.0-37.0) g/dL RDW (11.5-15.5) % Neutrophils # (1.3-7.7) k/uL APTT (22.0-30.0) sec ABG pH 7.56 H* (7.35-7.45) ABG pCO2 29 L (35-45) mmHg ABG pO2 126 H (83-108) mmHg ABG HCO3 26 H (21-25) mmol/L ABG Total CO2 27 H (19-24) mmol/L ABG O2 Saturation 98.9 H (94-97) % Potassium (3.5-5.1) mmol/L Chloride (98-107) mmol/L Creatinine (0.66-1.25) mg/dL Glucose (74-99) mg/dL POC Glucose (mg/dL) 211 H 216 H (75-99) mg/dL Calcium (8.4-10.2) mg/dL C-Reactive Protein (<1.0) mg/dL Total Protein (6.3-8.2) g/dL Albumin (3.5-5.0) g/dL Microbiology - Last 24 Hours (Table) 01/30/22 10:43 Blood Culture - Final Blood No Growth after 144 hours 01/30/22 10:30 Blood Culture - Final Blood No Growth after 144 hours 02/01/22 06:30 Blood Culture - Preliminary Blood No Growth after 96 hours Assessment and Plan (1) Pelvic abscess Current Visit: Yes Status: Acute Code(s): [id number] - SNOMED Code(s): 888315503 Plan: 1patient presented to hospital with sepsis secondary abdominal source in this patient who recently did have a sigmoidectomy now with evidence of anastomosis leak and pelvic abscess patient is status post laparotomy drainage of the abscess unfortunately cultures were not done will need to cover for the enteric gram-negative to be the likely pathogen. 2 patient did have a low-grade fever and elevated white count CT of the chest abdominal pelvis has been ordered results will be followed patient to continue with the Zosyn Eraxis and daptomycin Time with Patient: Less than 30
--- NOTE | 2022-02-06 18:00 | P.PN ---
Subjective Progress Note Date: 02/06/22 Principal diagnosis: Abdominal abscess and sepsis Patient is a 66-year-old male admitted to the hospital with abdominal abscess in this patient who is status post laparotomy drainage of the abscess but no culture and diverting colostomy patient subsequently has been admitted to the ICU on the vent has been running a fever and requiring a pressor support. On today's evaluation that is 02/06/2022 the patient is afebrile with a T-max of 101.2F this morning, the patient is hemodynamically stable and not requiring pressor support, the patient FiO2 is stable at 35%, no significant purulent secretions through the ET or any other changes were reported by the nursing st aff Objective - Vital Signs Vital signs: Vital Signs Temp 99.6 F 02/06/22 12:00 Pulse 111 H 02/06/22 13:00 Resp 29 H 02/06/22 13:00 BP 144/76 02/06/22 04:00 Pulse Ox 98 02/06/22 13:00 Intake & Output 02/05/22 02/06/22 02/06/22 18:59 06:59 18:59 Intake Total 2670.773 2707.638 973.81 Output Total 3195 2190 3905 Balance -524.227 517.638 -2931.19 Weight 146.6 kg 143.7 kg Intake: IV 1555 1755 200 .9 KVO 230 180 Anidulafungin 100 mg In 100 Sodium Chloride 0.9% 100 ml @ 84 mls/hr IVPB DAILY [facility] Rx#:[id number] Magnesium Sulfate-D5w Pmx 200 1 gm In Dextrose/Water 1 100ml.bag @ 100 mls/hr IVPB Q1H [facility] Rx#: [id number] Mvi, Adult No.4 with Vit 725 1300 K 10 ml Trace (Conc-1Ml/ Dose) 1 ml Potassium Phosphate 15 mmol Sodium Acetate 30 meq Magnesium Sulfate gm 0.5 gm Calcium Chloride 0.33 gm In Amino Acid 5%-D15w 1,000 ml @ 85 mls/hr IV .BY DURATION [facility] Rx#: [id number] Piperacillin-Tazobactam 3 100 75 .375 gm In Sodium Chloride 0.9% 100 ml @ 25 mls/hr IVPB Q8HR [facility] Rx# :[id number] Potassium Chloride 20 meq 300 In Water For Injection 1 100ml.bag @ 50 mls/hr IVPB Q2H [facility] Rx#: [id number] Potassium Chloride 20 meq 100 In Water For Injection 1 100ml.bag @ 50 mls/hr IVPB Q2H [facility] Rx#: [id number] levETIRAcetam IV 500 mg 100 100 In Sodium Chloride 0.9% 100 ml @ 400 mls/hr IVPB Q12HR [facility] Rx#:[id number] Intake, IV Titration 860.773 952.638 173.81 Amount Amiodarone 450 mg In 250 Dextrose 5% in Water 250 ml @ 0.5 MG/MIN 16.667 mls/hr IV .Q15H [facility] Rx#: [id number] Dexmedetomidine/0.9% NaCl 295.138 (Pmx) 400 mcg In Empty Bag 1 bag @ 0.2 MCG/KG/HR 7.375 mls/hr IV .[id number] [facility] Rx#:[id number] Heparin Sod,Pork in 0.45% 248.033 485.875 NaCl 25,000 unit In 0.45 % NaCl 1 250ml.bag @ 17. 38 UNITS/KG/HR 22.994 mls /hr IV .[id number] [facility] Rx#: [id number] propofoL 1,000 mg In 67.602 466.763 173.81 Empty Bag 1 bag @ 5 MCG/ KG/MIN 3.919 mls/hr IV . Q24H [facility] Rx#:[id number] TPN/PPN 255 600 .9 KVO 255 Mvi, Adult No.4 with Vit 600 K 10 ml Trace (Conc-1Ml/ Dose) 1 ml Potassium Phosphate 15 mmol Sodium Acetate 30 meq Magnesium Sulfate gm 0.5 gm Calcium Chloride 0.33 gm In Amino Acid 5%-D15w 1,000 ml @ 85 mls/hr IV .BY DURATION [facility] Rx#: [id number] Output: Gastric Drainage 8579 166 0455 Urine 1445 1540 1805 Other: Voiding Method Indwelling Catheter Indwelling Catheter ABP, PAP, CO, CI - Last Documented Arterial Blood Pressure 149/57 - Exam GENERAL DESCRIPTION: An elderly male intubated on the vent RESPIRATORY SYSTEM: Unlabored breathing , decreased breath sounds at bases HEART: S1 S2 regular rate and rhythm , ABDOMEN: Soft , midline incision is covered with a wound VAC EXTREMITIES: No edema feet - Labs CBC & Chem 7: 02/06/22 04:50 02/06/22 04:50 Labs: Abnormal Lab Results - Last 24 Hours (Table) 02/05/22 02/05/22 02/05/22 Range/Units 18:13 18:30 23:50 WBC (3.8-10.6) k/uL RBC (4.30-5.90) m/uL Hgb (13.0-17.5) gm/dL Hct (39.0-53.0) % RDW (11.5-15.5) % Neutrophils # (Manual) (1.3-7.7) k/uL Metamyelocytes # (Man) (0) k/uL Myelocytes # (Manual) (0) k/uL Nucleated RBCs (0-0) /100 WBC APTT (22.0-30.0) sec ABG HCO3 (21-25) mmol/L ABG Total CO2 (19-24) mmol/L Potassium 3.3 L (3.5-5.1) mmol/L Chloride (98-107) mmol/L BUN (9-20) mg/dL Creatinine (0.66-1.25) mg/dL Glucose (74-99) mg/dL POC Glucose (mg/dL) 258 H 213 H (75-99) mg/dL Calcium (8.4-10.2) mg/dL Total Protein (6.3-8.2) g/dL Albumin (3.5-5.0) g/dL 02/06/22 02/06/22 02/06/22 Range/Units 04:50 04:50 04:50 WBC 18.8 H (3.8-10.6) k/uL RBC 2.59 L (4.30-5.90) m/uL Hgb 7.6 L (13.0-17.5) gm/dL Hct 24.4 L (39.0-53.0) % RDW 16.1 H (11.5-15.5) % Neutrophils # (Manual) 12.20 H (1.3-7.7) k/uL Metamyelocytes # (Man) 1.13 H (0) k/uL Myelocytes # (Manual) 0.38 H (0) k/uL Nucleated RBCs 4 H (0-0) /100 WBC APTT 41.0 H (22.0-30.0) sec ABG HCO3 (21-25) mmol/L ABG Total CO2 (19-24) mmol/L Potassium (3.5-5.1) mmol/L Chloride 109 H (98-107) mmol/L BUN 22 H (9-20) mg/dL Creatinine 0.54 L (0.66-1.25) mg/dL Glucose 200 H (74-99) mg/dL POC Glucose (mg/dL) (75-99) mg/dL Calcium 7.6 L (8.4-10.2) mg/dL Total Protein 4.6 L (6.3-8.2) g/dL Albumin 2.1 L (3.5-5.0) g/dL 02/06/22 02/06/22 02/06/22 Range/Units 05:53 06:03 11:30 WBC (3.8-10.6) k/uL RBC (4.30-5.90) m/uL Hgb (13.0-17.5) gm/dL Hct (39.0-53.0) % RDW (11.5-15.5) % Neutrophils # (Manual) (1.3-7.7) k/uL Metamyelocytes # (Man) (0) k/uL Myelocytes # (Manual) (0) k/uL Nucleated RBCs (0-0) /100 WBC APTT (22.0-30.0) sec ABG HCO3 26 H (21-25) mmol/L ABG Total CO2 28 H (19-24) mmol/L Potassium (3.5-5.1) mmol/L Chloride (98-107) mmol/L BUN (9-20) mg/dL Creatinine (0.66-1.25) mg/dL Glucose (74-99) mg/dL POC Glucose (mg/dL) 227 H 251 H (75-99) mg/dL Calcium (8.4-10.2) mg/dL Total Protein (6.3-8.2) g/dL Albumin (3.5-5.0) g/dL Microbiology - Last 24 Hours (Table) 02/01/22 06:30 Blood Culture - Preliminary Blood No Growth after 120 hours 01/30/22 10:43 Blood Culture - Final Blood No Growth after 144 hours 01/30/22 10:30 Blood Culture - Final Blood No Growth after 144 hours Assessment and Plan (1) Pelvic abscess Current Visit: Yes Status: Acute Code(s): [id number] - SNOMED Code(s): 860107005 Plan: 1patient presented to hospital with sepsis secondary abdominal source in this patient who recently did have a sigmoidectomy now with evidence of anastomosis leak and pelvic abscess patient is status post laparotomy drainage of the abscess unfortunately cultures were not done will need to cover for the enteric gram-negative to be the likely pathogen. 2 patient did have a low-grade fever and elevated white count CT of the chest abdominal pelvis was done yesterday with evidence of possible small abscess around the anastomosis site, patient has been considered to be high risk to go for the surgery and the is considering possible hospice care which may be appropriate, patient is covered with the prospect of antibiotic in the form of Zosyn and daptomycin and Eraxis , at the bedside she did have multiple questions and concerns those were answered in Layman terms Time with Patient: Less than 30
== END 2022-02-06 19:10 | disposition expired | DRG 856 ==
LOC: EC 09:13 → 4SSUR 12:41 → 2SICU 17:17
PROVIDERS: ADMIT Surgery; ATTEND Surgery
PROC: 0D1L0Z4 Bypass Transverse Colon to Cutaneous, Open Approach (ICD-10-PCS; principal; 2022-01-30 12:05)
PROC: 0W9J0ZZ Drainage of Pelvic Cavity, Open Approach (ICD-10-PCS; principal; 2022-01-30 12:05)
PROC: 0DBU0ZZ Excision of Omentum, Open Approach (ICD-10-PCS; principal; 2022-01-30 12:05)
PROC: 0DB80ZZ Excision of Small Intestine, Open Approach (ICD-10-PCS; principal; 2022-01-30 12:05)
PROC: 5A1955Z Respiratory Ventilation, Greater than 96 Consecutive Hours (ICD-10-PCS; 2022-01-30 12:05)
PROC: 03HY32Z Insertion of Monitoring Device into Upper Artery, Percutaneous Approach (ICD-10-PCS; 2022-01-31)
PROC: 3E043XZ Introduction of Vasopressor into Central Vein, Percutaneous Approach (ICD-10-PCS; 2022-01-31)
PROC: 4A133B1 Monitoring of Arterial Pressure, Peripheral, Percutaneous Approach (ICD-10-PCS; 2022-01-31)
PROC: 4A133J1 Monitoring of Arterial Pulse, Peripheral, Percutaneous Approach (ICD-10-PCS; 2022-01-31)
PROC: 3E0436Z Introduction of Nutritional Substance into Central Vein, Percutaneous Approach (ICD-10-PCS; 2022-02-03)
PROC: 30233N1 Transfusion of Nonautologous Red Blood Cells into Peripheral Vein, Percutaneous Approach (ICD-10-PCS; 2022-02-04)
DX: T81.42XA Infection following a procedure, deep incisional surgical site, initial encounter (principal); J96.01 Acute respiratory failure with hypoxia; I26.99 Other pulmonary embolism without acute cor pulmonale; K65.1 Peritoneal abscess; R65.21 Severe sepsis with septic shock; K91.89 Other postprocedural complications and disorders of digestive system; I82.432 Acute embolism and thrombosis of left popliteal vein; K56.609 Unspecified intestinal obstruction, unspecified as to partial versus complete obstruction; R18.8 Other ascites; C19 Malignant neoplasm of rectosigmoid junction; C91.11 Chronic lymphocytic leukemia of B-cell type in remission; J98.11 Atelectasis; K92.1 Melena; Z68.41 Body mass index [BMI] 40.0-44.9, adult; T81.44XA Sepsis following a procedure, initial encounter; I27.21 Secondary pulmonary arterial hypertension; R16.0 Hepatomegaly, not elsewhere classified; G40.909 Epilepsy, unspecified, not intractable, without status epilepticus; I48.0 Paroxysmal atrial fibrillation; E11.9 Type 2 diabetes mellitus without complications; Z79.4 Long term (current) use of insulin; Z66 Do not resuscitate; Z51.5 Encounter for palliative care; E66.9 Obesity, unspecified; Z20.822 Contact with and (suspected) exposure to COVID-19; D63.0 Anemia in neoplastic disease; E83.42 Hypomagnesemia; E87.6 Hypokalemia; E78.5 Hyperlipidemia, unspecified; I10 Essential (primary) hypertension; N40.0 Benign prostatic hyperplasia without lower urinary tract symptoms; I25.10 Atherosclerotic heart disease of native coronary artery without angina pectoris; M19.90 Unspecified osteoarthritis, unspecified site; H91.90 Unspecified hearing loss, unspecified ear; I25.2 Old myocardial infarction; F32.A Depression, unspecified; F41.9 Anxiety disorder, unspecified; Z79.84 Long term (current) use of oral hypoglycemic drugs; Z79.899 Other long term (current) drug therapy; Z95.5 Presence of coronary angioplasty implant and graft; Z87.891 Personal history of nicotine dependence; Z87.19 Personal history of other diseases of the digestive system; Z86.711 Personal history of pulmonary embolism; Z85.72 Personal history of non-Hodgkin lymphomas; Z98.890 Other specified postprocedural states; Z71.3 Dietary counseling and surveillance; Z88.0 Allergy status to penicillin; Z88.2 Allergy status to sulfonamides; Y83.2 Surgical operation with anastomosis, bypass or graft as the cause of abnormal reaction of the patient, or of later complication, without mention of misadventure at the time of the procedure; Y92.009 Unspecified place in unspecified non-institutional (private) residence as the place of occurrence of the external cause; Z80.1 Family history of malignant neoplasm of trachea, bronchus and lung; Z80.8 Family history of malignant neoplasm of other organs or systems
CPT/HCPCS: 36415; 71045; 71260; 71275; 74177; 80048; 80053; 82140; 82272; 82330; 82533; 82805; 83605; 83690; 83735; 83880; 84100; 84132; 84484; 85025; 85027; 85610; 85730; 86140; 86850; 86900; 86901; 86920; 87040; 87636; 88307; 88341; 88342; 93005; 93970; 94002; 94003; 96361; 96365; 96367; 96375; 99291